=== PATIENT | female | born 1980 | race Two or more races ===

== ENCOUNTER 2020-12-12 15:19 | Outpatient (REF) | payer OTHER, SELFPAY | END 2020-12-12 15:20 | disposition home or self-care (01) | LOC: HO.LAB 15:19 | PROVIDERS: Visit Provider Internal Medicine | DX: Z20.822 Contact with and (suspected) exposure to COVID-19 (principal) | CPT/HCPCS: 36415; C9803; U0003 ==

== ENCOUNTER 2020-12-18 12:35 | Emergency (ER) | payer OTHER, SELFPAY ==
--- NOTE | 2020-12-18 12:55 | ECG_ITS ---
Test Reason : CP Blood Pressure : / mmHG Vent. Rate : 095 BPM Atrial Rate : 095 BPM P-R Int : 146 ms QRS Dur : 074 ms QT Int : 334 ms P-R-T Axes : 016 005 002 degrees QTc Int : 419 ms Normal sinus rhythm Minimal voltage criteria for LVH, may be normal variant Borderline ECG When compared with ECG of 15-APR-2019 12:44, Vent. rate has increased BY 39 BPM QT has lengthened Referred By: Didi Acuña Electronically Signed By:DAWSON WOODARD
--- NOTE | 2020-12-18 12:56 | XR_ITS ---
EXAMINATION: XR CHEST CLINICAL INFORMATION: Chest pain. Covid positive. COMPARISON: None TECHNIQUE: Frontal view of the chest was obtained. FINDINGS: There is minimal patchy opacity in the right lower lung. The lungs are otherwise clear. The pleural spaces are clear. The heart and mediastinal structures are normal. XR/XR chest 1V IMPRESSION: Minimal patchy opacity right lung base.
--- NOTE | 2020-12-18 12:58 | ED.CHESTPAIN ---
HPI - Chest Pain General Chief Complaint: Upper Respiratory Symptoms Stated Complaint: chest pain Time Seen by Provider: 12/18/20 12:55 Source: patient Mode of arrival: ambulatory Limitations: no limitations History of Present Illness HPI narrative: 40 y/o female with history of asthma, anxiety, IBS, palpitations, HLD, hx UTI & GERD who was just diagnosed with COVID-19 on 12/12 presents to the ED with complaints of chest pain, back pain, persistent cough and body aches worsening over the last week. She states the chest pain is constant but is worse with coughing and deep breathing. She states her cough is dry and worse at night. She has not had any fevers but admits to chills. Her entire back is sore and she has been taking Tylenol with no improvement. She reports GONZALEZ more than usual and she has been using her inhaler without improvement. MD complaint: chest pain Pertinent past history: asthma Onset (ago): week(s) (1) Timing of current episode: constant Prior episodes: No Onset: during rest and during exertion Pain location: left chest and right chest Pain radiation: none Severity: moderate Quality: aching and heaviness Relieving factors: nothing Exacerbating factors: inspiration, palpation, movement and other (coughing) Context: recent illness Associated symptoms: nausea, dyspnea and cough Treatment prior to arrival: none Risk Factors Coronary artery disease risk factors: none Thoracic aortic dissection risk factors: none Related Data On Oral Contraceptives: No Home Medications Medication Instructions Recorded Confirmed loratadine 10 mg tablet 10 mg PO DAILY 12/14/20 12/14/20 lorazepam 0.5 mg tablet 0.5 mg PO BEDTIME PRN 12/14/20 12/14/20 Previous Rx's Medication Instructions Recorded albuterol sulfate 90 mcg/actuation 2 puff INHALATION Q6H PRN 30 Days 12/14/20 aerosol inhaler #8.5 g azithromycin [Zithromax Z-Jeremy] See Rx Instructions .ROUTE 12/18/20 .COMPLEX #6 tab hydrocodone-homatropine [Hycodan 5 ml PO Q6H PRN #60 ml 12/18/20 (with homatropine)] ondansetron HCl [Zofran] 4 mg PO Q8H PRN #10 tab 12/18/20 prednisone 40 mg PO DAILY #10 tab 12/18/20 Allergies Allergy/AdvReac Type Severity Reaction Status Date / Time No Known Allergies Allergy Verified 12/14/20 16:42 Review of Systems Review of Systems: Constitutional: No Fever, + Chills ENT/Mouth: + sore throat, No Rhinorrhea, No Swallowing Difficulty Cardiovascular: + Chest Pain, + SOB, No Orthopnea, No Edema Respiratory: + Cough, No Sputum, No Wheezing, + dyspnea Gastrointestinal: + Nausea, No Vomiting, No Diarrhea, No abdominal Pain Genitourinary: No Dysuria, No Urinary Frequency, No Hematuria Musculoskeletal: No joint pain, + Myalgias Skin: No Skin Lesions, No rash Neuro: No Weakness, No Numbness, No Dizziness, + Headache Heme/Lymph: No Bruising, No Lymphadenopathy PMFSH Past Medical History Attestation statement: The following information was validated with the patient. Medical History Asthma Irritable bowel syndrome (IBS) Mitochondrial cytopathy Palpitations Surgical History History of D&C History of mammogram History of myringotomy History of tonsillectomy and adenoidectomy Social History Social History (Updated 12/14/20 @ 16:02 by KANDACE Bolton) Alcohol intake: never Smoking Status: Never smoker Use of substances other than those prescribed or required for medical reasons: No Advance Directives: No Advance Directives Information Provided: No Physical Exam Vital Signs: Vital Signs: Last Vital Signs Temp 100.0 F 12/18/20 14:22 Pulse 101 H 12/18/20 14:22 Resp 19 12/18/20 14:22 BP 118/73 12/18/20 14:22 Pulse Ox 98 12/18/20 14:22 Body Mass Index 27.4 Appearance: Alert. Oriented X3. No acute distress. Eyes: Pupils equal, round and reactive to light. ENT: Pharynx normal. Neck: Normal inspection. Neck supple. CVS: tachycardic, regular rhythm. Pulses normal. mild anterior chest wall tenderness Respiratory: No respiratory distress. Breath sounds normal. No wheezing or rhonchi. Abdomen: Soft and nontender. +BS x4 Skin: Skin warm and dry. Normal skin color. Normal skin turgor. No rashes. Extremities: No lower extremity edema. Neuro: Oriented X 3. No motor deficit. No sensory deficit. Course Course Course Narrative: 40 y/o COVID positive female presenting with SOB, GONZALEZ, chest pain, back pain, cough worsening over 1 week. Non-toxic appearing on arrival, mildly tachycardic. Will get EKG and lab workup to r/o ACS and PE. Reevaluation(s) Reevaluation #1: CXR showing possible RLL infiltrate - will treat with Prednisone and Azithromycin givne asthma hx. DDIMER negative, reassuring against PE. Troponin 6, very low suspicion for ACS. Patient does not want to wait for a 3 hour repeat. Comfortable with discharge home. She was told if she develops any worsening symptoms or develops difficultly breathing to come back to the ER right away. MDM - Chest Pain Lab Data Result diagrams: 12/18/20 15:15 12/18/20 15:15 Labs: Lab Results 12/18/20 12/18/20 12/18/20 Range/Units 15:15 15:15 15:15 WBC 5.5 (4.8-10.8) X10*3/uL RBC 3.99 L (4.20-5.50) X10*6/uL Hgb 12.5 (12.0-16.0) g/dl Hct 36.1 L (37-47) % MCV 90.5 (80-98) fL MCH 31.3 (27.0-33.0) pg MCHC 34.6 (31.0-35.0) g/dl RDW 12.6 (11.0-16.0) % Plt Count 209 (160-400) X10*3/uL MPV 9.6 (9.4-12.3) fL Immature Gran % (Auto) 0.2 (0.0-0.4) % Neut % (Auto) 64.4 (45-73) % Lymph % (Auto) 27.3 (20-40) % [place] % (Auto) 7.5 (2-11) % Eos % (Auto) 0.4 (0-4) % Baso % (Auto) 0.2 (0-2) % Lymph # (Auto) 1.5 (1.2-4.9) X10*3/uL [place] # (Auto) 0.4 (0.1-1.2) X10*3/uL Eos # (Auto) 0.0 (0.0-0.4) X10*3/uL Baso # (Auto) 0.0 (0.0-0.2) X10*3/uL Abs Immat Gran (auto) 0.01 (0.00-0.03) X10*3/uL Absolute Neuts (auto) 3.5 (2.0-8.3) X10*3/uL Absolute Nucleated RBC 0.000 (0.0-0.012) X10*3/uL Nucleated RBC % (auto) 0.0 (0.0-0.2) /100WBC D-Dimer < 200 NG/ML Hold Blue Top SEE NOTE Sodium 140 (135-145) mmol/L Potassium 3.6 (3.3-5.1) mmol/l Chloride 104 (96-108) mmol/L Carbon Dioxide 23 (22-29) mmol/L Anion Gap 17 (12-20) BUN 13 (9-16) mg/dL Creatinine 0.76 (0.5-1.4) mg/dL Estim Creat Clear Calc 95.0 Estimated GFR > 60 Random Glucose 87 (60-115) mg/dL Calcium 8.3 L (8.4-10.2) mg/dL Magnesium 1.8 (1.6-2.6) mg/dL Total Bilirubin 0.4 (0.0-1.0) mg/dL Direct Bilirubin 0.2 (0.0-0.5) mg/dL AST 29 (5-31) U/L ALT 30 (0-31) U/L Alkaline Phosphatase 65 (39-117) U/L Troponin I High Sens (<3.5-17.0) ng/L C-Reactive Protein 3.43 H (< or = 0.50) mg/dL B-Natriuretic Peptide (<100) pg/mL Total Protein 7.5 (6.5-8.0) g/dL Albumin 4.3 (3.5-5.0) g/dL 12/18/20 Range/Units 15:15 WBC (4.8-10.8) X10*3/uL RBC (4.20-5.50) X10*6/uL Hgb (12.0-16.0) g/dl Hct (37-47) % MCV (80-98) fL MCH (27.0-33.0) pg MCHC (31.0-35.0) g/dl RDW (11.0-16.0) % Plt Count (160-400) X10*3/uL MPV (9.4-12.3) fL Immature Gran % (Auto) (0.0-0.4) % Neut % (Auto) (45-73) % Lymph % (Auto) (20-40) % [place] % (Auto) (2-11) % Eos % (Auto) (0-4) % Baso % (Auto) (0-2) % Lymph # (Auto) (1.2-4.9) X10*3/uL [place] # (Auto) (0.1-1.2) X10*3/uL Eos # (Auto) (0.0-0.4) X10*3/uL Baso # (Auto) (0.0-0.2) X10*3/uL Abs Immat Gran (auto) (0.00-0.03) X10*3/uL Absolute Neuts (auto) (2.0-8.3) X10*3/uL Absolute Nucleated RBC (0.0-0.012) X10*3/uL Nucleated RBC % (auto) (0.0-0.2) /100WBC D-Dimer NG/ML Hold Blue Top Sodium (135-145) mmol/L Potassium (3.3-5.1) mmol/l Chloride (96-108) mmol/L Carbon Dioxide (22-29) mmol/L Anion Gap (12-20) BUN (9-16) mg/dL Creatinine (0.5-1.4) mg/dL Estim Creat Clear Calc Estimated GFR Random Glucose (60-115) mg/dL Calcium (8.4-10.2) mg/dL Magnesium (1.6-2.6) mg/dL Total Bilirubin (0.0-1.0) mg/dL Direct Bilirubin (0.0-0.5) mg/dL AST (5-31) U/L ALT (0-31) U/L Alkaline Phosphatase (39-117) U/L Troponin I High Sens 6.2 (<3.5-17.0) ng/L C-Reactive Protein (< or = 0.50) mg/dL B-Natriuretic Peptide < 10 (<100) pg/mL Total Protein (6.5-8.0) g/dL Albumin (3.5-5.0) g/dL Discharge Plan Discharge Clinical Impression: COVID-19 Pneumonia Qualifiers: Pneumonia type: due to unspecified organism Laterality: right Lung location: lower lobe of lung Qualified Code(s): J18.9 - Pneumonia, unspecified organism Patient Disposition: Home, Self-Care Instructions: Pneumonia (ED), COVID-19 (Coronavirus Disease 2019) (ED) Additional Instructions: Your x-ray today showed possible small pneumonia at the bottom of your right lung. You are being started on antibiotics and steroids for this. Your oxygen levels were normal. Take Tylenol and/or Motrin as needed for body aches and fevers. Take over the counter cold/flu medications as needed for your symptoms. Follow up with your doctor this week. If you develop worsening chest pain, shortness of breath or develop difficulty breathing or any other concerning symptom come back to the ER for further evaluation. Prescriptions: New azithromycin [Zithromax Z-Jeremy] 250 mg tablet See Rx Instructions .ROUTE .COMPLEX Qty: 6 RF: 0 prednisone 20 mg tablet 40 mg PO DAILY Qty: 10 RF: 0 hydrocodone-homatropine [Hycodan (with homatropine)] 5-1.5 mg/5 mL syrup 5 ml PO Q6H PRN (Reason: cough) Qty: 60 RF: 0 ondansetron HCl [Zofran] 4 mg tablet 4 mg PO Q8H PRN (Reason: nausea and vomiting) Qty: 10 RF: 0 No Action lorazepam 0.5 mg tablet 0.5 mg PO BEDTIME PRN (Reason: anxiety) RF: 0 loratadine 10 mg tablet 10 mg PO DAILY RF: 0 albuterol sulfate [Ventolin HFA] 90 mcg/actuation HFA aerosol inhaler 2 puff inhalation Q6H PRN (Reason: shortness of breath or wheezing) 30 Days Qty: 8.5 RF: 5
[2020-12-18 14:22] VITALS: BP 118/73; PULSE 101; RESP 19; TEMP 37.8; O2SAT 98; BMI 27.4
[2020-12-18 15:35] LABS: MANUAL DIFF FLAG NO
[2020-12-18 15:36] LABS: Basophils Percent Auto 0.2 % (0-2); Eosinophils Percent Auto 0.4 % (0-4); Hematocrit 36.1 % (37-47); Hemoglobin 12.5 g/dl (12.0-16.0); Imm Gran Abs Auto 0.01 X10*3/uL (0.00-0.03); Imm Gran Pct Auto 0.2 % (0.0-0.4); Lymphocytes Absolute Auto 1.5 X10*3/uL (1.2-4.9); Lymphocytes Percent Auto 27.3 % (20-40); Mean Corpuscular HGB Conc 34.6 g/dl (31.0-35.0); Mean Corpuscular Hemoglobin 31.3 pg (27.0-33.0); Mean Corpuscular Volume 90.5 fL (80-98); Mean Platelet Volume 9.6 fL (9.4-12.3); Monocytes Absolute Auto 0.4 X10*3/uL (0.1-1.2); Monocytes Percent Auto 7.5 % (2-11); Neutrophils Absolute Auto 3.5 X10*3/uL (2.0-8.3); Neutrophils Percent Auto 64.4 % (45-73); Platelet Count 209 X10*3/uL (160-400); Red Blood Count 3.99 X10*6/uL (4.20-5.50); Red Cell Distribution Width 12.6 % (11.0-16.0); White Blood Count 5.5 X10*3/uL (4.8-10.8)
[2020-12-18] MEDS: Benzonatate 100 MG CAPSULE 200 MG PO (15:41)
[2020-12-18] MEDS: Acetaminophen 325 MG TABLET 650 MG PO (15:41)
[2020-12-18] MEDS: predniSONE 20 MG TABLET 40 MG PO (15:41)
[2020-12-18 15:53] LABS: D Dimer < 200 NG/ML
[2020-12-18 16:05] LABS: Alanine Aminotransferase 30 U/L (0-31); Albumin Level 4.3 g/dL (3.5-5.0); Alkaline Phosphatase 65 U/L (39-117); Anion Gap 17 (12-20); Aspartate Amino Transferase 29 U/L (5-31); Bilirubin Direct 0.2 mg/dL (0.0-0.5); Bilirubin Total 0.4 mg/dL (0.0-1.0); Blood Urea Nitrogen 13 mg/dL (9-16); C Reactive Protein 3.43 mg/dL (< or = 0.50); Calcium 8.3 mg/dL (8.4-10.2); Carbon Dioxide 23 mmol/L (22-29); Chloride 104 mmol/L (96-108); Estimated Glomerular Filt Rate > 60; Glucose Random 87 mg/dL (60-115); Magnesium 1.8 mg/dL (1.6-2.6); Potassium 3.6 mmol/l (3.3-5.1); Sodium 140 mmol/L (135-145); Total Protein 7.5 g/dL (6.5-8.0)
[2020-12-18 16:09] LABS: B Type Natriuretic Peptide < 10 pg/mL (<100); Troponin-I High Sensitivity 6.2 ng/L (<3.5-17.0)
[2020-12-18 16:58] LABS: Procalcitonin 0.04 ng/mL
== END 2020-12-18 16:26 | disposition home or self-care (01) ==
PROVIDERS: Physician Assistant; Emergency Provider Emergency Medicine Emergency Medical Services; PCP Internal Medicine
DX: U07.1 COVID-19 (principal); J18.9 Pneumonia, unspecified organism; R07.9 Chest pain, unspecified; Z79.899 Other long term (current) drug therapy
CPT/HCPCS: 36415; 71045; 80048; 80076; 83735; 83880; 84145; 84484; 85025; 85379; 86140; 93005; 99283

== ENCOUNTER 2021-03-17 15:47 | Outpatient (REF) | payer OTHER, SELFPAY | END 2021-03-17 15:48 | disposition home or self-care (01) | LOC: HO.LAB 15:47 | PROVIDERS: Visit Provider Internal Medicine | DX: Z20.822 Contact with and (suspected) exposure to COVID-19 (principal) | CPT/HCPCS: C9803; U0003; U0005 ==

== ENCOUNTER 2021-05-03 | Outpatient (REF) | payer OTHER, SELFPAY | END 2021-05-03 00:01 | disposition home or self-care (01) | LOC: HO.LNP | PROVIDERS: Visit Provider Hospitalist | DX: R30.0 Dysuria (principal) | CPT/HCPCS: 87086 ==

== ENCOUNTER 2021-05-05 15:17 | Emergency (ER) | payer OTHER, SELFPAY ==
--- NOTE | ~2021-05-05 | CT_ITS ---
EXAMINATION: CT ABDOMEN AND PELVIS WITHOUT CONTRAST CLINICAL INFORMATION: Right-sided flank pain x1 week with lower abdominal pain COMPARISON: None TECHNIQUE: Multidetector volumetric imaging was performed from the superior aspect of the liver through the pubic symphysis. Sagittal and coronal reformatted images were obtained on the technologist's workstation. This CT examination was performed using dose optimization techniques as appropriate, variously including the following: *Automated exposure control *Adjustment of mA and/or kV according to patient size (this includes techniques or standardized protocols for targeted exams where dose is matched to indication/reason for exam; i.e. extremities or head) *Use of iterative reconstruction technique DLP: 461 mGy-cm FINDINGS: LUNG BASES: The visualized lung bases are unremarkable. LIVER, GALLBLADDER, AND BILIARY TREE: The liver is normal in size, shape, and attenuation. No focal hepatic lesion or biliary ductal dilatation is present. The gallbladder is unremarkable with no evidence of radiopaque gallstones, gallbladder wall thickening, or obvious pericholecystic inflammatory changes. PANCREAS: Unremarkable. SPLEEN: Unremarkable. ADRENAL GLANDS: Unremarkable. KIDNEYS AND URETERS: The kidneys are normal in size, shape, and attenuation. No hydronephrosis, hydroureter, or calculi seen. No perinephric stranding. BLADDER: There is a tiny punctate 1 to 2 mm sized calculus which is layering posteriorly in the midline in the bladder, which may have come from the upper tracts. Alternatively, this could represent a tiny area of calcification within the wall of the bladder. GASTROINTESTINAL TRACT: A small hiatal hernia is present The small and large bowel are unremarkable. The appendix is not seen but there is no evidence of appendicitis. ABDOMINAL WALL: No significant hernia is appreciated. LYMPH NODES: No retroperitoneal lymphadenopathy seen VASCULAR: Unremarkable. PELVIC VISCERA: An anteverted uterus is present. An abnormal adnexal mass or free intraperitoneal fluid is not seen. OSSEOUS STRUCTURES: Unremarkable. CT/CT abdomen pelvis wo con IMPRESSION: There appears to be a tiny calculus in the bladder. Perhaps this was causing the patient's right flank pain and the tiny stone is now in the bladder causing irritative symptoms. No other abnormalities are seen.
[2021-05-05 16:10] VITALS: BP 124/73; PULSE 68; RESP 16; TEMP 37.1; O2SAT 99; BMI 25.7
[2021-05-05 16:51] LABS: Glucose Urine UA NEG (NEG); Leukocyte Esterase Urine NEG (NEG); Nitrite Urine NEG (NEG); Specific Gravity - Urine <= 1.005 (1.005-1.025); Urine Blood NEG (NEG); Urine Ketones NEG (NEG); Urine Protein NEG (NEG-TRACE)
[2021-05-05 17:05] LABS: Appearance Urine CLEAR; Color Urine YELLOW
[2021-05-05 17:08] LABS: RBC Urine 0-2 /HPF (0); Squamous Epithelial Cell Urine TRACE /LPF; WBC Urine 0-2 /HPF (0-4)
--- NOTE | 2021-05-05 17:13 | ED.FEMALEGU ---
HPI - Female Genitourinary General Chief complaint: Urogenital-Female <YIAN Deal - Last Filed: 05/05/21 17:43> Stated complaint: UTI? <YINA Deal - Last Filed: 05/05/21 17:43> Time Seen by Provider: 05/05/21 16:57 <YINA Deal - Last Filed: 05/05/21 17:43> Source: patient and old records reviewed <YINA Deal Last Filed: 05/05/21 17:43> Mode of arrival: ambulatory <YINA Deal Last Filed: 05/05/21 17:43> Limitations: no limitations <YINA Deal Last Filed: 05/05/21 17:43> History of Present Illness HPI Narrative: 40 y/o female with history of asthma, genital herpes, who presents to the ER with right flank pain and lower abdominal pain x1 week. She denies trauma or injury. She was seen at the clinic on 05/03 with lower abdominal pain when she urinates. Her urine was negative but she was prescribed Ciprofloxacin pending urine culture. She denies dysuria. She has been taking Motrin and Tylenol with no improvement. She states the most bothersome pain is on her right flank. It is constant and throbbing but intensifies when she stands up for too long. Not worse with movement but worse with palpation. She also reports suprapubic pain when she urinates, no burning urination. No fever, chills, N/V/D. No RUQ pain. She is not sexually active. <YINA Deal - Last Filed: 05/05/21 17:43> MD elicited complaint: flank pain <YINA Deal Last Filed: 05/05/21 17:43> Pertinent past history: STI/STD <YINA Deal Last Filed: 05/05/21 17:43> Onset (ago): week(s) (1) <YINA Deal Last Filed: 05/05/21 17:43> Location of symptoms: flank <YINA Deal Last Filed: 05/05/21 17:43> Severity: moderate <YINA Deal - Last Filed: 05/05/21 17:43> Female Urogenital Radiation: Suprapubic <YINA Deal - Last Filed: 05/05/21 17:43> Severity scale (1-10): 7 <YINA Deal - Last Filed: 05/05/21 17:43> Quality of pain: sharp and stabbing <YINA Deal - Last Filed: 05/05/21 17:43> Consistency: constant <YINA Deal - Last Filed: 05/05/21 17:43> Vaginal discharge: none <YINA Deal - Last Filed: 05/05/21 17:43> Vaginal bleeding: none <YINA Deal - Last Filed: 05/05/21 17:43> Urinary symptoms: Urgency, Frequency and Flank Pain <YINA Deal - Last Filed: 05/05/21 17:43> Exacerbating factors: urination <YINA Deal - Last Filed: 05/05/21 17:43> Relieving factors: none <YINA Deal - Last Filed: 05/05/21 17:43> Associated symptoms: abdominal pain <YINA Deal - Last Filed: 05/05/21 17:43> Treatment prior to arrival: none <YINA Deal - Last Filed: 05/05/21 17:43> Sexual activity: No <YINA Deal - Last Filed: 05/05/21 17:43> Patient : No <YINA Deal - Last Filed: 05/05/21 17:43> Related Data Home medications: Previous Rx's Medication Instructions Recorded azithromycin [Zithromax Z-Jeremy] See Rx Instructions .ROUTE 12/18/20 .COMPLEX #6 tab ondansetron HCl [Zofran] 4 mg PO Q8H PRN #10 tab 12/18/20 prednisone 40 mg PO DAILY #10 tab 12/18/20 hydrocodone-homatropine [Hycodan 5 ml PO Q6H PRN #60 ml 12/19/20 (with homatropine)] albuterol sulfate 90 mcg/actuation 2 puff INHALATION Q6H PRN 30 Days 04/03/21 aerosol inhaler #8.5 g loratadine 10 mg tablet 10 mg PO DAILY PRN 30 Days #30 tab 04/04/21 lorazepam 0.5 mg tablet 0.5 mg PO BEDTIME PRN 30 Days #30 04/04/21 tab cyclobenzaprine 5 mg tablet 5 mg PO TID PRN 10 Days #30 tab 05/01/21 ciprofloxacin HCl 500 mg tablet 500 mg PO BID #14 tab 05/03/21 acetaminophen [Tylenol Extra 1,000 mg PO QID PRN #14 tab 05/05/21 Strength] ibuprofen 800 mg PO Q8H PRN #14 tab 05/05/21 ondansetron HCl [Zofran] 4 mg PO Q8H PRN #14 tab 05/05/21 oxycodone 5 mg PO BID PRN #10 tab 05/05/21 prednisone 40 mg PO DAILY 5 Days #10 tab 05/05/21 tamsulosin [Flomax] 0.4 mg PO DAILY 5 Days #5 cap 05/05/21 <YINA Deal - Last Filed: 05/05/21 17:43> Allergies/Adverse reactions: Allergies Allergy/AdvReac Type Severity Reaction Status Date / Time No Known Allergies Allergy Verified 05/03/21 16:09 <YINA Deal - Last Filed: 05/05/21 17:43> Review of Systems Review of Systems: Constitutional: No Fever, No Chills Cardiovascular: No Chest Pain, No SOB Respiratory: No Cough, No Sputum Gastrointestinal: No Nausea, No Vomiting, No Diarrhea, + abdominal Pain Genitourinary: No Dysuria, + Urinary Frequency, No Hematuria Musculoskeletal: No joint pain, No Myalgias Skin: No Skin Lesions, No rash Neuro: No Weakness, No Numbness, No Dizziness, No Headache Psych: No Anxiety/Panic, No Depression Heme/Lymph: No Bruising, No Lymphadenopathy Endocrine: No Polyuria, No Polydipsia <YINA Deal - Last Filed: 05/05/21 17:43> [facility] Past Medical History Medical History: Medical History Asthma Irritable bowel syndrome (IBS) Mitochondrial cytopathy Palpitations <YINA Deal - Last Filed: 05/05/21 17:43> Surgical History: Surgical History History of D&C History of mammogram History of myringotomy History of tonsillectomy and adenoidectomy <YINA Deal - Last Filed: 05/05/21 17:43> Social History Social History: Social History Alcohol intake: never Advance Directives: No Advance Directives Information Provided: No Patient : No <YINA Deal - Last Filed: 05/05/21 17:43> Physical Exam Vital Signs: Vital Signs: Last Vital Signs Temp 98.7 F 05/05/21 16:10 Pulse 68 05/05/21 16:10 Resp 16 05/05/21 16:10 BP 124/73 05/05/21 16:10 Pulse Ox 99 05/05/21 16:10 Body Mass Index 25.7 Appearance: Alert. Oriented X3. No acute distress. Eyes: Pupils equal, round and reactive to light. ENT: Pharynx normal. Neck: Normal inspection. Neck supple. CVS: Normal heart rate and rhythm. Pulses normal. Respiratory: No respiratory distress. Breath sounds normal. Abdomen: Soft with mild suprapubic tenderness, +BS x4 + CVA tenderness on the right. Skin: Skin warm and dry. Normal skin color. Normal skin turgor. No rashes. Extremities: No lower extremity edema. Neuro: Oriented X 3. No motor deficit. No sensory deficit. <YINA Deal - Last Filed: 05/05/21 17:43> Vital Signs: Last Vital Signs Temp 98.7 F 05/05/21 16:10 Pulse 68 05/05/21 16:10 Resp 16 05/05/21 16:10 BP 124/73 05/05/21 16:10 Pulse Ox 99 05/05/21 16:10 Body Mass Index 25.7 <YINA Mccray - Last Filed: 05/05/21 19:24> Course Course Course Narrative: 40 y/o female presenting with right flank pain x1 week along with suprapubic pain when she urinates. No dysuria. UA is negative at clinic, compliant with Cipro. UA is also negative here. Given her tenderness in the right CVA area as well as lower abdomen, will get labs and CT scan for further evaluation. She is not sexually active, low suspicion for PID or STI. <YINA Deal - Last Filed: 05/05/21 17:43> Reevaluation(s) Reevaluation #1: CT performed, awaiting read and labs. Signed out to Janet Castellano PA-C who will f/u results and dispo patient. Anticipate d/c home. <YINA Deal Last Filed: 05/05/21 17:43> - signed out from MERRY Tolbert pending labs and CT scan abdomen pelvis. Labs returned all within normal limits. UA within normal limits no evidence of UTI. CT scan of abdomen and pelvis revealed a tiny calculus in the bladder therefore most likely this was a kidney stone. - will DC home with symptomatic treatment along with instructions to return if any new or worsening symptoms and referral to Dr. Hernandez the urologist and to follow up with primary care provider. Patient was given a copy of her CT scan results to take home she understands agrees with this plan. <YINA Mccray - Last Filed: 05/05/21 19:24> Time: 19:18 <YINA Mccray - Last Filed: 05/05/21 19:24> MDM - Female Genitourinary Medical Records Attestation: I reviewed the patient's medical records. <YINA Mccray Last Filed: 05/05/21 19:24> Lab Data Attestation: I reviewed the patient's lab results. <YINA Mccray Last Filed: 05/05/21 19:24> Result diagrams: : 05/05/21 18:16 05/05/21 18:16 <YINA Deal Last Filed: 05/05/21 17:43> Labs: Lab Results 05/05/21 05/05/21 05/05/21 Range/Units 16:38 17:05 18:16 WBC 7.4 (4.8-10.8) X10*3/uL RBC 4.03 L (4.20-5.50) X10*6/uL Hgb 12.8 (12.0-16.0) g/dl Hct 36.8 L (37-47) % MCV 91.3 (80-98) fL MCH 31.8 (27.0-33.0) pg MCHC 34.8 (31.0-35.0) g/dl RDW 12.6 (11.0-16.0) % Plt Count 252 (160-400) X10*3/uL MPV 9.1 L (9.4-12.3) fL Immature Gran % (Auto) 0.3 (0.0-0.4) % Neut % (Auto) 48.6 (45-73) % Lymph % (Auto) 38.3 (20-40) % [place] % (Auto) 8.9 (2-11) % Eos % (Auto) 3.6 (0-4) % Baso % (Auto) 0.3 (0-2) % Lymph # (Auto) 2.8 (1.2-4.9) X10*3/uL [place] # (Auto) 0.7 (0.1-1.2) X10*3/uL Eos # (Auto) 0.3 (0.0-0.4) X10*3/uL Baso # (Auto) 0.0 (0.0-0.2) X10*3/uL Abs Immat Gran (auto) 0.02 (0.00-0.03) X10*3/uL Absolute Neuts (auto) 3.6 (2.0-8.3) X10*3/uL Absolute Nucleated RBC 0.000 (0.0-0.012) X10*3/uL Nucleated RBC % (auto) 0.0 (0.0-0.2) /100WBC Hold Blue Top Sodium (135-145) mmol/L Potassium (3.3-5.1) mmol/L Chloride (96-108) mmol/L Carbon Dioxide (22-29) mmol/L Anion Gap (12-20) BUN (9-16) mg/dL Creatinine (0.5-1.4) mg/dL Estim Creat Clear Calc Estimated GFR Random Glucose (60-115) mg/dL Calcium (8.4-10.2) mg/dL Total Bilirubin (0.0-1.0) mg/dL Direct Bilirubin (0.0-0.5) mg/dL AST (5-31) U/L ALT (0-31) U/L Alkaline Phosphatase (39-117) U/L Total Protein (6.5-8.0) g/dL Albumin (3.5-5.0) g/dL Lipase (8-78) U/L Urine Color YELLOW Urine Appearance CLEAR Urine pH 6.0 (5.0-8.0) Ur Specific [place] <= 1.005 (1.005-1.025) Urine Protein NEG (NEG-TRACE) MG/DL Urine Glucose (UA) NEG (NEG) MG/DL Urine Ketones NEG (NEG) MG/DL Urine Blood NEG (NEG) Urine Nitrite NEG (NEG) Ur Leukocyte Esterase NEG (NEG) Urine RBC 0-2 (0) /HPF Urine WBC 0-2 (0-4) /HPF Ur Squamous Epith Cells TRACE /LPF Urine Bacteria NONE /LPF Urine Test Cancelled 05/05/21 05/05/21 Range/Units 18:16 18:16 WBC (4.8-10.8) X10*3/uL RBC (4.20-5.50) X10*6/uL Hgb (12.0-16.0) g/dl Hct (37-47) % MCV (80-98) fL MCH (27.0-33.0) pg MCHC (31.0-35.0) g/dl RDW (11.0-16.0) % Plt Count (160-400) X10*3/uL MPV (9.4-12.3) fL Immature Gran % (Auto) (0.0-0.4) % Neut % (Auto) (45-73) % Lymph % (Auto) (20-40) % [place] % (Auto) (2-11) % Eos % (Auto) (0-4) % Baso % (Auto) (0-2) % Lymph # (Auto) (1.2-4.9) X10*3/uL [place] # (Auto) (0.1-1.2) X10*3/uL Eos # (Auto) (0.0-0.4) X10*3/uL Baso # (Auto) (0.0-0.2) X10*3/uL Abs Immat Gran (auto) (0.00-0.03) X10*3/uL Absolute Neuts (auto) (2.0-8.3) X10*3/uL Absolute Nucleated RBC (0.0-0.012) X10*3/uL Nucleated RBC % (auto) (0.0-0.2) /100WBC Hold Blue Top SEE NOTE Sodium 140 (135-145) mmol/L Potassium 4.4 (3.3-5.1) mmol/L Chloride 106 (96-108) mmol/L Carbon Dioxide 24 (22-29) mmol/L Anion Gap 14 (12-20) BUN 16 (9-16) mg/dL Creatinine 0.77 (0.5-1.4) mg/dL Estim Creat Clear Calc 94.5 Estimated GFR > 60 Random Glucose 84 (60-115) mg/dL Calcium 9.5 D (8.4-10.2) mg/dL Total Bilirubin 0.8 (0.0-1.0) mg/dL Direct Bilirubin 0.2 (0.0-0.5) mg/dL AST 12 D (5-31) U/L ALT 6 (0-31) U/L Alkaline Phosphatase 50 D (39-117) U/L Total Protein 7.1 (6.5-8.0) g/dL Albumin 4.1 (3.5-5.0) g/dL Lipase 38 (8-78) U/L Urine Color Urine Appearance Urine pH (5.0-8.0) Ur Specific [place] (1.005-1.025) Urine Protein (NEG-TRACE) MG/DL Urine Glucose (UA) (NEG) MG/DL Urine Ketones (NEG) MG/DL Urine Blood (NEG) Urine Nitrite (NEG) Ur Leukocyte Esterase (NEG) Urine RBC (0) /HPF Urine WBC (0-4) /HPF Ur Squamous Epith Cells /LPF Urine Bacteria /LPF Urine Test <YINA Deal - Last Filed: 05/05/21 17:43> Lab Results 05/05/21 05/05/21 05/05/21 Range/Units 16:38 17:05 18:16 WBC 7.4 (4.8-10.8) X10*3/uL RBC 4.03 L (4.20-5.50) X10*6/uL Hgb 12.8 (12.0-16.0) g/dl Hct 36.8 L (37-47) % MCV 91.3 (80-98) fL MCH 31.8 (27.0-33.0) pg MCHC 34.8 (31.0-35.0) g/dl RDW 12.6 (11.0-16.0) % Plt Count 252 (160-400) X10*3/uL MPV 9.1 L (9.4-12.3) fL Immature Gran % (Auto) 0.3 (0.0-0.4) % Neut % (Auto) 48.6 (45-73) % Lymph % (Auto) 38.3 (20-40) % [place] % (Auto) 8.9 (2-11) % Eos % (Auto) 3.6 (0-4) % Baso % (Auto) 0.3 (0-2) % Lymph # (Auto) 2.8 (1.2-4.9) X10*3/uL [place] # (Auto) 0.7 (0.1-1.2) X10*3/uL Eos # (Auto) 0.3 (0.0-0.4) X10*3/uL Baso # (Auto) 0.0 (0.0-0.2) X10*3/uL Abs Immat Gran (auto) 0.02 (0.00-0.03) X10*3/uL Absolute Neuts (auto) 3.6 (2.0-8.3) X10*3/uL Absolute Nucleated RBC 0.000 (0.0-0.012) X10*3/uL Nucleated RBC % (auto) 0.0 (0.0-0.2) /100WBC Hold Blue Top Sodium (135-145) mmol/L Potassium (3.3-5.1) mmol/L Chloride (96-108) mmol/L Carbon Dioxide (22-29) mmol/L Anion Gap (12-20) BUN (9-16) mg/dL Creatinine (0.5-1.4) mg/dL Estim Creat Clear Calc Estimated GFR Random Glucose (60-115) mg/dL Calcium (8.4-10.2) mg/dL Total Bilirubin (0.0-1.0) mg/dL Direct Bilirubin (0.0-0.5) mg/dL AST (5-31) U/L ALT (0-31) U/L Alkaline Phosphatase (39-117) U/L Total Protein (6.5-8.0) g/dL Albumin (3.5-5.0) g/dL Lipase (8-78) U/L Urine Color YELLOW Urine Appearance CLEAR Urine pH 6.0 (5.0-8.0) Ur Specific [place] <= 1.005 (1.005-1.025) Urine Protein NEG (NEG-TRACE) MG/DL Urine Glucose (UA) NEG (NEG) MG/DL Urine Ketones NEG (NEG) MG/DL Urine Blood NEG (NEG) Urine Nitrite NEG (NEG) Ur Leukocyte Esterase NEG (NEG) Urine RBC 0-2 (0) /HPF Urine WBC 0-2 (0-4) /HPF Ur Squamous Epith Cells TRACE /LPF Urine Bacteria NONE /LPF Urine Test Cancelled 05/05/21 05/05/21 Range/Units 18:16 18:16 WBC (4.8-10.8) X10*3/uL RBC (4.20-5.50) X10*6/uL Hgb (12.0-16.0) g/dl Hct (37-47) % MCV (80-98) fL MCH (27.0-33.0) pg MCHC (31.0-35.0) g/dl RDW (11.0-16.0) % Plt Count (160-400) X10*3/uL MPV (9.4-12.3) fL Immature Gran % (Auto) (0.0-0.4) % Neut % (Auto) (45-73) % Lymph % (Auto) (20-40) % [place] % (Auto) (2-11) % Eos % (Auto) (0-4) % Baso % (Auto) (0-2) % Lymph # (Auto) (1.2-4.9) X10*3/uL [place] # (Auto) (0.1-1.2) X10*3/uL Eos # (Auto) (0.0-0.4) X10*3/uL Baso # (Auto) (0.0-0.2) X10*3/uL Abs Immat Gran (auto) (0.00-0.03) X10*3/uL Absolute Neuts (auto) (2.0-8.3) X10*3/uL Absolute Nucleated RBC (0.0-0.012) X10*3/uL Nucleated RBC % (auto) (0.0-0.2) /100WBC Hold Blue Top SEE NOTE Sodium 140 (135-145) mmol/L Potassium 4.4 (3.3-5.1) mmol/L Chloride 106 (96-108) mmol/L Carbon Dioxide 24 (22-29) mmol/L Anion Gap 14 (12-20) BUN 16 (9-16) mg/dL Creatinine 0.77 (0.5-1.4) mg/dL Estim Creat Clear Calc 94.5 Estimated GFR > 60 Random Glucose 84 (60-115) mg/dL Calcium 9.5 D (8.4-10.2) mg/dL Total Bilirubin 0.8 (0.0-1.0) mg/dL Direct Bilirubin 0.2 (0.0-0.5) mg/dL AST 12 D (5-31) U/L ALT 6 (0-31) U/L Alkaline Phosphatase 50 D (39-117) U/L Total Protein 7.1 (6.5-8.0) g/dL Albumin 4.1 (3.5-5.0) g/dL Lipase 38 (8-78) U/L Urine Color Urine Appearance Urine pH (5.0-8.0) Ur Specific [place] (1.005-1.025) Urine Protein (NEG-TRACE) MG/DL Urine Glucose (UA) (NEG) MG/DL Urine Ketones (NEG) MG/DL Urine Blood (NEG) Urine Nitrite (NEG) Ur Leukocyte Esterase (NEG) Urine RBC (0) /HPF Urine WBC (0-4) /HPF Ur Squamous Epith Cells /LPF Urine Bacteria /LPF Urine Test <YINA Mccray - Last Filed: 05/05/21 19:24> Imaging Data CT scan of abdomen and pelvis : Attestation: I personally reviewed and interpreted this imaging study as follows: <YINA Mccray - Last Filed: 05/05/21 19:24> Radiologist's impression: FINDINGS: LUNG BASES: The visualized lung bases are unremarkable. LIVER, GALLBLADDER, AND BILIARY TREE: The liver is normal in size, shape, and attenuation. No focal hepatic lesion or biliary ductal dilatation is present. The gallbladder is unremarkable with no evidence of radiopaque gallstones, gallbladder wall thickening, or obvious pericholecystic inflammatory changes. PANCREAS: Unremarkable. SPLEEN: Unremarkable. ADRENAL GLANDS: Unremarkable. KIDNEYS AND URETERS: The kidneys are normal in size, shape, and attenuation. No hydronephrosis, hydroureter, or calculi seen. No perinephric stranding. BLADDER: There is a tiny punctate 1 to 2 mm sized calculus which is layering posteriorly in the midline in the bladder, which may have come from the upper tracts. Alternatively, this could represent a tiny area of calcification within the wall of the bladder. GASTROINTESTINAL TRACT: A small hiatal hernia is present The small and large bowel are unremarkable. The appendix is not seen but there is no evidence of appendicitis. ABDOMINAL WALL: No significant hernia is appreciated. LYMPH NODES: No retroperitoneal lymphadenopathy seen VASCULAR: Unremarkable. PELVIC VISCERA: An anteverted uterus is present. An abnormal adnexal mass or free intraperitoneal fluid is not seen. OSSEOUS STRUCTURES: Unremarkable. CT/CT abdomen pelvis wo con IMPRESSION: There appears to be a tiny calculus in the bladder. Perhaps this was causing the patient's right flank pain and the tiny stone is now in the bladder causing irritative symptoms. No other abnormalities are seen. <YINA Mccray - Last Filed: 05/05/21 19:24> Discharge Plan Discharge Clinical Impression: Bladder calculus <YINA Deal - Last Filed: 05/05/21 17:43> Patient Disposition: Home, Self-Care <YINA Deal - Last Filed: 05/05/21 17:43> Instructions: Kidney Stones (ED), Ureteral Stones (ED) <YINA Deal - Last Filed: 05/05/21 17:43> Prescriptions: New ibuprofen 800 mg tablet 800 mg PO Q8H PRN (Reason: pain) Qty: 14 RF: 0 ondansetron HCl [Zofran] 4 mg tablet 4 mg PO Q8H PRN (Reason: nausea and vomiting) Qty: 14 RF: 0 prednisone 20 mg tablet 40 mg PO DAILY 5 Days Qty: 10 RF: 0 acetaminophen [Tylenol Extra Strength] 500 mg tablet 1,000 mg PO QID PRN (Reason: fever or pain) Qty: 14 RF: 0 oxycodone 5 mg tablet 5 mg PO BID PRN (Reason: pain) Qty: 10 RF: 0 tamsulosin [Flomax] 0.4 mg capsule 0.4 mg PO DAILY 5 Days Qty: 5 RF: 0 No Action albuterol sulfate [Ventolin HFA] 90 mcg/actuation HFA aerosol inhaler 2 puff inhalation Q6H PRN (Reason: shortness of breath or wheezing) 30 Days Qty: 8.5 RF: 5 lorazepam 0.5 mg tablet 0.5 mg PO BEDTIME PRN (Reason: anxiety) 30 Days Qty: 30 RF: 0 loratadine 10 mg tablet 10 mg PO DAILY PRN (Reason: allergy symptoms) 30 Days Qty: 30 RF: 5 cyclobenzaprine 5 mg tablet 5 mg PO TID PRN (Reason: muscle spasm/back pain) 10 Days Qty: 30 RF: 0 azithromycin [Zithromax Z-Jeremy] 250 mg tablet See Rx Instructions .ROUTE .COMPLEX Qty: 6 RF: 0 prednisone 20 mg tablet 40 mg PO DAILY Qty: 10 RF: 0 ondansetron HCl [Zofran] 4 mg tablet 4 mg PO Q8H PRN (Reason: nausea and vomiting) Qty: 10 RF: 0 hydrocodone-homatropine [Hycodan (with homatropine)] 5-1.5 mg/5 mL syrup 5 ml PO Q6H PRN (Reason: cough) Qty: 60 RF: 0 ciprofloxacin HCl [Cipro] 500 mg tablet 500 mg PO BID Qty: 14 RF: 0 <YINA Deal - Last Filed: 05/05/21 17:43> Referrals: Ronen Holly MD [Primary Care Provider] - 2 days Luis Hernandez MD [Physician] - 2 days <YINA Deal - Last Filed: 05/05/21 17:43> Stand Alone Forms: Work/School Release <YINA Deal - Last Filed: 05/05/21 17:43> Print Language: Syriac <YINA Deal - Last Filed: 05/05/21 17:43>
[2021-05-05 18:24] LABS: MANUAL DIFF FLAG NO
[2021-05-05 18:25] LABS: Basophils Percent Auto 0.3 % (0-2); Eosinophils Absolute Auto 0.3 X10*3/uL (0.0-0.4); Eosinophils Percent Auto 3.6 % (0-4); Hematocrit 36.8 % (37-47); Hemoglobin 12.8 g/dl (12.0-16.0); Imm Gran Abs Auto 0.02 X10*3/uL (0.00-0.03); Imm Gran Pct Auto 0.3 % (0.0-0.4); Lymphocytes Absolute Auto 2.8 X10*3/uL (1.2-4.9); Lymphocytes Percent Auto 38.3 % (20-40); Mean Corpuscular HGB Conc 34.8 g/dl (31.0-35.0); Mean Corpuscular Hemoglobin 31.8 pg (27.0-33.0); Mean Corpuscular Volume 91.3 fL (80-98); Mean Platelet Volume 9.1 fL (9.4-12.3); Monocytes Absolute Auto 0.7 X10*3/uL (0.1-1.2); Monocytes Percent Auto 8.9 % (2-11); Neutrophils Absolute Auto 3.6 X10*3/uL (2.0-8.3); Neutrophils Percent Auto 48.6 % (45-73); Platelet Count 252 X10*3/uL (160-400); Red Blood Count 4.03 X10*6/uL (4.20-5.50); Red Cell Distribution Width 12.6 % (11.0-16.0); White Blood Count 7.4 X10*3/uL (4.8-10.8)
[2021-05-05] MEDS: Lidocaine 4 % Patch ADH..PATCH 1 PATCH TRANSDERMA (19:01)
[2021-05-05] MEDS: Ketorolac Tromethamine 30 MG/ML VIAL IM (19:02)
[2021-05-05 19:14] LABS: Alanine Aminotransferase 6 U/L (0-31); Albumin Level 4.1 g/dL (3.5-5.0); Alkaline Phosphatase 50 U/L (39-117); Anion Gap 14 (12-20); Aspartate Amino Transferase 12 U/L (5-31); Bilirubin Direct 0.2 mg/dL (0.0-0.5); Bilirubin Total 0.8 mg/dL (0.0-1.0); Blood Urea Nitrogen 16 mg/dL (9-16); Calcium 9.5 mg/dL (8.4-10.2); Carbon Dioxide 24 mmol/L (22-29); Chloride 106 mmol/L (96-108); Creatinine Clr Calc Pharmacy 94.5; Estimated Glomerular Filt Rate > 60; Glucose Random 84 mg/dL (60-115); Lipase 38 U/L (8-78); Potassium 4.4 mmol/L (3.3-5.1); Sodium 140 mmol/L (135-145); Total Protein 7.1 g/dL (6.5-8.0)
[2021-05-05 19:21] LABS: HCG Quantitative < 2 mIU/mL
[2021-05-05 19:40] VITALS: BP 124/64; PULSE 67; RESP 18; TEMP 36.3; O2SAT 98
== END 2021-05-05 19:32 | disposition home or self-care (01) ==
PROVIDERS: Physician Assistant; Emergency Provider Emergency Medicine; PCP Internal Medicine
DX: N21.0 Calculus in bladder (principal); R10.30 Lower abdominal pain, unspecified
CPT/HCPCS: 36415; 74176; 80048; 80076; 81001; 83690; 84702; 85025; 96372; 99283; 99284; J1885

== ENCOUNTER 2021-07-12 09:33 | Outpatient (REF) | payer OTHER, SELFPAY ==
[2021-07-12 10:03] LABS: MANUAL DIFF FLAG NO
[2021-07-12 10:07] LABS: Basophils Percent Auto 0.3 % (0-2); Eosinophils Absolute Auto 0.2 X10*3/uL (0.0-0.4); Eosinophils Percent Auto 3.1 % (0-4); Hematocrit 36.4 % (37-47); Hemoglobin 12.5 g/dl (12.0-16.0); Imm Gran Abs Auto 0.02 X10*3/uL (0.00-0.03); Imm Gran Pct Auto 0.3 % (0.0-0.4); Lymphocytes Percent Auto 31.6 % (20-40); Mean Corpuscular HGB Conc 34.3 g/dl (31.0-35.0); Mean Corpuscular Hemoglobin 31.7 pg (27.0-33.0); Mean Corpuscular Volume 92.4 fL (80-98); Mean Platelet Volume 9.3 fL (9.4-12.3); Monocytes Absolute Auto 0.7 X10*3/uL (0.1-1.2); Monocytes Percent Auto 10.3 % (2-11); Neutrophils Absolute Auto 3.5 X10*3/uL (2.0-8.3); Neutrophils Percent Auto 54.4 % (45-73); Platelet Count 292 X10*3/uL (160-400); Red Blood Count 3.94 X10*6/uL (4.20-5.50); Red Cell Distribution Width 12.9 % (11.0-16.0); White Blood Count 6.4 X10*3/uL (4.8-10.8)
[2021-07-12 11:22] LABS: Glucose Urine UA NEG (NEG); Leukocyte Esterase Urine NEG (NEG); Nitrite Urine NEG (NEG); UACC Culture Trigger NO; Urine Blood 1+ (NEG); Urine Ketones NEG (NEG); Urine Protein NEG (NEG-TRACE)
[2021-07-12 11:34] LABS: Alanine Aminotransferase 15 U/L (0-31); Albumin Level 4.2 g/dL (3.5-5.0); Alkaline Phosphatase 45 U/L (39-117); Anion Gap 13 (12-20); Aspartate Amino Transferase 16 U/L (5-31); Bilirubin Total 1.2 mg/dL (0.0-1.0); Blood Urea Nitrogen 16 mg/dL (9-16); Calcium 9.3 mg/dL (8.4-10.2); Carbon Dioxide 22 mmol/L (22-29); Chloride 107 mmol/L (96-108); Cholesterol 188 mg/dL; Estimated Glomerular Filt Rate > 60; Glucose Fasting 82 mg/dL (60-99); HDL Cholesterol 37 mg/dL; LDL Cholesterol Calculated 128 mg/dl; Sodium 138 mmol/L (135-145); Total Protein 7.1 g/dL (6.5-8.0); Triglycerides 116 mg/dL
[2021-07-12 11:35] LABS: Appearance Urine CLEAR; Color Urine YELLOW
[2021-07-12 11:53] LABS: Mucus Urine 1+ /LPF; Squamous Epithelial Cell Urine 1+ /LPF; WBC Urine 0 /HPF (0-4)
[2021-07-12 11:54] LABS: TSH reflex Free T4 0.78 uIU/mL (0.32-4.0); Vitamin D 25-OH Total 42.9 ng/mL (>30)
== END 2021-07-12 09:34 | disposition home or self-care (01) ==
LOC: HO.LAB 09:33
PROVIDERS: PCP Internal Medicine; Visit Provider Internal Medicine
DX: Z00.00 Encounter for general adult medical examination without abnormal findings (principal); N21.0 Calculus in bladder; E66.3 Overweight; E78.5 Hyperlipidemia, unspecified; E55.9 Vitamin D deficiency, unspecified; K59.00 Constipation, unspecified
CPT/HCPCS: 36415; 80053; 80061; 81001; 82306; 84443; 85025

== ENCOUNTER 2021-07-17 12:04 | Outpatient (REF) | payer OTHER, SELFPAY ==
--- NOTE | ~2021-07-17 | XR_ITS ---
EXAMINATION: XR LUMBOSACRAL SPINE CLINICAL INFORMATION: Lower back pain. COMPARISON: CT abdomen/pelvis dated 05/05/2021 TECHNIQUE: Three views of the lumbosacral spine. FINDINGS: The vertebral bodies and posterior elements are normal. The disc spaces are preserved and the vertebral alignment is normal. The paraspinal soft tissues are normal. XR/XR lumbar spine 2-3V IMPRESSION: Unremarkable examination.
--- NOTE | ~2021-07-17 | MM_ITS ---
EXAMINATION: MM SCREENING DIGITAL BREAST TOMOSYNTHESIS, BILATERAL CLINICAL INFORMATION: Screening. Asymptomatic. The lifetime risk of breast cancer based on the Tyrer-Cuzick Model is 9%. COMPARISON: Mammography: 06/23/2020 (baseline) TECHNIQUE: Digital breast tomosynthesis is performed in both the craniocaudal and mediolateral oblique views along with computer-aided detection (CAD). Synthesized 2D images are generated from the tomosynthesis. Additional left MLO view is provided. FINDINGS: There are scattered areas of fibroglandular density (ACR BI-RADS breast composition Category b). There are no significant masses, abnormal calcifications, or other abnormalities. Parenchymal pattern is similar to prior studies. The axilla and skin contours are unremarkable. MM/MM tomosynthesis screening BI IMPRESSION: No mammographic evidence of malignancy. ASSESSMENT: BI-RADS 1: Negative RECOMMENDATION: Routine annual mammography screening. This patient's information was entered into a reminder system with a target due date for their next mammogram.
== END 2021-07-17 12:05 | disposition home or self-care (01) ==
LOC: HO.MAMMO 12:04
PROVIDERS: PCP Internal Medicine; Visit Provider Internal Medicine
DX: Z12.31 Encounter for screening mammogram for malignant neoplasm of breast (principal); M54.5 Low back pain
CPT/HCPCS: 72100; 77063; 77067

== ENCOUNTER 2022-02-19 08:07 | Outpatient (REF) | payer OTHER, SELFPAY ==
[2022-02-20 08:55] LABS: H Pylori Breath Test Positive (Negative)
== END 2022-02-19 08:08 | disposition home or self-care (01) ==
LOC: HO.LNP 08:07
PROVIDERS: PCP Internal Medicine; Referring Provider Internal Medicine; Visit Provider Physician Assistant
DX: K21.9 Gastro-esophageal reflux disease without esophagitis (principal); K58.2 Mixed irritable bowel syndrome; R14.0 Abdominal distension (gaseous); F41.9 Anxiety disorder, unspecified; K59.00 Constipation, unspecified
CPT/HCPCS: 83013; 99202

== ENCOUNTER 2022-03-02 18:39 | Outpatient (REF) | payer OTHER, SELFPAY | END 2022-03-02 18:40 | disposition home or self-care (01) | LOC: HO.LNP 18:39 | PROVIDERS: Visit Provider Nurse Practitioner Family | DX: R30.0 Dysuria (principal) | CPT/HCPCS: 87086 ==

== ENCOUNTER 2022-03-05 16:01 | Outpatient (REF) | payer OTHER, SELFPAY ==
--- NOTE | ~2022-03-05 | XR_ITS ---
EXAMINATION: XR ABDOMEN KUB CLINICAL INDICATION: Unspecified abdominal pain COMPARISON: Previous KUB July [address] of the abdomen and pelvis May 2021 TECHNIQUE: AP view of the abdomen. FINDINGS: There is stool throughout the colon suggestive of constipation. There is no evidence of free air. No calcifications are seen. Bony structures are unremarkable. XR/XR KUB IMPRESSION: Constipation.
== END 2022-03-05 16:02 | disposition home or self-care (01) ==
LOC: HO.XRAY 16:01
PROVIDERS: PCP Internal Medicine; Visit Provider Nurse Practitioner Family
DX: R10.9 Unspecified abdominal pain (principal); K59.00 Constipation, unspecified
CPT/HCPCS: 74018

== ENCOUNTER 2022-03-16 09:05 | Outpatient (REF) | payer OTHER, SELFPAY ==
--- NOTE | ~2022-03-16 | US_ITS ---
EXAMINATION: US ABDOMEN COMPLETE CLINICAL INFORMATION: Abdominal pain. COMPARISON: CT scan of May 05, 2021 TECHNIQUE: Real-time imaging of the abdominal viscera. FINDINGS: PANCREAS: The head and body appear unremarkable. The tail is obscured by overlying bowel gas. ABDOMINAL AORTA: The proximal, mid, and distal segments are normal in caliber. INFERIOR VENA CAVA: Visualized portions are normal. LIVER: Within the right lobe there is a homogeneously hyperechoic structure measuring 1.0 x 0.9 x 0.2 cm in size consistent with small hemangioma. The liver is normal in size. The liver contour is normal. There is no intrahepatic biliary duct dilatation seen. GALLBLADDER: Normal. The gallbladder is physiologically distended without evidence of stones, sludge, polyps, wall thickening or pericholecystic fluid. COMMON BILE DUCT: Normal in caliber measuring 0.1 cm in diameter. RIGHT KIDNEY: There is fullness of the upper collecting system. Ureteral jet is identified. No definite renal calculi or focal parenchymal lesions are identified. The kidney measures 9.6 cm in maximum dimension. LEFT KIDNEY: Within the lower pole there is a 3 x 2 mm echogenic focus which may represent a nonobstructing calculus versus vascular interface. The kidney measures 10.3 cm in maximum dimension. SPLEEN: Normal. The spleen measures 7.9 cm in maximum dimension. FREE FLUID: None. US/US abdomen complete IMPRESSION: 1 cm right hepatic lobe hemangioma. Mild fullness of the right upper collecting system and proximal right ureter with ureteral jet identified within the bladder. Probable 3 mm nonobstructing left renal lower pole calculus.
== END 2022-03-16 09:06 | disposition home or self-care (01) ==
LOC: HO.HMGCX 09:05
PROVIDERS: PCP Internal Medicine; Visit Provider Nurse Practitioner Family
DX: R10.9 Unspecified abdominal pain (principal)
CPT/HCPCS: 76700

== ENCOUNTER → 2022-04-16 08:24 | Outpatient (BNVA) | payer OTHER, SELFPAY | PROVIDERS: PCP Internal Medicine; Referring Provider Internal Medicine; Visit Provider Physician Assistant | DX: K58.1 Irritable bowel syndrome with constipation (principal); A04.8 Other specified bacterial intestinal infections | CPT/HCPCS: 99212 ==

== ENCOUNTER 2022-04-23 15:15 | Outpatient (REF) | payer OTHER, SELFPAY ==
[2022-04-24 07:18] LABS: CT PCR NOT DETECTED (Not Detect.); NG PCR NOT DETECTED (Not Detect.)
[2022-04-24 10:56] LABS: BV Int Neg Control Negative (Negative); BV Int Pos Control Positive (Positive)
[2022-04-26 08:21] LABS: HPV mRNA E6/E7 rflx Not Detected (Not Detected)
== END 2022-04-23 15:16 | disposition home or self-care (01) ==
LOC: HO.LAB 15:15
PROVIDERS: PCP Internal Medicine; Visit Provider Advanced Practice Midwife
DX: Z01.411 Encounter for gynecological examination (general) (routine) with abnormal findings (principal); Z11.51 Encounter for screening for human papillomavirus (HPV); Z20.2 Contact with and (suspected) exposure to infections with a predominantly sexual mode of transmission; N89.8 Other specified noninflammatory disorders of vagina
CPT/HCPCS: 81003; 87480; 87491; 87510; 87591; 87624; 87660; 88142

== ENCOUNTER → 2022-05-10 15:24 | Outpatient (BNVA) | payer OTHER, SELFPAY | PROVIDERS: PCP Internal Medicine | DX: N20.0 Calculus of kidney (principal); N39.41 Urge incontinence; N28.89 Other specified disorders of kidney and ureter | CPT/HCPCS: 51798; 99202 ==

== ENCOUNTER 2022-10-01 09:21 | Outpatient (REF) | payer OTHER, SELFPAY ==
[2022-10-01 09:31] LABS: MANUAL DIFF FLAG NO
[2022-10-01 09:39] LABS: Basophils Absolute Auto 0.1 X10*3/uL (0.0-0.2); Basophils Percent Auto 0.8 % (0-2); Eosinophils Absolute Auto 0.4 X10*3/uL (0.0-0.4); Eosinophils Percent Auto 6.8 % (0-4); Hematocrit 38.1 % (37.0-47.0); Imm Gran Abs Auto 0.02 X10*3/uL (0.00-0.03); Imm Gran Pct Auto 0.3 % (0.0-0.4); Lymphocytes Absolute Auto 2.3 X10*3/uL (1.2-4.9); Lymphocytes Percent Auto 37.1 % (20-40); Mean Corpuscular HGB Conc 34.1 g/dl (31.0-35.0); Mean Corpuscular Hemoglobin 31.4 pg (27.0-33.0); Mean Platelet Volume 9.3 fL (9.4-12.3); Monocytes Absolute Auto 0.5 X10*3/uL (0.1-1.2); Monocytes Percent Auto 7.7 % (2-11); Neutrophils Absolute Auto 2.9 x10*3/uL (2.0-8.3); Neutrophils Percent Auto 47.3 % (45-73); Platelet Count 269 X10*3/uL (160-400); Red Blood Count 4.14 X10*6/uL (4.20-5.50); Red Cell Distribution Width 12.5 % (11.0-16.0); White Blood Count 6.1 X10*3/uL (4.8-10.8)
[2022-10-01 10:14] LABS: Alanine Aminotransferase 13 U/L (0-31); Alkaline Phosphatase 47 U/L (39-117); Anion Gap 11 (12-20); Aspartate Amino Transferase 14 U/L (5-31); Bilirubin Total 0.8 mg/dL (0.0-1.0); Blood Urea Nitrogen 19 mg/dL (9-16); Calcium 9.5 mg/dL (8.4-10.2); Carbon Dioxide 27 mmol/L (22-29); Chloride 105 mmol/L (96-108); Cholesterol 180 mg/dL; Estimated Glomerular Filt Rate > 60; Glucose Fasting 83 mg/dL (60-99); HDL Cholesterol 44 mg/dL; LDL Cholesterol Calculated 118 mg/dl; Potassium 4.7 mmol/L (3.3-5.1); Sodium 138 mmol/L (135-145); Total Protein 6.9 g/dL (6.5-8.0); Triglycerides 94 mg/dL
[2022-10-01 10:27] LABS: TSH reflex Free T4 0.58 uIU/mL (0.32-4.0); Vitamin D 25-OH Total 39.4 ng/mL (>30)
[2022-10-01 10:35] LABS: Appearance Urine Clear; Color Urine Yellow; Glucose Urine UA Negative (Negative); Leukocyte Esterase Urine Negative (Negative); Nitrite Urine Negative (Negative); Specific Gravity - Urine 1.015 (1.005-1.025); Urine Blood Negative (Negative); Urine Ketones Negative (Negative); Urine Protein Negative (Neg-Trace)
== END 2022-10-01 09:22 | disposition home or self-care (01) ==
LOC: HO.LAB 09:21
PROVIDERS: PCP Internal Medicine; Visit Provider Internal Medicine
DX: Z00.00 Encounter for general adult medical examination without abnormal findings (principal); E55.9 Vitamin D deficiency, unspecified; E78.00 Pure hypercholesterolemia, unspecified; R30.0 Dysuria
CPT/HCPCS: 36415; 80053; 80061; 81003; 82306; 84443; 85025

== ENCOUNTER 2022-11-01 15:30 | Outpatient (REF) | payer OTHER, SELFPAY ==
--- NOTE | ~2022-11-01 | US_ITS ---
EXAMINATION: US RETROPERITONEAL LIMITED (RENAL ONLY) CLINICAL INFORMATION: Renal stones. COMPARISON: Ultrasound abdomen 03/16/2022, x-ray KUB 03/05/2022, CT abdomen and pelvis 05/05/2021. TECHNIQUE: Real-time imaging of the kidneys. FINDINGS: RIGHT KIDNEY: 10.0 x 4.3 x 5.2 cm (SAG x AP x TRV). The kidney is normal in size, contour, and echogenicity. Renal cortical thickness is normal. No calculi or focal parenchymal lesions. No hydronephrosis. There are multiple echogenic foci non-shadowing with non-twinkle artifact. LEFT KIDNEY: 10.1 x 5.7 x 5.0 cm (SAG x AP x TRV). The kidney is normal in size, contour, and echogenicity. Renal cortical thickness is normal. No calculi or focal parenchymal lesions. No hydronephrosis. There are multiple echogenic foci non-shadowing and non-twinkle. An echogenic focus was seen in the lower pole left kidney and the previous ultrasound abdomen exam 03/16/2022. US/US renal BI IMPRESSION: Multiple bilateral echogenic foci without shadowing or twinkle artifact. No hydronephrosis.
== END 2022-11-01 15:31 | disposition home or self-care (01) ==
LOC: HO.HMGCX 15:30
PROVIDERS: PCP Internal Medicine
DX: N28.89 Other specified disorders of kidney and ureter (principal); N20.0 Calculus of kidney
CPT/HCPCS: 76775

== ENCOUNTER 2022-11-20 14:42 | Outpatient (REF) | payer OTHER, SELFPAY ==
[2022-11-20 15:35] LABS: Influenza A PCR NEGATIVE (Negative); Influenza B PCR NEGATIVE (Negative); Resp Syncy Virus RNA Qual PCR NEGATIVE (Negative); SARS COV2 PCR INHOUSE NEGATIVE (Negative)
== END 2022-11-20 14:43 | disposition home or self-care (01) ==
LOC: HO.LNP 14:42
PROVIDERS: Visit Provider Physician Assistant
DX: Z20.822 Contact with and (suspected) exposure to COVID-19 (principal); B34.9 Viral infection, unspecified
CPT/HCPCS: 0241U

== ENCOUNTER → 2022-11-28 15:03 | Outpatient (BNVA) | payer OTHER, SELFPAY | PROVIDERS: PCP Internal Medicine; Visit Provider Nurse Practitioner Family | DX: Z13.89 Encounter for screening for other disorder (principal) ==

== ENCOUNTER 2023-01-23 14:42 | Outpatient (REF) | payer OTHER, SELFPAY ==
--- NOTE | ~2023-01-23 | XR_ITS ---
EXAMINATION: XR KNEE, LEFT CLINICAL INFORMATION: Pain COMPARISON: None TECHNIQUE: Four views of the left knee. FINDINGS: Bones and soft tissues are normal. No fracture or joint effusion. Alignment is anatomic. Joint spaces are well maintained. No abnormal soft tissue calcification. XR/XR knee LT 4V IMPRESSION: Normal left knee.
== END 2023-01-23 14:43 | disposition home or self-care (01) ==
LOC: HO.XRAY 14:42
PROVIDERS: PCP Internal Medicine; Visit Provider Internal Medicine
DX: M25.562 Pain in left knee (principal); M25.462 Effusion, left knee; Z91.81 History of falling
CPT/HCPCS: 73564

== ENCOUNTER 2023-02-22 15:46 | Outpatient (REF) | payer OTHER, SELFPAY ==
--- NOTE | ~2023-02-22 | MM_ITS ---
EXAMINATION: MM SCREENING DIGITAL BREAST TOMOSYNTHESIS, BILATERAL CLINICAL INFORMATION: Screening. Asymptomatic. The lifetime risk of breast cancer based on the Tyrer-Cuzick Model is 10%. COMPARISON: Mammography: 07/17/2021, 06/23/2020 (baseline). TECHNIQUE: Digital breast tomosynthesis is performed in both the craniocaudal and mediolateral oblique views along with computer-aided detection (CAD). Synthesized 2D images are generated from the tomosynthesis. FINDINGS: There are scattered areas of fibroglandular density (ACR BI-RADS breast composition Category b). There are no significant masses, abnormal calcifications, or other abnormalities. Parenchymal pattern is similar to prior studies. There is no developing density or architectural abnormality. The axilla and skin contours are unremarkable. No significant changes. MM/MM tomosynthesis screening BI IMPRESSION: No mammographic evidence of malignancy. ASSESSMENT: BI-RADS 1: Negative RECOMMENDATION: Routine annual mammography screening. This patient's information was entered into a reminder system with a target due date for their next mammogram.
== END 2023-02-22 15:47 | disposition home or self-care (01) ==
LOC: HO.MAMMO 15:46
PROVIDERS: Visit Provider Internal Medicine
DX: Z12.31 Encounter for screening mammogram for malignant neoplasm of breast (principal)
CPT/HCPCS: 77063; 77067

== ENCOUNTER 2023-04-15 01:25 | Inpatient (IN) | payer OTHER, SELFPAY ==
[2023-04-15] VITALS (8 sets, daily range): BP systolic 91–150; BP diastolic 48–96; PULSE 66–131; RESP 12–22; TEMP 36.5–39.4; O2SAT 95–100; BMI 26.6
--- NOTE | ~2023-04-15 | CT_ITS ---
EXAMINATION: CT ABDOMEN AND PELVIS WITHOUT CONTRAST CLINICAL INFORMATION: Flank pain, question stone COMPARISON: 05/05/2021 TECHNIQUE: Multidetector volumetric imaging was performed from the superior aspect of the liver through the pubic symphysis. Sagittal and coronal reformatted images were obtained on the technologist's workstation. This CT examination was performed using dose optimization techniques as appropriate, variously including the following: *Automated exposure control *Adjustment of mA and/or kV according to patient size (this includes techniques or standardized protocols for targeted exams where dose is matched to indication/reason for exam; i.e. extremities or head) *Use of iterative reconstruction technique DLP: 393 mGy-cm FINDINGS: LUNG BASES: The visualized lung bases are unremarkable. LIVER, GALLBLADDER, AND BILIARY TREE: The liver is normal in size, shape, and attenuation. No focal hepatic lesion or biliary ductal dilatation is identified on this noncontrast exam. Gallbladder is contracted and not adequately evaluated. PANCREAS: Unremarkable. SPLEEN: Unremarkable. ADRENAL GLANDS: Unremarkable. KIDNEYS AND URETERS: Slight prominence of the bilateral renal pelvises, with no obstructing calculus seen. Trace bilateral perinephric stranding. BLADDER: Unremarkable. GASTROINTESTINAL TRACT: Distal esophagus contains fluid. No significant bowel wall thickening is seen. There is a twisting configuration of the colon in the right abdomen which appears to involve segments of the ascending as well as the tortuous sigmoid colon such as seen on coronal images 36-42; this appears new from prior. Moderate amount of stool is seen throughout much of the ascending, transverse, and descending colon. The distal sigmoid colon beyond this region in the right abdomen is relatively collapsed, and the possibility of some partial degree of obstruction is difficult to exclude. No free fluid or free air is seen. ABDOMINAL WALL: No significant hernia is appreciated. LYMPH NODES: No lymphadenopathy is seen, though assessment is limited in the absence of intravenous contrast. VASCULAR: Unremarkable. PELVIC VISCERA: Unremarkable. OSSEOUS STRUCTURES: Unremarkable. CT/CT abdomen pelvis wo IV con IMPRESSION: 1. Twisting configuration of the colon in the right abdomen which appears to involve segments of the ascending as well as the tortuous sigmoid colon; this could be indicative of an internal hernia or volvulus. This appears new from 05/05/2021, and the possibility of some partial degree of obstruction is difficult to exclude. Moderate amount of stool throughout the ascending, transverse, and descending colon. 2. Slight prominence of the bilateral renal pelvises, with no obstructing calculus seen. 3. Fluid in the distal esophagus, which could indicate reflux or dysmotility.
--- NOTE | ~2023-04-15 | CT_ITS ---
EXAMINATION: CT ABDOMEN AND PELVIS WITH CONTRAST CLINICAL INFORMATION: Abdominal pain. COMPARISON: May 05, 2021. TECHNIQUE: Multidetector volumetric images were obtained from the superior aspect of the liver through the pubic symphysis following administration 85 mL of Omnipaque 350 intravenous contrast. Sagittal and coronal reformatted images were obtained on the technologist's workstation. Oral contrast: No This CT examination was performed using dose optimization techniques as appropriate, variously including the following: *Automated exposure control *Adjustment of mA and/or kV according to patient size (this includes techniques or standardized protocols for targeted exams where dose is matched to indication/reason for exam; i.e. extremities or head) *Use of iterative reconstruction technique DLP: 411 mGy-cm FINDINGS: LUNG BASES: The lung bases appear clear, with no evidence of inflammation or nodules. LIVER, GALLBLADDER, AND BILIARY TREE: The liver appears unremarkable in size, shape, and attenuation. No focal hepatic lesion or biliary ductal dilatation is appreciated. Unremarkable appearance of the gallbladder. PANCREAS: Unremarkable SPLEEN: Unremarkable ADRENAL GLANDS: Unremarkable KIDNEYS AND URETERS: The kidneys appear unremarkable in size, shape, and attenuation. No hydronephrosis, hydroureter, or calculi seen. BLADDER: Unremarkable GASTROINTESTINAL TRACT: Small hiatus hernia, unchanged. Moderate stool scattered throughout the colon. Normal-appearing distal ileum. No evidence of appendicitis. The small and large bowel otherwise appear unremarkable. ABDOMINAL WALL: No significant hernia is appreciated. LYMPH NODES: No evidence of adenopathy by size criteria. VASCULAR: Unremarkable PELVIC VISCERA: Unremarkable OSSEOUS STRUCTURES: Unremarkable CT/CT abdomen pelvis w IV con IMPRESSION: No acute finding. Moderate stool scattered throughout the colon. Small hiatus hernia.
--- NOTE | ~2023-04-15 | XR_ITS ---
EXAMINATION: XR CHEST CLINICAL INFORMATION: Shortness of breath COMPARISON: 12/18/2020 TECHNIQUE: Frontal view of the chest was obtained. FINDINGS: The lungs are clear with no focal consolidation. No evidence of pneumothorax, pulmonary edema, or pleural effusions. The cardiomediastinal silhouette is unremarkable. No acute osseous findings. XR/XR chest 1V IMPRESSION: No acute cardiopulmonary findings.
--- NOTE | 2023-04-15 01:48 | ED.GENADULT ---
HPI - General Adult General Chief complaint: General Medical Stated complaint: Flu Like Symptoms History of Present Illness HPI narrative: Patient is a 42-year-old female presented with generalized malaise weakness nausea patient has bilateral flank pain abdominal pain. History of kidney stone. History of fever generalized malaise. No coughing or congestion or pessary symptoms. Vaccinated for COVID. No sore throat. No earache. She is from home. Feels very weak and tired. History of asthma Related Data Previous Rx's Medication Instructions Recorded albuterol sulfate 90 mcg/actuation 2 puff inhalation Q6H PRN 04/03/21 aerosol inhaler (Ventolin HFA) shortness of breath or wheezing 30 days #8.5 grams docusate sodium 100 mg capsule 200 mg PO BEDTIME #60 caps 09/25/22 (Colace) albuterol sulfate 90 mcg/actuation 2 puff inhalation Q6H PRN 11/20/22 aerosol inhaler shortness of breath or wheezing #6.7 grams loratadine 10 mg tablet 10 mg PO DAILY PRN allergy 03/29/23 symptoms 30 days #30 tabs lorazepam 0.5 mg tablet 0.5 mg PO BEDTIME PRN anxiety 30 03/29/23 days #30 tabs trazodone 50 mg tablet 50 mg PO BEDTIME PRN sleep 30 days 03/29/23 #30 tabs Allergies Allergy/AdvReac Type Severity Reaction Status Date / Time No Known Allergies Allergy Verified 03/29/23 16:35 Review of Systems Review of Systems: Positive generalized malaise nausea flank pain abdominal pain Yes all other systems are reviewed and are negative PMFSH Past Medical History Attestation statement: The following information was validated with the patient. 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 Oriented X3. No acute distress. Eyes: Pupils equal, round and reactive to light. ENT: Pharynx normal. Neck: Normal inspection. Neck supple. No lymph nodes noted. No crepitus CVS: Normal heart rate and rhythm. Pulses normal. Normal S1 and S2 Respiratory: No respiratory distress. Breath sounds normal. No Wheezing. No rales Abdomen: Soft and nontender. No rigidity. No distention. good BS x4 Skin: Skin warm and dry. Normal skin color. Normal skin turgor. Extremities: No lower extremity edema. Neurovascular intact to all extremities. No Lacerations. No Rash Neuro: Oriented X 3. No motor deficit. No sensory deficit. Moving all extermities. No slurred speech Medications Administered Discontinued Medications Generic Name Dose Route Start Last Admin Trade Name Freq PRN Reason Stop Dose Admin Acetaminophen 975 mg 04/15/23 01:46 04/15/23 01:52 Acetaminophen 325 Mg Tablet PO 04/15/23 01:47 975 mg ONCE ONE Administration Sodium Chloride 1,000 mls @ 999 mls/hr 04/15/23 01:45 04/15/23 02:14 Ns IV 04/15/23 02:45 Not Given .Q1H1M JOHN Sodium Chloride 1,000 mls @ 999 mls/hr 04/15/23 01:45 04/15/23 02:14 Ns IV 04/15/23 02:45 Not Given .Q1H1M JOHN Sodium Chloride 2,177.25 mls @ 2,177.25 mls/hr 04/15/23 01:43 04/15/23 04:28 Ns 30 ml/kg infuse over 1 hr (2177.25 ml) 04/15/23 02:42 Infused IV Infusion .Q1H STA Ceftriaxone Sodium 1 gm/ 50 mls @ 100 mls/hr 04/15/23 01:43 04/15/23 02:30 Sodium Chloride IV 04/15/23 02:12 Infused ONCE ONE Infusion Ketorolac Tromethamine 30 mg 04/15/23 01:43 04/15/23 02:08 Ketorolac Tromethamine 30 Mg/Ml Vial IVPUSH 04/15/23 01:44 30 mg ONCE ONE Administration Medical Decision Making Medical Decision Making [facility] Narrative: 42-year-old female presents today with having generalized malaise weakness. Patient had a fever of 103. Had some flank pain. Urine grossly infected. Symptoms consistent with having pyelonephritis. No coughing or congestion. Chest x-ray showed no evidence of pneumonia. Lactate was less than 2. Given IV fluids. Patient's old record reviewed. There is no old culture in the system. Patient was started on Rocephin. Symptomatic Aletha feels much better after IV fluids. CT scan of the abdomen showed a question volvulus The finding was discussed with Dr. Kelli Beckwith from surgery. Wanted patient to be observed on the medical service. Patient CT scan was reviewed by him. [place] patient does not have volvulus. A CT scan of the abdomen pelvis with oral and IV contrast was ordered. Patient meanwhile to be admitted. Differential Diagnosis Kidney infection, bowel obstruction, pneumonia Consult Healthcare Provider Management of the patient was discussed with: Hospitalist and Pediatric Radiologist Surgery Lab Data [facility] Lab Attestation statement: I reviewed the patient's lab results. 04/15/23 02:09 04/15/23 02:11 Labs: Lab Results 04/15/23 04/15/23 04/15/23 Range/Units 02:09 02:11 02:11 WBC 11.1 H (4.8-10.8) X10*3/uL RBC 3.90 L (4.20-5.50) X10*6/uL Hgb 12.2 (12.0-16.0) g/dl Hct 34.7 L (37.0-47.0) % MCV 89.0 (80.0-98.0) fL MCH 31.3 (27.0-33.0) pg MCHC 35.2 H (31.0-35.0) g/dl RDW 12.5 (11.0-16.0) % Plt Count 235 (160-400) X10*3/uL MPV 8.9 L (9.4-12.3) fL Immature Gran % (Auto) 0.4 (0.0-0.4) % Neut % (Auto) 86.8 H (45-73) % Lymph % (Auto) 6.0 L (20-40) % Slope % (Auto) 4.9 (2-11) % Eos % (Auto) 1.6 (0-4) % Baso % (Auto) 0.3 (0-2) % Lymph # (Auto) 0.7 L (1.2-4.9) X10*3/uL [place] # (Auto) 0.5 (0.1-1.2) X10*3/uL Eos # (Auto) 0.2 (0.0-0.4) X10*3/uL Baso # (Auto) 0.0 (0.0-0.2) X10*3/uL Abs Immat Gran (auto) 0.04 H (0.00-0.03) X10*3/uL Absolute Neuts (auto) 9.6 H (2.0-8.3) x10*3/uL Absolute Nucleated RBC 0.000 (0.0-0.012) X10*3/uL Nucleated RBC % (auto) 0.0 (0.0-0.2) /100WBC Sodium 138 (135-145) mmol/L Potassium 3.8 (3.3-5.1) mmol/L Chloride 105 (96-108) mmol/L Carbon Dioxide 25 (22-29) mmol/L Anion Gap 12 (12-20) BUN 21 H (9-16) mg/dL Creatinine 0.85 (0.5-1.4) mg/dL Estim Creat Clear Calc 85.2 Estimated GFR > 60 Random Glucose 129 H (60-115) mg/dL Lactic Acid 2.7 H* (0.5-2.0) mmol/L Calcium 9.6 (8.4-10.2) mg/dL Total Bilirubin 1.3 H (0.0-1.0) mg/dL Direct Bilirubin 0.3 (0.0-0.5) mg/dL AST 11 (5-31) U/L ALT 10 (0-31) U/L Alkaline Phosphatase 71 (39-117) U/L Total Protein 6.5 (6.5-8.0) g/dL Albumin 3.8 (3.5-5.0) g/dL Lipase 31 (8-78) U/L Urine Color Urine Appearance Urine pH (5.0-9.0) Ur Specific [place] (1.005-1.025) Urine Protein (Neg-Trace) mg/dL Urine Glucose (UA) (Negative) mg/dL Urine Ketones (Negative) mg/dL Urine Blood (Negative) Urine Nitrite (Negative) Ur Leukocyte Esterase (Negative) Urine RBC (0-2) /HPF Urine WBC (0-5) /HPF Ur Squamous Epith Cells (0-2) /HPF Other Crystals Urine Bacteria (None Seen) Hyaline Casts (0-2) /LPF Urine Test (NEGATIVE) Influenza Type A (PCR) (Negative) Influenza Type B (PCR) (Negative) RSV RNA Qual (PCR) (Negative) SARS-CoV-2 RNA (RT-PCR) (Negative) 04/15/23 04/15/23 04/15/23 Range/Units 02:11 02:11 02:11 WBC (4.8-10.8) X10*3/uL RBC (4.20-5.50) X10*6/uL Hgb (12.0-16.0) g/dl Hct (37.0-47.0) % MCV (80.0-98.0) fL MCH (27.0-33.0) pg MCHC (31.0-35.0) g/dl RDW (11.0-16.0) % Plt Count (160-400) X10*3/uL MPV (9.4-12.3) fL Immature Gran % (Auto) (0.0-0.4) % Neut % (Auto) (45-73) % Lymph % (Auto) (20-40) % Slope % (Auto) (2-11) % Eos % (Auto) (0-4) % Baso % (Auto) (0-2) % Lymph # (Auto) (1.2-4.9) X10*3/uL [place] # (Auto) (0.1-1.2) X10*3/uL Eos # (Auto) (0.0-0.4) X10*3/uL Baso # (Auto) (0.0-0.2) X10*3/uL Abs Immat Gran (auto) (0.00-0.03) X10*3/uL Absolute Neuts (auto) (2.0-8.3) x10*3/uL Absolute Nucleated RBC (0.0-0.012) X10*3/uL Nucleated RBC % (auto) (0.0-0.2) /100WBC Sodium (135-145) mmol/L Potassium (3.3-5.1) mmol/L Chloride (96-108) mmol/L Carbon Dioxide (22-29) mmol/L Anion Gap (12-20) BUN (9-16) mg/dL Creatinine (0.5-1.4) mg/dL Estim Creat Clear Calc Estimated GFR Random Glucose (60-115) mg/dL Lactic Acid (0.5-2.0) mmol/L Calcium (8.4-10.2) mg/dL Total Bilirubin (0.0-1.0) mg/dL Direct Bilirubin (0.0-0.5) mg/dL AST (5-31) U/L ALT (0-31) U/L Alkaline Phosphatase (39-117) U/L Total Protein (6.5-8.0) g/dL Albumin (3.5-5.0) g/dL Lipase (8-78) U/L Urine Color Yellow Urine Appearance Cloudy Urine pH 6.0 (5.0-9.0) Ur Specific [place] 1.015 (1.005-1.025) Urine Protein 30 (1+) H (Neg-Trace) mg/dL Urine Glucose (UA) Negative (Negative) mg/dL Urine Ketones Negative (Negative) mg/dL Urine Blood Small (1+) H (Negative) Urine Nitrite Positive H (Negative) Ur Leukocyte Esterase Large (3+) H (Negative) Urine RBC 0-2 (0-2) /HPF Urine WBC >50 H (0-5) /HPF Ur Squamous Epith Cells 0-2 (0-2) /HPF Other Crystals Present Urine Bacteria 4+ (None Seen) Hyaline Casts 0-2 (0-2) /LPF Urine Test NEGATIVE (NEGATIVE) Influenza Type A (PCR) NEGATIVE (Negative) Influenza Type B (PCR) NEGATIVE (Negative) RSV RNA Qual (PCR) NEGATIVE (Negative) SARS-CoV-2 RNA (RT-PCR) NEGATIVE (Negative) Independent Interpretation I performed an independent interpretation of an: CT Scan Interpretation: Grossly negative no kidney stone Radiology Impression Discussion of test interpretation with radiology: I have reviewed the radiologist's reading. Radiologist Impression: Possible volvulus Discharge Plan Discharge Clinical Impression: Pyelonephritis Patient Disposition: Admitted As Inpatient Instructions: Kidney Infection (ED) Prescriptions: No Action albuterol sulfate [Ventolin HFA] 90 mcg/actuation HFA aerosol inhaler 2 puff inhalation Q6H PRN (Reason: shortness of breath or wheezing) 30 Days Qty: 8.5 5RF loratadine 10 mg tablet 10 mg PO DAILY PRN (Reason: allergy symptoms) 30 Days Qty: 30 5RF trazodone 50 mg tablet 50 mg PO BEDTIME PRN (Reason: sleep) 30 Days Qty: 30 3RF lorazepam 0.5 mg tablet 0.5 mg PO BEDTIME PRN (Reason: anxiety) 30 Days Qty: 30 0RF docusate sodium [Colace] 100 mg capsule 200 mg PO BEDTIME Qty: 60 5RF albuterol sulfate 90 mcg/actuation HFA aerosol inhaler 2 puff inhalation Q6H PRN (Reason: shortness of breath or wheezing) Qty: 6.7 0RF
[2023-04-15] MEDS: Acetaminophen 325 MG TABLET 975 MG PO (01:52)
[2023-04-15] MEDS: cefTRIAXone sodium 1 GM in 0.9 % Sodium Chloride 50 ML IV (02:00)
[2023-04-15] MEDS: 0.9 % Sodium Chloride 2,177.25 ML 2177.25 ML IV (02:02)
[2023-04-15] MEDS: Ketorolac Tromethamine 30 MG/ML VIAL IVPUSH (02:08)
[2023-04-15 02:19] LABS: MANUAL DIFF FLAG NO
[2023-04-15 02:21] LABS: Basophils Percent Auto 0.3 % (0-2); Eosinophils Absolute Auto 0.2 X10*3/uL (0.0-0.4); Eosinophils Percent Auto 1.6 % (0-4); Hematocrit 34.7 % (37.0-47.0); Hemoglobin 12.2 g/dl (12.0-16.0); Imm Gran Abs Auto 0.04 X10*3/uL (0.00-0.03); Imm Gran Pct Auto 0.4 % (0.0-0.4); Lymphocytes Absolute Auto 0.7 X10*3/uL (1.2-4.9); Mean Corpuscular HGB Conc 35.2 g/dl (31.0-35.0); Mean Corpuscular Hemoglobin 31.3 pg (27.0-33.0); Mean Platelet Volume 8.9 fL (9.4-12.3); Monocytes Absolute Auto 0.5 X10*3/uL (0.1-1.2); Monocytes Percent Auto 4.9 % (2-11); Neutrophils Absolute Auto 9.6 x10*3/uL (2.0-8.3); Neutrophils Percent Auto 86.8 % (45-73); Platelet Count 235 X10*3/uL (160-400); Red Cell Distribution Width 12.5 % (11.0-16.0); White Blood Count 11.1 X10*3/uL (4.8-10.8)
[2023-04-15 02:22] LABS: Appearance Urine Cloudy; Color Urine Yellow; Glucose Urine UA Negative (Negative); Leukocyte Esterase Urine Large (3+) (Negative); Nitrite Urine Positive (Negative); Specific Gravity - Urine 1.015 (1.005-1.025); UMIC TRIGGER UACC YES; Urine Blood Small (1+) (Negative); Urine Ketones Negative (Negative); Urine Protein 30 (1+) mg/dL (Neg-Trace)
[2023-04-15 02:24] LABS: UPreg QC Valid YES; Urine Pregnancy NEGATIVE (NEGATIVE)
[2023-04-15 02:33] LABS: Bacteria Urine 4+ (None Seen); Hyaline Casts Urine 0-2 /LPF (0-2); Other Crystals Urine Present; RBC Urine 0-2 /HPF (0-2); Squamous Epithelial Cell Urine 0-2 /HPF (0-2); UACC Culture Trigger YES; WBC Urine >50 /HPF (0-5)
[2023-04-15 02:35] LABS: Lactic Acid 2.7 mmol/L (0.5-2.0)
[2023-04-15 02:38] LABS: Alanine Aminotransferase 10 U/L (0-31); Albumin Level 3.8 g/dL (3.5-5.0); Alkaline Phosphatase 71 U/L (39-117); Anion Gap 12 (12-20); Aspartate Amino Transferase 11 U/L (5-31); Bilirubin Direct 0.3 mg/dL (0.0-0.5); Bilirubin Total 1.3 mg/dL (0.0-1.0); Blood Urea Nitrogen 21 mg/dL (9-16); Calcium 9.6 mg/dL (8.4-10.2); Carbon Dioxide 25 mmol/L (22-29); Chloride 105 mmol/L (96-108); Creatinine Clr Calc Pharmacy 85.2; Estimated Glomerular Filt Rate > 60; Glucose Random 129 mg/dL (60-115); Lipase 31 U/L (8-78); Potassium 3.8 mmol/L (3.3-5.1); Sodium 138 mmol/L (135-145); Total Protein 6.5 g/dL (6.5-8.0)
[2023-04-15 03:02] LABS: Influenza A PCR NEGATIVE (Negative); Influenza B PCR NEGATIVE (Negative); Resp Syncy Virus RNA Qual PCR NEGATIVE (Negative); SARS COV2 PCR INHOUSE NEGATIVE (Negative)
--- NOTE | 2023-04-15 04:00 | PM.CNGS ---
History of Present Illness Consult details Consult date: 04/15/23 Reason for consult: other (Abnormal CT abdomen and pelvis) Narrative: The patient is a 42-year-old woman seen at the request of Dr. Murdock due to unexpected CT findings. The patient has a history of nephrolithiasis and and presented with flank pain and pyuria. During CT analysis to assess for kidney stone and or hydronephrosis, the radiologist interpreted a sigmoid and right colon volvulus: There is a twisting configuration of the colon in the right abdomen which appears to involve segments of the ascending as well as the tortuous sigmoid colon such as seen on coronal images 36-42; this appears new from prior.? The patient notes a history of chronic constipation. In reviewing GI notes, the patient forgets to take her MiraLax as instructed. Patient reports she has fairly typical pain in her flanks consistent with her last kidney stone but notes chronic constipation as well as some unknown infection that was treated and she never followed up with GI. In reviewing the notes, the patient had H pylori. Patient reports her last bowel movement was yesterday and she has been passing gas. She does endorse nausea but no vomiting. 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 Family/Other History of breast cancer Surgical History Surgical History History of D&C History of mammogram History of myringotomy History of tonsillectomy and adenoidectomy Social History Social History Housing: Apartment Alcohol intake: current Alcohol intake frequency: holidays/special occasions only Patient Tobacco Use Status: Former Tobacco user Smoked in Last 30 Days: Yes Second Hand Smoke Exposure: Yes Use of substances other than those prescribed or required for medical reasons: No Advance Directives: No Advance Directives Information Provided: Yes Nutrition Risks: No Nutritional Risk Patient : No service: No 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 occupational status: employed 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/Heterosexual Gender identity: Female Cognitive needs: No Hearing needs: No Vision needs: No Meds Allergies Allergy/AdvReac Type Severity Reaction Status Date / Time No Known Allergies Allergy Verified 03/29/23 16:35 Physical Exam Vital Signs: Vital Signs: Last Vital Signs Temp 103.0 F H 04/15/23 01:40 Pulse 129 H 04/15/23 01:40 Resp 22 H 04/15/23 01:40 BP 112/56 L 04/15/23 01:40 Pulse Ox 96 04/15/23 01:40 O2 Del Method Room Air 04/15/23 01:40 BMI result Body Mass Index 26.6 The patient is non-toxic & in good spirits NC/AT, PERRLA, EOMI Mood, affect & judgment all appear appropriate Sclera anicteric conjunctiva pink and moist Oropharynx is clear with no aphthous ulcers, Mallampati class 4, mucous membranes moist Neck is supple with no masses, adenopathy or bruits Heart is regular, normal S1-S2 no rubs or murmurs Lungs are clear and equal anteriorly with no audible wheezing, rubs or dullness to percussion No CVA tenderness present Abdomen is overweight with no demonstrable hernias. No significant tenderness is noted in the patient reports flank pain bilaterally when her abdomen is palpated. No HSM, rebound, rigidity, guarding, masses or bruits are present. Rectal exam is deferred Skin has good turgor and is free of rashes Extremities free of cyanosis clubbing edema Results Labs 04/15/23 02:09 04/15/23 02:11 Labs: Abnormal lab results 04/15/23 04/15/23 04/15/23 Range/Units 02:09 02:11 02:11 WBC 11.1 H (4.8-10.8) X10*3/uL RBC 3.90 L (4.20-5.50) X10*6/uL Hct 34.7 L (37.0-47.0) % MCHC 35.2 H (31.0-35.0) g/dl MPV 8.9 L (9.4-12.3) fL Neut % (Auto) 86.8 H (45-73) % Lymph % (Auto) 6.0 L (20-40) % Lymph # (Auto) 0.7 L (1.2-4.9) X10*3/uL Abs Immat Gran (auto) 0.04 H (0.00-0.03) X10*3/uL Absolute Neuts (auto) 9.6 H (2.0-8.3) x10*3/uL BUN 21 H (9-16) mg/dL Random Glucose 129 H (60-115) mg/dL Lactic Acid 2.7 H* (0.5-2.0) mmol/L Total Bilirubin 1.3 H (0.0-1.0) mg/dL Urine Protein (Neg-Trace) mg/dL Urine Blood (Negative) Urine Nitrite (Negative) Ur Leukocyte Esterase (Negative) Urine WBC (0-5) /HPF 04/15/23 Range/Units 02:11 WBC (4.8-10.8) X10*3/uL RBC (4.20-5.50) X10*6/uL Hct (37.0-47.0) % MCHC (31.0-35.0) g/dl MPV (9.4-12.3) fL Neut % (Auto) (45-73) % Lymph % (Auto) (20-40) % Lymph # (Auto) (1.2-4.9) X10*3/uL Abs Immat Gran (auto) (0.00-0.03) X10*3/uL Absolute Neuts (auto) (2.0-8.3) x10*3/uL BUN (9-16) mg/dL Random Glucose (60-115) mg/dL Lactic Acid (0.5-2.0) mmol/L Total Bilirubin (0.0-1.0) mg/dL Urine Protein 30 (1+) H (Neg-Trace) mg/dL Urine Blood Small (1+) H (Negative) Urine Nitrite Positive H (Negative) Ur Leukocyte Esterase Large (3+) H (Negative) Urine WBC >50 H (0-5) /HPF Short CBC 04/15/23 Range/Units 02:09 WBC 11.1 H (4.8-10.8) X10*3/uL Hgb 12.2 (12.0-16.0) g/dl Hct 34.7 L (37.0-47.0) % Plt Count 235 (160-400) X10*3/uL BMP 04/15/23 02:11 Sodium 138 Potassium 3.8 Chloride 105 Carbon Dioxide 25 BUN 21 H Creatinine 0.85 Calcium 9.6 Liver Function 04/15/23 Range/Units 02:11 Total Bilirubin 1.3 H (0.0-1.0) mg/dL Direct Bilirubin 0.3 (0.0-0.5) mg/dL AST 11 (5-31) U/L ALT 10 (0-31) U/L Alkaline Phosphatase 71 (39-117) U/L Albumin 3.8 (3.5-5.0) g/dL Urine 04/15/23 04/15/23 Range/Units 02:11 02:11 Urine Color Yellow Urine Appearance Cloudy Urine pH 6.0 (5.0-9.0) Ur Specific [place] 1.015 (1.005-1.025) Urine Protein 30 (1+) H (Neg-Trace) mg/dL Urine Glucose (UA) Negative (Negative) mg/dL Urine Test NEGATIVE (NEGATIVE) All other labs normal. Imaging Abdomen CT scan report/results: report reviewed and image reviewed CT scan - pelvis: report reviewed and image reviewed Additional studies: CT Images reviewed; the irregular bowel distention appears to be an ileus. Gastric dilation appreciated, however, I don't appreciate a whorl, free air or acute surgical pathology. There is a fair stool burden in the colon. Repeat CT with oral and IV contrast is pending Assessment and Plan (1) Abnormal CT of the abdomen: Status: Acute Plan Would admit & observe pt NG if vomiting Repeat CT with IV & PO contrast this morning Treat reported pyelonephritis/urinary infection Will follow-up after repeat CT ADDENDUM [id number] Official interpretation from Radiology is pending. As noted previously, there is a fair: Stool burden and gas in the right colon. However, I do not appreciate findings consistent with a cecal or sigmoid volvulus. Await official read from radiology. ADDENDUM 0904 Please see radiologist's dictation by Dr. Tay. No acute surgical pathology. Please note the patient needs follow-up with gastroenterology regarding her chronic constipation and previous Helicobacter pylori infection. She does not need follow-up with me since there are no surgical issues. Please call with questions. Time Spent With Patient Time: Total time managing care of this patient today ____ minutes. Procedures Date of Service Date of Service: 04/15/23
[2023-04-15 04:16] LABS: Reflex Lactate? Lactic Acid Added
--- NOTE | 2023-04-15 04:33 | PC.NURSE ---
Pt aox4 resting at the bedside. Reports feeling alot better and no pain at this time. MD at bedside explaining plan of care to pt. Pt to stay overnight and consult with surgeon.
--- NOTE | 2023-04-15 04:40 | PC.NURSE ---
Med req completed.
[2023-04-15] MEDS: ondansetron HCL 4 MG/2 ML VIAL IVPUSH ×2 (05:21→20:28)
[2023-04-15] MEDS: Lactated Ringers 1,000 ML 100 ML IVCONT ×2 (05:23→20:20)
--- NOTE | 2023-04-15 06:08 | PM.IMHP ---
History of Present Illness Date of Service: 04/15/23 Chief Complaint: chills, urinary sx 42-year-old past medical history of constipation, does BD Mell, IBS, overactive bladder, presents to the hospital with complaints of chilled as well as urinary frequency for the past 1 week. Patient reports drills became so severe that she had to come to hospital today, she has urinary frequency, dysuria, as well as suprapubic pain. She denies any chest pain, when asked about abdominal pain complaining of suprapubic pain but no acute abdominal pain, denies any diarrhea, reports chronic constipation last BM was day of presentation, reports that she takes bowel regimen daily. Denies any headache no change in vision, no chest pain, no shortness of breath for under lower extremity edema On arrival to the ED patient found to have a temperature of 103 degrees, heart rate of 129, respiratory rate of 22 Labs are significant for WBC count of 11.1, lactic acid of 2.7, UA positive for nitrites, leukocyte Estrace, WBC Abdominal pelvic CT shows evidence of possible volvulus versus internal hernia, general surgery was consulted, patient will be admitted for further management Review of Systems Review of Systems: Yes all other systems are reviewed and are negative [facility] Medical History Allergic rhinitis Anxiety Asthma Bladder calculus Constipation COVID-19 Dyslipidemia H/O urinary frequency Insomnia Irritable bowel syndrome (IBS) Irritable bowel syndrome with alternating bowel habits Mitochondrial cytopathy Overactive bladder Overweight (BMI 25.0-29.9) Palpitations Pneumonia Urge incontinence of urine Family History Mother Diabetes High blood pressure Father No problems noted. Family/Other History of breast cancer Surgical History History of D&C History of mammogram History of myringotomy History of tonsillectomy and adenoidectomy Social History Housing: Apartment Alcohol intake: current Alcohol intake frequency: holidays/special occasions only Patient Tobacco Use Status: Former Tobacco user Smoked in Last 30 Days: Yes Second Hand Smoke Exposure: Yes Use of substances other than those prescribed or required for medical reasons: No Advance Directives: No Advance Directives Information Provided: Yes Nutrition Risks: No Nutritional Risk Patient : No service: No Current occupational status: employed 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/Heterosexual Gender identity: Female Cognitive needs: No Hearing needs: No Vision needs: No Meds Allergies Allergy/AdvReac Type Severity Reaction Status Date / Time No Known Allergies Allergy Verified 03/29/23 16:35 Active Medications: Current Medications Acetaminophen (Acetaminophen 325 Mg Tablet) 650 mg PO Q6H PRN PRN Reason: Pain, Mild (Pain Scale 1-3) Ceftriaxone Sodium 1 gm/ (Sodium Chloride) 50 mls @ 100 mls/hr IV Q24H JOHN Lactated Ringer's (Lr) 1,000 mls @ 100 mls/hr IVCONT .Q10H JOHN Last Admin: 04/15/23 05:23 Dose: 100 mls/hr Ondansetron HCl (Ondansetron Hcl 4 Mg/2 Ml Vial) 4 mg IVPUSH Q8H PRN PRN Reason: Nausea and Vomiting Last Admin: 04/15/23 05:21 Dose: 4 mg Sodium Chloride (0.9 % Sodium Chloride Flush 3 Ml Syringe) 3 ml IVFLUSH QSHIFT JOHN Physical Exam Vital Signs and Narrative: Vital Signs: Last Vital Signs Temp 98.8 F 04/15/23 04:31 Pulse 96 04/15/23 04:56 Resp 12 04/15/23 04:56 BP 91/48 L 04/15/23 04:56 Pulse Ox 97 04/15/23 04:56 O2 Del Method Room Air 04/15/23 04:56 BMI result Body Mass Index 26.6 Const: General: cooperative and no acute distress Orientation/consciousness: patient oriented x3 Eyes: General: appearance normal, both eyes and all related structures Resp: Effort & Inspection: normal respiratory effort Auscultation: clear to auscultation bilaterally Cardio: Rate: regular rate Rhythm: regular rhythm GI: Other: Abdomen is soft, nontender, no rebound or guarding Palpation (GI): Soft to palpation Auscultation: normal bowel sounds : Other: Has suprapubic tenderness, bilateral CVA tenderness Skin: General skin exam: no rashes or lesions noted Neuro: General: patient oriented x3 Cognition (Neuro): normal cognition Extrem: General: Yes normal to inspection and Yes no pedal edema Results Labs 04/15/23 02:09 04/15/23 02:11 Labs: Laboratory Results - last 24 hr 04/15/23 04/15/23 04/15/23 02:09 02:11 02:11 MCV 89.0 MCH 31.3 MCHC 35.2 H RDW 12.5 Plt Count 235 MPV 8.9 L Immature Gran % (Auto) 0.4 Neut % (Auto) 86.8 H Lymph % (Auto) 6.0 L [place] % (Auto) 4.9 Eos % (Auto) 1.6 Baso % (Auto) 0.3 Lymph # (Auto) 0.7 L [place] # (Auto) 0.5 Eos # (Auto) 0.2 Baso # (Auto) 0.0 Abs Immat Gran (auto) 0.04 H Absolute Neuts (auto) 9.6 H Absolute Nucleated RBC 0.000 Nucleated RBC % (auto) 0.0 Anion Gap 12 Estim Creat Clear Calc 85.2 Estimated GFR > 60 Random Glucose 129 H Lactic Acid 2.7 H* Calcium 9.6 Total Bilirubin 1.3 H Direct Bilirubin 0.3 AST 11 ALT 10 Alkaline Phosphatase 71 Total Protein 6.5 Albumin 3.8 Lipase 31 Urine Color Urine Appearance Urine pH Ur Specific [place] Urine Protein Urine Glucose (UA) Urine Ketones Urine Blood Urine Nitrite Ur Leukocyte Esterase Urine RBC Urine WBC Ur Squamous Epith Cells Other Crystals Urine Bacteria Hyaline Casts Urine Test Influenza Type A (PCR) Influenza Type B (PCR) RSV RNA Qual (PCR) SARS-CoV-2 RNA (RT-PCR) 04/15/23 04/15/23 04/15/23 02:11 02:11 02:11 MCV MCH MCHC RDW Plt Count MPV Immature Gran % (Auto) Neut % (Auto) Lymph % (Auto) [place] % (Auto) Eos % (Auto) Baso % (Auto) Lymph # (Auto) [place] # (Auto) Eos # (Auto) Baso # (Auto) Abs Immat Gran (auto) Absolute Neuts (auto) Absolute Nucleated RBC Nucleated RBC % (auto) Anion Gap Estim Creat Clear Calc Estimated GFR Random Glucose Lactic Acid Calcium Total Bilirubin Direct Bilirubin AST ALT Alkaline Phosphatase Total Protein Albumin Lipase Urine Color Yellow Urine Appearance Cloudy Urine pH 6.0 Ur Specific [place] 1.015 Urine Protein 30 (1+) H Urine Glucose (UA) Negative Urine Ketones Negative Urine Blood Small (1+) H Urine Nitrite Positive H Ur Leukocyte Esterase Large (3+) H Urine RBC 0-2 Urine WBC >50 H Ur Squamous Epith Cells 0-2 Other Crystals Present Urine Bacteria 4+ Hyaline Casts 0-2 Urine Test NEGATIVE Influenza Type A (PCR) NEGATIVE Influenza Type B (PCR) NEGATIVE RSV RNA Qual (PCR) NEGATIVE SARS-CoV-2 RNA (RT-PCR) NEGATIVE Imaging Radiologist's Impressions: Impressions Chest X-Ray 04/15/23 02:07 IMPRESSION: No acute cardiopulmonary findings. Abdomen/Pelvis CT 04/15/23 02:50 IMPRESSION: 1. Twisting configuration of the colon in the right abdomen which appears to involve segments of the ascending as well as the tortuous sigmoid colon; this could be indicative of an internal hernia or volvulus. This appears new from 05/05/2021, and the possibility of some partial degree of obstruction is difficult to exclude. Moderate amount of stool throughout the ascending, transverse, and descending colon. 2. Slight prominence of the bilateral renal pelvises, with no obstructing calculus seen. 3. Fluid in the distal esophagus, which could indicate reflux or dysmotility. Assessment and Plan (1) Sepsis: Status: Acute (2) Acute UTI: Status: Acute (3) Pyelonephritis: Status: Acute (4) Abnormal CT of the abdomen: Status: Acute Plan 42-year-old female with past medical history as above presents to the hospital with complaints of chills as well as suprapubic pain past found to have acute UTI # sepsis - secondary to urinary tract infection/pyelo - tachycardia, tachypnea, leukocytosis, febrile - will treat with IV antibiotics - follow cultures # acute pyelonephritis,/UTI - has CVA tenderness, UA positive, urinary symptoms - will treat with IV antibiotics - follow cultures # lactic acidosis - secondary to above - treated with fluids - trend # abnormal CT abdomen - CT abdomen showing possible internal hernia is versus volvulus - general surgery consult, this time will keep NPO, bowel rest, general surgery will follow # anxiety - Continue trazodone and lorazepam DVT prophylaxis: Early ambulation Given patient's need for IV antibiotics in the setting of sepsis, as well as volvulus evaluation patient will be required a minimum 2 nights inpatient hospital stay for further management and monitoring Time Spent With Patient Time: Total time managing care of this patient today ____ minutes. Quality Stroke Does the patient have a stroke diagnosis?: No VTE Prior VTE?: No VTE Risk Level:: Medical - low VTE Device Contraindication: Treatment Not Indicated VTE Drug Contraindication: Treatment Not Indicated
[2023-04-15 06:17] LABS: MANUAL DIFF FLAG NO
[2023-04-15 06:23] LABS: Basophils Percent Auto 0.4 % (0-2); Eosinophils Percent Auto 0.3 % (0-4); Hematocrit 30.5 % (37.0-47.0); Hemoglobin 10.5 g/dl (12.0-16.0); Imm Gran Abs Auto 0.04 X10*3/uL (0.00-0.03); Imm Gran Pct Auto 0.4 % (0.0-0.4); Lymphocytes Absolute Auto 1.1 X10*3/uL (1.2-4.9); Lymphocytes Percent Auto 9.4 % (20-40); Mean Corpuscular HGB Conc 34.4 g/dl (31.0-35.0); Mean Corpuscular Hemoglobin 30.8 pg (27.0-33.0); Mean Corpuscular Volume 89.4 fL (80.0-98.0); Mean Platelet Volume 8.9 fL (9.4-12.3); Neutrophils Percent Auto 80.5 % (45-73); Platelet Count 208 X10*3/uL (160-400); Red Blood Count 3.41 X10*6/uL (4.20-5.50); Red Cell Distribution Width 12.5 % (11.0-16.0); White Blood Count 11.2 X10*3/uL (4.8-10.8)
[2023-04-15] MEDS: Lactated Ringers 1,000 ML 999 ML IV (06:23)
[2023-04-15 06:30] LABS: ~Lactic Acid-LAB USE ONLY 1.4 mmol/L (0.5-2.0)
[2023-04-15 06:37] LABS: Anion Gap 10 (12-20); Blood Urea Nitrogen 19 mg/dL (9-16); Calcium 8.6 mg/dL (8.4-10.2); Carbon Dioxide 21 mmol/L (22-29); Chloride 111 mmol/L (96-108); Creatinine Clr Calc Pharmacy 99.1; Estimated Glomerular Filt Rate > 60; Glucose Random 118 mg/dL (60-115); Sodium 138 mmol/L (135-145)
--- NOTE | 2023-04-15 07:34 | P.PNIM_ITS ---
Subjective Subjective Date of Service: 04/15/23 Interval History: improving Physical Exam Vital Signs: Vital Signs: Last Vital Signs Temp 98.8 F 04/15/23 04:31 Pulse 96 04/15/23 04:56 Resp 12 04/15/23 04:56 BP 91/48 L 04/15/23 04:56 Pulse Ox 97 04/15/23 04:56 O2 Del Method Room Air 04/15/23 04:56 BMI result Body Mass Index 26.6 General: AO X 3, no acute distress Resp: CTA bilateral, no accessory muscles used CVS: S1,S2,RRR GI: soft, non tender, non distended Neuro: motor grossly intact, alert Psych: appropriate affect, appropriate insight Objective Data Active Medications Acetaminophen (Acetaminophen 325 Mg Tablet) 650 mg PO Q6H PRN PRN Reason: Pain, Mild (Pain Scale 1-3) Albuterol Sulfate (Albuterol Sulfate 90 Mcg 8 Gm Inhaler) 2 puff INHALE Q6H PRN PRN Reason: shortness of breath or wheezing Ceftriaxone Sodium 1 gm/ (Sodium Chloride) 50 mls @ 100 mls/hr IV Q24H JOHN Lactated Ringer's (Lr) 1,000 mls @ 100 mls/hr IVCONT .Q10H [facility] Last Infusion: 04/15/23 07:23 Dose: 100 mls/hr Documented By: CHANTEL Loratadine (Loratadine 10 Mg Tablet) 10 mg PO DAILY PRN PRN Reason: allergy symptoms Lorazepam (Lorazepam 0.5 Mg Tablet) 0.5 mg PO BEDTIME PRN PRN Reason: anxiety Ondansetron HCl (Ondansetron Hcl 4 Mg/2 Ml Vial) 4 mg IVPUSH Q8H PRN PRN Reason: Nausea and Vomiting Last Admin: 04/15/23 05:21 Dose: 4 mg Documented By: VERA Sodium Chloride (0.9 % Sodium Chloride Flush 3 Ml Syringe) [facility] Last Admin: 04/15/23 07:03 Dose: Not Given Documented By: CHANTEL Non-Admin Reason: IV Running Trazodone HCl (Trazodone Hcl 50 Mg Tablet) 50 mg PO BEDTIME PRN PRN Reason: sleep Labs 04/15/23 06:05 04/15/23 06:05 Labs: Laboratory Results - last 24 hr 04/15/23 04/15/23 04/15/23 02:09 02:11 02:11 MCV 89.0 MCH 31.3 MCHC 35.2 H RDW 12.5 Plt Count 235 MPV 8.9 L Immature Gran % (Auto) 0.4 Neut % (Auto) 86.8 H Lymph % (Auto) 6.0 L [place] % (Auto) 4.9 Eos % (Auto) 1.6 Baso % (Auto) 0.3 Lymph # (Auto) 0.7 L [place] # (Auto) 0.5 Eos # (Auto) 0.2 Baso # (Auto) 0.0 Abs Immat Gran (auto) 0.04 H Absolute Neuts (auto) 9.6 H Absolute Nucleated RBC 0.000 Nucleated RBC % (auto) 0.0 Anion Gap 12 Estim Creat Clear Calc 85.2 Estimated GFR > 60 Random Glucose 129 H Lactic Acid 2.7 H* Lactic Acid F/U @ 2Hr Calcium 9.6 Total Bilirubin 1.3 H Direct Bilirubin 0.3 AST 11 ALT 10 Alkaline Phosphatase 71 Total Protein 6.5 Albumin 3.8 Lipase 31 Urine Color Urine Appearance Urine pH Ur Specific [place] Urine Protein Urine Glucose (UA) Urine Ketones Urine Blood Urine Nitrite Ur Leukocyte Esterase Urine RBC Urine WBC Ur Squamous Epith Cells Other Crystals Urine Bacteria Hyaline Casts Urine Test Influenza Type A (PCR) Influenza Type B (PCR) RSV RNA Qual (PCR) SARS-CoV-2 RNA (RT-PCR) 04/15/23 04/15/23 04/15/23 02:11 02:11 02:11 MCV MCH MCHC RDW Plt Count MPV Immature Gran % (Auto) Neut % (Auto) Lymph % (Auto) [place] % (Auto) Eos % (Auto) Baso % (Auto) Lymph # (Auto) [place] # (Auto) Eos # (Auto) Baso # (Auto) Abs Immat Gran (auto) Absolute Neuts (auto) Absolute Nucleated RBC Nucleated RBC % (auto) Anion Gap Estim Creat Clear Calc Estimated GFR Random Glucose Lactic Acid Lactic Acid F/U @ 2Hr Calcium Total Bilirubin Direct Bilirubin AST ALT Alkaline Phosphatase Total Protein Albumin Lipase Urine Color Yellow Urine Appearance Cloudy Urine pH 6.0 Ur Specific [place] 1.015 Urine Protein 30 (1+) H Urine Glucose (UA) Negative Urine Ketones Negative Urine Blood Small (1+) H Urine Nitrite Positive H Ur Leukocyte Esterase Large (3+) H Urine RBC 0-2 Urine WBC >50 H Ur Squamous Epith Cells 0-2 Other Crystals Present Urine Bacteria 4+ Hyaline Casts 0-2 Urine Test NEGATIVE Influenza Type A (PCR) NEGATIVE Influenza Type B (PCR) NEGATIVE RSV RNA Qual (PCR) NEGATIVE SARS-CoV-2 RNA (RT-PCR) NEGATIVE 04/15/23 04/15/23 04/15/23 06:05 06:05 06:05 MCV 89.4 MCH 30.8 MCHC 34.4 RDW 12.5 Plt Count 208 MPV 8.9 L Immature Gran % (Auto) 0.4 Neut % (Auto) 80.5 H Lymph % (Auto) 9.4 L [place] % (Auto) 9.0 Eos % (Auto) 0.3 Baso % (Auto) 0.4 Lymph # (Auto) 1.1 L [place] # (Auto) 1.0 Eos # (Auto) 0.0 Baso # (Auto) 0.0 Abs Immat Gran (auto) 0.04 H Absolute Neuts (auto) 9.0 H Absolute Nucleated RBC 0.000 Nucleated RBC % (auto) 0.0 Anion Gap 10 L Estim Creat Clear Calc 99.1 Estimated GFR > 60 Random Glucose 118 H Lactic Acid Lactic Acid F/U @ 2Hr 1.4 Calcium 8.6 D Total Bilirubin Direct Bilirubin AST ALT Alkaline Phosphatase Total Protein Albumin Lipase Urine Color Urine Appearance Urine pH Ur Specific [place] Urine Protein Urine Glucose (UA) Urine Ketones Urine Blood Urine Nitrite Ur Leukocyte Esterase Urine RBC Urine WBC Ur Squamous Epith Cells Other Crystals Urine Bacteria Hyaline Casts Urine Test Influenza Type A (PCR) Influenza Type B (PCR) RSV RNA Qual (PCR) SARS-CoV-2 RNA (RT-PCR) Assessment and Plan (1) Sepsis: Status: Acute Plan 42-year-old female with past medical history as above presents to the hospital with complaints of chills as well as suprapubic pain past found to have acute UTI severe sepsis present on arrival secondary to acute urinary tract infection/pyelo rocephin, cultures abnormal CT abdomen - CT abdomen showing possible internal hernia versus volvulus - general surgery appreciated, more likely ileus anxiety - Continue trazodone and lorazepam DVT prophylaxis:? lovenox full code reason for continued hospitalization:awaiting defervesence Time Spent With Patient Time: Total time managing care of this patient today ____ minutes. Quality Stroke Does the patient have a stroke diagnosis?: No VTE Prior VTE?: No VTE Risk Level:: Medical - low VTE Device Contraindication: Treatment Not Indicated VTE Drug Contraindication: Treatment Not Indicated
[2023-04-15] MEDS: Enoxaparin Sodium 40 MG/0.4 ML SYRINGE SUBCUT (07:54)
--- NOTE | 2023-04-15 08:11 | PHA.MEDREC ---
Pharmacy Consult ? Medication Reconciliation Pharmacy has completed the medication reconciliation. Pharmacy reviewed med rec done by nursing overnight
[2023-04-15] MEDS: iohexoL 350 MG/ML 100 ML INFUS..BTL 85 ML IV (08:21)
--- NOTE | 2023-04-15 09:32 | PC.NURSE ---
[facility]
--- NOTE | 2023-04-15 13:30 | MHC.CM.PN ---
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 HCP declined as this time. Pt will call family for transportation to home.
[2023-04-15] MEDS: Acetaminophen 325 MG TABLET 650 MG PO (14:56)
[2023-04-15] MEDS: Magnesium Hydrox/Alum Hydrox 30 ML ORAL.SUSP 15 ML PO (20:33)
[2023-04-16] MEDS: 0.9 % Sodium Chloride Flush 3 ML SYRINGE IVFLUSH ×4 (00:32→23:02)
[2023-04-16 04:00] VITALS: BP 96/57; PULSE 67; RESP 18; TEMP 36.2; O2SAT 98
[2023-04-16] MEDS: cefTRIAXone sodium 1 GM in 0.9 % Sodium Chloride 50 ML IV (04:29)
[2023-04-16 06:53] LABS: Hematocrit 29.9 % (37.0-47.0); Hemoglobin 10.2 g/dl (12.0-16.0); Mean Corpuscular HGB Conc 34.1 g/dl (31.0-35.0); Mean Corpuscular Hemoglobin 31.1 pg (27.0-33.0); Mean Corpuscular Volume 91.2 fL (80.0-98.0); Mean Platelet Volume 9.2 fL (9.4-12.3); Platelet Count 197 X10*3/uL (160-400); Red Blood Count 3.28 X10*6/uL (4.20-5.50); Red Cell Distribution Width 12.6 % (11.0-16.0); White Blood Count 8.5 X10*3/uL (4.8-10.8)
[2023-04-16 07:18] VITALS: BP 106/59; PULSE 67; RESP 18; TEMP 36.9; O2SAT 98
[2023-04-16 07:22] LABS: Anion Gap 8 (12-20); Blood Urea Nitrogen 9 mg/dL (9-16); Calcium 8.4 mg/dL (8.4-10.2); Carbon Dioxide 28 mmol/L (22-29); Chloride 109 mmol/L (96-108); Creatinine Clr Calc Pharmacy 109.7; Estimated Glomerular Filt Rate > 60; Glucose Fasting 89 mg/dL (60-99); Sodium 141 mmol/L (135-145)
[2023-04-16 08:00] VITALS: BP 106/59; PULSE 67; RESP 18; TEMP 36.9; O2SAT 98
[2023-04-16] MEDS: Enoxaparin Sodium 40 MG/0.4 ML SYRINGE SUBCUT (09:06)
--- NOTE | 2023-04-16 09:06 | HO.PM.IMPN ---
Subjective Subjective Date of Service: 04/16/23 Interval History: constipated Physical Exam Vital Signs: Vital Signs: Last Vital Signs Temp 98.4 F 04/16/23 08:00 Pulse 67 04/16/23 08:00 Resp 18 04/16/23 08:00 BP 106/59 L 04/16/23 08:00 Pulse Ox 98 04/16/23 08:00 O2 Del Method Room Air 04/16/23 08:00 BMI result Body Mass Index 26.6 General: AO X 3, no acute distress Resp: CTA bilateral, no accessory muscles used CVS: S1,S2,RRR GI: soft, tender, non distended Neuro: motor grossly intact, alert Psych: appropriate affect, appropriate insight Objective Data Active Medications Acetaminophen (Acetaminophen 325 Mg Tablet) 650 mg PO Q6H PRN PRN Reason: Pain, Mild (Pain Scale 1-3) Last Admin: 04/15/23 14:56 Dose: 650 mg Documented By: PARVEEN Al Hydroxide/Mg Hydroxide (Magnesium Hydrox/Alum Hydrox 30 Ml Oral.Susp) 15 ml PO Q6H PRN PRN Reason: heartbrun Last Admin: 04/15/23 20:33 Dose: 15 ml Documented By: ROBERTO Albuterol Sulfate (Albuterol Sulfate 90 Mcg 8 Gm Inhaler) 2 puff INHALE Q6H PRN PRN Reason: shortness of breath or wheezing Enoxaparin Sodium (Enoxaparin Sodium 40 Mg/0.4 Ml Syringe) 40 mg SUBCUT Q24H [facility] Last Admin: 04/15/23 07:54 Dose: 40 mg Documented By: CHANTEL Ceftriaxone Sodium 1 gm/ (Sodium Chloride) 50 mls @ 100 mls/hr IV Q24H [facility] Last Infusion: 04/16/23 05:17 Dose: 0 mls/hr Documented By: MARY Lactated Ringer's (Lr) 1,000 mls @ 100 mls/hr IVCONT .Q10H [facility] Last Infusion: 04/16/23 06:27 Dose: 0 mls/hr Documented By: MARY Loratadine (Loratadine 10 Mg Tablet) 10 mg PO DAILY PRN PRN Reason: allergy symptoms Lorazepam (Lorazepam 0.5 Mg Tablet) 0.5 mg PO BEDTIME PRN PRN Reason: anxiety Ondansetron HCl (Ondansetron Hcl 4 Mg/2 Ml Vial) 4 mg IVPUSH Q8H PRN PRN Reason: Nausea and Vomiting Last Admin: 04/15/23 20:28 Dose: 4 mg Documented By: ROBERTO Polyethylene Glycol (Polyethylene Glycol 3350 17 Gm Powd.Pack) 17 gm PO ONCE ONE Stop: 04/16/23 09:06 Sodium Chloride (0.9 % Sodium Chloride Flush 3 Ml Syringe) 3 ml IVFLUSH QSHIFT JOHN Last Admin: 04/16/23 00:32 Dose: 3 ml Documented By: OZORALB Trazodone HCl (Trazodone Hcl 50 Mg Tablet) 50 mg PO BEDTIME PRN PRN Reason: sleep Labs 04/16/23 06:24 04/16/23 06:24 Labs: Laboratory Results - last 24 hr 04/16/23 04/16/23 06:24 06:24 MCV 91.2 MCH 31.1 MCHC 34.1 RDW 12.6 Plt Count 197 MPV 9.2 L Absolute Nucleated RBC 0.000 Nucleated RBC % (auto) 0.0 Anion Gap 8 L Estim Creat Clear Calc 109.7 Estimated GFR > 60 Fasting Glucose 89 Calcium 8.4 Microbiology Microbiology Results: Microbiology 04/15/23 Unknown Urine Culture - Preliminary Urine clean catch - Urine white top Gram negative nelson 04/15/23 02:13 Blood Culture - Preliminary Blood - Venous No growth after 24 hours. 04/15/23 02:12 Blood Culture - Preliminary Blood - Venous Prelim: GNR Gram Stain only Assessment and Plan (1) Sepsis: Status: Acute Plan 42-year-old female with past medical history as above presents to the hospital with complaints of chills as well as suprapubic pain past found to have acute UTI severe sepsis present on arrival secondary to acute urinary tract infection/pyelo complicated by GNR bacteremia rocephin, follow upcultures abnormal CT abdomen initial CT abdomen showing possible internal hernia versus volvulus not seen on contrast study repeat, likely just ileus/constipation will give miralax anxiety - Continue trazodone and lorazepam DVT prophylaxis:? lovenox full code reason for continued hospitalization:awaiting cultures Time Spent With Patient Time: Total time managing care of this patient today ____ minutes. Quality Stroke Does the patient have a stroke diagnosis?: No VTE Prior VTE?: No VTE Risk Level:: Medical - low VTE Device Contraindication: Treatment Not Indicated VTE Drug Contraindication: Treatment Not Indicated
[2023-04-16] MEDS: polyethylene glycoL 3350 17 GM POWD.PACK PO (10:31)
[2023-04-16] MEDS: bisacodyL 10 MG SUPP.RECT PR (10:32)
[2023-04-16 15:42] VITALS: BP 103/62; PULSE 82; RESP 20; TEMP 37.3; O2SAT 98
[2023-04-16 19:23] VITALS: BP 129/72; PULSE 86; RESP 18; TEMP 36.8; O2SAT 98
[2023-04-16] MEDS: Acetaminophen 325 MG TABLET 650 MG PO (19:53)
[2023-04-17 03:07] VITALS: BP 100/52; PULSE 66; RESP 16; TEMP 36.1; O2SAT 97
[2023-04-17] MEDS: cefTRIAXone sodium 1 GM in 0.9 % Sodium Chloride 50 ML IV (03:57)
[2023-04-17 06:38] LABS: Hematocrit 31.9 % (37.0-47.0); Hemoglobin 10.7 g/dl (12.0-16.0); Mean Corpuscular HGB Conc 33.5 g/dl (31.0-35.0); Mean Corpuscular Hemoglobin 30.7 pg (27.0-33.0); Mean Corpuscular Volume 91.4 fL (80.0-98.0); Mean Platelet Volume 9.2 fL (9.4-12.3); Platelet Count 224 X10*3/uL (160-400); Red Blood Count 3.49 X10*6/uL (4.20-5.50); Red Cell Distribution Width 12.4 % (11.0-16.0); White Blood Count 6.4 X10*3/uL (4.8-10.8)
[2023-04-17 06:51] LABS: Anion Gap 13 (12-20); Blood Urea Nitrogen 10 mg/dL (9-16); Calcium 8.5 mg/dL (8.4-10.2); Carbon Dioxide 25 mmol/L (22-29); Chloride 107 mmol/L (96-108); Creatinine Clr Calc Pharmacy 106.4; Estimated Glomerular Filt Rate > 60; Glucose Fasting 87 mg/dL (60-99); Potassium 4.1 mmol/L (3.3-5.1); Sodium 141 mmol/L (135-145)
[2023-04-17 07:42] VITALS: BP 99/54; PULSE 60; RESP 18; TEMP 36.4; O2SAT 97
[2023-04-17] MEDS: 0.9 % Sodium Chloride Flush 3 ML SYRINGE IVFLUSH (08:37)
--- NOTE | 2023-04-17 11:25 | PM.DS ---
DS: Providers Provider Date of Service: 04/17/23 Date of admission: 04/15/23 04:41 Primary care physician: Ronen Holly MD Consults: 04/15/23 03:49 Consult to Physician Stat Consulting Provider: Alexis Mueller Reason for consultation: ? Valvulus, versus diverticulitis 04/15/23 04:42 Consult to General Surgery Routine Consulting Provider: [facility] [place] [facility] Reason for consultation: ileus vs volvulus Has provider been notified: Yes DS: Diagnosis Discharge Diagnosis (1) Sepsis: Status: Acute (2) Acute UTI: Status: Acute (3) Pyelonephritis: Status: Acute (4) Constipation: Status: Acute (5) Bacteremia due to Escherichia coli: Status: Acute DS: Summary Hospital Course Hospital Course: Admission note HPI 42-year-old past medical history of constipation, does BD Mell, IBS, overactive bladder, presents to the hospital with complaints of chilled as well as urinary frequency for the past 1 week.? Patient reports drills became so severe that she had to come to hospital today, she has urinary frequency, dysuria, as well as suprapubic pain.? She denies any chest pain, when asked about abdominal pain complaining of suprapubic pain but no acute abdominal pain, denies any diarrhea, reports chronic constipation last BM was day of presentation, reports that she takes bowel regimen daily.? Denies any headache no change in vision, no chest pain, no shortness of breath for under lower extremity edema On arrival to the ED patient found to have a temperature of 103 degrees, heart rate of 129, respiratory rate of 22 Labs are significant for WBC count of 11.1, lactic acid of 2.7, UA positive for nitrites, leukocyte Estrace, WBC Abdominal pelvic CT shows evidence of possible volvulus versus internal hernia, general surgery was consulted, patient will be admitted for further management Hospital course The patient was admitted for evaluation of severe sepsis secondary to UTI and evidence of Pyelonephritis on images complicated with E.Coli bacteremia. responded well to treatment with IV Ceftriaxone over the course of hospital stay as sepsis resolved. CT scan of abdomen was concerning for possible volvouls vs ilues evaluated by surgical team who recommended no intervention as repeated CT scan with contrast did not show any evidence of surgical problems and the patient was able to move her bowels with usage of Metamucil and colace. Continue Ceftin as prescribed for infection Fiber and stool softener to help with constipation Follow w PCP if continues to have abdominal symptoms for further work up as outpatient Time Spent with Patient Time attestation: Total time managing care of this patient today ____ minutes. Discharge coordination time: Greater than 30 minutes Quality: Safe Use of Opioids Does Pt have an Active Cancer Diagnosis on the Problem List?: No Quality: Stroke Does the patient have a stroke diagnosis?: No Physical Exam Vital Signs: Vital Signs: Last Vital Signs Temp 97.5 F 04/17/23 07:42 Pulse 60 04/17/23 07:42 Resp 18 04/17/23 07:42 BP 99/54 L 04/17/23 07:42 Pulse Ox 97 04/17/23 07:42 O2 Del Method Room Air 04/17/23 07:42 BMI result Body Mass Index 26.6 Const: Other: Constitutional : Awake, interactive, not in distress Neck : Normal inspection, Supple Cardiovascular : RRR, no JVP, no lower extremity edema Respiratory : good bilateral air entry, no crackles, wheezes or rhonchi Gastrointestinal: soft, lax, Normal bowel sounds, Non tender Skin : Warm, Dry Neurological : Alert & oriented x3, No focal deficit , CN 2-12 within normal DS: Data Data Completed and Pending Labs on day of discharge: Laboratory Results - last 24 hr 04/17/23 04/17/23 05:59 05:59 WBC 6.4 RBC 3.49 L Hgb 10.7 L Hct 31.9 L MCV 91.4 MCH 30.7 MCHC 33.5 RDW 12.4 Plt Count 224 MPV 9.2 L Absolute Nucleated RBC 0.000 Nucleated RBC % (auto) 0.0 Sodium 141 Potassium 4.1 Chloride 107 Carbon Dioxide 25 Anion Gap 13 BUN 10 Creatinine 0.68 Estim Creat Clear Calc 106.4 Estimated GFR > 60 Fasting Glucose 87 Calcium 8.5 Preliminary micro results at discharge 04/15/23 02:13 Blood Culture - Preliminary Blood - Venous No growth after 48 hours. 04/15/23 02:12 Blood Culture - Preliminary Blood - Venous Gram negative nelson Imaging CT scan - abdomen: Radiologist's impression: ITS Impressions Chest X-Ray 04/15/23 02:07 IMPRESSION: No acute cardiopulmonary findings. Abdomen/Pelvis CT 04/15/23 02:50 IMPRESSION: 1. Twisting configuration of the colon in the right abdomen which appears to involve segments of the ascending as well as the tortuous sigmoid colon; this could be indicative of an internal hernia or volvulus. This appears new from 05/05/2021, and the possibility of some partial degree of obstruction is difficult to exclude. Moderate amount of stool throughout the ascending, transverse, and descending colon. 2. Slight prominence of the bilateral renal pelvises, with no obstructing calculus seen. 3. Fluid in the distal esophagus, which could indicate reflux or dysmotility. Abdomen/Pelvis CT 04/15/23 08:23 IMPRESSION: No acute finding. Moderate stool scattered throughout the colon. Small hiatus hernia. Discharge Plan Discharge Anticipated Discharge Date/Time: 04/17/23 11:19 Patient Disposition: Home, Self-Care Discharge Diagnosis: Kidney infection Constipation Referrals: Ronen Holly MD [Primary Care Provider] - 1 Week Discharge Medications: New cefuroxime axetil 500 mg tablet 500 mg PO BID 11 Days Qty: 22 0RF Metamucil Fiber Singles 3.4 gram Powder In Packet 3.4 g PO DAILY 30 Days Qty: 30 2RF Continued albuterol sulfate [Ventolin HFA] 90 mcg/actuation HFA aerosol inhaler 2 puff inhalation Q6H PRN (Reason: shortness of breath or wheezing) 30 Days Qty: 8.5 5RF loratadine 10 mg tablet 10 mg PO DAILY PRN (Reason: allergy symptoms) 30 Days Qty: 30 5RF trazodone 50 mg tablet 50 mg PO BEDTIME PRN (Reason: sleep) 30 Days Qty: 30 3RF lorazepam 0.5 mg tablet 0.5 mg PO BEDTIME PRN (Reason: anxiety) 30 Days Qty: 30 0RF docusate sodium [Colace] 100 mg capsule 200 mg PO BEDTIME Qty: 60 5RF Discharge Orders: Discharge Order (Routine); Ordered 04/17/23 Ordered By: Perlita Torres Diet: Advance to usual diet Activity on Discharge: As tolerated Stand Alone Forms: Patient Portal Discharge page Care Plan Goals: Read below Health Concerns: Read below Plan of Treatment: Read below Assessment: You were admitted to the hospital for evidence of kidney infection and constipation. treated with IV antibiotics with good response as urine and blood cultures grew bacteria called E.Coli. seen by surgery who did not report any surgical abnormalities. moved bowels with fibers and stool softeners. Continue Ceftin as prescribed for infection Fiber and stool softener to help with constipation Follow w PCP if continues to have abdominal symptoms for further work up as outpatient Patient Instructions: Kidney Infection (ED)
--- NOTE | 2023-04-17 11:34 | MHC.CM.PN ---
Patient is discharged to home self care. She has arranged for family to provide transportation home.
--- NOTE | 2023-04-18 19:16 | PC.NURSE ---
ERROR: IV abx Rocephin administered 04/15/2023 at 0200, after blood culture was drawn at 0155.
== END 2023-04-17 11:59 | disposition home or self-care (01) | DRG 720 ==
LOC: HO.ED 04:58 → HO.EDOVER 05:27 → HO.S3 08:36
PROVIDERS: Internal Medicine; Admitting Provider Internal Medicine; Emergency Provider Emergency Medicine Emergency Medical Services; PCP Internal Medicine; Visit Provider Student in an Organized Health Care Education/Training Program
DX: A41.9 Sepsis, unspecified organism (principal); E87.0 Hyperosmolality and hypernatremia; B96.20 Unspecified Escherichia coli [E. coli] as the cause of diseases classified elsewhere; R65.20 Severe sepsis without septic shock; K59.09 Other constipation; N39.0 Urinary tract infection, site not specified; F41.9 Anxiety disorder, unspecified; Z87.442 Personal history of urinary calculi; Z20.822 Contact with and (suspected) exposure to COVID-19; Z87.891 Personal history of nicotine dependence; Z79.899 Other long term (current) drug therapy
CPT/HCPCS: 0241U; 36415; 71045; 74176; 74177; 80048; 80076; 81001; 81025; 83605; 83690; 85025; 85027; 87040; 87077; 87086; 87088; 87186; 87205; 99285; J0696; J1650; J1885; J2405; Q9967

== ENCOUNTER 2023-04-25 15:14 | Outpatient (REF) | payer OTHER, SELFPAY ==
[2023-04-26 14:42] LABS: CT PCR NOT DETECTED (Not Detect.); NG PCR NOT DETECTED (Not Detect.)
[2023-04-28 14:04] LABS: BV Int Neg Control Negative (Negative); BV Int Pos Control Positive (Positive)
== END 2023-04-25 15:15 | disposition home or self-care (01) ==
LOC: HO.LAB 15:14
PROVIDERS: PCP Internal Medicine; Visit Provider Advanced Practice Midwife
DX: N89.8 Other specified noninflammatory disorders of vagina (principal); N94.9 Unspecified condition associated with female genital organs and menstrual cycle; Z20.2 Contact with and (suspected) exposure to infections with a predominantly sexual mode of transmission
CPT/HCPCS: 0353U; 87480; 87510; 87660

== ENCOUNTER 2023-04-25 15:43 | Outpatient (REF) | payer OTHER, SELFPAY | END 2023-04-25 15:44 | disposition home or self-care (01) | LOC: HO.LNP 15:43 | PROVIDERS: Visit Provider Advanced Practice Midwife | DX: Z13.89 Encounter for screening for other disorder (principal) ==

== ENCOUNTER 2023-05-03 15:52 | Outpatient (REF) | payer OTHER, SELFPAY ==
--- NOTE | ~2023-05-03 | US_ITS ---
EXAMINATION: US PELVIS CLINICAL INFORMATION: Excessive and frequent menstruation. COMPARISON: CT abdomen and pelvis 04/15/2023. Pelvic ultrasound 07/21/2018. TECHNIQUE: Ultrasound of the pelvis is performed using both transabdominal and transvaginal transducers along with Doppler. Transvaginal imaging is performed due to inadequate visualization transabdominally. FINDINGS: Uterus: The uterus is anteverted and measures 6.1 x 4.0 x 5.1 cm. The double wall endometrial thickness is 0.5 mm. The uterus is smooth in contour and has normal myometrial echogenicity. No visible fibroid. Adnexa: Both ovaries are visualized. There is normal color flow to the adnexa. There is no ovarian torsion. There is no pelvic ascites or fluid collection. Right ovary measures 3.2 x 1.8 x 1.5 cm, volume 4.5 mL 2.2 x 2.0 x 1.0 cm follicle, normal finding. Left ovary measures 3.8 x 3.3 x 3.7 cm, volume 24 mL. 3.6 x 3.1 x 3.6 cm complex cyst consistent with a hemorrhagic cyst. No follow-up imaging recommended. US/US pelvic and transvaginal IMPRESSION: Normal-appearing uterus.
== END 2023-05-03 15:53 | disposition home or self-care (01) ==
LOC: HO.US 15:52
PROVIDERS: PCP Internal Medicine; Visit Provider Advanced Practice Midwife
DX: N92.0 Excessive and frequent menstruation with regular cycle (principal)
CPT/HCPCS: 76830; 76856

== ENCOUNTER → 2023-05-21 15:27 | Outpatient (BNVA) | payer OTHER, SELFPAY | PROVIDERS: PCP Internal Medicine; Visit Provider Advanced Practice Midwife | DX: Z71.2 Person consulting for explanation of examination or test findings (principal); N83.292 Other ovarian cyst, left side | CPT/HCPCS: 99212 ==

== ENCOUNTER → 2023-06-10 07:30 | Outpatient (BNVA) | payer OTHER, SELFPAY | PROVIDERS: Visit Provider Physician Assistant | DX: K58.1 Irritable bowel syndrome with constipation (principal); R68.81 Early satiety; A04.8 Other specified bacterial intestinal infections | CPT/HCPCS: 99212 ==

== ENCOUNTER 2023-06-13 19:00 | Outpatient (REF) | payer OTHER, SELFPAY | END 2023-06-13 19:01 | disposition home or self-care (01) | LOC: HO.LNP 19:00 | PROVIDERS: Visit Provider Physician Assistant | DX: A04.8 Other specified bacterial intestinal infections (principal) | CPT/HCPCS: 87338 ==

== ENCOUNTER 2023-08-06 14:27 | Outpatient (REF) | payer OTHER, SELFPAY ==
--- NOTE | ~2023-08-06 | US_ITS ---
EXAMINATION: US PELVIS CLINICAL INFORMATION: Follow-up ovarian cyst. COMPARISON: 05/03/2023 TECHNIQUE: Ultrasound of the pelvis is performed using both transabdominal and transvaginal transducers along with Doppler. Transvaginal imaging is performed due to inadequate visualization transabdominally. FINDINGS: The uterus is anteverted. The uterus measures 8.1 x 4.6 x 4.4 cm. Uterine echotexture is heterogeneous. The endometrial stripe is multilayered and measures 1.0 cm in thickness. Myometrial cyst measures 3 x 2 x 3 mm. Both ovaries are visualized. There is normal color flow to the adnexa. Trace free fluid in the cul-de-sac. Right ovary measures 2.3 x 2.3 x 1.7 cm. Left ovary measures 2.8 x 1.6 x 2.0 cm. US/US pelvic and transvaginal IMPRESSION: Unremarkable pelvic ultrasound.
== END 2023-08-06 14:28 | disposition home or self-care (01) ==
LOC: HO.US 14:27
PROVIDERS: PCP Internal Medicine; Visit Provider Advanced Practice Midwife
DX: N83.292 Other ovarian cyst, left side (principal)
CPT/HCPCS: 76830; 76856

== ENCOUNTER 2023-09-03 14:23 | Outpatient (AMB) | payer OTHER, SELFPAY ==
[2023-09-03 14:28] VITALS: BP 102/66; BMI 22.7
--- NOTE | 2023-09-03 14:28 | MHC.OFFVIS ---
Intake Vital Signs 09/03/23 14:28 Height 5 ft 4 in Weight 132 lb BMI 22.7 BP 102/66 Intake Visit Reasons: ultra sound follow up Allergies No Known Allergies Allergy (Verified 09/03/23 14:28) Is last menstrual period known: Yes Last menstrual period: 08/24/23 HPI HPI Comments History of Present Illness Details She is here to discuss US results. Reports last menses lasting 2 days with pelvic cramping; uses heating pad but does not take medication incl: OTC. Reports being treated for BV and yeast. Reports slight vulvar itching and odor. [facility] Medical History Complicated UTI (urinary tract infection) Bacteremia due to Escherichia coli Insomnia Overactive bladder Urge incontinence of urine H/O urinary frequency Irritable bowel syndrome with alternating bowel habits Allergic rhinitis Anxiety Dyslipidemia Overweight (BMI 25.0-29.9) Bladder calculus Constipation Pneumonia COVID-19 Irritable bowel syndrome (IBS) Mitochondrial cytopathy Palpitations Asthma Surgical History History of mammogram History of D&C History of myringotomy History of tonsillectomy and adenoidectomy Family History Mother Diabetes High blood pressure Father No problems noted. 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/Heterosexual Gender identity: Female Cognitive needs: No Hearing needs: No Vision needs: No Female Reproductive History Menstrual Date of last menstrual period: 08/24/23 Physical Exam Vital Signs: Last Vital Signs BP 102/66 09/03/23 14:28 BMI result Body Mass Index 22.7 Const General: cooperative, healthy appearing, comfortable, no acute distress, well developed, alert and awake Other: General: Yes bladder normal to palpation External Female Exam: normal external appearance and normal appearance of the urethra Speculum Exam - Vagina: normal appearance of the vagina, normal palpation and abnormal vaginal discharge white (small amount) Speculum Exam - Cervix: normal appearance of the cervix and normal palpation Bimanual exam- vagina & uterus: normal bimanual exam, normal palpation, bladder normal to palpation and normal palpation Bimanual Exam- Adnexa, other: normal adnexae and no masses Results Reviewed Results Reviewed: EXAMINATION: US PELVIS CLINICAL INFORMATION: Follow-up ovarian cyst. COMPARISON: 05/03/2023 TECHNIQUE: Ultrasound of the pelvis is performed using both transabdominal and transvaginal transducers along with Doppler. Transvaginal imaging is performed due to inadequate visualization transabdominally. FINDINGS: The uterus is anteverted. The uterus measures 8.1 x 4.6 x 4.4 cm. Uterine echotexture is heterogeneous. The endometrial stripe is multilayered and measures 1.0 cm in thickness. Myometrial cyst measures 3 x 2 x 3 mm. Both ovaries are visualized. There is normal color flow to the adnexa. Trace free fluid in the cul-de-sac. Right ovary measures 2.3 x 2.3 x 1.7 cm. Left ovary measures 2.8 x 1.6 x 2.0 cm. US/US pelvic and transvaginal IMPRESSION: Unremarkable pelvic ultrasound. Assessment & Plan Assessment & Plan (1) Encounter to discuss test results: Code(s): Z71.2 - Person consulting for explanation of examination or test findings Plan: Discussed: US results; normal. All of her questions and concerns were addressed to the best of my ability and shared decision making. She is agreeable to plan of care. (2) Pelvic cramping: Code(s): R10.2 - Pelvic and perineal pain Plan: Monitor menses and if irregular bleeding contact office. (3) Vulvar itching: Code(s): L29.2 - Pruritus vulvae Plan: Advised to clean with water only, no soaps to the area, dry well, and wear cotton underwear. BV testing and GC/CT panel done today. Await results and treat accordingly. Hydrate well with water. (4) Vaginal odor: Code(s): N89.8 - Other specified noninflammatory disorders of vagina Orders: Orders Bacterial Vaginosis Panel Today N89.8 - Other specified noninflammatory disorders of vagina, R10.2 - Pelvic and perineal pain Coding Level of Care Code Est Pt Level 3 (76217) Diagnoses Encounter to discuss test results Z71.2 Pelvic cramping R10.2 Vulvar itching L29.2 Vaginal odor N89.8
== END 2023-09-03 16:26 | disposition home or self-care (01) ==
PROVIDERS: PCP Internal Medicine; Visit Provider Advanced Practice Midwife
DX: Z71.2 Person consulting for explanation of examination or test findings (principal); R10.2 Pelvic and perineal pain; L29.2 Pruritus vulvae; N89.8 Other specified noninflammatory disorders of vagina
CPT/HCPCS: 99213

== ENCOUNTER 2023-09-03 14:23 | Outpatient (REF) | payer OTHER, SELFPAY ==
[2023-09-04 13:35] LABS: BV Int Neg Control Negative (Negative); BV Int Pos Control Positive (Positive)
== END 2023-09-03 14:24 | disposition home or self-care (01) ==
LOC: HO.LAB 14:23
PROVIDERS: PCP Internal Medicine; Visit Provider Advanced Practice Midwife
DX: Z71.2 Person consulting for explanation of examination or test findings (principal); R10.2 Pelvic and perineal pain; L29.2 Pruritus vulvae; N89.8 Other specified noninflammatory disorders of vagina
CPT/HCPCS: 87480; 87510; 87660; 99212

== ENCOUNTER 2023-11-12 14:56 | Outpatient (AMB) | payer OTHER, SELFPAY ==
--- NOTE | 2023-11-12 14:59 | A.OFFPC_ITS ---
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 Required: No Accompanied by: Self / Same As Patient Allergies No Known Allergies Allergy (Verified 11/12/23 15:43) Medication List - Last Reconciled 11/12/23 by Ronen Holly MD albuterol sulfate 90 mcg/actuation (Ventolin HFA) 2 puffs inhalation Q6H PRN 30 days docusate sodium (Colace) 200 mg (2 x 100 mg) PO BEDTIME loratadine 10 mg PO DAILY PRN 30 days lorazepam 0.5 mg PO BEDTIME PRN 30 days metronidazole 0.75%(37.5mg/5gram) 1 appful vaginal BEDTIME 5 days omeprazole 20 mg PO DAILY peg-electrolyte soln 420 gram 240 mL PO ONCE PRN 1 day polyethylene glycol 3350 (Miralax) 17 grams PO DAILY psyllium husk (aspartame) 3.4 gram (Metamucil Fiber Singles) 3.4 grams PO DAILY 30 days trazodone 50 mg PO BEDTIME PRN 30 days valacyclovir (Valtrex) 500 mg PO BID Tobacco use date assessed: 11/12/23 Dental Screening Dental Screen Date: 11/12/23 Did you have a dental visit in the last 12 months?: Yes Did you have a dental problem in the last 6 months where you did not have access to dental care?: No Was dental information given to patient?: Patient has dentist HPI physical HPI Details Patient comes in today for her annual physical examination States that she still feels bloated often in her stomach although she denies any abdominal pain Is scheduled for EGD and colonoscopy with GI next month on 12/16/23 for further evaluation of her symptoms She denies any headaches or dizziness Denies any chest pains, no SOB No nausea/vomiting; no change in bowel habits noted - still has chronic constipation and takes stool softeners to help with her bowel movements Denies any acute urinary symptoms Needs a few of her Rx refilled Is scheduled for her next mammogram in 01/2024 and for her annual pap smear and gynecology exam in 04/2024 Would also like to request for referral to have her hearing checked - states that she has noticed a significant decline in her hearing lately [facility] Medical History Complicated UTI (urinary tract infection) Bacteremia due to Escherichia coli Insomnia Overactive bladder Urge incontinence of urine H/O urinary frequency Irritable bowel syndrome with alternating bowel habits Allergic rhinitis Anxiety Dyslipidemia Overweight (BMI 25.0-29.9) Bladder calculus Constipation Pneumonia COVID-19 Irritable bowel syndrome (IBS) Mitochondrial cytopathy Palpitations Asthma Surgical History History of mammogram History of D&C History of myringotomy History of tonsillectomy and adenoidectomy Family History Mother Diabetes High blood pressure Father No problems noted. 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 1. Little interest or pleasure in doing things: not at all 2. Feeling down, depressed, or hopeless: not at all 3. Trouble falling or staying asleep, or sleeping too much: not at all 4. Feeling tired or having little energy: not at all 5. Poor appetite or overeating: not at all 6. Feeling bad about yourself - or that you are a failure or have let yourself or your family down: not at all 7. Trouble concentrating on things, such as reading the newspaper or watching television: not at all 8. Moving or speaking so slowly that other people could have noticed. Or the opposite - being so fidgety or restless that you have been moving around a lot more than usual: not at all 9. Thoughts that you would be better off or of hurting yourself in some way: not at all Total score: 0 Depression Screening Interpretation: Negative Depression Screening Done: Yes 95235 - PHQ-9 Billing: Yes Source: Developed by Drs. Jovon Montano, Laurie Parsons, Bill Gallagher and colleagues, with an educational carmina from [employer]. Thrive Questionnaire Date Thrive assessed: 11/12/23 I am a: Patient What is your living situation today?: I have a steady place to live Within the past 12 months, did the food you bought not last and you didn't have the money to get more?: Never true Within the past 12 months, did you worry whether your food would run out before you got money to buy more?: Never true Do you have trouble paying for medicines?: No Do you have trouble getting transportation to medical appointments?: No Do you have trouble paying your heating and electricity bill?: No Do you have trouble taking care of your child, family member or friend?: No Do you have trouble with day-to-day activities such as bathing, preparing meals, shopping, managing finances, etc.?: No Are you currently unemployed and looking for a job?: No Are you interested in more education?: No Please select the resources that you would like help with: None Currently or been in a relationship where the following occur: no concerns reported AUDIT C Alcohol Use Questionnaire (AUDIT-C) 1. How often do you have a drink containing alcohol?: Monthly or less 2. How many drinks containing alcohol do you have on a typical day when you are drinking?: 1 or 2 3. How often do you have six or more drinks on one occasion?: Never Total Score: 1 Score Reviewed/Action Taken: Yes GRUPO-7 AMB Questionnaire GRUPO-7 Date GRUPO - 7 assessed: 11/12/23 Feeling nervous, anxious, or on edge: 0 = Not at all Not being able to stop or control worryin = Not at all Worrying too much about different things: 0 = Not at all Trouble relaxin = Not at all Being so restless that it is hard to sit still: 0 = Not at all Becoming easily annoyed or irritable: 0 = Not at all Feeling afraid as if something awful might happen: 0 = Not at all Total GRUPO-7 score (0-4 normal; 5-9 mild; 10-14 moderate; 15-21 severe): 0 Source: Developed by Drs. Jovon Montano, Laurie Parsons, Bill Gallagher and colleagues, with an educational carmina from [employer]. Review of Systems Const Denies chills, Denies fatigue, Denies fever(s), Denies headache(s) and Denies malaise Eyes Denies blurry vision, Denies change in vision, Denies irritation and Denies itchy eyes ENT Denies dysphagia, Denies dizziness, Denies otalgia, Denies headache(s), Reports hearing loss, Denies nasal congestion, Denies neck pain, Denies odynophagia, Denies sinus pain and Denies sore throat Card Denies chest pain, Denies rapid heart rate, Denies irregular heart rhythm, Denies palpitations and Denies dyspnea Resp Denies chest congestion, Denies cough, Denies dyspnea and Denies wheezing GI Denies abdominal pain, Reports bloating (frequent), Reports constipation, Denies dysphagia, Denies heartburn, Denies diarrhea, Denies nausea, Denies odynophagia and Denies vomiting Denies hematuria, Denies urinary frequency, Denies dysuria, Denies urinary incontinence and Denies urinary urgency Musc Denies back pain, Denies arthralgias, Denies joint swelling, Denies muscle weakness and Denies neck pain Skin/Breast Denies breast pain, Denies breast mass, Denies change in pigmentation, Denies lesions, Denies rash and Denies unusual bruising Neuro Denies dizziness, Denies headache(s) and Denies paresthesias Psych Denies anxiety and Denies depression Endo Denies fatigue and Denies palpitations Rupesh/Lymph Denies easy bruising Aller/Immun Denies itchy eyes and Denies wheezing Physical exam (Primary Care) Vital Signs: Last Vital Signs Pulse 47 L 11/12/23 15:00 BP 116/78 11/12/23 15:00 Pulse Ox 99 11/12/23 15:00 Oxygen Delivery Method Room Air 11/12/23 15:00 BMI result Body Mass Index 23.4 Tobacco/Smoking Status: Tobacco use Status Tobacco use date assessed 11/12/23 11/12/23 15:01 Patient Tobacco Use Status Former Tobacco user 11/12/23 15:01 Tobacco use type Cigarette 11/12/23 15:01 e-Cigarette/Vaping Use Never Used 11/12/23 15:01 PHQ-9: PHQ-9 Score PHQ-9: Total score 0 11/12/23 15:45 Depression Screening Interpretation: Negative Thrive Assessment: Date of Thrive Assessment Date Thrive assessed 11/12/23 11/12/23 15:01 Currently or been in a relationship where the following occur: no concerns reported Const General: no acute distress, alert and awake Orientation/consciousness: patient oriented x3 HENMT Head: Yes normocephalic and Yes atraumatic Ears: external ears normal, TM's normal bilaterally and EAC's normal General nose exam: No nasal discharge present Face and sinus: Yes normal facial exam and Yes sinuses nontender Teeth and gingiva: dentition normal Throat: Yes posterior oropharynx normal and Yes tonsils normal (no TP congestion) Eyes Eyelids: Yes eyelids normal Conjunctivae: conjunctivae normal Pupils: Equal, round and reactive pupils present EOM: EOMs intact bilaterally Neck Neck: Yes no lymphadenopathy and Yes supple Thyroid: Thyroid normal Resp Auscultation: clear to auscultation bilaterally, no rales and no wheezes Cardio Rate: regular rate Rhythm: regular rhythm Heart sounds: no murmurs GI Palpation (GI): Soft to palpation, nontender and No hepatosplenomegaly present Auscultation: normal bowel sounds General: Yes no CVA tenderness Back/Spine/Pelvis Back: no CVA tenderness Thoracic/Lumbar Spine: thoracic and lumbar spine normal to inspection Skin Lesions: no lesions Rashes: no rashes Neuro General: patient oriented x3, moves all extremities, no focal motor deficits and CN's II-XI intact bilaterally Cranial nerves: Yes Equal, round and reactive pupils present Cognition (Neuro): normal cognition Gait exam (Neuro): Normal gait present Extrem General: Yes no clubbing, cyanosis or edema Assessment and Plan Assessment & Plan (1) Annual physical exam: Code(s): Z00.00 - Encounter for general adult medical examination without abnormal findings Plan: Check labs Patient is up-to-date with her cancer screening Is scheduled for EGD and colonoscopy in December 2023, for her next mammogram in January 2024 and for her gynecology exam and pap smear in April 2024 (2) Dyslipidemia: Code(s): E78.5 - Hyperlipidemia, unspecified Plan: Reinforced low cholesterol diet Will recheck her fasting lipids for follow up (3) Irritable bowel syndrome with alternating bowel habits: Comment: food diary- Code(s): K58.2 - Mixed irritable bowel syndrome Plan: Predominantly has constipation - takes OTC stool softeners (Docusate 100 mg 2 tablets QD, Senna 8.6 mg 2 tabs QD) as needed and Linzess 145 mcg QD Continue Dicyclomine 20 mg QID PRN and Ondansetron 4 mg Q 8 hours PRN for nausea/vomiting Reinforced increased oral fluids and dietary fiber Follow up with GI as scheduled (4) Asthma: Code(s): J45.909 - Unspecified asthma, uncomplicated Qualifiers: Asthma severity: mild Asthma persistence: intermittent Asthma complication type: uncomplicated Qualified Code(s): J45.20 - Mild intermittent asthma, uncomplicated Plan: Stable - continue Albuterol HFA 2 puffs 4 times a day as needed (5) Allergic rhinitis: Code(s): J30.9 - Allergic rhinitis, unspecified Qualifiers: Allergic rhinitis trigger: unspecified Allergic rhinitis seasonality: unspecified Qualified Code(s): J30.9 - Allergic rhinitis, unspecified Plan: Continue Loratadine 10 mg QD PRN - Rx refilled (6) Hearing impairment: Code(s): H91.90 - Unspecified hearing loss, unspecified ear Qualifiers: Hearing loss type: unspecified Laterality: unspecified laterality Qualified Code(s): H91.90 - Unspecified hearing loss, unspecified ear Plan: Per request, will refer patient for hearing evaluation (7) Overactive bladder: Code(s): N32.81 - Overactive bladder Plan: Continue Oxybutynin ER 10 mg QD Follow up with urology as scheduled (8) Renal calculi: Code(s): N20.0 - Calculus of kidney Plan: Reinforced increased oral fluids Follow up with urology as scheduled (9) Insomnia: Code(s): G47.00 - Insomnia, unspecified Qualifiers: Insomnia type: unspecified Qualified Code(s): G47.00 - Insomnia, unspecified Plan: Sleep hygiene reinforced Continue Trazodone 50 mg Q HS PRN (10) Anxiety: Comment: Anxiety due to personal and family history, certainly understandable-she is agreeable to plan Code(s): F41.9 - Anxiety disorder, unspecified Plan: Continue Lorazepam 0.5 g Q HS PRN - Rx refilled Plan Follow up in 6 months Orders: Referrals Speech and Hearing Referral H91.90 - Unspecified hearing loss, unspecified ear Medications: Refilled loratadine 10 mg PO DAILY 30 days PRN 30 tabs 5RF allergy symptoms docusate sodium (Colace) 200 mg (2 x 100 mg) PO BEDTIME 60 caps 5RF lorazepam 0.5 mg PO BEDTIME 30 days PRN 30 tabs 0RF anxiety Coding Level of Care Code Est Pt Prev Care 40-64y(33651) Diagnoses Annual physical exam Z00.00 Dyslipidemia E78.5 Irritable bowel syndrome with alternating bowel habits K58.2 Mild intermittent asthma without complication J45.20 Asthma severity: mild Asthma persistence: intermittent Asthma complication type: uncomplicated Allergic rhinitis, unspecified seasonality, unspecified trigger J30.9 Allergic rhinitis trigger: unspecified Allergic rhinitis seasonality: unspecified Hearing loss, unspecified hearing loss type, unspecified laterality H91.90 Hearing loss type: unspecified Laterality: unspecified laterality Overactive bladder N32.81 Renal calculi N20.0 Insomnia, unspecified type G47.00 Insomnia type: unspecified Anxiety F41.9
[2023-11-12 15:00] VITALS: BP 116/78; PULSE 47; O2SAT 99; BMI 23.4
== END 2023-11-12 15:55 | disposition home or self-care (01) ==
PROVIDERS: PCP Internal Medicine; Visit Provider Internal Medicine
DX: Z00.00 Encounter for general adult medical examination without abnormal findings (principal); E78.5 Hyperlipidemia, unspecified; K58.2 Mixed irritable bowel syndrome; J45.20 Mild intermittent asthma, uncomplicated; J30.9 Allergic rhinitis, unspecified; H91.90 Unspecified hearing loss, unspecified ear; N32.81 Overactive bladder; N20.0 Calculus of kidney; G47.00 Insomnia, unspecified; F41.9 Anxiety disorder, unspecified
CPT/HCPCS: 99396

== ENCOUNTER 2023-11-28 12:05 | Outpatient (REF) | payer OTHER, SELFPAY | END 2023-11-28 12:06 | disposition home or self-care (01) | LOC: HO.XRAY 12:05 | PROVIDERS: PCP Internal Medicine; Visit Provider Nurse Practitioner Family | DX: N20.0 Calculus of kidney (principal) | CPT/HCPCS: 74018 ==

== ENCOUNTER 2023-12-06 09:21 | Outpatient (REF) | payer OTHER, SELFPAY ==
[2023-12-06 11:09] LABS: Alanine Aminotransferase 11 U/L (0-31); Albumin Level 3.9 g/dL (3.5-5.0); Alkaline Phosphatase 47 U/L (39-117); Anion Gap 12 (12-20); Aspartate Amino Transferase 16 U/L (5-31); Bilirubin Total 1.1 mg/dL (0.0-1.0); Blood Urea Nitrogen 16 mg/dL (9-16); Calcium 9.1 mg/dL (8.4-10.2); Carbon Dioxide 25 mmol/L (22-29); Chloride 107 mmol/L (96-108); Cholesterol 168 mg/dL (<200); Estimated Glomerular Filt Rate > 60; Glucose Fasting 83 mg/dL (60-99); HDL Cholesterol 44 mg/dL (>40); LDL Cholesterol Calculated 107 mg/dL (<100); Potassium 3.8 mmol/L (3.3-5.1); Sodium 140 mmol/L (135-145); Triglycerides 86 mg/dL (<150)
[2023-12-06 11:16] LABS: TSH reflex Free T4 0.47 uIU/mL (0.32-4.0); Vitamin D 25-OH Total 39.3 ng/mL (>30)
== END 2023-12-06 09:22 | disposition home or self-care (01) ==
LOC: HO.LAB 09:21
PROVIDERS: PCP Internal Medicine; Visit Provider Internal Medicine
DX: Z00.00 Encounter for general adult medical examination without abnormal findings (principal); I10 Essential (primary) hypertension; E78.00 Pure hypercholesterolemia, unspecified; E55.9 Vitamin D deficiency, unspecified; N20.0 Calculus of kidney; N32.81 Overactive bladder
CPT/HCPCS: 36415; 80053; 80061; 81001; 82306; 84443; 85025

== ENCOUNTER 2023-12-06 11:56 | Outpatient (AMB) | payer OTHER, SELFPAY ==
--- NOTE | 2023-12-06 11:56 | MHC.OFFVIS ---
Intake Intake Visit Reasons: 1yr follow up/KUB Intake Note: Patient presents for tele visit follow up KUB X-ray Urology Medications: none Blood thinners: none Web Marketing Specialist Required: No Allergies No Known Allergies Allergy (Verified 12/06/23 12:22) Medication List - Last Reconciled 12/06/23 by MANJEET Denise albuterol sulfate 90 mcg/actuation (Ventolin HFA) 2 puffs inhalation Q6H PRN 30 days docusate sodium (Colace) 200 mg (2 x 100 mg) PO BEDTIME loratadine 10 mg PO DAILY PRN 30 days lorazepam 0.5 mg PO BEDTIME PRN 30 days omeprazole 20 mg PO DAILY peg-electrolyte soln 420 gram 240 mL PO ONCE PRN 1 day polyethylene glycol 3350 (Miralax) 17 grams PO DAILY psyllium husk (aspartame) 3.4 gram (Metamucil Fiber Singles) 3.4 grams PO DAILY 30 days trazodone 50 mg PO BEDTIME PRN 30 days valacyclovir (Valtrex) 500 mg PO BID HPI HPI Comments History of Present Illness Details Ama is a 43-year-old female patient of Dr. Conley. She is being followed up via telehealth today for her history of urinary frequency and her history of nephrolithiasis. When asked she reports to be doing and feeling well. Recent KUB results reviewed with the patient today. No stones noted. When asked she currently denies any bothersome urinary issues or concerns. She reports to be drinking plenty of water daily. Discussed continuation with surveillance monitoring. When asked she denies urinary urgency, urinary frequency, incontinence, nocturia, hematuria, dysuria, foul smelling urine, changes to urinary stream, flank pain, fever, and or chills. She is happy with her current voiding parameters. [facility] Medical History Complicated UTI (urinary tract infection) Bacteremia due to Escherichia coli Insomnia Overactive bladder Urge incontinence of urine H/O urinary frequency Irritable bowel syndrome with alternating bowel habits Allergic rhinitis Anxiety Dyslipidemia Overweight (BMI 25.0-29.9) Bladder calculus Constipation Pneumonia COVID-19 Irritable bowel syndrome (IBS) Mitochondrial cytopathy Palpitations Asthma Surgical History History of mammogram History of D&C History of myringotomy History of tonsillectomy and adenoidectomy Family History Mother Diabetes High blood pressure Father No problems noted. 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/Heterosexual Gender identity: Female Cognitive needs: No Hearing needs: No Vision needs: No Review of Systems Const All systems reviewed & are unremarkable except as noted in HPI and below Reports no additional complaints Eyes Reports no additional complaints ENT Reports no additional complaints Card Reports no additional complaints Resp Reports no additional complaints GI Reports constipation Reports as per HPI Musc Reports no additional complaints Neuro Reports no additional complaints Psych Reports no additional complaints Endo Reports no additional complaints Rupesh/Lymph Reports no additional complaints Aller/Immun Reports no additional complaints Physical Exam Const General: cooperative Orientation/consciousness: oriented to person Resp Effort & Inspection: able to speak in complete sentences Neuro General: oriented to person Psych Speech and movement: Clear speech present Insight: Fair insight present (Psych) Judgement: Fair judgement present (Psych) Assessment & Plan Assessment & Plan (1) Overactive bladder: Code(s): N32.81 - Overactive bladder (2) Renal calculi: Code(s): N20.0 - Calculus of kidney Plan Patient currently denies any bothersome urinary issues or concerns. Recent KUB results reviewed with the patient today; as noted above. Discussed, educated, stressed the importance of drinking plenty of water daily. Continue adding 1 oz of lemon juice to water daily. Will obtain renal ultrasound in 1 year. Follow-up in 1 year with imaging to be completed prior; or sooner with any issues, concerns, and or questions. Orders: Orders US renal BI 364 Days N20.0 - Calculus of kidney Patient Instructions: The patient had an opportunity to ask questions regarding the treatment plan. All questions were answered. Physical exam, labs, and imaging were discussed and reviewed in detail. As well as risks, benefits, and discussion of treatment choices. No major barriers to understanding were identified. The patient expressed understanding and agreement with the above treatment plan. The patient was made aware they should contact our office by phone for worsening of their current condition, the appearance of new symptoms, or with any questions or concerns. Compliance is encouraged with any medications and follow up testing that is ordered. It is a privilege to be allowed the opportunity to participate in? your urological care.? Again, if you have any questions or concerns If you have any questions or concerns please do not hesitate to contact me. The office is [phone]. This note is constructed using voice recognition software. While every effort has been made to ensure accuracy book solicitor errors may have been included. Yours sincerely, MANJEET Denise Telehealth Telehealth Location of provider rendering services: practice address Location of patient: address on file Patient Identification confirmed using: Name, : Yes Telehealth method: voice only Patient verbally consented to treatment: Yes Patient verbally consented to billing insurance company: Yes Patient informed of any privacy concerns related to visit: Yes Minutes spent on Phone/Video with Pt.: 15 Coding Level of Care Code Tele Est Pt Level 3 (77963) Diagnoses Overactive bladder N32.81 Renal calculi N20.0 Time Spent (min) 15
== END 2023-12-06 12:21 | disposition home or self-care (01) ==
LOC: HO.HUSH 11:56
PROVIDERS: PCP Internal Medicine; Visit Provider Nurse Practitioner Family
DX: N32.81 Overactive bladder (principal); N20.0 Calculus of kidney
CPT/HCPCS: 99213

== ENCOUNTER 2023-12-16 12:22 | Day surgery (SDC) | payer OTHER, SELFPAY ==
--- NOTE | 2023-12-13 10:03 | P.CONAN_ITS ---
Documented by User: Stephanie Parikh NP 12/13/23 10:04 HPI - Anesthesia Eval Consult details Narrative: 43yo F for Upper Endoscopy and Colonoscopy PMF Active Problems Active Problems: All Active Problems (Updated 11/18/23 @ 03:45 by Ronen Holly MD) Hearing impairment (Acute) Early satiety (Acute) Complicated UTI (urinary tract infection) (Acute) Bacteremia due to Escherichia coli (Acute) Irritable bowel syndrome (IBS) (Acute) Insomnia (Acute) Pain and swelling of left knee (Acute) Renal calculi (Acute) Overactive bladder (Acute) Annual physical exam (Acute) Urge incontinence of urine (Acute) Dilatation of kidney collecting system (Acute) Renal calculus, left (Acute) Right lateral abdominal pain (Acute) Flank pain (Acute) H. pylori infection (Acute) Bloating (Acute) Acid reflux (Acute) Viral upper respiratory tract infection (Acute) Irritable bowel syndrome with alternating bowel habits (Acute) Otitis media, right (Acute) Bilateral flank pain (Acute) Allergic rhinitis (Acute) Anxiety (Acute) Dyslipidemia (Acute) Overweight (BMI 25.0-29.9) (Acute) Annual physical exam (Acute) Bladder calculus (Acute) Constipation (Acute) Dysuria (Acute) Asthma (Acute) Past Medical History Medical History Complicated UTI (urinary tract infection) Bacteremia due to Escherichia coli Insomnia Overactive bladder Urge incontinence of urine H/O urinary frequency Irritable bowel syndrome with alternating bowel habits Allergic rhinitis Anxiety Dyslipidemia Overweight (BMI 25.0-29.9) Bladder calculus Constipation Pneumonia COVID-19 Irritable bowel syndrome (IBS) Mitochondrial cytopathy Palpitations Asthma Family History Family History Mother Diabetes High blood pressure Father No problems noted. Family/Other History of breast cancer Surgical History Surgical History History of mammogram History of D&C History of myringotomy History of tonsillectomy and adenoidectomy Social History Social History Household Members: Significant Other and Friend(s) Housing: Apartment Do you presently have visiting nurse or other home services: No Alcohol intake: current Alcohol intake frequency: holidays/special occasions only Patient Tobacco Use Status: Former Tobacco user Tobacco use type: Cigarette e-Cigarette/Vaping Use: Never Used Second Hand Smoke Exposure: Yes Use of substances other than those prescribed or required for medical reasons: No Are you DNR?: No Advance Directives: No Advance Directives Information Provided: Yes service: No Current occupational status: employed 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/Heterosexual Gender identity: Female Cognitive needs: No Hearing needs: No Vision needs: No Meds Allergies Allergy/AdvReac Type Severity Reaction Status Date / Time No Known Allergies Allergy Verified 12/16/23 13:03 Exam Pertinent Lab Results Pertinent Lab Results: Laboratory Tests 12/06/23 09:41 WBC 7.1 Hgb 12.7 Hct 37.0 Plt Count 319 D Sodium 140 Potassium 3.8 Chloride 107 Carbon Dioxide 25 BUN 16 Creatinine 0.74 Assessment and Plan Assessment Anesthesia Assessment: Chart Reviewed Documented by User: Monserrat Slater MD 12/16/23 13:07 [facility] Past Medical History Medical History Complicated UTI (urinary tract infection) Bacteremia due to Escherichia coli Insomnia Overactive bladder Urge incontinence of urine H/O urinary frequency Irritable bowel syndrome with alternating bowel habits Allergic rhinitis Anxiety Dyslipidemia Overweight (BMI 25.0-29.9) Bladder calculus Constipation Pneumonia COVID-19 Irritable bowel syndrome (IBS) Mitochondrial cytopathy Palpitations Asthma Family History Family History Mother Diabetes High blood pressure Father No problems noted. Family/Other History of breast cancer Family history of problems with anesthesia: No Surgical History Surgical History History of mammogram History of D&C History of myringotomy History of tonsillectomy and adenoidectomy History of Problems with Anesthesia: No Social History Social History Household Members: Significant Other and Friend(s) Housing: Apartment Do you presently have visiting nurse or other home services: No Alcohol intake: current Alcohol intake frequency: holidays/special occasions only Patient Tobacco Use Status: Former Tobacco user Tobacco use type: Cigarette e-Cigarette/Vaping Use: Never Used Second Hand Smoke Exposure: Yes Use of substances other than those prescribed or required for medical reasons: No Are you DNR?: No Advance Directives: No Advance Directives Information Provided: Yes service: No 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 occupational status: employed 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/Heterosexual Gender identity: Female Cognitive needs: No Hearing needs: No Vision needs: No Meds Allergies Allergy/AdvReac Type Severity Reaction Status Date / Time No Known Allergies Allergy Verified 12/16/23 13:03 Exam Airway Mallampati Class: II TM Dist: >3cm Neck ROM: Full Heart: rrr Lungs: cta Assessment and Plan Assessment Anesthesia Assessment: Anesthesia Plan Discussed Final Anesthetic Review Family History of Problems with Anesthesia: No History of Problems with Anesthesia: No NPO: Yes ASA Class: II Final Preanesthetic Review: No Changes in Pt Med Stat, Meds/Allgs Chart Reviewed and Consent Obtained/Reviewed Patient Risk: Intermediate Procedure Risk: Intermediate Anesthetic Plan Anesthetic Plan: MAC: Disposition: Standard PACU
[2023-12-16 12:36] VITALS: BMI 23.3
[2023-12-16 12:56] LABS: UPreg QC Valid YES
[2023-12-16] MEDS: Lactated Ringers 1,000 ML 100 ML IVCONT (12:56)
[2023-12-16 12:57] LABS: Urine Pregnancy NEGATIVE (NEGATIVE)
[2023-12-16 13:04] VITALS: BP 116/67; PULSE 66; RESP 18; TEMP 36.6; O2SAT 97
[2023-12-16] MEDS: ondansetron HCL 4 MG/2 ML VIAL IVPUSH (13:10)
--- NOTE | 2023-12-16 13:14 | P.HPSUR_ITS ---
Pre-Procedural Eval Section A Date of Service: 12/16/23 Section B Chief Complaint: Colon cancer screening, GERD, dyspepsia Relevant Family History (Specify if Yes): No Relevant Social History: Tobacco Use (Former smoker) Present Medications: see Short Stay Collaborative assessment Medical History: Significant History (Asthma Bacteremia due to Escherichia coli Bladder calculus Complicated UTI (urinary tract infection) Constipation COVID-19 Dyslipidemia H/O urinary frequency Insomnia Irritable bowel syndrome (IBS) Irritable bowel syndrome with alternating bowel habits Mitochondrial cytopathy Overactive bladder Over) History of Previous Operations: Relevant previous surgery/procedure and date(s) (History of D&C History of mammogram History of myringotomy History of tonsille ctomy and adenoidectomy) Allergies: Allergies Allergy/AdvReac Type Severity Reaction Status Date / Time No Known Allergies Allergy Verified 12/16/23 13:03 Review of Systems Sugical H&P ROS: Negative: Constitution, Cardiovascular and Respiratory and Yes, Specify: Gastrointestinal (GERD, dyspepsia) Exam Surgical H&P Exam: Normal: Heart, Normal: Lungs, Normal: Extremities and Normal: Abdomen Plan Diagnosis/Plan: Unchanged I have reviewed the history and physical and performed a pertinent physical examination on my patient. No changes have occurred unless specified. Time Spent With Patient Time: Total time managing care of this patient today ____ minutes.
--- NOTE | 2023-12-16 13:54 | W.PM.OPN ---
Operative Note Operative Note Date of Service: 12/16/23 Narrative: FLEXIBLE TRANSORAL UPPER GASTROINTESTINAL ENDOSCOPY WITH BIOPSIES AND FLEXIBLE SIGMOIDOSCOPY TILL 50 CMS (COLONOSCOPY WAS DISCONTINUED DUE TO POOR PREP) Pre-op diagnosis: Colon cancer screening, constipation, GERD, early satiety, decreased appetite, abdominal bloating History of Helicobacter pylori infection. Post-op diagnosis: GERD with esophagitis, hiatal hernia, gastritis, esophageal nodule, Internal hemorrhoids Endoscopist:? Kari Au MD Anesthesia:?MAC UPPER ENDOSCOPY Consent: Indications for the procedure and potential complications of bleeding, perforation, reaction to medications and missed diagnosis were discussed with the patient and informed consent was obtained. Instrument: Olympus GIF H 190 mid size upper endoscope Monitoring: Vital signs and clinical assessment, continuous EKG monitoring, Pulse oximetry, Carbon Dioxide monitoring and blood pressure monitoring were done throughout the procedure. Procedure: The patient was placed in the left lateral decubitis position and pre-procedure medications were administered and a bite block was placed. The endoscope was inserted into the mouth and advanced under direct vision to the third part of duodenum. A careful inspection was made as the upper endoscope was withdrawn including a retroflexed examination of the proximal stomach; Findings and interventions are described below. Findings: Larynx: Normal Esophagus: GE junction at 34 cms, hiatal hernia 34 to 38 cms. LA grade 2 esophagitis with linear erosions at the GE junction. A 15 mm benign appearing nodule at the GE junction - biopsied. Stomach: Mild gastric erythema. Biopsies were obtained. Grade 3 flap valve on retroflexed examination of the cardia. Duodenum: Normal bulb and descending duodenum. Biopsies were obtained from 3rd part of the duodenum to check for celiac sprue Intervention: Biopsies as noted above FLEXIBLE SIGMOIDOSCOPY PROCEDURE NOTE Consent: Indications for the procedure and potential complications of bleeding, perforation, reaction to medications and missed diagnosis were discussed with the patient and informed consent was obtained. Instrument: Olympus PCF H 190 L variable stiffness pediatric colonoscope Monitoring: Vital signs and clinical assessment, intermittent blood pressure monitoring, continuous EKG monitoring, Pulse oximetry and Carbon Dioxide monitoring were done throughout the procedure. Procedure: The patient was placed in the left lateral decubitis position and pre-procedure medications were administered. After a digital rectal examination of the ano-rectum, the video colonoscope was inserted into the rectum and advanced through the colon to the sigmoid colon at 50 cms. It was not possible to advance further due to solid stools blocking the lumen. The colonoscope was slowly withdrawn in a retrograde panoramic fashion and the colon mucosa was carefully examined including a retroflexed view of the rectum. Findings and interventions are described below. Findings: Sigmoid Colon: Partially evaluated due to solid stools Rectum: Normal Ano-rectum: Moderate internal hemorrhoids Colon preparation: poor - procedure was abandoned Impression and Post Procedure Diagnosis: Endoscopy Findings: ESOPHAGUS: Small hiatal hernia. LA grade B esophagitis with linear erosions at the GE junction. A 15 mm benign appearing nodule at the GE junction - biopsied. STOMACH: Gastritis - biopsied to check for H pylori DUODENUM: Normal - biopsied to check for celiac sprue Flexible Sigmoidoscopy Findings: Discontinued procedure due to poor prep. Moderate hemorrhoids on retroflexed exam. Plan: Await pathology results Patient has an appointment on 01/07/24 in the GI Clinic with YINA Schrader. She needs to be rescheduled for Colonoscopy after rediscussing colon prep (pt reported she took 50 % of the prep due to nausea and vomiting). Needs 2 day prep and Dulcolax 2 tablets daily starting 5 days prior to colonoscopy appointment. Above findings were reviewed with the patient and GERD and Hiatal hernia handouts were given in the discharge area
[2023-12-16 14:25] VITALS: BP 98/48; PULSE 74; RESP 16; TEMP 36.2; O2SAT 100
[2023-12-16 14:40] VITALS: BP 108/68; PULSE 53; RESP 16; O2SAT 100
[2023-12-16 14:51] VITALS: BP 118/59; PULSE 58; RESP 16; TEMP 36.2; O2SAT 100
== END 2023-12-16 15:14 | disposition home or self-care (01) ==
PROVIDERS: Nurse Practitioner; PCP Internal Medicine; Visit Provider Internal Medicine Gastroenterology
PROC: (CPT 45330; principal; 2023-12-16 14:20)
DX: Z12.11 Encounter for screening for malignant neoplasm of colon (principal); K64.8 Other hemorrhoids; K58.1 Irritable bowel syndrome with constipation; R68.81 Early satiety; R10.13 Epigastric pain; K21.00 Gastro-esophageal reflux disease with esophagitis, without bleeding; K29.50 Unspecified chronic gastritis without bleeding; B96.81 Helicobacter pylori [H. pylori] as the cause of diseases classified elsewhere; K22.89 Other specified disease of esophagus; K44.9 Diaphragmatic hernia without obstruction or gangrene; E78.5 Hyperlipidemia, unspecified; J45.909 Unspecified asthma, uncomplicated; N32.81 Overactive bladder; Z87.440 Personal history of urinary (tract) infections; G71.3 Mitochondrial myopathy, not elsewhere classified; Z87.891 Personal history of nicotine dependence
CPT/HCPCS: 45330; 43239; 81025; 88305; 88342; J2405; J2704

== ENCOUNTER → 2023-12-16 12:22 | Outpatient (BNV) | payer OTHER, SELFPAY | PROVIDERS: PCP Internal Medicine; Visit Provider Internal Medicine Gastroenterology | DX: Z12.11 Encounter for screening for malignant neoplasm of colon (principal); K59.00 Constipation, unspecified; Z91.199 Patient's noncompliance with other medical treatment and regimen due to unspecified reason; K21.00 Gastro-esophageal reflux disease with esophagitis, without bleeding; R68.81 Early satiety; K29.70 Gastritis, unspecified, without bleeding; K22.9 Disease of esophagus, unspecified | CPT/HCPCS: 43239; 45330 ==

== ENCOUNTER 2024-01-07 14:55 | Outpatient (AMB) | payer OTHER, SELFPAY ==
[2024-01-07 15:05] VITALS: BP 104/55; PULSE 69
--- NOTE | 2024-01-07 15:05 | MHC.OFFVIS ---
Intake Vital Signs 01/07/24 15:05 Weight 135 lb BP 104/55 L Blood Pressure Location Rt brachial Position Sitting Pulse 69 Intake Visit Reasons: S/P Double; Dr. Au Intake Note: This patient presents for a follow-up status post EGD. Patient c/o; reports no complaints s/p EGD, reports colonoscopy was not able to be performed due to inadequate bowel prep. Manager Of Change Required: No Accompanied by: Self / Same As Patient Allergies No Known Allergies Allergy (Verified 01/07/24 15:05) HPI HPI Comments History of Present Illness Details A 43 y/o female f/u after EGD/ colonoscopy- colonoscopy Colonoscopy was not completed due to inadequate prep She does have history of constipation as well She does complain of acid reflux taking PPI b.i.d. Reviewed procedure report pathology and recommendation COUNT INCLUDES THE [facility] Medical History (Updated 01/08/24 @ 10:42 by Laya Pierre PA-C) Complicated UTI (urinary tract infection) Bacteremia due to Escherichia coli Insomnia Overactive bladder Urge incontinence of urine H/O urinary frequency Irritable bowel syndrome with alternating bowel habits Allergic rhinitis Anxiety Dyslipidemia Overweight (BMI 25.0-29.9) Bladder calculus Constipation Pneumonia COVID-19 Irritable bowel syndrome (IBS) Mitochondrial cytopathy Palpitations Asthma Surgical History History of esophagogastroduodenoscopy (EGD) History of mammogram History of D&C History of myringotomy History of tonsillectomy and adenoidectomy Family History Mother Diabetes High blood pressure Father No problems noted. 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 LA grade B esophagitis with linear erosions at the GE junction. A 15 mm benign appearing nodule at the GE junction - biopsied. STOMACH: Gastritis - biopsied to check for H pylori DUODENUM: Normal - biopsied to check for celiac sprue Flexible Sigmoidoscopy Findings: Discontinued procedure due to poor prep. Moderate hemorrhoids on retroflexed exam. Plan: Await pathology results Patient has an appointment on 01/07/24 in the GI Clinic with YINA Schrader. She needs to be rescheduled for Colonoscopy after rediscussing colon prep (pt reported she took 50 % of the prep due to nausea and vomiting). Needs 2 day prep and Dulcolax 2 tablets daily starting 5 days prior to colonoscopy appointment. Above findings were reviewed with the patient and GERD and Hiatal hernia handouts were given in the discharge area R #: [id number] Status: [facility] Collected: 12/16/23 Location: [facility] Received: 12/16/23 Diagnosis A. Small bowel, biopsy: Small intestinal mucosa with mildly increased intraepithelial lymphocytes and preserved villous architecture. See comment. B. Stomach, antrum, biopsy: - Oxyntic mucosa with moderate chronic inactive inflammation. - Positive for H pylori. C. Esophagus, nodule, biopsy: - Small superficial fragments of cardiac-type mucosa with moderate chronic, focally active, inflammation; no intestinal metaplasia seen. - No squamous epithelium identified. COMMENT: The lymphocytes in the small bowel are likely secondary to the H pylori infection. Clinical History Pre-Op Dx: Screening, constipation, GERD Post-Op Dx: Upper: Esophagitis, gastritis, hiatal hernia, esophageal nodule; Lower: Hemorrhoids Microscopic Description A-C. Microscopic sections reviewed. Immunostain for H. pylori is reactive (B). Material Received A. Bx small bowel, rule out celiac disease B. Bx gastric antrum, rule out H. pylori C. Bx esophageal nodule Gross Description Received in 3 parts. Part A: Received in formalin labeled ?bx small bowel, rule out celiac? are 2 greco-pink irregular tissue fragments measuring 0.15 and 0.25 cm, submitted in toto in a cassette labeled A. Part B: Received in formalin labeled ?bx gastric antrum, rule out H. pylori? are 2 greco and greco-pink irregular tissue fragments measuring 0.15 and 0.3 cm, submitted in toto in a cassette labeled B. Part C: Received in formalin labeled ?bx esophageal nodule? are 3 greco-pink and greco-red irregular tissue fragments ranging from less than 0.1 to 0.25 cm, submitted in toto in a cassette labeled C. CEDS Patient: Ama Boateng Age/Sex: 43/F MR#: [id number] Page 1 of 2 Assessment & Plan Assessment & Plan (1) Abnormal colonoscopy: Comment: She needs to be rescheduled for Colonoscopy after rediscussing colon prep (pt reported she took 50 % of the prep due to nausea and vomiting). Needs 2 day prep and Dulcolax 2 tablets daily starting 5 days prior to colonoscopy appointment Code(s): R93.3 - Abnormal findings on diagnostic imaging of other parts of digestive tract Plan: , prep as recommended by Dr. Au (2) H. pylori infection: Comment: if positive will tx Start omeprazole 20 mg QD after submit Code(s): A04.8 - Other specified bacterial intestinal infections Plan rescheduled for Colonoscopy after rediscussing colon prep (pt reported she took 50 % of the prep due to nausea and vomiting). Needs 2 day prep and Dulcolax 2 tablets daily starting 5 days prior to colonoscopy appointment. Treatment for H pylori sent to pharmacy quadruple therapy GHANSHYAM 6wks-order placed Orders: Orders H pylori Ag Stool 6 Weeks A04.8 - Other specified bacterial intestinal infections Medications: New metronidazole 250 mg PO QID 14 days 56 tabs 0RF tetracycline 500 mg PO Q6H 14 days 56 caps 0RF bismuth subsalicylate (Bismuth) 2 tabs PO QID 14 days 112 tabs 0RF bisacodyl (Dulcolax (bisacodyl)) Dose Change-take 10 mg daily for 5 days prior to colonoscopy 10 mg (2 x 5 mg) PO DAILY 5 days 10 tabs 0RF polyethylene glycol 3350 (Miralax) Take as directed by mouth beginning at 17:00 the day before your procedure-once completed followed by 4 cups of water. - 238 grams PO ONCE 1 day PRN 238 grams 0RF laxative effect omeprazole 20 mg PO BID 14 days 28 caps 0RF Changed From docusate sodium (Colace) 200 mg (2 x 100 mg) PO BEDTIME 60 caps 5RF To docusate sodium (Colace) 200 mg (2 x 100 mg) PO BEDTIME 30 days 60 caps 5RF Patient Instructions: She will be scheduled for a Repeat colonoscopy with Dr. Au Dulcolax 2 tablets daily starting 5 days prior to colonoscopy appointment MiraLax Gatorade prep begin drinking at 17:00 continue until finished, followed by 4 cups of water H pylori positive will treat with quadruple therapy for 2 weeks H pylori stool antigen to be submitted in 6 weeks Be sure no antibiotics or PPI for 2 weeks prior to submission. Encouraged to call with any questions or concerns. Coding Level of Care Code Est Pt Level 3 (85447) Diagnoses Abnormal colonoscopy R93.3 H. pylori infection A04.8 Time Spent (min) 30
== END 2024-01-07 15:41 | disposition home or self-care (01) ==
PROVIDERS: PCP Internal Medicine; Visit Provider Physician Assistant
DX: R93.3 Abnormal findings on diagnostic imaging of other parts of digestive tract (principal); A04.8 Other specified bacterial intestinal infections
CPT/HCPCS: 99213

== ENCOUNTER → 2024-01-07 14:55 | Outpatient (BNVA) | payer OTHER, SELFPAY | PROVIDERS: PCP Internal Medicine; Visit Provider Physician Assistant | DX: R93.3 Abnormal findings on diagnostic imaging of other parts of digestive tract (principal); A04.8 Other specified bacterial intestinal infections | CPT/HCPCS: 99212 ==

== ENCOUNTER 2024-02-12 15:10 | Outpatient (REF) | payer OTHER, SELFPAY | END 2024-02-12 15:11 | disposition home or self-care (01) | LOC: HO.LNP 15:10 | PROVIDERS: Visit Provider Physician Assistant | DX: A04.8 Other specified bacterial intestinal infections (principal) | CPT/HCPCS: 87338 ==

== ENCOUNTER 2024-02-28 12:41 | Outpatient (REF) | payer OTHER, SELFPAY | END 2024-02-28 12:42 | disposition home or self-care (01) | LOC: HO.MAMMO 12:41 | PROVIDERS: PCP Internal Medicine; Visit Provider Internal Medicine | DX: Z12.31 Encounter for screening mammogram for malignant neoplasm of breast (principal) | CPT/HCPCS: 77063; 77067 ==

== ENCOUNTER → 2024-02-28 12:45 | Outpatient (BNV) | payer OTHER, SELFPAY | PROVIDERS: PCP Internal Medicine; Visit Provider Radiology Diagnostic Radiology | DX: Z12.31 Encounter for screening mammogram for malignant neoplasm of breast (principal) | CPT/HCPCS: 77063; 77067 ==

== ENCOUNTER 2024-03-02 15:05 | Outpatient (REF) | payer OTHER, SELFPAY | END 2024-03-02 15:06 | disposition home or self-care (01) | LOC: HO.SH 15:05 | PROVIDERS: PCP Internal Medicine; Visit Provider Internal Medicine | DX: Z01.118 Encounter for examination of ears and hearing with other abnormal findings (principal); H90.A21 Sensorineural hearing loss, unilateral, right ear, with restricted hearing on the contralateral side; H90.A32 Mixed conductive and sensorineural hearing loss, unilateral, left ear with restricted hearing on the contralateral side | CPT/HCPCS: 92557; 92567; 92588 ==

== ENCOUNTER 2024-04-29 14:19 | Outpatient (AMB) | payer OTHER, SELFPAY ==
[2024-04-29 14:45] VITALS: BP 110/62; BMI 24.7
--- NOTE | 2024-04-29 14:45 | A.OFFVIS_ITS ---
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 Doing well with no concerns: decreased libido, vaginal dryness. She tries to eat healthy, having GI issues, stays active with walking. Has colonoscopy scheduled in June. Regular monthly menses x3d. Currently is occasionally sexually active. She denies vaginal itching and irritation. STI screening offered; she accepts. Denies family history of ovarian or colon cancer. FH breast cancer. Last pap smear 2021, negative. Mammogram: 2022. [facility] Medical History Complicated UTI (urinary tract infection) Bacteremia due to Escherichia coli Insomnia Overactive bladder Urge incontinence of urine H/O urinary frequency Irritable bowel syndrome with alternating bowel habits Allergic rhinitis Anxiety Dyslipidemia Overweight (BMI 25.0-29.9) Bladder calculus Constipation Pneumonia COVID-19 Irritable bowel syndrome (IBS) Mitochondrial cytopathy Palpitations Asthma Surgical History History of esophagogastroduodenoscopy (EGD) History of mammogram History of D&C History of myringotomy History of tonsillectomy and adenoidectomy Family History Mother Diabetes High blood pressure Father No problems noted. 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/Heterosexual Gender identity: Female Cognitive needs: No Hearing needs: No Vision needs: No Female Reproductive History Menstrual Age of Menarche: 9 Duration of menses: 3-5 days Date of last menstrual period: 04/20/24 control method: none Total pregnancies: 2 Full term: 1 Number of Living Children: 1 Date of last pap smear: 04/24/22 (negative) History of abnormal pap smear: No Date of Mammogram: 02/28/24 Review of Systems Const All systems reviewed & are unremarkable except as noted in HPI and below Reports as per HPI Eyes Reports no additional complaints ENT Reports no additional complaints Card Reports no additional complaints Resp Reports no additional complaints GI Reports as per HPI and Reports no additional complaints Reports as per HPI Musc Reports no additional complaints Skin/Breast Reports as per HPI Neuro Reports no additional complaints Psych Reports no additional complaints Endo Reports no additional complaints Rupesh/Lymph Reports no additional complaints Aller/Immun Reports no additional complaints Physical Exam Vital Signs: Last Vital Signs BP 110/62 04/29/24 14:45 BMI result Body Mass Index 24.7 Const General: cooperative, healthy appearing, no acute distress, well developed and alert Orientation/consciousness: patient oriented x3 HEENT Head: Yes normal to inspection Eyes General: appearance normal, both eyes and all related structures Neck Neck: Yes normal visual inspection Thyroid: Thyroid normal Chest Chest palpation & inspection: normal inspection of the chest and other (no puckering, dimpling, peau de orange, retraction, discharge, masses) Breast/axilla inspection: normal inspection of the breasts Breast/axilla palpation: normal palpation of the breasts Resp Effort & Inspection: normal respiratory effort GI Inspection: Yes normal to inspection Palpation (GI): Soft to palpation Rectal Exam - Female: deferred General: Yes bladder normal to palpation External Female Exam: normal external appearance and normal appearance of the urethra Speculum Exam - Vagina: normal appearance of the vagina, normal palpation and normal vaginal discharge Speculum Exam - Cervix: normal appearance of the cervix and normal palpation Bimanual exam- vagina & uterus: normal bimanual exam, normal palpation, uterine size normal, bladder normal to palpation, normal palpation and non-tender Bimanual Exam- Adnexa, other: no masses Skin General skin exam: no rashes or lesions noted Rashes: no rashes Neuro General: patient oriented x3 Cognition (Neuro): normal cognition Extrem General: Yes normal to inspection Psych Attitude: cooperative Thought process: Normal thought process present Assessment & Plan Assessment & Plan (1) Encounter for well woman exam with routine gynecological exam: Code(s): Z01.419 - Encounter for gynecological examination (general) (routine) without abnormal findings Category: Medical Plan: Discussed: Current recommendations for pap smears per ASCCP guidelines. Breast awareness and periodic breast exams. Maintain a healthy lifestyle including a well balanced diet and routine exercise. Menopause verses perimenopause. Menopause is definitive of 1 year of no menses or 12 months in succession. Report any abnormal uterine bleeding in example prolonged episodes, or short intervals less than 21 days. Mammogram yearly. Patient verbalizes understanding and agrees to the plan of care. She was given opportunity to ask questions and all questions were answered to the best of my ability. RTO in one year for annual supervisor wet end examination. This note is constructed using voice recognition software. While every effort has been made to ensure accuracy, senior oracle developer errors may have been included. Coding Level of Care Code Est Pt Prev Care 40-64y(28802) Diagnoses Encounter for well woman exam with routine gynecological exam Z01.419
== END 2024-04-29 15:26 | disposition home or self-care (01) ==
PROVIDERS: PCP Internal Medicine; Visit Provider Advanced Practice Midwife
DX: Z01.419 Encounter for gynecological examination (general) (routine) without abnormal findings (principal)
CPT/HCPCS: 99396

== ENCOUNTER → 2024-04-29 14:19 | Outpatient (BNVA) | payer OTHER, SELFPAY | PROVIDERS: Visit Provider Advanced Practice Midwife | DX: Z01.419 Encounter for gynecological examination (general) (routine) without abnormal findings (principal) | CPT/HCPCS: 99396 ==

== ENCOUNTER 2024-06-01 06:58 | Day surgery (SDC) | payer OTHER, SELFPAY ==
--- NOTE | 2024-05-29 09:37 | HO.ANESPROP2 ---
Documented by User: Stephanie Parikh NP 05/29/24 09:38 HPI - Anesthesia Eval Consult details Narrative: 43yo F for Upper Endoscopy and Colonoscopy s/p same 12/2023 with [facility] Active Problems Active Problems: All Active Problems Encounter for well woman exam with routine gynecological exam (Acute) Abnormal colonoscopy (Acute) Hearing impairment (Acute) Early satiety (Acute) Complicated UTI (urinary tract infection) (Acute) Bacteremia due to Escherichia coli (Acute) Irritable bowel syndrome (IBS) (Acute) Insomnia (Acute) Pain and swelling of left knee (Acute) Renal calculi (Acute) Overactive bladder (Acute) Annual physical exam (Acute) Urge incontinence of urine (Acute) Dilatation of kidney collecting system (Acute) Renal calculus, left (Acute) Right lateral abdominal pain (Acute) Flank pain (Acute) H. pylori infection (Acute) Bloating (Acute) Acid reflux (Acute) Viral upper respiratory tract infection (Acute) Irritable bowel syndrome with alternating bowel habits (Acute) Otitis media, right (Acute) Bilateral flank pain (Acute) Allergic rhinitis (Acute) Anxiety (Acute) Dyslipidemia (Acute) Overweight (BMI 25.0-29.9) (Acute) Annual physical exam (Acute) Bladder calculus (Acute) Constipation (Acute) Dysuria (Acute) Asthma (Acute) Past Medical History Medical History Complicated UTI (urinary tract infection) Bacteremia due to Escherichia coli Insomnia Overactive bladder Urge incontinence of urine H/O urinary frequency Irritable bowel syndrome with alternating bowel habits Allergic rhinitis Anxiety Dyslipidemia Overweight (BMI 25.0-29.9) Bladder calculus Constipation Pneumonia COVID-19 Irritable bowel syndrome (IBS) Mitochondrial cytopathy Palpitations Asthma Family History Family History Mother Diabetes High blood pressure Father No problems noted. Family/Other History of breast cancer Family history of problems with anesthesia: No Surgical History Surgical History History of esophagogastroduodenoscopy (EGD) History of mammogram History of D&C History of myringotomy History of tonsillectomy and adenoidectomy History of Problems with Anesthesia: No Social History Social History Household Members: Significant Other and Friend(s) Housing: Apartment Do you presently have visiting nurse or other home services: No Alcohol intake: current Alcohol intake frequency: holidays/special occasions only Patient Tobacco Use Status: Former Tobacco user Tobacco use type: Cigarette e-Cigarette/Vaping Use: Never Used Second Hand Smoke Exposure: Yes Are you DNR?: No Advance Directives: No Advance Directives Information Provided: Yes Nutrition Risks: No Nutritional Risk FDLMP: just finished service: No Current occupational status: employed 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/Heterosexual Gender identity: Female Cognitive needs: No Hearing needs: No Vision needs: No Meds Allergies Allergy/AdvReac Type Severity Reaction Status Date / Time No Known Allergies Allergy Verified 06/01/24 08:03 Assessment and Plan Assessment Anesthesia Assessment: Chart Reviewed Final Anesthetic Review Family History of Problems with Anesthesia: No History of Problems with Anesthesia: No Documented by User: Daniela García MD 06/01/24 09:17 [facility] Past Medical History Medical History Complicated UTI (urinary tract infection) Bacteremia due to Escherichia coli Insomnia Overactive bladder Urge incontinence of urine H/O urinary frequency Irritable bowel syndrome with alternating bowel habits Allergic rhinitis Anxiety Dyslipidemia Overweight (BMI 25.0-29.9) Bladder calculus Constipation Pneumonia COVID-19 Irritable bowel syndrome (IBS) Mitochondrial cytopathy Palpitations Asthma Family History Family History Mother Diabetes High blood pressure Father No problems noted. Family/Other History of breast cancer Surgical History Surgical History History of esophagogastroduodenoscopy (EGD) History of mammogram History of D&C History of myringotomy History of tonsillectomy and adenoidectomy Social History Social History Household Members: Significant Other and Friend(s) Housing: Apartment Do you presently have visiting nurse or other home services: No Alcohol intake: current Alcohol intake frequency: holidays/special occasions only Patient Tobacco Use Status: Former Tobacco user Tobacco use type: Cigarette e-Cigarette/Vaping Use: Never Used Second Hand Smoke Exposure: Yes Are you DNR?: No Advance Directives: No Advance Directives Information Provided: Yes Nutrition Risks: No Nutritional Risk FDLMP: just finished service: No Current occupational status: employed 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/Heterosexual Gender identity: Female Cognitive needs: No Hearing needs: No Vision needs: No Meds Allergies Allergy/AdvReac Type Severity Reaction Status Date / Time No Known Allergies Allergy Verified 06/01/24 08:03 Exam Airway Mallampati Class: II TM Dist: >3cm Neck ROM: Full Loose/Missing/Broken Teeth: No Heart: RRR Lungs: CTA Assessment and Plan Assessment Anesthesia Assessment: Anesthesia Plan Discussed Final Anesthetic Review NPO: Yes ASA Class: II Final Preanesthetic Review: Meds/Allgs Chart Reviewed, Consent Obtained/Reviewed and Anes Risks/Benef Reviewed Patient Risk: Low Procedure Risk: Low Anesthetic Plan Anesthetic Plan: MAC: Disposition: Standard PACU
--- NOTE | 2024-06-01 07:57 | MHC.SHP ---
Pre-Procedural Eval Section A - 24 Hr Update-Section A only Date of Service: 06/01/24 The patient is an INPATIENT: No The patient has been examined within 24 hours of the surgical procedure. The History & Physical has been completed within 30 days and I have reviewed it.: No Section B - Complete if H&P > 30 days Chief Complaint: Screening, FU of erosive esophagitis Relevant Family History (Specify if Yes): No Relevant Social History: Tobacco Use (Former smoker) Present Medications: see Short Stay Collaborative assessment Medical History: Significant History (Asthma Bacteremia due to Escherichia coli Bladder calculus Complicated UTI (urinary tract infection) Constipation COVID-19 Dyslipidemia H/O urinary frequency Insomnia Irritable bowel syndrome (IBS) Irritable bowel syndrome with alternating bowel habits Mitochondrial cytopathy Overactive bladder Over) History of Previous Operations: Relevant previous surgery/procedure and date(s) (History of D&C History of mammogram History of myringotomy History of tonsillectomy and adenoidectomy) Allergies: Allergies Allergy/AdvReac Type Severity Reaction Status Date / Time No Known Allergies Allergy Verified 04/29/24 14:49 Review of Systems Sugical H&P ROS: Negative: Constitution, Cardiovascular and Respiratory and Yes, Specify: Gastrointestinal (GERD, dyspepsia) Exam Surgical H&P Exam: Normal: Heart, Normal: Lungs, Normal: Extremities and Normal: Abdomen Plan Diagnosis/Plan: Change (Proceed with EGD and colonoscopy) I have reviewed the history and physical and performed a pertinent physical examination on my patient. No changes have occurred unless specified. Time Spent With Patient Time: Total time managing care of this patient today ____ minutes.
[2024-06-01 09:08] VITALS: BP 109/50; PULSE 68; RESP 18; TEMP 36.7; O2SAT 100
[2024-06-01 09:37] VITALS: BMI 24.0
[2024-06-01 09:41] LABS: UPreg QC Valid YES; Urine Pregnancy NEGATIVE (NEGATIVE)
--- NOTE | 2024-06-01 10:03 | P.OPN-COLO_ITS ---
Colonoscopy Operative Note Operative Note Date of Service: 06/01/24 Narrative: FLEXIBLE TRANSORAL UPPER GASTROINTESTINAL ENDOSCOPY WITH BIOPSIES AND COLONOSCOPY TILL CECUM WITH BIOPSIES AND SNARE POLYPECTOMY Pre-op diagnosis: Colon cancer screening, GERD, follow-up of erosive esophagitis and Helicobacter pylori infection Post-op diagnosis: Gastritis, hiatal hernia, Colon Polyps, Diverticulosis, hemorrhoids Specimens and Sources: : NOTE: GASTRIC ANTRUM SPECIMEN ALSO SENT TO [place] FOR H.PYLORI CULTURE (QUEST TEST CODE 8395) ?A. gastric antrum bxs, R/O H. pylori ?B. transverse colon polyp Post-operative Diagnosis: : gastritis, hiatal hernia ?colon polyp, diverticulosis, hemorrhoids Endoscopist:? Kari Au MD Anesthesia:?MAC UPPER ENDOSCOPY Consent: Indications for the procedure and potential complications of bleeding, perforation, reaction to medications and missed diagnosis were discussed with the patient and informed consent was obtained. Instrument: Olympus GIF H 190 mid size upper endoscope Monitoring: Vital signs and clinical assessment, continuous EKG monitoring, Pulse oximetry, Carbon Dioxide monitoring and blood pressure monitoring were done throughout the procedure. Procedure: The patient was placed in the left lateral decubitis position and pre-procedure medications were administered and a bite block was placed. The endoscope was inserted into the mouth and advanced under direct vision to the third part of duodenum. A careful inspection was made as the upper endoscope was withdrawn including a retroflexed examination of the proximal stomach; Findings and interventions are described below. Findings: Larynx: Normal Esophagus: GE junction at 34 cms, hiatal hernia 34 to 38 cms. Resolving esophagitis with a single 1 cms healing erosion at the GE junction. Stomach: Mild gastric erythema. Biopsies were obtained for biopsies and H pylori culture and sensitivity. Grade 3 flap valve on retroflexed examination of the cardia. Duodenum: Normal bulb and descending duodenum. Intervention: Biopsies as noted above COLONOSCOPY PROCEDURE NOTE Instrument: Olympus PCF H 190 L variable stiffness pediatric colonoscope Monitoring: Vital signs and clinical assessment, intermittent blood pressure monitoring, continuous EKG monitoring, Pulse oximetry and Carbon Dioxide monitoring were done throughout the procedure. Please see anesthesia flowsheet. Colon withdrawl time was 12 minutes. Procedure: The patient was placed in the left lateral decubitis position and pre-procedure medications were administered. After a digital rectal examination of the ano-rectum, the video colonoscope was inserted into the rectum and advanced through the colon to the cecum. The colonoscope was slowly withdrawn in a retrograde panoramic fashion and the colon mucosa was carefully examined including a retroflexed view of the rectum. Findings and interventions are described below. Procedure Difficulty: Colon was long and there was some loop formation Findings: Terminal Ileum: Not evaluated Cecum: Normal Ascending Colon: Normal Transverse Colon: A 7-8 mm sessile polyp in the proximal TC - removed with a cold snare Descending Colon: Normal Sigmoid Colon: Moderate diverticulosis Rectum: Normal Ano-rectum: Moderate internal hemorrhoids Colon preparation: Good after some irrigation. [place] Bowel Preparation Scale Right colon; 2 Transverse colon: 2 Left colon; 2 (0 = Unprepared colon segment with mucosa not seen due to solid stool that cannot be cleared. 1 = Portion of mucosa of the colon segment seen, but other areas of the colon segment not well seen due to staining, residual stool and/or opaque liquid. 2 = Minor amount of residual staining, small fragments of stool and/or opaque liquid, but mucosa of colon segment seen well. 3 = Entire mucosa of colon segment seen well with no residual staining, small fragments of stool or opaque liquid) Impression and Post Procedure Diagnosis: Endoscopy Findings: ESOPHAGUS: GE junction at 34 cms, hiatal hernia 34 to 38 cms. Resolving esophagitis with a single 1 cms healing erosion at the GE junction. STOMACH: Mild gastric erythema. Biopsies were obtained for biopsies and H pylori culture and sensitivity. Grade 3 flap valve on retroflexed examination of the cardia. Colonoscopy Findings: One small polyps was removed Moderate diverticulosis seen in the sigmoid colon Moderate hemorrhoids on retroflexed exam. Plan: Pt has a FU appointment on 08/06/24 with YINA Loja Repeat Colonoscopy in 5 years if polyps are adenomatous and 10 year if polyps are hyperplastic (Adult colonoscope for future colonoscopy). Above findings were reviewed with the patient and relevant handouts were given and the discharge area.
[2024-06-01 10:36] VITALS: BP 99/50; PULSE 64; RESP 12; TEMP 36.6; O2SAT 100
[2024-06-01 10:51] VITALS: BP 113/64; PULSE 70; RESP 16; TEMP 36.6; O2SAT 98
== END 2024-06-01 12:03 | disposition home or self-care (01) ==
PROVIDERS: Nurse Practitioner; PCP Internal Medicine; Visit Provider Internal Medicine Gastroenterology
PROC: (CPT 43239; principal; 2024-06-01 09:20)
DX: K29.70 Gastritis, unspecified, without bleeding (principal); B96.81 Helicobacter pylori [H. pylori] as the cause of diseases classified elsewhere; K22.10 Ulcer of esophagus without bleeding; K44.9 Diaphragmatic hernia without obstruction or gangrene; Z12.11 Encounter for screening for malignant neoplasm of colon; K63.5 Polyp of colon; K56.2 Volvulus; K57.30 Diverticulosis of large intestine without perforation or abscess without bleeding; K64.8 Other hemorrhoids; A04.8 Other specified bacterial intestinal infections; R93.3 Abnormal findings on diagnostic imaging of other parts of digestive tract; E78.5 Hyperlipidemia, unspecified
CPT/HCPCS: 43239; 45380; 45385; 36415; 81025; 87081; 88305; 88313; 88342; J2250; J2704

== ENCOUNTER → 2024-06-01 06:58 | Outpatient (BNV) | payer OTHER, SELFPAY | PROVIDERS: PCP Internal Medicine; Visit Provider Internal Medicine Gastroenterology | DX: Z12.11 Encounter for screening for malignant neoplasm of colon (principal); K63.5 Polyp of colon; K57.30 Diverticulosis of large intestine without perforation or abscess without bleeding; K64.8 Other hemorrhoids; K21.9 Gastro-esophageal reflux disease without esophagitis; K29.70 Gastritis, unspecified, without bleeding | CPT/HCPCS: 43239; 45385 ==

== ENCOUNTER 2024-07-17 12:58 | Outpatient (AMB) | payer OTHER, SELFPAY ==
--- NOTE | 2024-07-17 12:58 | MHC.OFFWIV ---
Intake Vital Signs 07/17/24 13:07 Weight 144 lb BP 130/84 Blood Pressure Location Lt brachial Position Sitting Pulse 88 Pulse Source Pulse Oximeter Pulse Oximetry (%) 97 Oxygen Delivery Method Room Air Intake Visit Reasons: EP ?UTI Intake Note: Patient here for UTI symptoms that have been present for about 2 weeks. Patient Tobacco Use Status: Former Tobacco user Allergies No Known Allergies Allergy (Verified 07/17/24 13:06) Medication List - Last Reconciled 07/17/24 by Lisa Aldana MD albuterol sulfate 90 mcg/actuation (Ventolin HFA) 2 puffs inhalation Q6H PRN 30 days bismuth subsalicylate (Bismuth) 2 tabs PO QID 14 days docusate sodium (Colace) 200 mg (2 x 100 mg) PO BEDTIME 30 days loratadine 10 mg PO DAILY PRN 30 days lorazepam 0.5 mg PO BEDTIME PRN 30 days metronidazole 500 mg PO BID 7 days omeprazole 20 mg PO BID 14 days psyllium husk (aspartame) 3.4 gram (Metamucil Fiber Singles) 3.4 grams PO DAILY 30 days trazodone 50 mg PO BEDTIME PRN 30 days valacyclovir (Valtrex) 500 mg PO BID Do you need a note to return to daycare/school/sports/work: No HPI EP ?UTI HPI Details Patient is a 44-year-old female came in today to be evaluated for possible vaginal infection or UTI Patient says that she is having symptoms for the past 2 weeks off and on for the past 1 week it is more like dysuria She called her OBGYN and was given metronidazole which she did finished Having suprapubic discomfort And also fishy discharge from vaginal Urine test shows slightly positive leuk esterase I am treating her with Macrobid for 3 days We have taken vaginal culture to check for other bacterial infection Further management after the report Review system reveals no fever no chills no new back pains no nausea no vomiting PFSH Medical History Complicated UTI (urinary tract infection) Bacteremia due to Escherichia coli Insomnia Overactive bladder Urge incontinence of urine H/O urinary frequency Irritable bowel syndrome with alternating bowel habits Allergic rhinitis Anxiety Dyslipidemia Overweight (BMI 25.0-29.9) Bladder calculus Constipation Pneumonia COVID-19 Irritable bowel syndrome (IBS) Mitochondrial cytopathy Palpitations Asthma Surgical History History of esophagogastroduodenoscopy (EGD) History of mammogram History of D&C History of myringotomy History of tonsillectomy and adenoidectomy Family History Mother Diabetes High blood pressure Father No problems noted. 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/Heterosexual Gender identity: Female Cognitive needs: No Hearing needs: No Vision needs: No Female Reproductive History Menstrual Age of Menarche: 9 Review of Systems Const All systems reviewed & are unremarkable except as noted in HPI and below Physical Exam Vital Signs: Last Vital Signs Pulse 88 07/17/24 13:07 BP 130/84 07/17/24 13:07 Pulse Ox 97 07/17/24 13:07 Oxygen Delivery Method Room Air 07/17/24 13:07 Const General: no acute distress Orientation/consciousness: patient oriented x3 Eyes General: appearance normal, both eyes and all related structures Resp Effort & Inspection: normal respiratory effort and able to speak in complete sentences Auscultation: clear to auscultation bilaterally GI Other: Suprapubic discomfort with pressure Neuro General: patient oriented x3 Psych Mental Status: mental status grossly normal Results AMB Urinalysis, Automated UA Leukoctes 15 Sloane/uL Last Edit by Nathan Goncalves CMA on 07/17/24 13:10 UA Nitrite Positive Last Edit by Nathan Goncalves CMA on 07/17/24 13:10 UA Urobilinogen 0.2 mg/dL Last Edit by Nathan Goncalves CMA on 07/17/24 13:10 UA Protein 0 mg/dL Last Edit by Nathan Goncalves CMA on 07/17/24 13:10 UA pH 6.0 Last Edit by Nathan Goncalves CMA on 07/17/24 13:10 UA Blood 0 Nabil/uL Last Edit by Nathan Goncalves CMA on 07/17/24 13:10 UA Specific [place] 1.015 Last Edit by Nathan Goncalves CMA on 07/17/24 13:10 UA Ketone Negative Last Edit by Nathan Goncalves CMA on 07/17/24 13:10 UA Bilirubin 0 mg/dL Last Edit by Nathan Goncalves CMA on 07/17/24 13:10 UA Glucose 0 mg/dL Last Edit by Nathan Goncalves CMA on 07/17/24 13:10 Results Reviewed Results Reviewed: Laboratory Last Values Urine pH (Auto) 6.0 07/17/24 13:09 Specific [place] (Auto) 1.015 07/17/24 13:09 Urine Protein (Auto) 0 mg/dL 07/17/24 13:09 Glucose (UA)(Auto) 0 mg/dL 07/17/24 13:09 Urine Ketones (Auto) Negative 07/17/24 13:09 Urine Blood (Auto) 0 Nabil/uL 07/17/24 13:09 Urine Nitrite (Auto) Positive 07/17/24 13:09 Urine Bilirubin (Auto) 0 mg/dL 07/17/24 13:09 Urine Urobilinogen (Auto) 0.2 mg/dL 07/17/24 13:09 Leukocyte Esterase (Auto) 15 Sloane/uL 07/17/24 13:09 Assessment & Plan Assessment & Plan (1) Vaginal discharge: Code(s): N89.8 - Other specified noninflammatory disorders of vagina (2) Dysuria: Code(s): R30.0 - Dysuria Plan Patient is a 44-year-old female came in today to be evaluated for possible vaginal infection or UTI Patient says that she is having symptoms for the past 2 weeks off and on for the past 1 week it is more like dysuria She called her OBGYN and was given metronidazole which she did finished Having suprapubic discomfort And also fishy discharge from vaginal Urine test shows slightly positive leuk esterase I am treating her with Macrobid for 3 days We have taken vaginal culture to check for other bacterial infection Further management after the report Review system reveals no fever no chills no new back pains no nausea no vomiting Orders: Orders Bacterial Vaginosis Panel Today Lisa Aldana MD N89.8 - Other specified noninflammatory disorders of vagina, R30.0 - Dysuria AMB Urinalysis Automated Today Agatha Barroso NP Z13.9 - Encounter for screening, unspecified Medications: New nitrofurantoin monohyd/m-cryst 100 mg (Macrobid) must administer with a meal/food 100 mg PO Q12H 6 caps 0RF 3 days Lisa Aldana MD Coding Level of Care Code Est Pt Level 3 (73871) Diagnoses Vaginal discharge N89.8 Dysuria R30.0
[2024-07-17 13:07] VITALS: BP 130/84; PULSE 88; O2SAT 97
== END 2024-07-17 13:35 | disposition home or self-care (01) ==
PROVIDERS: PCP Internal Medicine; Visit Provider Internal Medicine
DX: N89.8 Other specified noninflammatory disorders of vagina (principal); R30.0 Dysuria; Z13.9 Encounter for screening, unspecified
CPT/HCPCS: 81003; 99213

== ENCOUNTER 2024-07-17 13:20 | Outpatient (REF) | payer OTHER, SELFPAY ==
[2024-07-18 11:32] LABS: Bacterial Vaginosis PCR NEGATIVE (Negative); Candida Group PCR NOT DETECTED (Not Detect); Candida glab krusei PCR NOT DETECTED (Not Detect); Trichomonas vaginalis PCR NOT DETECTED (Not Detect)
== END 2024-07-17 13:21 | disposition home or self-care (01) ==
LOC: HO.LAB 13:20
PROVIDERS: Visit Provider Internal Medicine
DX: N89.8 Other specified noninflammatory disorders of vagina (principal); R30.0 Dysuria
CPT/HCPCS: 0352U

== ENCOUNTER 2024-08-05 08:28 | Outpatient (REF) | payer OTHER, SELFPAY ==
[2024-08-05 10:11] LABS: Syphilis Screen Nonreactive (Nonreactive)
[2024-08-05 10:13] LABS: HBsAGNum1 0.29 S/CO (0.00-0.99); HIV AB/AG Nonreactive (Nonreactive); HIV Num 1 0.08 S/CO (0.00-0.99); Hepatitis B Surface Antigen Negative (Negative); ~Hepatitis C Antibody Nonreactive (Nonreactive)
[2024-08-05 17:28] LABS: Bacterial Vaginosis PCR NEGATIVE (Negative); Candida Group PCR NOT DETECTED (Not Detect); Candida glab krusei PCR NOT DETECTED (Not Detect); Trichomonas vaginalis PCR NOT DETECTED (Not Detect)
[2024-08-05 17:33] LABS: CT PCR NOT DETECTED (Not Detect.); NG PCR NOT DETECTED (Not Detect.)
== END 2024-08-05 08:29 | disposition home or self-care (01) ==
LOC: HO.LAB 08:28
PROVIDERS: PCP Internal Medicine; Visit Provider Obstetrics & Gynecology
DX: N76.0 Acute vaginitis (principal); B96.89 Other specified bacterial agents as the cause of diseases classified elsewhere; N39.0 Urinary tract infection, site not specified
CPT/HCPCS: 0352U; 81002; 86780; 86803; 87086; 87088; 87186; 87340; 87389; 87491; 87591; 99212

== ENCOUNTER 2024-08-05 08:28 | Outpatient (AMB) | payer OTHER, SELFPAY ==
[2024-08-05 08:30] VITALS: BMI 24.6
--- NOTE | 2024-08-05 08:30 | A.OFFVIS_ITS ---
Vital Signs 08/05/24 08:30 Height 5 ft 4 in Weight 143 lb 4.807 oz BMI 24.6 Intake Visit Reasons: ?BV Sleeping Room Cleaner Required: No Information Interpreted: non-clinical & clinical Accompanied by: Self / Same As Patient Allergies No Known Allergies Allergy (Verified 08/05/24 08:33) HPI Comments Details: Presenting complaining of urinary frequency and dysuria associated with vaginal discharge, foul odor with no vaginal itching PFSH Medical History Complicated UTI (urinary tract infection) Bacteremia due to Escherichia coli Insomnia Overactive bladder Urge incontinence of urine H/O urinary frequency Irritable bowel syndrome with alternating bowel habits Allergic rhinitis Anxiety Dyslipidemia Overweight (BMI 25.0-29.9) Bladder calculus Constipation Pneumonia COVID-19 Irritable bowel syndrome (IBS) Mitochondrial cytopathy Palpitations Asthma Surgical History History of esophagogastroduodenoscopy (EGD) History of mammogram History of D&C History of myringotomy History of tonsillectomy and adenoidectomy Family History Mother Diabetes High blood pressure Father No problems noted. 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/Heterosexual Gender identity: Female Cognitive needs: No Hearing needs: No Vision needs: No Female Reproductive History Menstrual Age of Menarche: 9 Review of Systems Const All systems reviewed & are unremarkable except as noted in HPI and below Physical Exam Vital Signs: BMI result Body Mass Index 24.6 General: Yes no CVA tenderness External Female Exam: normal external appearance and normal appearance of the urethra Speculum Exam - Vagina: normal appearance of the vagina, normal palpation, no lesions and no masses Speculum Exam - Cervix: normal appearance of the cervix, normal palpation, no lesions, no masses and nontender Bimanual exam- vagina & uterus: normal bimanual exam, normal palpation, uterine size normal, normal palpation, uterine shape normal, No Cervical tenderness present and non-tender Bimanual Exam- Adnexa, other: normal adnexae Back/Spine/Pelvis Back: no CVA tenderness Assessment & Plan Assessment & Plan (1) Bacterial vaginosis: Code(s): N76.0 - Acute vaginitis; B96.89 - Other specified bacterial agents as the cause of diseases classified elsewhere Category: Medical Plan: GC and chlamydia cultures with BV panel taken. Per CDC recommendation, will screen for STI, HepBs Ag, HIV, RPR, Hep C Ab ordered. Will treat with Flagyl 500 mg p.o. b.i.d. x 7 days, Instructions given to the patient to refrain from sexual activity or to use condoms consistently and correctly during the BV treatment regimen, not to douch, it might increase the risk for relapse, and to call if symptoms persist or recur. (2) UTI (urinary tract infection): Code(s): N39.0 - Urinary tract infection, site not specified Category: Medical Plan: Urine dip was positive for blood and nitrites , urine culture sent will treat with Macrobid 100 mg p.o. b.i.d. for 5 days. Will repeat urine culture in 10 days Instructions given to patient to schedule an appointment for repeat urine dip in 2 weeks and to call or go to the emergency room in case of symptoms not improve, fever of 100.4, flank pain, nausea or vomiting. All questions answered, the patient verbalized understanding Orders: Orders Hepatitis C Antibody Today B96.89 - Other specified bacterial agents as the cause of diseases classified elsewhere, N76.0 - Acute vaginitis Syphilis Screen Today B96.89 - Other specified bacterial agents as the cause of diseases classified elsewhere, N76.0 - Acute vaginitis CT NG by PCR Today B96.89 - Other specified bacterial agents as the cause of diseases classified elsewhere, N76.0 - Acute vaginitis Bacterial Vaginosis Panel Today B96.89 - Other specified bacterial agents as the cause of diseases classified elsewhere, N76.0 - Acute vaginitis Hepatitis B Surface Antigen Today B96.89 - Other specified bacterial agents as the cause of diseases classified elsewhere, N76.0 - Acute vaginitis HIV Ab/Ag Today B96.89 - Other specified bacterial agents as the cause of diseases classified elsewhere, N76.0 - Acute vaginitis Urine Culture 2 Weeks N39.0 - Urinary tract infection, site not specified Medications: New metronidazole 500 mg PO BID 7 days 14 tabs 0RF nitrofurantoin monohyd/m-cryst 100 mg (Macrobid) 100 mg PO BID 5 days 10 caps 0RF Coding Level of Care Code Est Pt Level 3 (82064) Diagnoses Bacterial vaginosis N76.0; B96.89 UTI (urinary tract infection) N39.0
== END 2024-08-05 08:59 | disposition home or self-care (01) ==
LOC: HO.HWS 08:28
PROVIDERS: PCP Internal Medicine; Visit Provider Obstetrics & Gynecology
DX: N76.0 Acute vaginitis (principal); B96.89 Other specified bacterial agents as the cause of diseases classified elsewhere; N39.0 Urinary tract infection, site not specified
CPT/HCPCS: 99213

== ENCOUNTER 2024-08-26 15:25 | Outpatient (REF) | payer OTHER, SELFPAY | END 2024-08-26 15:26 | disposition home or self-care (01) | LOC: HO.LNP 15:25 | PROVIDERS: PCP Internal Medicine; Visit Provider Obstetrics & Gynecology | DX: N39.0 Urinary tract infection, site not specified (principal) | CPT/HCPCS: 87086; 87088; 87186; 99212 ==

== ENCOUNTER 2024-08-26 15:25 | Outpatient (AMB) | payer OTHER, SELFPAY ==
--- NOTE | 2024-08-26 15:33 | MHC.OFFVIS ---
Intake Visit Reasons: urine dip Allergies No Known Allergies Allergy (Verified 08/05/24 08:33) HPI Comments Details: Presenting for repeat urine dip. The patient presented on 08/05 urine dip showed microscopic hematuria, urine culture grew E coli sensitive to nitrofurantoin. The patient completed a course of nitrofurantoin. Presenting with no complaint [facility] Medical History Complicated UTI (urinary tract infection) Bacteremia due to Escherichia coli Insomnia Overactive bladder Urge incontinence of urine H/O urinary frequency Irritable bowel syndrome with alternating bowel habits Allergic rhinitis Anxiety Dyslipidemia Overweight (BMI 25.0-29.9) Bladder calculus Constipation Pneumonia COVID-19 Irritable bowel syndrome (IBS) Mitochondrial cytopathy Palpitations Asthma Surgical History History of esophagogastroduodenoscopy (EGD) History of mammogram History of D&C History of myringotomy History of tonsillectomy and adenoidectomy Family History Mother Diabetes High blood pressure Father No problems noted. 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/Heterosexual Gender identity: Female Cognitive needs: No Hearing needs: No Vision needs: No Female Reproductive History Menstrual Age of Menarche: 9 Review of Systems Const All systems reviewed & are unremarkable except as noted in HPI and below Reports as per HPI and Reports no additional complaints GI Reports no additional complaints Reports no additional complaints Assessment & Plan Assessment & Plan (1) UTI (urinary tract infection): Code(s): N39.0 - Urinary tract infection, site not specified Category: Medical Plan: Repeat urine dip showed evidence of microscopic hematuria, leukocyte and nitrites. Will send urine for culture. If positive will treat accordingly and refer to Urology . Instructions given the patient to call in case of recurrence of urinary symptoms, flank pain, fever over 100.4. And to schedule a 2 week follow-up appointment. All questions answered, the patient verbalized understanding Coding Level of Care Code Est Pt Level 3 (40356) Diagnoses UTI (urinary tract infection) N39.0
== END 2024-08-26 16:00 | disposition home or self-care (01) ==
PROVIDERS: PCP Internal Medicine; Visit Provider Obstetrics & Gynecology
DX: N39.0 Urinary tract infection, site not specified (principal)
CPT/HCPCS: 99213

== ENCOUNTER 2024-09-04 15:18 | Outpatient (AMB) | payer OTHER, SELFPAY ==
--- NOTE | 2024-09-04 15:34 | MHC.PC.OV ---
Vital Signs 09/04/24 15:38 Height 5 ft 4 in Weight 143 lb 2 oz BMI 24.6 BP 118/76 Blood Pressure Location Lt brachial Position Sitting Pulse 71 Pulse Source Pulse Oximeter Pulse Oximetry (%) 98 Oxygen Delivery Method Room Air Intake Visit Reasons: Follow up Intake Note: Patient is here to follow up on IBS Dyslipidemia, Asthma. 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: Not Required per policy Accompanied by: Self / Same As Patient Allergies No Known Allergies Allergy (Verified 09/04/24 16:06) Medication List - Last Reconciled 09/04/24 by Ronen Holly MD albuterol sulfate 90 mcg/actuation (Ventolin HFA) 2 puffs inhalation Q6H PRN 30 days amoxicillin-pot clavulanate 875-125 mg 1 tab PO BID 7 days bismuth subsalicylate (Bismuth) 2 tabs PO QID 14 days docusate sodium (Colace) 200 mg (2 x 100 mg) PO BEDTIME 30 days loratadine 10 mg PO DAILY PRN 30 days lorazepam 0.5 mg PO BEDTIME PRN 30 days omeprazole 20 mg PO BID 14 days psyllium husk (aspartame) 3.4 gram (Metamucil Fiber Singles) 3.4 grams PO DAILY 30 days trazodone 50 mg PO BEDTIME PRN 30 days valacyclovir (Valtrex) 500 mg PO BID Tobacco use date assessed: 09/04/24 Dental Screening Dental Screen Date: 09/04/24 Did you have a dental visit in the last 12 months?: Yes Did you have a dental problem in the last 6 months where you did not have access to dental care?: No Was dental information given to patient?: Patient has dentist HPI Follow up HPI Details Patient comes in today for her follow up visit States that she was diagnosed with H. pylori by GI earlier this year when she had her EGD She was treated with quadruple therapy with Bismuth, Flagyl, Omeprazole and Tetracycline for 14 days back in January 2024 but she apparently did not respond to the Tx as repeat gastric Bx in June 2024 still came back positive for H. pylori States that she has tried reaching out to GI several times over the past few weeks as the PA who saw her (Laya Pierre) is currently reportedly out on leave but states that no one is responding to her requests for a call back at all Would like to know what she should take now to help clear up her H. pylori Adds that her hearing test came back abnormal a few weeks ago and she was advised by the carpet or rug layer helper to see ENT for further evaluation She was previously referred to Dr. Keith but was advised that Dr. Keith does not aceept her insurance and is requesting for referral to another ENT specialist She denies any headaches or dizziness Denies any chest pains, no increased SOB No nausea/vomiting, no abdominal pain No change in bowel habits noted She needs a few of her Rx refilled Would also like to get her flu shot today [facility] Medical History (Updated 09/05/24 @ 21:27 by Ronen Holly MD) H. pylori infection Complicated UTI (urinary tract infection) Bacteremia due to Escherichia coli Insomnia Overactive bladder Urge incontinence of urine H/O urinary frequency Irritable bowel syndrome with alternating bowel habits Allergic rhinitis Anxiety Dyslipidemia Overweight (BMI 25.0-29.9) Bladder calculus Constipation Pneumonia COVID-19 Irritable bowel syndrome (IBS) Mitochondrial cytopathy Palpitations Asthma Surgical History History of esophagogastroduodenoscopy (EGD) History of mammogram History of D&C History of myringotomy History of tonsillectomy and adenoidectomy Family History Mother Diabetes High blood pressure Father No problems noted. 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 1. Little interest or pleasure in doing things: not at all 2. Feeling down, depressed, or hopeless: not at all 3. Trouble falling or staying asleep, or sleeping too much: not at all 4. Feeling tired or having little energy: not at all 5. Poor appetite or overeating: not at all 6. Feeling bad about yourself - or that you are a failure or have let yourself or your family down: not at all 7. Trouble concentrating on things, such as reading the newspaper or watching television: not at all 8. Moving or speaking so slowly that other people could have noticed. Or the opposite - being so fidgety or restless that you have been moving around a lot more than usual: not at all 9. Thoughts that you would be better off or of hurting yourself in some way: not at all Total score: 0 Depression Screening Interpretation: Negative Depression Screening Done: Yes 50989 - PHQ-9 Billing: Yes Source: Developed by Drs. Jovon Montano, Laurie Parsons, Bill Gallagher and colleagues, with an educational carmina from [employer]. Thrive Questionnaire Date Thrive assessed: 09/04/24 I am a: Patient What is your living situation today?: I have a steady place to live Within the past 12 months, did the food you bought not last and you didn't have the money to get more?: Never true Within the past 12 months, did you worry whether your food would run out before you got money to buy more?: Never true Do you have trouble paying for medicines?: No Do you have trouble getting transportation to medical appointments?: No Do you have trouble paying your heating and electricity bill?: No Do you have trouble taking care of your child, family member or friend?: No Do you have trouble with day-to-day activities such as bathing, preparing meals, shopping, managing finances, etc.?: No Are you currently unemployed and looking for a job?: No Are you interested in more education?: No Currently or been in a relationship where the following occur: No concerns reported THRIVE Score: 0 AUDIT C Alcohol Use Questionnaire (AUDIT-C) 1. How often do you have a drink containing alcohol?: Monthly or less 2. How many drinks containing alcohol do you have on a typical day when you are drinking?: 1 or 2 3. How often do you have six or more drinks on one occasion?: Never Total Score: 1 Score Reviewed/Action Taken: Yes GRUPO-7 AMB Questionnaire GRUPO-7 Date GRUPO - 7 assessed: 09/04/24 Feeling nervous, anxious, or on edge: 0 = Not at all Not being able to stop or control worryin = Not at all Worrying too much about different things: 0 = Not at all Trouble relaxin = Not at all Being so restless that it is hard to sit still: 0 = Not at all Becoming easily annoyed or irritable: 0 = Not at all Feeling afraid as if something awful might happen: 0 = Not at all Total GRUPO-7 score (0-4 normal; 5-9 mild; 10-14 moderate; 15-21 severe): 0 Source: Developed by Drs. Jovon Montano, Laurie Parsons, Bill Gallagher and colleagues, with an educational carmina from [employer]. Review of Systems Const Denies chills, Denies fatigue, Denies fever(s) and Denies headache(s) ENT Denies dysphagia, Denies dizziness, Denies otalgia, Denies headache(s), Reports hearing loss, Denies neck pain, Denies odynophagia and Denies sore throat Card Denies chest pain, Denies irregular heart rhythm, Denies palpitations and Denies dyspnea Resp Denies chest congestion, Denies cough and Denies dyspnea GI Denies abdominal pain, Reports bloating (frequent), Reports constipation, Denies dysphagia, Denies heartburn, Denies diarrhea, Denies nausea, Denies odynophagia and Denies vomiting Denies hematuria, Denies urinary frequency, Denies dysuria, Denies urinary incontinence and Denies urinary urgency Musc Denies back pain, Denies arthralgias and Denies neck pain Skin/Breast Denies rash Neuro Denies dizziness, Denies headache(s) and Denies paresthesias Psych Denies anxiety and Denies depression Endo Denies fatigue and Denies palpitations Rupesh/Lymph Denies easy bruising Physical exam (Primary Care) Vital Signs: Last Vital Signs Pulse 71 09/04/24 15:38 BP 118/76 09/04/24 15:38 Pulse Ox 98 09/04/24 15:38 Oxygen Delivery Method Room Air 09/04/24 15:38 BMI result Body Mass Index 24.6 Tobacco/Smoking Status: Tobacco use Status Tobacco use date assessed 09/04/24 09/04/24 15:46 Patient Tobacco Use Status Former Tobacco user 09/04/24 15:46 Tobacco use type Cigarette 09/04/24 15:46 e-Cigarette/Vaping Use Never Used 09/04/24 15:46 PHQ-9: PHQ-9 Score PHQ-9: Total score 0 09/04/24 16:08 Depression Screening Interpretation: Negative Thrive Assessment: Date of Thrive Assessment Date Thrive assessed 09/04/24 09/04/24 15:46 Currently or been in a relationship where the following occur: No concerns reported Const General: no acute distress and alert HENMT Ears: TM's normal bilaterally and EAC's normal Throat: Yes posterior oropharynx normal and Yes tonsils normal (no TP congestion) Neck Neck: Yes no lymphadenopathy and Yes supple Thyroid: Thyroid normal Resp Auscultation: clear to auscultation bilaterally, no rales and no wheezes Cardio Rate: regular rate Rhythm: regular rhythm Heart sounds: no murmurs GI Palpation (GI): Soft to palpation and nontender Auscultation: normal bowel sounds General: Yes no CVA tenderness Back/Spine/Pelvis Back: no CVA tenderness Thoracic/Lumbar Spine: thoracic and lumbar spine normal to inspection Skin Rashes: no rashes Extrem General: Yes no clubbing, cyanosis or edema Office Procedures Flu Questionnaire Does the patient have a severe egg allergy?: No Does the patient have severe life threatening allergies?: No Does the patient have a fever or illness today?: No Has the patient ever had Guillain-Providence Syndrome?: No Has the patient ever had any past reaction to a flu shot?: No Immunizations Fluarix Triv 0968-1624 (PF) 45 mcg (15 mcg x 3)/0.5 mL IM syringe Performing Provider: Ronen Holly MD [facility] Administered by: Didi Montemayor LPN on 09/04/24 16:02 Dose Route Admin Location Dispensed Lot Number Expiration Date [facility] Husbandry Technician 0.5 mL IM Left Deltoid 0.5 mL [id number] 05/31/25 19604-800-47 [employer] VIS Given Date VIS Provided VIS Publication Date 09/04/24 Single Vaccine 21 Eligibility Eligibility Date Funding Source Not [facility] Eligible 09/04/24 Private Coding Level of Care Code Est Pt Level 4 (98225) Diagnoses H. pylori infection A04.8 Hearing loss, unspecified hearing loss type, unspecified laterality H91.90 Hearing loss type: unspecified Laterality: unspecified laterality Dyslipidemia E78.5 Irritable bowel syndrome with alternating bowel habits K58.2 Mild intermittent asthma without complication J45.20 Asthma severity: mild Asthma persistence: intermittent Asthma complication type: uncomplicated Allergic rhinitis, unspecified seasonality, unspecified trigger J30.9 Allergic rhinitis trigger: unspecified Allergic rhinitis seasonality: unspecified Overactive bladder N32.81 Renal calculi N20.0 Insomnia, unspecified type G47.00 Insomnia type: unspecified Anxiety F41.9 Assessment & Plan Assessment & Plan (1) H. pylori infection: Comment: if positive will tx Start omeprazole 20 mg QD after submit Code(s): A04.8 - Other specified bacterial intestinal infections Category: Medical Plan: Patient tested positive for H. pylori on gastric biopsy done initially in December 2023 She was treated with quadruple therapy with Bismuth, Flagyl, Omeprazole and Tetracycline for 14 days back in January 2024 Repeat gastric Bx done in June 2024 still tested positive for H. pylori despite her prior Tx Will now go ahead and treat her now with salvage regimen consisting og Lansoprazole 30 mg BID, Amoxicillin 1000 mg BID and Levofloxacin 500 mg QD x 14 days She is advised to start these when she is done with her current Abx Tx (Augmentin) for her UTI Follow up with GI as scheduled (2) Hearing impairment: Code(s): H91.90 - Unspecified hearing loss, unspecified ear Category: Medical Qualifiers: Hearing loss type: unspecified Laterality: unspecified laterality Qualified Code(s): H91.90 - Unspecified hearing loss, unspecified ear Plan: Will refer her to ENT for further evaluation and management (3) Dyslipidemia: Code(s): E78.5 - Hyperlipidemia, unspecified Category: Medical Plan: Reinforced low cholesterol diet Will have patient recheck her fasting lipids in a couple of months for follow up (4) Irritable bowel syndrome with alternating bowel habits: Comment: food diary- Code(s): K58.2 - Mixed irritable bowel syndrome Category: Medical Plan: She predominantly has constipation and takes OTC stool softeners (Docusate 100 mg 2 tablets QD, Senna 8.6 mg 2 tabs QD) as needed as well as Linzess 145 mcg QD Continue Dicyclomine 20 mg QID PRN and Ondansetron 4 mg Q 8 hours PRN for nausea/vomiting Reinforced increased oral fluids and dietary fiber Follow up with GI as scheduled (5) Asthma: Code(s): J45.909 - Unspecified asthma, uncomplicated Category: Medical Qualifiers: Asthma severity: mild Asthma persistence: intermittent Asthma complication type: uncomplicated Qualified Code(s): J45.20 - Mild intermittent asthma, uncomplicated Plan: Stable - continue Albuterol HFA 2 puffs 4 times a day as needed (6) Allergic rhinitis: Code(s): J30.9 - Allergic rhinitis, unspecified Category: Medical Qualifiers: Allergic rhinitis trigger: unspecified Allergic rhinitis seasonality: unspecified Qualified Code(s): J30.9 - Allergic rhinitis, unspecified Plan: Continue Loratadine 10 mg QD PRN (7) Overactive bladder: Code(s): N32.81 - Overactive bladder Category: Medical Plan: Continue Oxybutynin ER 10 mg QD Follow up with urology as scheduled (8) Renal calculi: Code(s): N20.0 - Calculus of kidney Category: Medical Plan: Reinforced increased oral fluids Follow up with urology as scheduled (9) Insomnia: Code(s): G47.00 - Insomnia, unspecified Category: Medical Qualifiers: Insomnia type: unspecified Qualified Code(s): G47.00 - Insomnia, unspecified Plan: Sleep hygiene reinforced Continue Trazodone 50 mg Q HS PRN (10) Anxiety: Comment: Anxiety due to personal and family history, certainly understandable-she is agreeable to plan Code(s): F41.9 - Anxiety disorder, unspecified Category: Medical Plan: Continue Lorazepam 0.5 g Q HS PRN Plan As requested, flu vaccine given to patient today To return as scheduled in November 2024 for her annual physical examination Will have her get her labs done BEFORE she comes in for her appointment in November 2024 Orders: Orders Influenza [id number] Immunization 09/04/24 Z23 - Encounter for immunization Comprehensive [place]. Panel Fast 11/01/24 E78.00 - Pure hypercholesterolemia, unspecified, Z00.00 - Encounter for general adult medical examination without abnormal findings UA CC w/rflx Micro + Cult 11/01/24 R30.0 - Dysuria, Z00.00 - Encounter for general adult medical examination without abnormal findings Complete Blood Count Auto Diff 11/01/24 D64.9 - Anemia, unspecified, Z00.00 - Encounter for general adult medical examination without abnormal findings Lipid Panel 11/01/24 E78.00 - Pure hypercholesterolemia, unspecified, Z00.00 - Encounter for general adult medical examination without abnormal findings TSH reflex Free T4 11/01/24 E78.00 - Pure hypercholesterolemia, unspecified, Z00.00 - Encounter for general adult medical examination without abnormal findings Vitamin D 25-OH Total 11/01/24 E55.9 - Vitamin D deficiency, unspecified, Z00.00 - Encounter for general adult medical examination without abnormal findings Referrals Ear/Nose/Throat Referral H91.90 - Unspecified hearing loss, unspecified ear Medications: New levofloxacin 500 mg PO DAILY 14 days 14 tabs 0RF H. pylori infection A04.8 - Other specified bacterial intestinal infections lansoprazole 30 mg PO BID 14 days 28 caps 0RF H. pylori infection A04.8 - Other specified bacterial intestinal infections amoxicillin 1,000 mg (2 x 500 mg) PO BID 14 days 56 tabs 0RF H. pylori infection A04.8 - Other specified bacterial intestinal infections Refilled omeprazole 20 mg PO BID 14 days 28 caps 0RF albuterol sulfate 90 mcg/actuation (Ventolin HFA) 2 puffs inhalation Q6H 30 days PRN 8.5 grams 5RF shortness of breath or wheezing J45.909 - Unspecified asthma, uncomplicated docusate sodium (Colace) 200 mg (2 x 100 mg) PO BEDTIME 30 days 60 caps 5RF lorazepam 0.5 mg PO BEDTIME 30 days PRN 30 tabs 0RF anxiety
[2024-09-04 15:38] VITALS: BP 118/76; PULSE 71; O2SAT 98; BMI 24.6
== END 2024-09-04 16:33 | disposition home or self-care (01) ==
PROVIDERS: PCP Internal Medicine; Visit Provider Internal Medicine
DX: A04.8 Other specified bacterial intestinal infections (principal); H91.90 Unspecified hearing loss, unspecified ear; E78.5 Hyperlipidemia, unspecified; K58.2 Mixed irritable bowel syndrome; J45.20 Mild intermittent asthma, uncomplicated; J30.9 Allergic rhinitis, unspecified; N32.81 Overactive bladder; N20.0 Calculus of kidney; G47.00 Insomnia, unspecified; F41.9 Anxiety disorder, unspecified

== ENCOUNTER → 2024-09-04 15:18 | Outpatient (BNVA) | payer OTHER, SELFPAY | PROVIDERS: PCP Internal Medicine; Visit Provider Internal Medicine | DX: Z23 Encounter for immunization (principal); A04.8 Other specified bacterial intestinal infections; H91.90 Unspecified hearing loss, unspecified ear; E78.5 Hyperlipidemia, unspecified; K58.2 Mixed irritable bowel syndrome; J45.20 Mild intermittent asthma, uncomplicated; J30.9 Allergic rhinitis, unspecified; N32.81 Overactive bladder; N20.0 Calculus of kidney; G47.00 Insomnia, unspecified; F41.9 Anxiety disorder, unspecified | CPT/HCPCS: 90471; 90656; 96127; 99212 ==

== ENCOUNTER 2024-09-15 11:50 | Outpatient (AMB) | payer OTHER, SELFPAY ==
--- NOTE | 2024-09-15 11:51 | MHC.OFFVIS ---
Intake Visit Reasons: follow up urine culture Allergies No Known Allergies Allergy (Verified 09/04/24 16:06) HPI Comments Details: The patient is scheduled tele health visit for follow-up UTI. Urine culture grew E coli sensitive to ampicillin, Augmentin 1 tablet p.o. b.i.d. was completed by the patient. The patient has no symptoms. Urology referral was placed, the patient is scheduled a follow-up follow-up appointment [facility] Medical History H. pylori infection Complicated UTI (urinary tract infection) Bacteremia due to Escherichia coli Insomnia Overactive bladder Urge incontinence of urine H/O urinary frequency Irritable bowel syndrome with alternating bowel habits Allergic rhinitis Anxiety Dyslipidemia Overweight (BMI 25.0-29.9) Bladder calculus Constipation Pneumonia COVID-19 Irritable bowel syndrome (IBS) Mitochondrial cytopathy Palpitations Asthma Surgical History History of esophagogastroduodenoscopy (EGD) History of mammogram History of D&C History of myringotomy History of tonsillectomy and adenoidectomy Family History Mother Diabetes High blood pressure Father No problems noted. 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/Heterosexual Gender identity: Female Cognitive needs: No Hearing needs: No Vision needs: No Female Reproductive History Menstrual Age of Menarche: 9 Review of Systems Const All systems reviewed & are unremarkable except as noted in HPI and below Reports as per HPI and Reports no additional complaints GI Reports no additional complaints Reports no additional complaints Telehealth Telehealth Telehealth Platform: Telephone Location of provider rendering services: practice address Location of patient: address on file Patient Identification confirmed using: Name, : Yes Telehealth method: voice only Patient verbally consented to treatment: Yes Patient verbally consented to billing insurance company: Yes Patient informed of any privacy concerns related to visit: Yes Assessment & Plan Assessment & Plan (1) UTI (urinary tract infection): Comment: Recurrent Code(s): N39.0 - Urinary tract infection, site not specified Category: Medical Plan: Urine culture ordered for test of cure. Instructions given the patient to have her culture done as soon as possible if positive will treat accordingly. Instructions given the patient to follow-up with urology as soon as possible for further management. I spent a total of 20 minutes reviewing the chart, talking to the patient via phone and documenting in the medical record. Orders: Orders Urine Culture Today N39.0 - Urinary tract infection, site not specified Coding Level of Care Code Tele Est Pt Level 1 (46086) Diagnoses UTI (urinary tract infection) N39.0
== END 2024-09-15 14:20 | disposition home or self-care (01) ==
LOC: HO.HWS 11:50
PROVIDERS: PCP Internal Medicine; Visit Provider Obstetrics & Gynecology
DX: N39.0 Urinary tract infection, site not specified (principal)
CPT/HCPCS: 99211

== ENCOUNTER → 2024-09-15 11:50 | Outpatient (BNVA) | payer OTHER, SELFPAY | PROVIDERS: PCP Internal Medicine; Visit Provider Obstetrics & Gynecology ==

== ENCOUNTER 2024-10-30 12:20 | Outpatient (AMB) | payer OTHER, SELFPAY ==
--- NOTE | 2024-10-30 12:39 | MHC.OFFWIV ---
Intake Vital Signs 10/30/24 12:40 Weight 143 lb BP 120/80 Blood Pressure Location Lt brachial Position Sitting Pulse 111 H Pulse Source Pulse Oximeter Temp 98.9 F Temp Source Oral Pulse Oximetry (%) 98 Oxygen Delivery Method Room Air Intake Visit Reasons: EP stomach pain, cough ~COVID + 10/22 Intake Note: Patient here for stomach pain, loss of appetite, cough, nausea, headaches which has been present since last . Patient Tobacco Use Status: Former Tobacco user Allergies No Known Allergies Allergy (Verified 10/30/24 12:58) Medication List - Last Reconciled 10/30/24 by Denver Aguayo MD albuterol sulfate 90 mcg/actuation (Ventolin HFA) 2 puffs inhalation Q6H PRN 30 days amoxicillin 1,000 mg (2 x 500 mg) PO BID 14 days bismuth subsalicylate (Bismuth) 2 tabs PO QID 14 days docusate sodium (Colace) 200 mg (2 x 100 mg) PO BEDTIME 30 days lansoprazole 30 mg PO BID 14 days levofloxacin 500 mg PO DAILY 14 days loratadine 10 mg PO DAILY PRN 30 days lorazepam 0.5 mg PO BEDTIME PRN 30 days omeprazole 20 mg PO BID 14 days psyllium husk (aspartame) 3.4 gram (Metamucil Fiber Singles) 3.4 grams PO DAILY 30 days trazodone 50 mg PO BEDTIME PRN 30 days valacyclovir (Valtrex) 500 mg PO BID Do you need a note to return to daycare/school/sports/work: No HPI EP stomach pain, cough ~COVID + 10/22 HPI Details 44-year-old female presents to the office for a sick visit. Patient tested positive for COVID on October 22. Subsequently, patient has been experiencing a nonproductive cough and stomach discomfort. She has history of IBS. Complains of nausea and a sensation of bloating. No fevers or chills. No vomiting. [facility] Medical History H. pylori infection Complicated UTI (urinary tract infection) Bacteremia due to Escherichia coli Insomnia Overactive bladder Urge incontinence of urine H/O urinary frequency Irritable bowel syndrome with alternating bowel habits Allergic rhinitis Anxiety Dyslipidemia Overweight (BMI 25.0-29.9) Bladder calculus Constipation Pneumonia COVID-19 Irritable bowel syndrome (IBS) Mitochondrial cytopathy Palpitations Asthma Surgical History History of esophagogastroduodenoscopy (EGD) History of mammogram History of D&C History of myringotomy History of tonsillectomy and adenoidectomy Family History Mother Diabetes High blood pressure Father No problems noted. 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/Heterosexual Gender identity: Female Cognitive needs: No Hearing needs: No Vision needs: No Female Reproductive History Menstrual Age of Menarche: 9 Physical Exam Vital Signs: Last Vital Signs Temp 98.9 F 10/30/24 12:40 Pulse 111 H 10/30/24 12:40 BP 120/80 10/30/24 12:40 Pulse Ox 98 10/30/24 12:40 Oxygen Delivery Method Room Air 10/30/24 12:40 Const General: cooperative and healthy appearing Nutritional Appearance: well nourished Orientation/consciousness: patient oriented x3 Limitations: no limitations HEENT Head: Yes normal to inspection Eyes General: appearance normal, both eyes and all related structures Neck Neck: Yes normal visual inspection Chest Chest palpation & inspection: normal palpation of entire chest wall Resp Effort & Inspection: normal respiratory effort Neuro General: patient oriented x3 Assessment & Plan Assessment & Plan (1) Upper respiratory tract infection: Code(s): J06.9 - Acute upper respiratory infection, unspecified Plan: ppi, nausea medication called in. Patient was advised to continue inhalers she has has at home. Coding Level of Care Code Est Pt Level 3 (32540) Diagnoses Upper respiratory tract infection J06.9
[2024-10-30 12:40] VITALS: BP 120/80; PULSE 111; TEMP 37.2; O2SAT 98
== END 2024-10-30 13:17 | disposition home or self-care (01) ==
PROVIDERS: PCP Internal Medicine; Visit Provider Internal Medicine
DX: J06.9 Acute upper respiratory infection, unspecified (principal)

== ENCOUNTER → 2024-10-30 12:20 | Outpatient (BNVA) | payer OTHER, SELFPAY | PROVIDERS: PCP Internal Medicine; Visit Provider Internal Medicine | DX: J06.9 Acute upper respiratory infection, unspecified (principal) | CPT/HCPCS: 99212 ==

== ENCOUNTER 2024-11-04 07:31 | Outpatient (REF) | payer OTHER, SELFPAY ==
[2024-11-04 08:58] LABS: Syphilis Screen Nonreactive (Nonreactive)
[2024-11-04 08:59] LABS: HBsAGNum1 0.45 S/CO (0.00-0.99); HIV AB/AG Nonreactive (Nonreactive); HIV Num 1 0.04 S/CO (0.00-0.99); Hepatitis B Surface Antigen Negative (Negative); ~HepC Num1 0.09 S/CO (0.00-0.79); ~Hepatitis C Antibody Nonreactive (Nonreactive)
[2024-11-05 06:50] LABS: CT PCR NOT DETECTED (Not Detect.); NG PCR NOT DETECTED (Not Detect.)
== END 2024-11-04 07:32 | disposition home or self-care (01) ==
LOC: HO.LNP 07:31
PROVIDERS: PCP Internal Medicine; Visit Provider Obstetrics & Gynecology
DX: Z20.2 Contact with and (suspected) exposure to infections with a predominantly sexual mode of transmission (principal); Z11.3 Encounter for screening for infections with a predominantly sexual mode of transmission; N39.0 Urinary tract infection, site not specified
CPT/HCPCS: 86780; 86803; 87086; 87340; 87389; 87491; 87591; 99212

== ENCOUNTER 2024-11-04 07:31 | Outpatient (AMB) | payer OTHER, SELFPAY ==
[2024-11-04 07:34] VITALS: BMI 24.2
--- NOTE | 2024-11-04 07:34 | A.OFFVIS_ITS ---
Vital Signs 11/04/24 07:34 Height 5 ft 4 in Weight 141 lb 1.533 oz BMI 24.2 Intake Visit Reasons: STD test Apparel Manager Required: No Information Interpreted: non-clinical & clinical Sales Development Specialist: Sales Development Specialist Present (Aida JERONIMO) Accompanied by: Self / Same As Patient Allergies No Known Allergies Allergy (Verified 11/04/24 07:34) Is last menstrual period known: Yes Last menstrual period: 10/15/24 HPI Comments Details: The patient is presenting for STD screen, no specific exposure and no complaints. [facility] Medical History H. pylori infection Complicated UTI (urinary tract infection) Bacteremia due to Escherichia coli Insomnia Overactive bladder Urge incontinence of urine H/O urinary frequency Irritable bowel syndrome with alternating bowel habits Allergic rhinitis Anxiety Dyslipidemia Overweight (BMI 25.0-29.9) Bladder calculus Constipation Pneumonia COVID-19 Irritable bowel syndrome (IBS) Mitochondrial cytopathy Palpitations Asthma Surgical History History of esophagogastroduodenoscopy (EGD) History of mammogram History of D&C History of myringotomy History of tonsillectomy and adenoidectomy Family History Mother Diabetes High blood pressure Father No problems noted. 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/Heterosexual Gender identity: Female Cognitive needs: No Hearing needs: No Vision needs: No Female Reproductive History Menstrual Age of Menarche: 9 Date of last menstrual period: 10/15/24 Review of Systems Const All systems reviewed & are unremarkable except as noted in HPI and below Physical Exam Vital Signs: BMI result Body Mass Index 24.2 General: Yes no CVA tenderness External Female Exam: normal external appearance and normal appearance of the urethra Speculum Exam - Vagina: normal appearance of the vagina, normal palpation, no lesions and no masses Speculum Exam - Cervix: normal appearance of the cervix, normal palpation, no lesions, no masses and nontender Bimanual exam- vagina & uterus: normal bimanual exam, normal palpation, uterine size normal, normal palpation, uterine shape normal, No Cervical tenderness present and non-tender Bimanual Exam- Adnexa, other: normal adnexae Back/Spine/Pelvis Back: no CVA tenderness Assessment & Plan Assessment & Plan (1) Screen for STD (sexually transmitted disease): Code(s): Z11.3 - Encounter for screening for infections with a predominantly sexual mode of transmission Category: Medical Plan: STD screening tests done includes: BV panel for trichomonas, GC/CT will send patient for serology std screening for HIV, RPR, Hep b s Ag, HepC Ab. Instructions given the patient to schedule a follow-up appointment for repeat serology screen in 6 months for possible false negatives. Orders: Orders Hepatitis B Surface Antigen Today Z20.2 - Contact with and (suspected) exposure to infections with a predominantly sexual mode of transmission Hepatitis C Antibody Today Z20.2 - Contact with and (suspected) exposure to infections with a predominantly sexual mode of transmission HIV Ab/Ag Today Z20.2 - Contact with and (suspected) exposure to infections with a predominantly sexual mode of transmission Syphilis Screen Today Z20.2 - Contact with and (suspected) exposure to infections with a predominantly sexual mode of transmission Coding Level of Care Code Est Pt Level 3 (00006) Diagnoses Screen for STD (sexually transmitted disease) Z11.3
== END 2024-11-04 09:30 | disposition home or self-care (01) ==
LOC: HO.HWS 07:31
PROVIDERS: PCP Internal Medicine; Visit Provider Obstetrics & Gynecology
DX: Z11.3 Encounter for screening for infections with a predominantly sexual mode of transmission (principal)
CPT/HCPCS: 99213

== ENCOUNTER 2024-11-04 07:48 | Outpatient (REF) | payer OTHER, SELFPAY ==
[2024-11-04 18:07] LABS: Bacterial Vaginosis PCR NEGATIVE (Negative); Candida Group PCR NOT DETECTED (Not Detect); Candida glab krusei PCR NOT DETECTED (Not Detect); Trichomonas vaginalis PCR NOT DETECTED (Not Detect)
== END 2024-11-04 07:49 | disposition home or self-care (01) ==
LOC: HO.LAB 07:48
PROVIDERS: Absent Provider Obstetrics & Gynecology; PCP Internal Medicine; Visit Provider Internal Medicine
DX: Z11.3 Encounter for screening for infections with a predominantly sexual mode of transmission (principal)
CPT/HCPCS: 0352U; 36415

== ENCOUNTER 2024-11-06 08:00 | Outpatient (REF) | payer OTHER, SELFPAY ==
[2024-11-06 08:23] LABS: MANUAL DIFF FLAG NO
[2024-11-06 08:53] LABS: Basophils Percent Auto 0.5 % (0-2); Eosinophils Absolute Auto 0.3 X10*3/uL (0.0-0.4); Eosinophils Percent Auto 3.4 % (0-4); Hematocrit 34.7 % (37.0-47.0); Hemoglobin 12.1 g/dl (12.0-16.0); Imm Gran Abs Auto 0.04 X10*3/uL (0.00-0.03); Imm Gran Pct Auto 0.5 % (0.0-0.4); Lymphocytes Absolute Auto 2.5 X10*3/uL (1.2-4.9); Lymphocytes Percent Auto 29.1 % (20-40); Mean Corpuscular HGB Conc 34.9 g/dl (31.0-35.0); Mean Corpuscular Hemoglobin 31.1 pg (27.0-33.0); Mean Corpuscular Volume 89.2 fL (80.0-98.0); Mean Platelet Volume 8.9 fL (9.4-12.3); Monocytes Absolute Auto 0.7 X10*3/uL (0.1-1.2); Monocytes Percent Auto 8.8 % (2-11); Neutrophils Absolute Auto 4.9 x10*3/uL (2.0-8.3); Neutrophils Percent Auto 57.7 % (45-73); Platelet Count 334 X10*3/uL (160-400); Red Blood Count 3.89 X10*6/uL (4.20-5.50); Red Cell Distribution Width 12.8 % (11.0-16.0); White Blood Count 8.5 X10*3/uL (4.8-10.8)
[2024-11-06 09:37] LABS: Appearance Urine Clear; Color Urine Yellow; Glucose Urine UA Negative (Negative); Leukocyte Esterase Urine Negative (Negative); Nitrite Urine Negative (Negative); Urine Blood Negative (Negative); Urine Ketones Negative (Negative); Urine Protein Negative (Neg-Trace)
[2024-11-06 09:52] LABS: Alanine Aminotransferase 32 U/L (0-31); Albumin Level 3.9 g/dL (3.5-5.0); Alkaline Phosphatase 51 U/L (39-117); Anion Gap 11 (12-20); Aspartate Amino Transferase 38 U/L (5-31); Bilirubin Total 0.6 mg/dL (0.0-1.0); Blood Urea Nitrogen 16 mg/dL (9-16); Calcium 8.9 mg/dL (8.4-10.2); Carbon Dioxide 24 mmol/L (22-29); Chloride 109 mmol/L (96-108); Cholesterol 183 mg/dL (<200); Estimated Glomerular Filt Rate > 60; Glucose Fasting 95 mg/dL (60-99); HDL Cholesterol 37 mg/dL (>40); LDL Cholesterol Calculated 125 mg/dL (<100); Potassium 3.8 mmol/L (3.3-5.1); Sodium 140 mmol/L (135-145); Triglycerides 107 mg/dL (<150)
[2024-11-06 10:08] LABS: TSH reflex Free T4 0.36 uIU/mL (0.32-4.0); Vitamin D 25-OH Total 39.1 ng/mL (>30)
== END 2024-11-06 08:01 | disposition home or self-care (01) ==
LOC: HO.LAB 08:00
PROVIDERS: PCP Internal Medicine; Visit Provider Internal Medicine
DX: Z00.00 Encounter for general adult medical examination without abnormal findings (principal); E78.00 Pure hypercholesterolemia, unspecified; E55.9 Vitamin D deficiency, unspecified; D64.9 Anemia, unspecified; R30.0 Dysuria
CPT/HCPCS: 36415; 80053; 80061; 81003; 82306; 84443; 85025

== ENCOUNTER 2024-11-10 10:59 | Outpatient (REF) | payer OTHER, SELFPAY | END 2024-11-10 11:00 | disposition home or self-care (01) | LOC: HO.US 10:59 | PROVIDERS: PCP Internal Medicine; Visit Provider Nurse Practitioner Family | DX: N20.0 Calculus of kidney (principal) | CPT/HCPCS: 76775 ==

== ENCOUNTER 2024-11-16 14:56 | Outpatient (AMB) | payer OTHER, SELFPAY ==
--- NOTE | 2024-11-16 14:58 | A.OFFPC_ITS ---
Vital Signs 11/16/24 14:59 Height 5 ft 4 in Weight 140 lb 4 oz BMI 24.1 BP 100/76 Blood Pressure Location Lt brachial Position Sitting Pulse 71 Pulse Source Pulse Oximeter Pulse Oximetry (%) 96 Oxygen Delivery Method Room Air Intake Visit Reasons: Annual Exam Booking Supervisor Required: No Accompanied by: Self / Same As Patient Allergies No Known Allergies Allergy (Verified 11/16/24 15:44) Medication List - Last Reconciled 11/16/24 by Ronen Holly MD albuterol sulfate 90 mcg/actuation (Ventolin HFA) 2 puffs inhalation Q6H PRN 30 days docusate sodium (Colace) 200 mg (2 x 100 mg) PO BEDTIME 30 days loratadine 10 mg PO DAILY PRN 30 days lorazepam 0.5 mg PO BEDTIME PRN 30 days omeprazole 20 mg PO .QD prochlorperazine maleate (Compazine) 5 mg PO BID PRN psyllium husk (aspartame) 3.4 gram (Metamucil Fiber Singles) 3.4 grams PO DAILY 30 days trazodone 50 mg PO BEDTIME PRN 30 days valacyclovir (Valtrex) 500 mg PO BID Tobacco use date assessed: 11/16/24 Dental Screening Dental Screen Date: 11/16/24 Did you have a dental visit in the last 12 months?: Yes Did you have a dental problem in the last 6 months where you did not have access to dental care?: No Was dental information given to patient?: Patient has dentist HPI Annual Exam HPI Details Patient comes in today for annual physical examination States that she feels okay She denies any headaches or dizziness Denies any chest pains, no shortness of breath No nausea/vomiting, no abdominal pain No change in bowel habits noted She denies any acute urinary symptoms She had her follow-up labs done about 10 days ago - to discuss her results Her last pap smear was done in 04/2022 but she has been seeing Dr. Cardona for her gynecology appointments and was just seen a couple of weeks ago She had her screening colonoscopy done a few months ago on 06/01/2024 - had (+) hyperplastic polyps and she has been recommended for repeat colonoscopy in 10 years Her annual mammography was done in 01/2024 [facility] Medical History H. pylori infection Complicated UTI (urinary tract infection) Bacteremia due to Escherichia coli Insomnia Overactive bladder Urge incontinence of urine H/O urinary frequency Irritable bowel syndrome with alternating bowel habits Allergic rhinitis Anxiety Dyslipidemia Overweight (BMI 25.0-29.9) Bladder calculus Constipation Pneumonia COVID-19 Irritable bowel syndrome (IBS) Mitochondrial cytopathy Palpitations Asthma Surgical History History of esophagogastroduodenoscopy (EGD) History of mammogram History of D&C History of myringotomy History of tonsillectomy and adenoidectomy Family History Mother Diabetes High blood pressure Father No problems noted. 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 1. Little interest or pleasure in doing things: not at all 2. Feeling down, depressed, or hopeless: not at all 3. Trouble falling or staying asleep, or sleeping too much: not at all 4. Feeling tired or having little energy: more than half the days 5. Poor appetite or overeating: more than half the days 6. Feeling bad about yourself - or that you are a failure or have let yourself or your family down: not at all 7. Trouble concentrating on things, such as reading the newspaper or watching television: not at all 8. Moving or speaking so slowly that other people could have noticed. Or the opposite - being so fidgety or restless that you have been moving around a lot more than usual: not at all 9. Thoughts that you would be better off or of hurting yourself in some way: not at all Total score: 4 Depression Screening Interpretation: Positive Depression Screening Follow-up: Existing condition and In treatment Depression Screening Done: Yes Source: Developed by Drs. Jovon Montano, Laurie Parsons, Bill Gallagher and colleagues, with an educational carmina from [employer]. Thrive Questionnaire Date Thrive assessed: 11/16/24 I am a: Patient What is your living situation today?: I have a steady place to live Within the past 12 months, did the food you bought not last and you didn't have the money to get more?: Sometimes True Within the past 12 months, did you worry whether your food would run out before you got money to buy more?: Never true Do you have trouble paying for medicines?: No Do you have trouble getting transportation to medical appointments?: No Do you have trouble paying your heating and electricity bill?: Yes Do you have trouble taking care of your child, family member or friend?: No Do you have trouble with day-to-day activities such as bathing, preparing meals, shopping, managing finances, etc.?: No Are you currently unemployed and looking for a job?: No Are you interested in more education?: I choose not to answer this question Please select the resources that you would like help with: Utilities Currently or been in a relationship where the following occur: No concerns reported THRIVE Score: 2 AUDIT C Alcohol Use Questionnaire (AUDIT-C) 1. How often do you have a drink containing alcohol?: Monthly or less 3. How often do you have six or more drinks on one occasion?: Less than monthly Total Score: 2 Score Reviewed/Action Taken: Yes GRUPO-7 AMB Questionnaire GRUPO-7 Date GRUPO - 7 assessed: 11/16/24 Feeling nervous, anxious, or on edge: 0 = Not at all Not being able to stop or control worryin = Not at all Worrying too much about different things: 0 = Not at all Trouble relaxin = Not at all Being so restless that it is hard to sit still: 0 = Not at all Becoming easily annoyed or irritable: 0 = Not at all Feeling afraid as if something awful might happen: 0 = Not at all Total GRUPO-7 score (0-4 normal; 5-9 mild; 10-14 moderate; 15-21 severe): 0 Source: Developed by Drs. Jovon Montano, Laurie Parsons, Bill Gallagher and colleagues, with an educational carmina from [employer]. Review of Systems Const Denies chills, Denies fatigue, Denies fever(s), Denies headache(s) and Denies malaise Eyes Denies blurry vision, Denies change in vision, Denies irritation and Denies itchy eyes ENT Denies dysphagia, Denies dizziness, Denies otalgia, Denies headache(s), Denies nasal congestion, Denies neck pain, Denies odynophagia, Denies sinus pain and Denies sore throat Card Denies chest pain, Denies rapid heart rate, Denies irregular heart rhythm, Denies palpitations and Denies dyspnea Resp Denies chest congestion, Denies cough, Denies dyspnea and Denies wheezing GI Denies abdominal pain, Denies bloating, Denies constipation, Denies dysphagia, Denies heartburn, Denies diarrhea, Denies nausea, Denies odynophagia and Denies vomiting Denies hematuria, Denies urinary frequency, Denies dysuria, Denies urinary incontinence and Denies urinary urgency Musc Denies back pain, Denies arthralgias, Denies joint swelling, Denies muscle weakness and Denies neck pain Skin/Breast Denies breast pain, Denies breast mass, Denies change in pigmentation, Denies lesions, Denies rash and Denies unusual bruising Neuro Denies dizziness, Denies headache(s) and Denies paresthesias Psych Denies anxiety and Denies depression Endo Denies fatigue and Denies palpitations Rupesh/Lymph Denies easy bruising Aller/Immun Denies itchy eyes and Denies wheezing Physical exam (Primary Care) Vital Signs: Last Vital Signs Pulse 71 11/16/24 14:59 BP 100/76 11/16/24 14:59 Pulse Ox 96 11/16/24 14:59 Oxygen Delivery Method Room Air 11/16/24 14:59 BMI result Body Mass Index 24.1 Tobacco/Smoking Status: Tobacco use Status Tobacco use date assessed 11/16/24 11/16/24 15:00 Patient Tobacco Use Status Former Tobacco user 12/16/24 15:00 Tobacco use type Cigarette 11/16/24 15:00 e-Cigarette/Vaping Use Never Used 11/16/24 15:00 PHQ-9: PHQ-9 Score PHQ-9: Total score 4 11/16/24 15:48 Depression Screening Interpretation: Positive Depression Screening Follow-up: Existing condition and In treatment Thrive Assessment: Date of Thrive Assessment Date Thrive assessed 11/16/24 11/16/24 15:00 Currently or been in a relationship where the following occur: No concerns reported Const General: no acute distress, alert and awake Orientation/consciousness: patient oriented x3 HENMT Head: Yes normocephalic and Yes atraumatic Ears: external ears normal, TM's normal bilaterally and EAC's normal General nose exam: No nasal discharge present Face and sinus: Yes normal facial exam and Yes sinuses nontender Teeth and gingiva: dentition normal Throat: Yes posterior oropharynx normal and Yes tonsils normal (no TP congestion) Eyes Eyelids: Yes eyelids normal Conjunctivae: conjunctivae normal Pupils: Equal, round and reactive pupils present EOM: EOMs intact bilaterally Neck Neck: Yes no lymphadenopathy and Yes supple Thyroid: Thyroid normal Resp Auscultation: clear to auscultation bilaterally, no rales and no wheezes Cardio Rate: regular rate Rhythm: regular rhythm Heart sounds: no murmurs GI Palpation (GI): Soft to palpation, nontender and No hepatosplenomegaly present Auscultation: normal bowel sounds General: Yes no CVA tenderness Back/Spine/Pelvis Back: no CVA tenderness Thoracic/Lumbar Spine: thoracic and lumbar spine normal to inspection Skin Lesions: no lesions Rashes: no rashes Neuro General: patient oriented x3, moves all extremities, no focal motor deficits and CN's II-XI intact bilaterally Cranial nerves: Yes Equal, round and reactive pupils present Cognition (Neuro): normal cognition Gait exam (Neuro): Normal gait present Extrem General: Yes no clubbing, cyanosis or edema Results Reviewed Results Reviewed: Laboratory Tests 11/06/24 11/06/24 08:20 08:22 WBC 8.5 Hgb 12.1 Hct 34.7 L Plt Count 334 Sodium 140 Potassium 3.8 Creatinine 0.71 Estimated GFR > 60 Fasting Glucose 95 Calcium 8.9 AST 38 H ALT 32 H Triglycerides 107 Cholesterol 183 LDL Cholesterol, Calc 125 H HDL Cholesterol 37 L 25-OH Vitamin D Total 39.1 TSH 0.36 Ur Specific [place] 1.020 Urine Protein Negative Urine Glucose (UA) Negative Urine Blood Negative Urine Nitrite Negative Ur Leukocyte Esterase Negative Coding Level of Care Code Est Pt Prev Care 40-64y(16696) Diagnoses Annual physical exam Z00.00 H. pylori infection A04.8 Hearing loss, unspecified hearing loss type, unspecified laterality H91.90 Hearing loss type: unspecified Laterality: unspecified laterality Dyslipidemia E78.5 Irritable bowel syndrome with alternating bowel habits K58.2 Mild intermittent asthma without complication J45.20 Asthma severity: mild Asthma persistence: intermittent Asthma complication type: uncomplicated Allergic rhinitis, unspecified seasonality, unspecified trigger J30.9 Allergic rhinitis trigger: unspecified Allergic rhinitis seasonality: unspecified Overactive bladder N32.81 Renal calculi N20.0 Insomnia, unspecified type G47.00 Insomnia type: unspecified Anxiety F41.9 Assessment & Plan Assessment & Plan (1) Annual physical exam: Code(s): Z00.00 - Encounter for general adult medical examination without abnormal findings Category: Medical Plan: Results of her labs done about 10 days ago reviewed and discussed with patient She is up-to-date with all of her cancer screenings - her last pap smear was done in 04/2022 but she has been seeing Dr. Cardona for her gynecology appointments regularly was just seen a couple of weeks ago She had her screening colonoscopy done a few months ago on 06/01/2024 - had (+) hyperplastic polyps and she has been recommended for repeat colonoscopy in 10 years Her annual mammography was done in 01/2024 (2) H. pylori infection: Comment: if positive will tx Start omeprazole 20 mg QD after submit Code(s): A04.8 - Other specified bacterial intestinal infections Category: Medical Plan: Patient tested positive for H. pylori on gastric biopsy done initially in December 2023 She was initially treated with quadruple therapy with Bismuth, Flagyl, Omeprazole and Tetracycline for 14 days back in January 2024 Repeat gastric Bx done in June 2024 still tested positive for H. pylori despite her prior Tx We went ahead and treated her with salvage regimen consisting of Lansoprazole 30 mg BID, Amoxicillin 1000 mg BID and Levofloxacin 500 mg QD x 14 days a couple of months ago and patient states that she finished all of her Rx back then as prescribed Follow up with GI as scheduled (3) Hearing impairment: Code(s): H91.90 - Unspecified hearing loss, unspecified ear Category: Medical Qualifiers: Hearing loss type: unspecified Laterality: unspecified laterality Qualified Code(s): H91.90 - Unspecified hearing loss, unspecified ear Plan: She has been referred to ENT for further evaluation and management (4) Dyslipidemia: Code(s): E78.5 - Hyperlipidemia, unspecified Category: Medical Plan: She is cautioned that her cholesterol levels on her recent labs have increased f rom previous Reinforced low cholesterol diet Will have patient recheck her fasting lipids in 6 months for follow up (5) Irritable bowel syndrome with alternating bowel habits: Comment: food diary- Code(s): K58.2 - Mixed irritable bowel syndrome Category: Medical Plan: She predominantly has constipation and takes OTC stool softeners (Docusate 100 mg 2 tablets QD, Senna 8.6 mg 2 tabs QD) as needed as well as Linzess 145 mcg QD Continue Dicyclomine 20 mg QID PRN and Ondansetron 4 mg Q 8 hours PRN for nausea/vomiting Reinforced increased oral fluids and dietary fiber Follow up with GI as scheduled (6) Asthma: Code(s): J45.909 - Unspecified asthma, uncomplicated Category: Medical Qualifiers: Asthma severity: mild Asthma persistence: intermittent Asthma complication type: uncomplicated Qualified Code(s): J45.20 - Mild intermittent asthma, uncomplicated Plan: Stable - continue Albuterol HFA 2 puffs 4 times a day as needed (7) Allergic rhinitis: Code(s): J30.9 - Allergic rhinitis, unspecified Category: Medical Qualifiers: Allergic rhinitis trigger: unspecified Allergic rhinitis seasonality: unspecified Qualified Code(s): J30.9 - Allergic rhinitis, unspecified Plan: Continue Loratadine 10 mg QD PRN (8) Overactive bladder: Code(s): N32.81 - Overactive bladder Category: Medical Plan: Continue Oxybutynin ER 10 mg QD Follow up with urology as scheduled (9) Renal calculi: Code(s): N20.0 - Calculus of kidney Category: Medical Plan: Reinforced increased oral fluids Follow up with urology as scheduled (10) Insomnia: Code(s): G47.00 - Insomnia, unspecified Category: Medical Qualifiers: Insomnia type: unspecified Qualified Code(s): G47.00 - Insomnia, unspecified Plan: Sleep hygiene reinforced Continue Trazodone 50 mg Q HS PRN (11) Anxiety: Comment: Anxiety due to personal and family history, certainly understandable-she is agreeable to plan Code(s): F41.9 - Anxiety disorder, unspecified Category: Medical Plan: Continue Lorazepam 0.5 g Q HS PRN Plan Follow up in 6 months Orders: Orders Comprehensive [place]. Panel Fast 6 Months E78.00 - Pure hypercholesterolemia, unspecified Lipid Panel 6 Months E78.00 - Pure hypercholesterolemia, unspecified
[2024-11-16 14:59] VITALS: BP 100/76; PULSE 71; O2SAT 96; BMI 24.1
== END 2024-11-16 15:59 | disposition home or self-care (01) ==
PROVIDERS: PCP Internal Medicine; Visit Provider Internal Medicine
DX: Z00.00 Encounter for general adult medical examination without abnormal findings (principal); A04.8 Other specified bacterial intestinal infections; H91.90 Unspecified hearing loss, unspecified ear; E78.5 Hyperlipidemia, unspecified; K58.2 Mixed irritable bowel syndrome; J45.20 Mild intermittent asthma, uncomplicated; J30.9 Allergic rhinitis, unspecified; N32.81 Overactive bladder; N20.0 Calculus of kidney; G47.00 Insomnia, unspecified; F41.9 Anxiety disorder, unspecified

== ENCOUNTER → 2024-11-16 14:56 | Outpatient (BNVA) | payer OTHER, SELFPAY | PROVIDERS: PCP Internal Medicine; Visit Provider Internal Medicine | DX: Z00.00 Encounter for general adult medical examination without abnormal findings (principal); A04.8 Other specified bacterial intestinal infections; H91.90 Unspecified hearing loss, unspecified ear; K58.2 Mixed irritable bowel syndrome; J45.20 Mild intermittent asthma, uncomplicated; J30.9 Allergic rhinitis, unspecified; N32.81 Overactive bladder; N20.0 Calculus of kidney; G47.00 Insomnia, unspecified; F41.9 Anxiety disorder, unspecified; E78.00 Pure hypercholesterolemia, unspecified; Z87.891 Personal history of nicotine dependence | CPT/HCPCS: 96127; 99396 ==

== ENCOUNTER 2024-11-23 13:39 | Outpatient (AMB) | payer OTHER, SELFPAY ==
--- NOTE | 2024-11-23 13:56 | A.OFFVIS_ITS ---
Intake Visit Reasons: 1y/US(set) Intake Note: Patient is present for 1Y/US Urology Medication:NONE Antibiotic Allergy:NONE Blood Thinner:NONE Health And Wellness Advisor Required: No Allergies No Known Allergies Allergy (Verified 11/23/24 21:57) Medication List - Last Reconciled 11/23/24 by MANJEET Denise albuterol sulfate 90 mcg/actuation (Ventolin HFA) 2 puffs inhalation Q6H PRN 30 days docusate sodium (Colace) 200 mg (2 x 100 mg) PO BEDTIME 30 days loratadine 10 mg PO DAILY PRN 30 days lorazepam 0.5 mg PO BEDTIME PRN 30 days omeprazole 20 mg PO .QD prochlorperazine maleate (Compazine) 5 mg PO BID PRN psyllium husk (aspartame) 3.4 gram (Metamucil Fiber Singles) 3.4 grams PO DAILY 30 days trazodone 50 mg PO BEDTIME PRN 30 days valacyclovir (Valtrex) 500 mg PO BID HPI Comments Details: Ama is a 44-year-old female patient of Dr. Conley. She has a past medical history of H pylori, bacteremia due to E coli, insomnia, overactive bladder, urge incontinence, irritable bowel syndrome, allergic rhinitis, anxiety, dyslipidemia, constipation, IBS, and asthma. She presents to the office today for follow-up of her lower urinary tract symptoms, recurrent urinary tract infections, and nephrolithiasis. Recent renal imaging results remain pending however unofficial report does not note any nephrolithiasis and or hydronephrosis. These results were reviewed with the patient today. In discussion with the patient today she continues to report ongoing issues with bladder pressure, urinary urgency, urinary frequency, and episodes of mixed urinary incontinence. She reports having followed up with court security officer approximately 3 months ago at which time she was noted to have a urinary tract infection and has since completed antibiotic therapy. When asked she does continue to regularly have her menses. She does report a longstanding history of bowel issues with IBS as well as constipation. She discusses her longstanding history of overactive bladder however does not wish to undergo further treatment options at this time. She also reports noting episodes of nocturia however describes these episodes as variable. She otherwise denies flank pain, fever, and or chills. In office urinalysis results reviewed with the patient today. We discussed potential causes of lower urinary tract symptoms patient is experiencing. Urine cultures are as follows: 04/23 E coli, 9. E coli We discussed further treatment options of recurrent urinary tract infections as well as lower urinary tract symptoms patient was experiencing. She otherwise offers no other issues or concerns at this time. [facility] Medical History H. pylori infection Complicated UTI (urinary tract infection) Bacteremia due to Escherichia coli Insomnia Overactive bladder Urge incontinence of urine H/O urinary frequency Irritable bowel syndrome with alternating bowel habits Allergic rhinitis Anxiety Dyslipidemia Overweight (BMI 25.0-29.9) Bladder calculus Constipation Pneumonia COVID-19 Irritable bowel syndrome (IBS) Mitochondrial cytopathy Palpitations Asthma Surgical History History of esophagogastroduodenoscopy (EGD) History of mammogram History of D&C History of myringotomy History of tonsillectomy and adenoidectomy Family History Mother Diabetes High blood pressure Father No problems noted. 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/Heterosexual Gender identity: Female Cognitive needs: No Hearing needs: No Vision needs: No Female Reproductive History Menstrual Age of Menarche: 9 Results AMB Urinalysis, Automated UA Leukoctes 0 Sloane/uL Last Edit by WOLF Macdonald on 11/23/24 14:05 UA Nitrite Negative Last Edit by WOLF Macdonald on 11/23/24 14:05 UA Urobilinogen 0.2 mg/dL Last Edit by WOLF Macdonald on 11/23/24 14:0 5 UA Protein 30 mg/dL Last Edit by WOLF Macdonald on 11/23/24 14:05 UA pH 6.0 Last Edit by WOLF Macdonald on 11/23/24 14:05 UA Blood 25 Nabil/uL Last Edit by WOLF Macdonald on 11/23/24 14:05 UA Specific [place] 1.030 Last Edit by WOLF Macdonald on 11/23/24 14: 05 UA Ketone Positive Last Edit by WOLF Macdonald on 11/23/24 14:05 UA Bilirubin 1 mg/dL Last Edit by WOLF Macdonald on 11/23/24 14:05 UA Glucose 0 mg/dL Last Edit by WOLF Macdonald on 11/23/24 14:05 Results Reviewed Results Reviewed: Laboratory Last Values Urine pH (Auto) 6.0 11/23/24 14:04 Specific [place] (Auto) 1.030 11/23/24 14:04 Urine Protein (Auto) 30 mg/dL 11/23/24 14:04 Glucose (UA)(Auto) 0 mg/dL 11/23/24 14:04 Urine Ketones (Auto) Positive 11/23/24 14:04 Urine Blood (Auto) 25 Nabil/uL 11/23/24 14:04 Urine Nitrite (Auto) Negative 11/23/24 14:04 Urine Bilirubin (Auto) 1 mg/dL 11/23/24 14:04 Urine Urobilinogen (Auto) 0.2 mg/dL 11/23/24 14:04 Leukocyte Esterase (Auto) 0 Sloane/uL 11/23/24 14:04 Assessment & Plan Assessment & Plan (1) UTI (urinary tract infection): Comment: Recurrent Code(s): N39.0 - Urinary tract infection, site not specified Category: Medical (2) Complicated UTI (urinary tract infection): Code(s): N39.0 - Urinary tract infection, site not specified Category: Medical (3) Overactive bladder: Code(s): N32.81 - Overactive bladder Category: Medical Plan In office urinalysis results reviewed with the patient today; will send for urine cytology. We discussed at length potential causes of lower urinary tract symptoms patient was experiencing. We discussed further treatment options and risks and benefits of these treatment options. Recent renal imaging results reviewed with the patient today; as noted above. Although patient is reporting lower urinary tract symptoms she does not wish to undergo trial of OAB medication. Information provided regarding pelvic floor exercises Discussed bladder triggers/irritants. We discussed further treatment options for recurrent urinary tract infections. Discussed, educated, and stressed the importance of adequate hydration in relation to lower urinary tract symptoms as well as overall health and well- being. We discussed correlation of bowel issues with lower urinary tract symptoms. Follow-up in office cystoscopy; or sooner with any issues, concerns, and or questions. Orders: Orders Urine Cytology Today N39.0 - Urinary tract infection, site not specified AMB Urinalysis Automated Today Z13.9 - Encounter for screening, unspecified Patient Instructions: The patient had an opportunity to ask questions regarding the treatment plan. All questions were answered. Physical exam, labs, and imaging were discussed and reviewed in detail. As well as risks, benefits, and discussion of treatment choices. No major barriers to understanding were identified. The patient expressed understanding and agreement with the above treatment plan. The patient was made aware they should contact our office by phone for worsening of their current condition, the appearance of new symptoms, or with any questions or concerns. Compliance is encouraged with any medications and follow up testing that is ordered. It is a privilege to be allowed the opportunity to participate in? your urological care.? Again, if you have any questions or concerns If you have any questions or concerns please do not hesitate to contact me. The office is [phone]. This note is constructed using voice recognition software. While every effort has been made to ensure accuracy unscrambler errors may have been included. Yours sincerely, MANJEET Denise Coding Level of Care Code Est Pt Level 4 (33903) Diagnoses UTI (urinary tract infection) N39.0 Complicated UTI (urinary tract infection) N39.0 Overactive bladder N32.81 Time Spent (min) 35
== END 2024-11-23 14:38 | disposition home or self-care (01) ==
PROVIDERS: PCP Internal Medicine; Visit Provider Nurse Practitioner Family
DX: N39.0 Urinary tract infection, site not specified (principal); N32.81 Overactive bladder; Z13.9 Encounter for screening, unspecified
CPT/HCPCS: 99214

== ENCOUNTER 2024-11-23 13:39 | Outpatient (REF) | payer OTHER, SELFPAY ==
[2024-11-23 16:46] LABS: Urine Cytology See Pathology rpt
== END 2024-11-23 13:40 | disposition home or self-care (01) ==
LOC: HO.LAB 13:39
PROVIDERS: PCP Internal Medicine; Visit Provider Nurse Practitioner Family
DX: N39.0 Urinary tract infection, site not specified (principal); N32.81 Overactive bladder
CPT/HCPCS: 81003; 88112; 99212

== ENCOUNTER 2025-01-14 14:39 | Outpatient (AMB) | payer OTHER, SELFPAY ==
--- NOTE | 2025-01-14 14:59 | A.OFFVIS_ITS ---
Intake Visit Reasons: cysto Intake Note: Patient presents today for : Cystoscopy Urology Medication:NONE Antibiotic Allergy:NONE Blood Thinner:NONE URO- G Disposable Cystoscope Lot:: [id number] Exp: 04/29/27 Waterproofer Required: No Accompanied by: Self / Same As Patient Allergies No Known Allergies Allergy (Verified 01/14/25 15:05) Medication List - Last Reconciled 01/14/25 by Daisy Pelaez MD albuterol sulfate 90 mcg/actuation (Ventolin HFA) 2 puffs inhalation Q6H PRN 30 days cephalexin 500 mg PO TID 10 days docusate sodium (Colace) 200 mg (2 x 100 mg) PO BEDTIME 30 days loratadine 10 mg PO DAILY PRN 30 days lorazepam 0.5 mg PO BEDTIME PRN 30 days omeprazole 20 mg PO .QD prochlorperazine maleate (Compazine) 5 mg PO BID PRN psyllium husk (aspartame) 3.4 gram (Metamucil Fiber Singles) 3.4 grams PO DAILY 30 days trazodone 50 mg PO BEDTIME PRN 30 days valacyclovir (Valtrex) 500 mg PO BID HPI Comments Details: 01/14/25--Here for cystoscopy, catheterized urine sent for bernadineen. Cystoscopy findigs- no suspicious bladder lesions visualized. Keflex 500 mg tid, consider abx suppressive therapy 11/23/24--Ama is a 44-year-old female patient of Dr. Conley. She has a past medical history of H pylori, bacteremia due to E coli, insomnia, overactive bladder, urge incontinence, irritable bowel syndrome, allergic rhinitis, anxiety, dyslipidemia, constipation, IBS, and asthma. She presents to the office today for follow-up of her lower urinary tract symptoms, recurrent urinary tract infections, and nephrolithiasis. Recent renal imaging results remain pending however unofficial report does not note any nephrolithiasis and or hydronephrosis. These results were reviewed with the patient today. In discussion with the patient today she continues to report ongoing issues with bladder pressure, urinary urgency, urinary frequency, and episodes of mixed urinary incontinence. She reports having followed up with dyed yarn operator approximately 3 months ago at which time she was noted to have a urinary tract infection and has since completed antibiotic therapy. When asked she does continue to regularly have her menses. She does report a longstanding history of bowel issues with IBS as well as constipation. She discusses her longstanding history of overactive bladder however does not wish to undergo further treatment options at this time. She also reports noting episodes of nocturia however describes these episodes as variable. She otherwise denies flank pain, fever, and or chills. In office urinalysis results reviewed with the patient today. We discussed potential causes of lower urinary tract symptoms patient is experiencing. Urine cultures are as follows: 04/23 E coli, 9.24 E coli [facility] Medical History H. pylori infection Complicated UTI (urinary tract infection) Bacteremia due to Escherichia coli Insomnia Overactive bladder Urge incontinence of urine H/O urinary frequency Irritable bowel syndrome with alternating bowel habits Allergic rhinitis Anxiety Dyslipidemia Overweight (BMI 25.0-29.9) Bladder calculus Constipation Pneumonia COVID-19 Irritable bowel syndrome (IBS) Mitochondrial cytopathy Palpitations Asthma Surgical History History of esophagogastroduodenoscopy (EGD) History of mammogram History of D&C History of myringotomy History of tonsillectomy and adenoidectomy Family History Mother Diabetes High blood pressure Father No problems noted. 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/Heterosexual Gender identity: Female Cognitive needs: No Hearing needs: No Vision needs: No Female Reproductive History Menstrual Age of Menarche: 9 Review of Systems Const All systems reviewed & are unremarkable except as noted in HPI and below Reports no additional complaints Eyes Reports no additional complaints ENT Reports no additional complaints Card Reports no additional complaints Resp Reports no additional complaints GI Reports no additional complaints Reports as per HPI Musc Reports no additional complaints Skin/Breast Reports system reviewed and no additional complaints, except as documented Neuro Reports no additional complaints Psych Reports no additional complaints Endo Reports no additional complaints Rupesh/Lymph Reports no additional complaints Aller/Immun Reports no additional complaints Office Procedures Cystoscopy Consent Discussed risk and benefit or proposed procedure with the patient. Information consent for procedure given to the patient. Discussed technical aspects, risks, benefits and alternatives in full. Addressed all of the patient's questions and concerns regarding the procedure. The patient demonstrated knowledge and understanding. They wish to proceed with this procedure. Preparation The patient was prepped in the usual manner. A commodities trader was present and in the room. Genitalia was prepped with betadine solution in a sterile manner. Lidocaine Jelly 2% was placed into the urethra and 16Fr flexible Olympus cys toscope was inserted into the meatus after adequate lubrication. Procedure Time out per protocol performed. Bladder Inspection Bladder Inspection: The bladder was inspected in its entirety with utilization retroflexion displaying: Tumor(s): no suspicious bladder lesions visualized Trabeculation: NA Mucosal Erthema: mild Orifices: normal shape and position Urethra: normal Cystoscopy findings: no suspicious bladder lesions visualized [id number] DISPOSABLE SCOPE URO-G FLEXIBLE SCOPE Procedure code (CPT) selection complete Office Meds lidocaine HCl 2 % mucosal jelly in applicator Performing Provider: Daisy Pelaez MD [facility] Administered by: Anayeli Go RN on 01/14/25 15:33 Dose Route Admin Location Dispensed Lot Number Expiration Date [facility] Slide Developer 10 mL intra-urethral 10 mL ciprofloxacin HCl 500 mg tablet Performing Provider: Daisy Pelaez MD Performing [facility] Administered by: Anayeli Go RN on 01/14/25 15:33 Dose Route Admin Location Dispensed Lot Number Expiration Date [place] Slide Developer 500 mg PO 1 tab Results AMB Urinalysis, Automated UA Leukoctes 70 Sloane/uL Last Edit by Poornima Colladobre on 01/14/25 15:08 UA Nitrite Positive Last Edit by Poornima Heavenbre on 01/14/25 15:08 UA Urobilinogen 0.2 mg/dL Last Edit by Abundiocharissa Heavenbre on 01/14/25 15:08 UA Protein 30 mg/dL Last Edit by Poornima Heavenbre on 01/14/25 15:08 UA pH 6.0 Last Edit by Abundioluisadeola Colladobre on 01/14/25 15:08 UA Blood 10 Nabil/uL Last Edit by Poornima Heavenbre on 01/14/25 15:08 UA Specific [place] 1.025 Last Edit by Poornima Heavenbre on 01/14/25 15:08 UA Ketone Last Edit by Poornima Bermeo on 01/14/25 15:08 UA Bilirubin 1 mg/dL Last Edit by Poornima Heavenbre on 01/14/25 15:08 UA Glucose 0 mg/dL Last Edit by Poornima Bermeo on 01/14/25 15:08 Results Reviewed Results Reviewed: Laboratory Last Values Urine pH (Auto) 6.0 01/14/25 15:06 Specific [place] (Auto) 1.025 01/14/25 15:06 Urine Protein (Auto) 30 mg/dL 01/14/25 15:06 Glucose (UA)(Auto) 0 mg/dL 01/14/25 15:06 Urine Blood (Auto) 10 Nabil/uL 01/14/25 15:06 Urine Nitrite (Auto) Positive 01/14/25 15:06 Urine Bilirubin (Auto) 1 mg/dL 01/14/25 15:06 Urine Urobilinogen (Auto) 0.2 mg/dL 01/14/25 15:06 Leukocyte Esterase (Auto) 70 [place]loane/uL 01/14/25 15:06 Assessment & Plan Assessment & Plan (1) Complicated UTI (urinary tract infection): Code(s): N39.0 - Urinary tract infection, site not specified Category: Medical Plan Keflex 500 mg tid, consider abx suppressive therapy Orders: Orders AMB Urinalysis Automated Today Z13.9 - Encounter for screening, unspecified AMB Cystoscopy Today N39.0 - Urinary tract infection, site not specified, R30.0 - Dysuria Medications: New cephalexin 500 mg PO TID 30 caps 0RF 10 days Patient Instructions: The patient had an opportunity to ask questions regarding treatment plan. The patient expressed understanding and agreement with the above treatment plan. The patient is aware they should contact our office by phone for worsening of their current condition or the appearance of new symptoms. Compliance is encouraged with any medications and followup testing that is ordered. It is a privilege to be allowed the opportunity to participate in the urologic care of your patient. If you have any questions or concerns regarding treatment for the above conditions please do not hesitate to contact me. The office telephone contact is [phone]. This note is constructed in part using voice recognition software. While every effort has been made to ensure accuracy caddie errors may have been included. Yours sincerely, Daisy Pelaez MD Coding Level of Care Code Est Pt Level 3 (79669) Diagnoses Complicated UTI (urinary tract infection) N39.0 CPT Codes Cystoscopy - CPT: 39381-[id number] ([id number])
== END 2025-01-14 16:01 | disposition home or self-care (01) ==
LOC: HO.HUSH 14:39
PROVIDERS: PCP Internal Medicine; Visit Provider Urology
DX: N39.0 Urinary tract infection, site not specified (principal); R30.0 Dysuria; Z13.9 Encounter for screening, unspecified
CPT/HCPCS: 52000; 99213

== ENCOUNTER → 2025-01-14 14:39 | Outpatient (BNVA) | payer OTHER, SELFPAY | PROVIDERS: PCP Internal Medicine; Visit Provider Urology | DX: N39.0 Urinary tract infection, site not specified (principal) | CPT/HCPCS: 52000; 81003; 99212 ==

== ENCOUNTER 2025-01-16 16:29 | Emergency (ER) | payer OTHER, SELFPAY ==
--- NOTE | ~2025-01-16 | CT_ITS ---
CLINICAL HISTORY: slip and fall, pain CT head without contrast Comparison: CT/SR - BRAIN WO IV CONTRAST [id number] - 08/22/2018 01:10 PM EDT Findings: No intra-axial mass, midline shift, hydrocephalus, or acute hemorrhage. No significant atrophy-like change or white matter disease. The visualized paranasal sinuses and mastoid air cells are normal. The orbits are unremarkable. No skull fracture. IMPRESSION: 1. No acute intracranial findings. This document has been electronically signed by: Melina Zelaya MD on 01/16/2025 18:11:12
--- NOTE | ~2025-01-16 | XR_ITS ---
CLINICAL HISTORY: slip and fall, pain Four view right hand and wrist Comparison: None Findings: Hand: Bones intact. No dislocations. No significant arthritic change. No erosions. No radiopaque foreign body. Wrist: Bones intact without dislocation. No significant degenerative change of the wrist. No evidence of scaphoid fracture. No erosions. No radiopaque foreign body. IMPRESSION: 1. No evidence of acute fracture in the hand or wrist. This document has been electronically signed by: Melina Zelaya MD on 01/16/2025 18:27:12
--- NOTE | ~2025-01-16 | CT_ITS ---
CLINICAL HISTORY: slip and fall, pain CT cervical spine without contrast Comparison: None Findings: Vertebral alignment is within normal limits. Facets are aligned. Mild multilevel degenerative change with disc height loss and facet hypertrophy. No acute fractures or dislocations. Visualized intracranial contents are unremarkable. No cervical fluid collections or masses. No consolidation or effusion at the lung apices. IMPRESSION: No evidence of acute fracture or malalignment. Multilevel degenerative change. This document has been electronically signed by: Melina Zelaya MD on 01/16/2025 18:08:27
--- NOTE | ~2025-01-16 | XR_ITS ---
CLINICAL HISTORY: slip and fall, pain 3 view, pelvis and right hip Comparison: None Findings: The bones are intact. No significant arthritic change. The soft tissues are unremarkable. IMPRESSION: No acute findings. This document has been electronically signed by: Melina Zelaya MD on 01/16/2025 18:24:38
[2025-01-16 16:35] VITALS: BP 118/78; PULSE 84; O2SAT 98
[2025-01-16 16:56] VITALS: BP 119/57; PULSE 70; RESP 18; TEMP 36.7; O2SAT 98; BMI 24.0
--- NOTE | 2025-01-16 16:59 | ED.GENADULT ---
HPI - General Adult General Chief complaint: Fall Stated complaint: fall on ice, rt leg pain Time Seen by Provider: 01/16/25 17:39 Source: patient, RN notes reviewed and old records reviewed Mode of arrival: EMS Limitations: no limitations History of Present Illness ED Provider: Symone HPI narrative: 44-year-old female presents for evaluation of pain to her right side after a fall. Patient reports that she slipped on ice a few hours prior to arrival. She is unsure if she hit her head. She has pain mostly to her right thigh, right wrist and right hand She was right-hand dominant Her pain is an 8/10 She is not anticoagulated Related Data Home Medications ?Medication ?Instructions ?Recorded ?Confirmed omeprazole 20 mg capsule,delayed 20 mg PO .QD 11/16/24 01/14/25 release Previous Rx's ?Medication ?Instructions ?Recorded trazodone 50 mg tablet 50 mg PO BEDTIME PRN sleep 30 days 03/29/23 #30 tabs psyllium husk (aspartame) 3.4 gram 3.4 g PO DAILY 30 days #30 ea 04/17/23 oral powder packet (Metamucil Fiber Singles) valacyclovir 500 mg tablet 500 mg PO BID #30 tabs 05/21/23 (Valtrex) loratadine 10 mg tablet 10 mg PO DAILY PRN allergy 05/11/24 symptoms 30 days #30 tabs albuterol sulfate 90 mcg/actuation 2 puff inhalation Q6H PRN 09/04/24 aerosol inhaler (Ventolin HFA) shortness of breath or wheezing 30 days #8.5 grams docusate sodium 100 mg capsule 200 mg (2 x 100 mg) PO BEDTIME 30 09/04/24 (Colace) days #60 caps lorazepam 0.5 mg tablet 0.5 mg PO BEDTIME PRN anxiety 30 09/04/24 days #30 tabs prochlorperazine maleate 5 mg 5 mg PO BID PRN nausea and 10/30/24 tablet (Compazine) vomiting #14 tabs cephalexin 500 mg capsule 500 mg PO TID 10 days #30 caps 01/14/25 Allergies Allergy/AdvReac Type Severity Reaction Status Date / Time No Known Allergies Allergy Verified 01/16/25 16:59 Review of Systems Constitutional: Constitutional: Denies body ache(s), Denies chills, Denies fever(s), Denies frequent falls and Denies headache(s) Eyes: Eyes: Denies blurry vision and Denies floaters ENT: Denies vertigo, Denies dizziness and Denies headache(s) Cardiovascular: Cardiovascular: Denies chest pain and Denies chest pain at rest Gastrointestinal: Gastrointestinal: Denies abdominal pain, Denies nausea and Denies vomiting Musculoskeletal: Musculoskeletal: Reports arthralgias, Reports joint swelling and Reports limited range of motion Integumentary/Breasts: Skin/Breast: Denies rash Neurologic: Denies vertigo, Denies dizziness, Denies frequent falls and Denies headache(s) Psychiatric: Psychiatric: Denies anxiety PMFSH Past Medical History Medical History H. pylori infection Complicated UTI (urinary tract infection) Bacteremia due to Escherichia coli Insomnia Overactive bladder Urge incontinence of urine H/O urinary frequency Irritable bowel syndrome with alternating bowel habits Allergic rhinitis Anxiety Dyslipidemia Overweight (BMI 25.0-29.9) Bladder calculus Constipation Pneumonia COVID-19 Irritable bowel syndrome (IBS) Mitochondrial cytopathy Palpitations Asthma Surgical History History of esophagogastroduodenoscopy (EGD) History of mammogram History of D&C History of myringotomy History of tonsillectomy and adenoidectomy Family History Family History Mother Diabetes High blood pressure Father No problems noted. 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/Heterosexual Gender identity: Female Cognitive needs: No Hearing needs: No Vision needs: No Physical Exam ED Vital Signs: Vital Signs - 24 hr 01/16/25 16:56 01/16/25 19:03 Temperature 98.1 F 98.1 F Pulse Rate 70 70 Respiratory Rate 18 18 Blood Pressure 119/57 L 119/57 L Pulse Oximetry 98 98 Oxygen Delivery Method Room Air Room Air BMI result Body Mass Index 24.0 Const General: healthy appearing, comfortable, no acute distress, alert and awake Nutritional Appearance: well nourished Orientation/consciousness: patient oriented x3 HENMT Head: Yes normocephalic and Yes atraumatic Eyes Eyelids: Yes eyelids normal Conjunctivae: conjunctivae normal Sclerae: sclerae normal Corneas: corneas normal Pupils: Equal, round and reactive pupils present EOM: EOMs intact bilaterally Neck Neck: Yes full ROM Resp Effort & Inspection: normal respiratory effort, able to speak in complete sentences and not labored GI Inspection: No distended Palpation (GI): Soft to palpation, not firm, nontender, no guarding and not rigid Skin General skin exam: elasticity normal Neuro General: patient oriented x3 Cranial nerves: Yes Equal, round and reactive pupils present and Yes Bilaterally intact EOM present Cognition (Neuro): normal cognition Extrem Other: Patient has some tenderness to the right lateral thigh, no deformity to the right lower extremity. She was able to flex and extend at the hip and knee without difficulty. The patient does have exquisite tenderness to the right 3rd PIP joint with decreased range of Motrin in his area. Course Course Course Narrative: RME performed by Mildred Adams PA-C. Patient is a 44 year old assigned female at presenting to the emergency department with right hand/wrist pain and hip pain after a slip and fall. Patient states that she slipped and fell on the ice, landing on her right side. Patient states that she is not sure if she lost consciousness. Detailed physical exam and review of systems are deferred to the director of development and marketing. Imaging ordered. Patient placed back in the waiting room pending room availability and results. Medications Administered Discontinued Medications Generic Name Dose Route Start Last Admin Trade Name Freq PRN Reason Stop Dose Admin Ketorolac Tromethamine 30 mg 01/16/25 18:46 01/16/25 18:58 Ketorolac Tromethamine 30 Mg/Ml Vial IM 01/16/25 18:47 30 mg ONCE ONE Administration Medical Decision Making Medical Decision Making MDM Narrative: 44-year-old female presents for evaluation after a slip and fall on ice. This was a nonsyncopal fall. Plan for x-rays of the right hand and wrist, CT scan of the brain and C-spine that she is unsure if she hit her head. Her Radiology, X-rays did not show any acute injuries. When I reviewed the x-ray myself it appears to show a nondisplaced proximal phalanx fracture of the right 3rd digit. The patient was put in a finger splint and will be discharged to follow up with Orthopedics Differential Diagnosis Differential Diagnoses: The differential diagnosis associated with the presentation includes Brisk fracture Finger fracture Finger dislocation Contusion Hematoma Intracranial hemorrhage Independent Interpretation I performed an independent interpretation of an: Plain X-Ray Interpretation: Nondisplaced right 3rd proximal phalanx fracture Radiology Impression Discussion of test interpretation with radiology: I have reviewed the radiologist's reading. Radiologist Impression: Findings: No intra-axial mass, midline shift, hydrocephalus, or acute hemorrhage. No significant atrophy-like change or white matter disease. The visualized paranasal sinuses and mastoid air cells are normal. The orbits are unremarkable. No skull fracture. IMPRESSION: 1. No acute intracranial findings. This document has been electronically signed by: Melina Zelaya MD on 01/16/2025 18:11:12 Findings: Vertebral alignment is within normal limits. Facets are aligned. Mild multilevel degenerative change with disc height loss and facet hypertrophy. No acute fractures or dislocations. Visualized intracranial contents are unremarkable. No cervical fluid collections or masses. No consolidation or effusion at the lung apices. IMPRESSION: No evidence of acute fracture or malalignment. Multilevel degenerative change. This document has been electronically signed by: Melina Zelaya MD on 01/16/2025 18:08:27 Discharge Plan Discharge Clinical Impression: Fracture of phalanx, proximal, right hand Patient Disposition: Home, Self-Care Instructions: Finger Fracture (ED) Additional Instructions: Your x-rays were read as negative, but it does appear that you have a finger fracture to the right 3rd proximal phalanx. Use ibuprofen/Tylenol for pain. Follow-up with hand surgery at the number provided Apply ice to the swollen area Return for new or worsening symptoms Prescriptions: No Action loratadine 10 mg tablet 10 mg PO DAILY PRN (Reason: allergy symptoms) 30 Days Qty: 30 1RF Metamucil Fiber Singles 3.4 gram Powder In Packet 3.4 g PO DAILY 30 Days Qty: 30 2RF trazodone 50 mg tablet 50 mg PO BEDTIME PRN (Reason: sleep) 30 Days Qty: 30 3RF albuterol sulfate [Ventolin HFA] 90 mcg/actuation HFA aerosol inhaler 2 puff inhalation Q6H PRN (Reason: shortness of breath or wheezing) 30 Days Qty: 8.5 5RF lorazepam 0.5 mg tablet 0.5 mg PO BEDTIME PRN (Reason: anxiety) 30 Days Qty: 30 0RF docusate sodium [Colace] 100 mg capsule 200 mg PO BEDTIME 30 Days Qty: 60 5RF valacyclovir [Valtrex] 500 mg tablet 500 mg PO BID Qty: 30 1RF Rx Instructions: take with onset on of symptoms, take for three days, may repeat dosing per episode prn omeprazole 20 mg capsule,delayed release(DR/EC) 20 mg PO .QD prochlorperazine maleate [Compazine] 5 mg tablet 5 mg PO BID PRN (Reason: nausea and vomiting) Qty: 14 0RF cephalexin 500 mg capsule 500 mg PO TID 10 Days Qty: 30 0RF Referrals: Ana Lay MD [Physician] - (3rd finger proximal phalynx fracture) Interventions: ED Discharge Assessment Last Done: 01/16/25 19:03 Discharge Date/Time: 01/16/25 19:05 Print Language: [place]
[2025-01-16] MEDS: Ketorolac Tromethamine 30 MG/ML VIAL IM (18:58)
[2025-01-16 19:03] VITALS: BP 119/57; PULSE 70; RESP 18; TEMP 36.7; O2SAT 98
== END 2025-01-16 19:05 | disposition home or self-care (01) ==
PROVIDERS: Emergency Provider Emergency Medicine Emergency Medical Services; PCP Internal Medicine
DX: S62.602A Fracture of unspecified phalanx of right middle finger, initial encounter for closed fracture (principal); S69.91XA Unspecified injury of right wrist, hand and finger(s), initial encounter; M25.551 Pain in right hip; M79.604 Pain in right leg; R51.9 Headache, unspecified; M54.2 Cervicalgia; M79.641 Pain in right hand; W00.0XXA Fall on same level due to ice and snow, initial encounter; Y93.9 Activity, unspecified; Y92.89 Other specified places as the place of occurrence of the external cause; Y99.8 Other external cause status; Z79.899 Other long term (current) drug therapy
CPT/HCPCS: 70450; 72125; 73110; 73130; 73502; 96372; 99283; 99284; J1885

== ENCOUNTER → 2025-01-16 16:59 | Outpatient (BNV) | payer OTHER, SELFPAY | PROVIDERS: PCP Internal Medicine; Visit Provider Radiology Diagnostic Radiology | DX: M79.641 Pain in right hand (principal); M25.531 Pain in right wrist; M54.2 Cervicalgia; R51.9 Headache, unspecified; M25.551 Pain in right hip | CPT/HCPCS: 70450; 72125; 73110; 73130; 73502 ==

== ENCOUNTER 2025-01-21 12:09 | Outpatient (AMB) | payer OTHER, SELFPAY ==
--- NOTE | 2025-01-21 11:33 | MHC.OFFVIS ---
Intake Visit Reasons: 1 wk Migrogen results Intake Note: Patient is present for Microgen Resuts Accompanied by: Self / Same As Patient Allergies No Known Allergies Allergy (Verified 01/16/25 16:59) Medication List - Last Reconciled 01/21/25 by Daisy Pelaez MD albuterol sulfate 90 mcg/actuation (Ventolin HFA) 2 puffs inhalation Q6H PRN 30 days cephalexin 500 mg PO TID 10 days cephalexin 250 mg orally Take medication daily times 10 days then use as directed by 1 tablet after sexual activity 7 days docusate sodium (Colace) 200 mg (2 x 100 mg) PO BEDTIME 30 days loratadine 10 mg PO DAILY PRN 30 days lorazepam 0.5 mg PO BEDTIME PRN 30 days omeprazole 20 mg PO .QD prochlorperazine maleate (Compazine) 5 mg PO BID PRN psyllium husk (aspartame) 3.4 gram (Metamucil Fiber Singles) 3.4 grams PO DAILY 30 days trazodone 50 mg PO BEDTIME PRN 30 days valacyclovir (Valtrex) 500 mg PO BID HPI Comments Details: 01/21/25--Telehealth FU to discuss microgen results. Bacteria - Ecoli - resistant to bactrim and quinolones. LV 01/14/25 cath'd microgen sample obtained, patient started on Kefles 500 mg tid. Discussed postcoital antibiotic prophylaxis. Also discussed [id number] Replens lubricant. 01/14/25--Here for cystoscopy, catheterized urine sent for microgen. Cystoscopy findigs- no suspicious bladder lesions visualized. Keflex 500 mg tid, consider abx suppressive therapy. Plan will cont daily keflex for 21 days, post coital abx therapy with nitrofurantoin 50 mg. 11/23/24--Ama is a 44-year-old female patient of Dr. Conley. She has a past medical history of H pylori, bacteremia due to E coli, insomnia, overactive bladder, urge incontinence, irritable bowel syndrome, allergic rhinitis, anxiety, dyslipidemia, constipation, IBS, and asthma. She presents to the office today for follow-up of her lower urinary tract symptoms, recurrent urinary tract infections, and nephrolithiasis. Recent renal imaging results remain pending however unofficial report does not note any nephrolithiasis and or hydronephrosis. These results were reviewed with the patient today. In discussion with the patient today she continues to report ongoing issues with bladder pressure, urinary urgency, urinary frequency, and episodes of mixed urinary incontinence. 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 When asked she does continue to regularly have her menses. She does report a longstanding history of bowel issues with IBS as well as constipation. She discusses her longstanding history of overactive bladder however does not wish to undergo further treatment options at this time. She also reports noting episodes of nocturia however describes these episodes as variable. She otherwise denies flank pain, fever, and or chills. In office urinalysis results reviewed with the patient today. We discussed potential causes of lower urinary tract symptoms patient is experiencing. Urine cultures are as follows: 04/23 E coli, 9.24 E coli [facility] Medical History H. pylori infection Complicated UTI (urinary tract infection) Bacteremia due to Escherichia coli Insomnia Overactive bladder Urge incontinence of urine H/O urinary frequency Irritable bowel syndrome with alternating bowel habits Allergic rhinitis Anxiety Dyslipidemia Overweight (BMI 25.0-29.9) Bladder calculus Constipation Pneumonia COVID-19 Irritable bowel syndrome (IBS) Mitochondrial cytopathy Palpitations Asthma Surgical History History of esophagogastroduodenoscopy (EGD) History of mammogram History of D&C History of myringotomy History of tonsillectomy and adenoidectomy Family History Mother Diabetes High blood pressure Father No problems noted. 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/Heterosexual Gender identity: Female Cognitive needs: No Hearing needs: No Vision needs: No Female Reproductive History Menstrual Age of Menarche: 9 Review of Systems Const All systems reviewed & are unremarkable except as noted in HPI and below Reports no additional complaints Eyes Reports no additional complaints ENT Reports no additional complaints Card Reports no additional complaints Resp Reports no additional complaints GI Reports no additional complaints Reports as per HPI Musc Reports no additional complaints Skin/Breast Reports system reviewed and no additional complaints, except as documented Neuro Reports no additional complaints Psych Reports no additional complaints Endo Reports no additional complaints Rupesh/Lymph Reports no additional complaints Aller/Immun Reports no additional complaints Telehealth Telehealth Telehealth Platform: [employer] Location of provider rendering services: practice address Location of patient: address on file Patient Identification confirmed using: Name, : Yes Telehealth method: video Patient verbally consented to treatment: Yes Patient verbally consented to billing insurance company: Yes Patient informed of any privacy concerns related to visit: Yes Assessment & Plan Assessment & Plan (1) Complicated UTI (urinary tract infection): Code(s): N39.0 - Urinary tract infection, site not specified Category: Medical (2) Vaginitis: Code(s): N76.0 - Acute vaginitis Category: Medical Plan cephalexin 250 mg orally Take medication daily times 10 days then use as directed by MD 1 tablet after sexual activity Medications: New cephalexin 250 mg orally Take medication daily times 10 days then use as directed by MD 1 tablet after sexual activity 7 days 30 caps 2RF Patient Instructions: The patient had an opportunity to ask questions regarding treatment plan. The patient expressed understanding and agreement with the above treatment plan. The patient is aware they should contact our office by phone for worsening of their current condition or the appearance of new symptoms. Compliance is encouraged with any medications and followup testing that is ordered. It is a privilege to be allowed the opportunity to participate in the urologic care of your patient. If you have any questions or concerns regarding treatment for the above conditions please do not hesitate to contact me. The office telephone contact is [phone]. This note is constructed in part using voice recognition software. While every effort has been made to ensure accuracy weld technician errors may have been included. Yours sincerely, Daisy Pelaez MD Coding Level of Care Code Tele Est Pt Level 4 (15744) Diagnoses Complicated UTI (urinary tract infection) N39.0 Vaginitis N76.0
== END 2025-01-21 16:24 | disposition home or self-care (01) ==
LOC: HO.HUSH 12:09
PROVIDERS: PCP Internal Medicine; Visit Provider Urology
DX: N39.0 Urinary tract infection, site not specified (principal); N76.0 Acute vaginitis
CPT/HCPCS: 99213

== ENCOUNTER → 2025-01-21 12:09 | Outpatient (BNVA) | payer OTHER, SELFPAY | PROVIDERS: PCP Internal Medicine; Visit Provider Urology ==

== ENCOUNTER 2025-01-26 09:23 | Outpatient (REF) | payer OTHER, SELFPAY ==
--- NOTE | ~2025-01-26 | XR_ITS ---
EXAMINATION: XR HAND 3 OR MORE VIEWS RIGHT HISTORY: M79.641 - Pain in right hand COMPARISON: Comparison is made with the prior examination dated 01/16/2025. FINDINGS: Three views of the right hand are submitted. Osseous mineralization is normal. There is no fracture or dislocation. The joint spaces are preserved. The soft tissues are unremarkable. XR/XR hand RT min 3V IMPRESSION: Unremarkable examination of the right hand. Electronically signed by: Jvoon Sterling MD 01/27/2025 11:37 AM EST
== END 2025-01-26 09:24 | disposition home or self-care (01) ==
LOC: HO.HOSX 09:23
PROVIDERS: Visit Provider Orthopaedic Surgery
DX: S62.612D Displaced fracture of proximal phalanx of right middle finger, subsequent encounter for fracture with routine healing (principal)
CPT/HCPCS: 73130; 99202

== ENCOUNTER 2025-01-26 14:40 | Outpatient (AMB) | payer OTHER, SELFPAY ==
--- NOTE | 2025-01-26 15:17 | MHC.OFFVIS ---
Intake Visit Reasons: FC-FC of phalanx, proximal, RT hand MF-DOI 01/16/25 Intake Note: Ama 44 year old right hand dominant female presents today as a new patient for a evaluation of right middle finger fracture. States on DOI 01/16/25 she slipped on ice and fell inuring her finger. Seen in ED same day, she was put in a splint but she took it off and has been mahesh taping. She reports that her finger is improving but she continues to struggle with ROM., Denies numbness and tingling. She has no pain at baseline but has pain when bumping it or bending it. She is struggling to write as she is right hand dominant Allergies No Known Allergies Allergy (Verified 01/16/25 16:59) HPI HPI FC-FC of phalanx, proximal, RT hand -DOI 01/16/25: Details: Ama is a 44 year old right hand dominant woman who presents for a right middle finger fracture, S/P fall, DOI: 01/16/25. She was seen in the ED and plaed in a finger splint. She removed this splint at home & has been mahesh-Taping her fingers instead. She says she is doing okay. She denies any pain at rest, but complains of pain with use of her finger, or when she bumps it against something. She says it is difficult & painful for her to try and write. She denies any numbness or tingling. [facility] Medical History H. pylori infection Complicated UTI (urinary tract infection) Bacteremia due to Escherichia coli Insomnia Overactive bladder Urge incontinence of urine H/O urinary frequency Irritable bowel syndrome with alternating bowel habits Allergic rhinitis Anxiety Dyslipidemia Overweight (BMI 25.0-29.9) Bladder calculus Constipation Pneumonia COVID-19 Irritable bowel syndrome (IBS) Mitochondrial cytopathy Palpitations Asthma Surgical History History of esophagogastroduodenoscopy (EGD) History of mammogram History of D&C History of myringotomy History of tonsillectomy and adenoidectomy Family History Mother Diabetes High blood pressure Father No problems noted. 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/Heterosexual Gender identity: Female Cognitive needs: No Hearing needs: No Vision needs: No Female Reproductive History Menstrual Age of Menarche: 9 Review of Systems Const All systems reviewed & are unremarkable except as noted in HPI and below Physical Exam Const General: cooperative, healthy appearing and no acute distress Orientation/consciousness: patient oriented x3 HEENT Head: Yes normocephalic and Yes atraumatic Eyes EOM: EOMs intact bilaterally Resp Effort & Inspection: normal respiratory effort and able to speak in complete sentences Cardio Jugular venous distension: no JVD Skin General skin exam: turgor normal Rashes: no rashes Neuro General: patient oriented x3 Extrem Other: Evaluation of Right Upper Extremity: The patient is alert, oriented, and in no acute distress Neuro: Median, Ulnar, Radial nerves motor and sensory intact Vascular: Cap refill brisk ROM: With encouragement she could make a fist with all of the digits but the middle finger. She can bring the middle fingertip to about 2-3 cm from the palm it was limited by pain. She can bring all of the digits into full extension. Skin: No lacerations or abrasions or evidence of open fracture General: No Erythema or evidence of infection. Resolving ecchymosis & swelling Most tender over the distal aspect of the middle finger proximal phalanx, just proximal to the PIP joint Completely nontender over the MCP joint and proximal aspect of the proximal phalanx. Also nontender over the middle and distal phalanxes. No angular or rotational malalignment. Radiographs: 3 views of the right hand were taken and viewed by me today in clinic. they show a middle finger proximal phalanx nondisplaced hairline fracture in the distal aspect of the proximal phalanx. This is also where she is most tender to palpation Psych Appearance: grossly normal Affect: normal affect Attitude: cooperative Office Procedures AMB Fracture Care Details: Fracture care [id number], proximal phalanx fracture Fracture Billing Code: Fracture Billing Code Assessment & Plan Assessment & Plan (1) Closed fracture of proximal phalanx of right middle finger: Code(s): S62.612A - Displaced fracture of proximal phalanx of right middle finger, initial encounter for closed fracture Category: Medical Plan Assessment & Plan: 1. Right middle finger proximal phalanx fracture, distal shaft and nondisplaced From a fall, DOI: 01/16/25 I educated her about this condition I discussed operative and non-operative treatment options We will continue to manage this non-operatively. Her middle & ring fingers were Mahesh-taped today in clinic, using the ring finger as a moving splint for the middle finger. This will be be worn for the next 3 weeks. 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 She was given a note for work to return on light duty. with a 2lb weight limit with her RUE for the next 3 weeks. She will follow up in 3 weeks for a ROM check, with X-rays, 3V attn R BRIELLE Scribed for Ana Lay MD by Tiago Felipe, medical record consultant, on 01/26/25 at 3:35 PM, EST. Orders: Orders XR hand RT min 3V Today M79.641 - Pain in right hand Coding Level of Care Code New Pt Level 4 (26551) Diagnoses Closed fracture of proximal phalanx of right middle finger S62.612A CPT Codes Fracture Care - Fracture Billing Code: Fracture Billing Code ([id number])
== END 2025-01-26 15:44 | disposition home or self-care (01) ==
PROVIDERS: PCP Internal Medicine; Visit Provider Orthopaedic Surgery
DX: S62.612A Displaced fracture of proximal phalanx of right middle finger, initial encounter for closed fracture (principal); W00.0XXA Fall on same level due to ice and snow, initial encounter
CPT/HCPCS: 99204

== ENCOUNTER → 2025-01-26 14:49 | Outpatient (BNV) | payer OTHER, SELFPAY | PROVIDERS: Visit Provider Radiology Diagnostic Radiology | DX: M79.641 Pain in right hand (principal) | CPT/HCPCS: 73130 ==

== ENCOUNTER 2025-02-16 08:36 | Outpatient (REF) | payer OTHER, SELFPAY ==
--- NOTE | ~2025-02-16 | XR_ITS ---
EXAMINATION: XR HAND, RIGHT CLINICAL INFORMATION: M79.641 - Pain in right hand COMPARISON: January 26, 2025. TECHNIQUE: PA, lateral, and oblique views of the right hand. FINDINGS: No acute cortical disruption or malalignment. No lytic or blastic lesions. No metallic or radiopaque foreign body. No subcutaneous emphysema. No osteolysis. XR/XR hand RT min 3V IMPRESSION: Negative x-ray, right hand. Electronically signed by: Jericho Conway MD 02/17/2025 08:06 AM EDT
== END 2025-02-16 08:37 | disposition home or self-care (01) ==
LOC: HO.HOSX 08:36
PROVIDERS: Visit Provider Orthopaedic Surgery
DX: M79.641 Pain in right hand (principal)
CPT/HCPCS: 73130; 99212

== ENCOUNTER 2025-02-16 12:59 | Outpatient (AMB) | payer OTHER, SELFPAY ==
[2025-02-16 13:12] VITALS: BMI 24.0
--- NOTE | 2025-02-16 13:12 | A.OFFVIS_ITS ---
Vital Signs 02/16/25 13:12 Height 5 ft 4 in Weight 140 lb BMI 24.0 Intake Visit Reasons: OV-phalanx, proximal, RT hand MF-DOI 01/16/25-xr Intake Note: Ama 44 yr old female presents today for a follow up visit for her Right middle finger proximal phalanx fracture, distal shaft and nondisplaced From a fall, DOI: 01/16/25. Last visit patient was advise to mahesh tape. Currently states she is doing well and is able to make a fclose fist. She has a little tenderness but states she is doing well over all. Allergies No Known Allergies Allergy (Verified 02/16/25 13:21) HPI HPI OV-phalanx, proximal, RT hand MF-DOI 01/16/25-xr: Details: Ama is a 44 year old right hand dominant woman who returns for a ROM check of her right middle finger fracture, S/P fall, DOI: 01/16/25. She says she is doing okay and has been working on her ROM at home. She says she has been hesitant to bend her finger at times or use it for some activities. She says she still has some pain when she bumps her finger against something She denies any numbness or tingling. [facility] Medical History H. pylori infection Complicated UTI (urinary tract infection) Bacteremia due to Escherichia coli Insomnia Overactive bladder Urge incontinence of urine H/O urinary frequency Irritable bowel syndrome with alternating bowel habits Allergic rhinitis Anxiety Dyslipidemia Overweight (BMI 25.0-29.9) Bladder calculus Constipation Pneumonia COVID-19 Irritable bowel syndrome (IBS) Mitochondrial cytopathy Palpitations Asthma Surgical History History of esophagogastroduodenoscopy (EGD) History of mammogram History of D&C History of myringotomy History of tonsillectomy and adenoidectomy Family History Mother Diabetes High blood pressure Father No problems noted. 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 She can make a tight fist with no pain and extend all her digits No rotational mal-alignment General: No Erythema or evidence of infection. Resolved ecchymosis & swelling Fracture site completely non-tender Radiographs: 3 views of the right hand were taken and viewed by me today in clinic. they show a middle finger proximal phalanx nondisplaced hairline fracture in the distal aspect of the proximal phalanx with satisfactory fracture alignment & good evidence of interval bony healing. Assessment & Plan Assessment & Plan (1) Closed fracture of proximal phalanx of right middle finger: Code(s): S62.612A - Displaced fracture of proximal phalanx of right middle finger, initial encounter for closed fracture Category: Medical Plan Assessment & Plan: 1. Right middle finger proximal phalanx fracture, distal shaft and nondisplaced From a fall, DOI: 01/16/25 I educated her about this condition She will discontinue Mahesh-taping at this time I discussed activity modifications, she is to use her hand for light & medium weight activities, slowly increasing as tolerated. She should still avoid any h eavy gripping activities for the next 4 weeks, such as opening jars. 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 She feel she can return to work without restrictions, and was given a note for work to return on full duty, without restrictions She will follow up prn Scribed for Ana aLy MD by Tiago Felipe medical records specialist, on 02/16/25 at 1:20 PM, EST. Orders: Orders XR hand RT min 3V Today M79.641 - Pain in right hand Coding Level of Care Code Global (65293) Diagnoses Closed fracture of proximal phalanx of right middle finger S62.612A
== END 2025-02-16 13:22 | disposition home or self-care (01) ==
LOC: HO.HOS 13:00
PROVIDERS: PCP Internal Medicine; Visit Provider Orthopaedic Surgery
DX: S62.612A Displaced fracture of proximal phalanx of right middle finger, initial encounter for closed fracture (principal)
CPT/HCPCS: 99213

== ENCOUNTER → 2025-02-16 13:02 | Outpatient (BNV) | payer OTHER, SELFPAY | PROVIDERS: Visit Provider Radiology Diagnostic Radiology | DX: M79.641 Pain in right hand (principal) | CPT/HCPCS: 73130 ==

== ENCOUNTER 2025-02-26 13:45 | Outpatient (REF) | payer OTHER, SELFPAY ==
[2025-02-26 16:49] LABS: Appearance Urine Turbid; Color Urine Yellow; Glucose Urine UA Negative (Negative); Leukocyte Esterase Urine Small (1+) (Negative); Nitrite Urine Negative (Negative); PH 5.5 (5.0-9.0); Specific Gravity - Urine >= 1.030 (1.005-1.025); UMIC TRIGGER UA YES; Urine Blood Negative (Negative); Urine Ketones Trace mg/dL (Negative); Urine Protein 30 (1+) mg/dL (Neg-Trace)
[2025-02-26 17:00] LABS: Bacteria Urine 4+ (None Seen); RBC Urine 0-2 /HPF (0-2); Squamous Epithelial Cell Urine >20 /HPF (0-2); WBC Urine 21-50 /HPF (0-5)
== END 2025-02-26 13:46 | disposition home or self-care (01) ==
LOC: HO.LAB 13:45
PROVIDERS: PCP Internal Medicine; Visit Provider Urology
DX: N39.0 Urinary tract infection, site not specified (principal)
CPT/HCPCS: 81001; 87086; 87088; 87186

== ENCOUNTER 2025-03-03 14:57 | Outpatient (REF) | payer OTHER, SELFPAY | END 2025-03-03 14:58 | disposition home or self-care (01) | LOC: HO.MAMMO 14:57 | PROVIDERS: PCP Internal Medicine; Visit Provider Internal Medicine | DX: Z12.31 Encounter for screening mammogram for malignant neoplasm of breast (principal) | CPT/HCPCS: 77063; 77067 ==

== ENCOUNTER → 2025-03-03 15:00 | Outpatient (BNV) | payer OTHER, SELFPAY | PROVIDERS: PCP Internal Medicine; Visit Provider Internal Medicine | DX: Z12.31 Encounter for screening mammogram for malignant neoplasm of breast (principal) | CPT/HCPCS: 77063; 77067 ==

== ENCOUNTER 2025-04-15 15:39 | Outpatient (AMB) | payer OTHER, SELFPAY ==
--- NOTE | 2025-04-15 15:45 | MHC.OFFVIS ---
Intake Visit Reasons: 3m follow up Intake Note: Patient presents today for 3 month follow up Urology Medication:NONE Antibiotic Allergy:NONE Blood Thinner:NONE pvr:0ML Induction Coordination Engineer Required: No Accompanied by: Self / Same As Patient Allergies No Known Allergies Allergy (Verified 04/15/25 15:48) Medication List - Last Reconciled 04/15/25 by Daisy Pelaez MD albuterol sulfate 90 mcg/actuation (Ventolin HFA) 2 puffs inhalation Q6H PRN 30 days docusate sodium (Colace) 200 mg (2 x 100 mg) PO BEDTIME 30 days estradiol (Vagifem) 10 mcg vaginal 2XW loratadine 10 mg PO DAILY PRN 30 days lorazepam 0.5 mg PO BEDTIME PRN 30 days mirabegron ER (Myrbetriq) 25 mg PO DAILY nitrofurantoin macrocrystal 50 mg PO BEDTIME PRN omeprazole 20 mg PO .QD prochlorperazine maleate (Compazine) 5 mg PO BID PRN psyllium husk (Metamucil Fiber Singles) 3.4 grams PO DAILY 30 days trazodone 50 mg PO BEDTIME PRN 30 days valacyclovir (Valtrex) 500 mg PO BID HPI Comments Details: 04/15/25--Ama presents in follow-up due to recurrent UTIs and lower urinary tract symptoms frequency urgency, mixed urinary incontinence. The patient was counselled on suppressive antibiotic therapy. The patient states she was not able to fill the daily Keflex due to the copay. I will refill the nitrofurantoin 50 mg to use after intercourse. The patient also states that she is having more urge symptoms and gets up 1-2 times at night to urinate. I will start her on Myrbetriq 25 mg daily. The patient complains of vaginal dryness and has a occasional hot flashes. She denies history of breast cancer. We will trial Vagifem vaginal suppository, to use Saturday and . The patient was originally evaluated by Maricruz, nurse practitioner, I will have her follow-up with Maricruz in 3 months to re-evaluate changes in symptoms and any issues regarding these medications. 01/21/25--Telehealth FU to discuss microgen results. Bacteria - Ecoli - resistant to bactrim and quinolones. LV 01/14/25 cath'd microgen sample obtained, patient started on Kefles 500 mg tid. Discussed postcoital antibiotic prophylaxis. Also discussed [id number] Replens lubricant. 01/14/25--Here for cystoscopy, catheterized urine sent for microgen. Cystoscopy findigs- no suspicious bladder lesions visualized. Keflex 500 mg tid, consider abx suppressive therapy. Plan will cont daily keflex for 21 days, post coital abx therapy with nitrofurantoin 50 mg. 11/23/24--Ama is a 44-year-old female patient of Dr. Conley. She has a past medical history of H pylori, bacteremia due to E coli, insomnia, overactive bladder, urge incontinence, irritable bowel syndrome, allergic rhinitis, anxiety, dyslipidemia, constipation, IBS, and asthma. She presents to the office today for follow-up of her lower urinary tract symptoms, recurrent urinary tract infections, and nephrolithiasis. Recent renal imaging results remain pending however unofficial report does not note any nephrolithiasis and or hydronephrosis. These results were reviewed with the patient today. In discussion with the patient today she continues to report ongoing issues with bladder pressure, urinary urgency, urinary frequency, and episodes of mixed urinary incontinence. She reports having followed up with city distribution clerk approximately 3 months ago at which time she was noted to have a urinary tract infection and has since completed antibiotic therapy. When asked she does continue to regularly have her menses. She does report a longstanding history of bowel issues with IBS as well as constipation. She discusses her longstanding history of overactive bladder however does not wish to undergo further treatment options at this time. She also reports noting episodes of nocturia however describes these episodes as variable. She otherwise denies flank pain, fever, and or chills. In office urinalysis results reviewed with the patient today. We discussed potential causes of lower urinary tract symptoms patient is experiencing. Urine cultures are as follows: 04/23 E coli, 9.24 E coli [facility] Medical History H. pylori infection Complicated UTI (urinary tract infection) Bacteremia due to Escherichia coli Insomnia Overactive bladder Urge incontinence of urine H/O urinary frequency Irritable bowel syndrome with alternating bowel habits Allergic rhinitis Anxiety Dyslipidemia Overweight (BMI 25.0-29.9) Bladder calculus Constipation Pneumonia COVID-19 Irritable bowel syndrome (IBS) Mitochondrial cytopathy Palpitations Asthma Surgical History History of esophagogastroduodenoscopy (EGD) History of mammogram History of D&C History of myringotomy History of tonsillectomy and adenoidectomy Family History Mother Diabetes High blood pressure Father No problems noted. 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/Heterosexual Gender identity: Female Cognitive needs: No Hearing needs: No Vision needs: No Female Reproductive History Menstrual Age of Menarche: 9 Review of Systems Const All systems reviewed & are unremarkable except as noted in HPI and below Reports no additional complaints Eyes Reports no additional complaints ENT Reports no additional complaints Card Reports no additional complaints Resp Reports no additional complaints GI Reports no additional complaints Reports as per HPI Musc Reports no additional complaints Skin/Breast Reports system reviewed and no additional complaints, except as documented Neuro Reports no additional complaints Psych Reports no additional complaints Endo Reports no additional complaints Rupesh/Lymph Reports no additional complaints Aller/Immun Reports no additional complaints Assessment & Plan Assessment & Plan (1) Recurrent UTI: Code(s): N39.0 - Urinary tract infection, site not specified Category: Medical (2) Atrophic vaginitis: Code(s): N95.2 - Postmenopausal atrophic vaginitis Category: Medical (3) Nocturia: Code(s): R35.1 - Nocturia Category: Medical (4) Overactive bladder: Code(s): N32.81 - Overactive bladder Category: Medical Plan I will refill the nitrofurantoin 50 mg to use after intercourse. The patient also states that she is having more urge symptoms and gets up 1-2 times at night to urinate. I will start her on Myrbetriq 25 mg daily. The patient complains of vaginal dryness and has a occasional hot flashes. She denies history of breast cancer. We will trial Vagifem vaginal suppository, to use Saturday and . The patient was originally evaluated by Maricruz, nurse practitioner, I will have her follow-up with Maricruz in 3 months to re-evaluate changes in symptoms and any issues regarding these medications. Medications: New nitrofurantoin macrocrystal must administer with a meal/food 50 mg PO BEDTIME PRN 30 caps 3RF use after sexual activity estradiol (Vagifem) use at bedtime sat/ 10 mcg vaginal 2XW 8 tabs 3RF mirabegron ER (Myrbetriq) 25 mg PO DAILY 30 tabs 4RF Coding Level of Care Code Est Pt Level 4 (36596) Diagnoses Recurrent UTI N39.0 Atrophic vaginitis N95.2 Nocturia R35.1 Overactive bladder N32.81
== END 2025-04-15 16:21 | disposition home or self-care (01) ==
LOC: HO.HUSH 15:39
PROVIDERS: PCP Internal Medicine; Visit Provider Urology
DX: N39.0 Urinary tract infection, site not specified (principal); N95.2 Postmenopausal atrophic vaginitis; R35.1 Nocturia; N32.81 Overactive bladder
CPT/HCPCS: 99214

== ENCOUNTER 2025-04-15 15:39 | Outpatient (REF) | payer OTHER, SELFPAY | END 2025-04-15 15:40 | disposition home or self-care (01) | LOC: HO.LNP 15:39 | PROVIDERS: PCP Internal Medicine; Visit Provider Urology | DX: N39.0 Urinary tract infection, site not specified (principal); N95.2 Postmenopausal atrophic vaginitis; R35.1 Nocturia; N32.81 Overactive bladder | CPT/HCPCS: 51798; 99212 ==

== ENCOUNTER 2025-04-15 16:35 | Outpatient (REF) | payer OTHER, SELFPAY | END 2025-04-15 16:36 | disposition home or self-care (01) | LOC: HO.LAB 16:35 | PROVIDERS: Visit Provider Urology | DX: N39.0 Urinary tract infection, site not specified (principal) | CPT/HCPCS: 87086 ==

== ENCOUNTER → 2025-04-16 14:48 | Outpatient (BNV) | payer OTHER, SELFPAY | PROVIDERS: PCP Internal Medicine; Visit Provider Urology | DX: Z13.9 Encounter for screening, unspecified (principal) | CPT/HCPCS: 81003 ==

== ENCOUNTER 2025-05-06 14:14 | Outpatient (AMB) | payer OTHER, SELFPAY ==
--- NOTE | 2025-05-06 14:20 | MHC.OFFVIS ---
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 Intake Note: wants std testing Filling Hauler Required: No Director Oracle: Director Oracle Present Accompanied by: mikhail Allergies No Known Allergies Allergy (Verified 05/06/25 14:22) Medication List - Last Reconciled 05/06/25 by Monserrat Powers LPN albuterol sulfate 90 mcg/actuation (Ventolin HFA) 2 puffs inhalation Q6H PRN 30 days docusate sodium (Colace) 200 mg (2 x 100 mg) PO BEDTIME 30 days estradiol (Vagifem) 10 mcg vaginal 2XW loratadine 10 mg PO DAILY PRN 30 days lorazepam 0.5 mg PO BEDTIME PRN 30 days nitrofurantoin macrocrystal 50 mg PO BEDTIME PRN omeprazole 20 mg PO .QD prochlorperazine maleate (Compazine) 5 mg PO BID PRN psyllium husk (Metamucil Fiber Singles) 3.4 grams PO DAILY 30 days trazodone 50 mg PO BEDTIME PRN 30 days valacyclovir (Valtrex) 500 mg PO BID Patient : No Do you need a note to return to daycare/school/sports/work: No HPI Comments Details: She is a premenopausal woman presenting for annual examination. 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 Currently is sexually active, admits to dryness more so on the middle labia majora. Started 2 days ago, seen at Urology. Having hot flashes at night. Has regular menses. STI screening offered; she accepts. Admits to not eating healthy, no exercise. Family history of breast cancer. Last pap smear 2021, negative. Mammogram: 2024. [facility] Medical History Dense breast H. pylori infection Complicated UTI (urinary tract infection) Bacteremia due to Escherichia coli Insomnia Overactive bladder Urge incontinence of urine H/O urinary frequency Irritable bowel syndrome with alternating bowel habits Allergic rhinitis Anxiety Dyslipidemia Overweight (BMI 25.0-29.9) Bladder calculus Constipation Pneumonia COVID-19 Irritable bowel syndrome (IBS) Mitochondrial cytopathy Palpitations Asthma Surgical History History of esophagogastroduodenoscopy (EGD) History of mammogram History of D&C History of myringotomy History of tonsillectomy and adenoidectomy Family History Mother Diabetes High blood pressure Father No problems noted. 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/Heterosexual Gender identity: Female Cognitive needs: No Hearing needs: No Vision needs: No Female Reproductive History Menstrual Age of Menarche: 9 Duration of menses: 3-5 days Date of last menstrual period: 04/28/25 Total pregnancies: 2 Full term: 1 Number of Living Children: 1 Date of last pap smear: 04/23/22 History of abnormal pap smear: No History of STI: No Date of Mammogram: 03/03/25 Review of Systems Const All systems reviewed & are unremarkable except as noted in HPI and below Reports as per HPI Eyes Reports no additional complaints ENT Reports no additional complaints Card Reports no additional complaints Resp Reports no additional complaints GI Reports as per HPI and Reports no additional complaints Reports as per HPI Musc Reports no additional complaints Skin/Breast Reports as per HPI Neuro Reports no additional complaints Psych Reports no additional complaints Endo Reports no additional complaints Rupesh/Lymph Reports no additional complaints Aller/Immun Reports no additional complaints Physical Exam Vital Signs: Last Vital Signs BP 112/72 05/06/25 14:21 BMI result Body Mass Index 24.9 Const General: cooperative, healthy appearing, no acute distress, well developed and alert Orientation/consciousness: patient oriented x3 HEENT Head: Yes normal to inspection Eyes General: appearance normal, both eyes and all related structures Neck Neck: Yes normal visual inspection Thyroid: Thyroid normal Chest Chest palpation & inspection: normal inspection of the chest and other (no puckering, dimpling, peau de orange, retraction, discharge, masses) Breast/axilla inspection: normal inspection of the breasts Breast/axilla palpation: normal palpation of the breasts Resp Effort & Inspection: normal respiratory effort GI Inspection: Yes normal to inspection Palpation (GI): Soft to palpation Rectal Exam - Female: deferred Other: No lesions, erythema, edema, cracks or thickening of labia. General: Yes bladder normal to palpation External Female Exam: normal external appearance and normal appearance of the urethra Speculum Exam - Vagina: normal appearance of the vagina, normal palpation and normal vaginal discharge Speculum Exam - Cervix: normal appearance of the cervix and normal palpation Bimanual exam- vagina & uterus: normal bimanual exam, normal palpation, uterine size normal, bladder normal to palpation, normal palpation and non-tender Bimanual Exam- Adnexa, other: no masses Skin General skin exam: no rashes or lesions noted Rashes: no rashes Neuro General: patient oriented x3 Cognition (Neuro): normal cognition Extrem General: Yes normal to inspection Psych Attitude: cooperative Thought process: Normal thought process present Assessment & Plan Assessment & Plan (1) Encounter for well woman exam with routine gynecological exam: Code(s): Z01.419 - Encounter for gynecological examination (general) (routine) without abnormal findings Category: Medical Plan Discussed: Current recommendations for pap smears per ASCCP guidelines. Breast awareness and periodic breast exams. Mammogram yearly. Maintain a healthy lifestyle including a well balanced diet and routine exercise. Perimenopausal changes discussed. Follow up with Urology to discuss estrogen dosing if symptoms are not resolve with initial therapy. Recommend she have a consult with a breast surgeon regarding breast screening due to breast density. Referral placed. Patient verbalizes understanding and agrees to the plan of care. She was given opportunity to ask questions and all questions were answered to the best of my ability. RTO in one year for annual educational fundraising director examination. This note is constructed using voice recognition software. While every effort has been made to ensure accuracy, ultra sound technician errors may have been included. Orders: Orders CT NG by PCR Today Z20.2 - Contact with and (suspected) exposure to infections with a predominantly sexual mode of transmission Bacterial Vaginosis Panel Today Z20.2 - Contact with and (suspected) exposure to infections with a predominantly sexual mode of transmission Referrals Breast Surgery Referral R92.30 - Dense breasts, unspecified Coding Level of Care Code Est Pt Prev Care 40-64y(30307) Diagnoses Encounter for well woman exam with routine gynecological exam Z01.419
[2025-05-06 14:21] VITALS: BP 112/72; BMI 24.9
--- OUTSIDE RECORDS SUMMARY | 2025-05-06 16:52 | XMS_ITS | Continuity of Care Document ---
Author Organization MD - [facility], [facility] Address [address] [place] [address] Care Team Providers Care Print Line Supervisor Name Role Phone RAZIA LOPEZ Primary Care Provider Assessment Encounter Date Assessment Date Assessment LastModified by Organization Details LastModified Time 05/03/2025 05/03/2025 44yo female presents for evaluation of gradual hearing loss. Otologic exam demonstrates TMs are intact with well-aerated middle ear spaces. Audiogram shows asymmetrical neurosensory hearing loss. Right with mild to moderately-sever e and left with moderate to profound SNHL. The asymmetry warrants retrocochlear work up. Will call patient with results. Patient is medically cleared for amplification bilaterally. Recommend annual follow up with repeat audiometric testing. [email or web address] Not available 05/03/2025 10:59:49 Plan of Treatment Reminders Order Date Submit Date Provider Last Modified By Organization Details Last Modified Time Details Appointments None recorded . Lab None recorded . Referral None recorded . Procedures None recorded . Surgeries None recorded . Imaging MRI, brain + internal auditory canal, w/wo contrast - MRI, BRAIN + INTERNAL AUDITORY CANAL, W/WO CONTRAST [facility]24 [facility] [address] [place], [address], 10:53:19 Medication Orders None recorded . Patient TargetsNo targets recorded. Patient InstructionsNo instructions recorded. Reason for Referral None Reported. Results Created Date Observation Date Name Description Value Unit Range Abnormal Flag Note LastModifiedBy Organization Detail LastModifiedTime 05/03/20 25 audio gram No observ ation record ed. BARCODE Not Available 2024 11:15:14 Result Notes None recorded. Problems Name Problem SNOMED Code Status Onset Date Resolution Date Notes Provider Name and Address Organization Details Recorded Time Sensorineur al hearing loss of bilateral ears 372482923 Active 2024 ARTEMIO WRIGHT [address] [facility],[place] [address], [place], [address], [facility] - [facility] 10:21:22 Bilateral tinnitus 4347744846704 Active 2024 JAYA KIM PA-C [address] [facility],[place] [address], [place], [address], [facility] [place] [facility] 10:59:56 Problem Notes None recorded. Procedures Surgical History Date Name Laterality Status Provider Name and Address Organization Details Recorded Time 05/03/20 25 Comp Audio with Tymps - 51099 & 94475 completed ARTEMIO WRIGHT [address] [facility],[address], [address], [facility] 05/03/2025 10:12:09 tonsillectomy and adenoidectomy completed JAYA KIM PA-C [address] [facility],[address], [address], [facility] 05/03/2025 10:42:17 Imaging Results None recorded. Procedure Notes None recorded. Medical Equipment None Reported. Allergies No known drug allergies Medications Name Sig Start Date Stop Date Status Note LastModified by Organization Details LastModified Time nitrofurant oin macrocrysta l 50 mg capsule TAKE 1 CAPSULE BY MOUTH AT BEDTIME NEEDED FOR USE AFTER SEXUAL ACTIVITY WITH MEAL/FOOD 05/03 completed Not Available Not Available Not Available prochlorper azine maleate 5 mg tablet TAKE 1 TAB ORALLY 2 TIMES A DAY NEEDED FOR NAUSEA AND VOMITING 05/03 completed Not Available Not Available Not Available metronidazo le 500 mg tablet TAKE 1 TABLET BY MOUTH TWICE A DAY FOR 7 DAYS 05/03 completed Not Available Not Available Not Available amoxicillin 500 mg tablet TAKE 2 TABS (1000MG) ORALLY 2 TIMES A DAY FOR H. PYLORI INFECTION FOR 14 DAYS 05/03 completed Not Available Not Available Not Available lorazepam 0.5 mg tablet TAKE ONE TABLET BY MOUTH AT BEDTIME NEEDED FOR ANXIETY active Not Available Not Available No t Available cephalexin 500 mg capsule TAKE 1 CAPSULE BY MOUTH 3 TIMES A DAY FOR 10 DAYS 05/03 completed Not Available Not Available Not Available docusate sodium 100 mg capsule TAKE 2 CAPSULES BY MOUTH EVERY DAY AT BEDTIME 05/03 completed Not Available Not Available Not Available cefuroxime axetil 500 mg tablet TAKE 1 TABLET BY MOUTH TWICE A DAY FOR 7 DAYS 05/03 completed Not Available Not Available Not Available levofloxaci n 500 mg tablet TAKE 1 TABLET BY MOUTH EVERY DAY FOR INFECTION FOR 14 DAYS 05/03 completed Not Available Not Available Not Available amoxicillin 875 mg-potassiu m clavulanate 125 mg tablet TAKE 1 TABLET BY MOUTH TWICE A DAY FOR 7 DAYS 05/03 completed Not Available Not Available Not Available amoxicillin 500 mg-potassiu m clavulanate 125 mg tablet TAKE 1 TABLET BY MOUTH TWICE A DAY FOR 10 DAYS 05/03 completed Not Available Not Available Not Available Ventolin HFA 90 mcg/actuati on aerosol inhaler INHALE 2 PUFF EVERY 6 HOURS NEEDED FOR SHORTNESS OF BREATH OR WHEEZING FOR 30 DAYS active Not Available Not Available No t Available nitrofurant oin monohydrate /macrocryst als 100 mg capsule TAKE 1 CAPSULE ORALLY 2 TIMES A DAY FOR 5 DAYS MUST ADMINISTE R WITH A MEAL/FOOD 05/03 completed Not Available Not Available Not Available mirabegron ER 25 mg tablet,exte nded release 24 hr TAKE 1 TABLET BY MOUTH DAILY active Not Available Not Available No t Available Yuvafem 10 mcg vaginal tablet INSERT 1 TABLET VAGINALLY 2 TIMES A WEEK AT BEDTIME ON MONDAYS & THURSDAYS active Not Available Not Available No t Available Vitals Date Recorded Body height Body mass index (BMI) Body weight Provider Name and Address Organization Details Last Updated DateTime 05/03/2025 162.56 cm 24 kg/m2 06467.93 g Mary Carr [place] - [facility] 05/03/2025 10:28:45 Social History None recorded. Functional Status None recorded. Mental Status None recorded. Family History Nothing Reported. Medical History Condition Response Allergies/Hayfever N Heart Problems N Anxiety Y Tonsil Infections N Emphysema N Migraines N Thyroid Problems N Glaucoma N Depression Y COPD N Developmental Delay N Nasal or Sinus Problems N Anemia N Immune System Disorder N Anesthesia Complications N Heart Attack ([place]) N Other Skin Condition N Diabetes N Rhinitis N Bleeding Disorder N Food Allergy N Arthritis N Hearing Loss N Hyperlipidemia N Cancer N Stroke N Dementia N Nasal polyps N Asthma Y Sleep Disorder N GERD/Reflux N High Cholesterol N Liver Disease N Headaches N Fibromyalgia N Hypertension N Speech Delay N Kidney Disease Y Gynecological HistoryNo gynecological history recorded. Obstetrics History GPAL:G 0 P 0 0 0 0 Past Encounters Encounter ID Performer Location Encounter Start Date Encounter Closed Date Diagnosis/Indication Diagnosis SNOMED-CT Code Diagnosis ICD10 Code Diagnosis Note [id number] JAYA KIM PA-C [facility] [address] [address] 05/03/2025 09:55:08 05/03/2025 10:53:19 Sensorineural hearing loss of bilateral ears [id number] H90.3 Audiologic al evaluation results: Right ear: Mild to moderately -severe sensorineu ral hearing loss with good word recognitio n. Left ear: Moderate to profound sensorineu ral hearing loss with excellent word recognitio n. Conductive component at 3kHz only. Tympanomet ry: Right Ear:Type Ad Left Ear:Type C Bilateral tinnitus 57532 45386 102 H93.13 Health Concerns Section Related Observation LastModified by Organization Detai ls LastModified Time None Recorded Concern Status LastModified by Organization Details LastModified Time None Recorded Payers Encounter Date Sequence Insurance Name Policy Number Policy Reaves Covered Member ID Reaves Member ID Guarantor Name 05/03/2025 1 [facility] PL[facility] (MEDICAID HMO) [id number] Ama Boateng [id number] Ama Boateng Notes Date Note Type Note Provider Name and Address Organization Details Recorded Time 05/03/2025 text/html 44yo female presents for evaluation of hearing loss. This has been gradual for 6-7 years, worse in the left ear. Reports bilateral tinnitus and aural fullness, left worse than right. She has occasional ear pain. Denies ear drainage or dizziness. Denies prior ear infections or ear surgeries other than childhood myringotomy tubes. No history of loud noise exposure. 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 She is followed by gastro, got EGD/ upper endoscopy, hx H.pylori on quadruple therapy. SHAUN WILEY MD [address] [place] [address], [place], [address], [place] - [facility] 05/03/2025 12:35:02 OBGyn Episode No OBEpisode recorded.
== END 2025-05-06 15:09 | disposition home or self-care (01) ==
LOC: HO.HWS 14:14
PROVIDERS: PCP Internal Medicine; Visit Provider Advanced Practice Midwife
DX: Z01.419 Encounter for gynecological examination (general) (routine) without abnormal findings (principal)
CPT/HCPCS: 99396; 99459

== ENCOUNTER 2025-05-06 14:14 | Outpatient (REF) | payer OTHER, SELFPAY ==
[2025-05-06 18:14] LABS: Bacterial Vaginosis PCR NEGATIVE (Negative); Candida Group PCR NOT DETECTED (Not Detect); Candida glab krusei PCR NOT DETECTED (Not Detect); Trichomonas vaginalis PCR NOT DETECTED (Not Detect)
[2025-05-06 18:45] LABS: CT PCR NOT DETECTED (Not Detect.); NG PCR NOT DETECTED (Not Detect.)
== END 2025-05-06 14:15 | disposition home or self-care (01) ==
LOC: HO.LNP 14:14
PROVIDERS: PCP Internal Medicine; Visit Provider Advanced Practice Midwife
DX: Z20.2 Contact with and (suspected) exposure to infections with a predominantly sexual mode of transmission (principal); Z01.419 Encounter for gynecological examination (general) (routine) without abnormal findings
CPT/HCPCS: 81515; 87491; 87591; 99396; 99459

== ENCOUNTER 2025-05-06 14:59 | Outpatient (REF) | payer OTHER, SELFPAY | END 2025-05-06 15:00 | disposition home or self-care (01) | LOC: HO.LAB 14:59 | PROVIDERS: Visit Provider Advanced Practice Midwife | DX: Z13.89 Encounter for screening for other disorder (principal) ==

== ENCOUNTER 2025-06-21 16:28 | Outpatient (AMB) | payer OTHER, SELFPAY ==
[2025-06-21 16:46] VITALS: BP 108/66; PULSE 71; O2SAT 99; BMI 24.7
--- NOTE | 2025-06-21 16:46 | MHC.PC.OV ---
Vital Signs 06/21/25 16:46 Height 5 ft 4 in Weight 144 lb 2 oz BMI 24.7 BP 108/66 Blood Pressure Location Lt brachial Position Sitting Pulse 71 Pulse Oximetry (%) 99 Oxygen Delivery Method Room Air Intake Visit Reasons: 6 month f/u Clinical Product Specialist Required: No Accompanied by: Self / Same As Patient Allergies No Known Allergies Allergy (Verified 06/24/25 15:36) Tobacco use date assessed: 06/21/25 Dental Screening Dental Screen Date: 06/21/25 Did you have a dental visit in the last 12 months?: Yes Did you have a dental problem in the last 6 months where you did not have access to dental care?: No Was dental information given to patient?: No HPI 6 month f/u HPI Details The patient is a 45-year-old female presenting for a follow-up visit to recheck laboratory results, specifically focusing on liver enzymes and cholesterol levels. The patient has a history of elevated liver enzymes, which were noted to be slightly elevated during her last visit six months ago. She reports dietary habits that include frequent consumption of fried foods, which may contribute to the elevation of liver enzymes. The patient acknowledges the need to monitor these levels and is advised to reduce the intake of fried foods. The patient also has a history of hyperlipidemia, with previous lab results indicating elevated cholesterol levels. She was advised to perform fasting labs prior to this visit to monitor her cholesterol levels, but there was a misunderstanding regarding the timing of these tests. The patient is aware of the importance of these tests to assess her cardiovascular risk. The patient reports a history of gastroesophageal reflux disease (GERD), for which she takes Prilosec as needed. She experiences heartburn if she skips doses and understands the importance of medication adherence to prevent esophageal damage. The patient has a history of asthma, which is described as moderate and occasionally exacerbated by physical activity. She carries an inhaler for symptomatic relief and acknowledges the need for regular exercise to improve her respiratory function. [facility] Medical History Dense breast H. pylori infection Complicated UTI (urinary tract infection) Bacteremia due to Escherichia coli Insomnia Overactive bladder Urge incontinence of urine H/O urinary frequency Irritable bowel syndrome with alternating bowel habits Allergic rhinitis Anxiety Dyslipidemia Overweight (BMI 25.0-29.9) Bladder calculus Constipation Pneumonia COVID-19 Irritable bowel syndrome (IBS) Mitochondrial cytopathy Palpitations Asthma Surgical History History of esophagogastroduodenoscopy (EGD) History of mammogram History of D&C History of myringotomy History of tonsillectomy and adenoidectomy Family History Mother Diabetes High blood pressure Father No problems noted. 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 1. Little interest or pleasure in doing things: not at all 2. Feeling down, depressed, or hopeless: not at all 3. Trouble falling or staying asleep, or sleeping too much: not at all 4. Feeling tired or having little energy: not at all 5. Poor appetite or overeating: not at all 6. Feeling bad about yourself - or that you are a failure or have let yourself or your family down: not at all 7. Trouble concentrating on things, such as reading the newspaper or watching television: not at all 8. Moving or speaking so slowly that other people could have noticed. Or the opposite - being so fidgety or restless that you have been moving around a lot more than usual: not at all 9. Thoughts that you would be better off or of hurting yourself in some way: not at all Total score: 0 Depression Screening Interpretation: Negative Depression Screening Done: Yes 19931 - PHQ-9 Billing: Yes Source: Developed by Laurie Garcia.W. Issa, Bill Gallagher and colleagues, with an educational carmina from [employer]. Thrive Questionnaire Date Thrive assessed: 06/21/25 I am a: Patient What is your living situation today?: I have a steady place to live Within the past 12 months, did the food you bought not last and you didn't have the money to get more?: Sometimes True Within the past 12 months, did you worry whether your food would run out before you got money to buy more?: Sometimes True Do you have trouble paying for medicines?: No Do you have trouble getting transportation to medical appointments?: No Do you have trouble paying your heating and electricity bill?: Yes Do you have trouble taking care of your child, family member or friend?: No Do you have trouble with day-to-day activities such as bathing, preparing meals, shopping, managing finances, etc.?: No Are you currently unemployed and looking for a job?: No Are you interested in more education?: No Please select the resources that you would like help with: [employer] and [employer] Currently or been in a relationship where the following occur: No concerns reported THRIVE Score: 3 AUDIT C Alcohol Use Questionnaire (AUDIT-C) 1. How often do you have a drink containing alcohol?: Monthly or less 2. How many drinks containing alcohol do you have on a typical day when you are drinking?: 1 or 2 3. How often do you have six or more drinks on one occasion?: Less than monthly Total Score: 2 GRUPO-7 AMB Questionnaire GRUPO-7 Date GRUPO - 7 assessed: 06/21/25 Feeling nervous, anxious, or on edge: 0 = Not at all Not being able to stop or control worryin = Not at all Worrying too much about different things: 0 = Not at all Trouble relaxin = Not at all Being so restless that it is hard to sit still: 0 = Not at all Becoming easily annoyed or irritable: 0 = Not at all Feeling afraid as if something awful might happen: 0 = Not at all Total GRUPO-7 score (0-4 normal; 5-9 mild; 10-14 moderate; 15-21 severe): 0 Source: Developed by Laurie Garcia Kurt Kroenke and colleagues, with an educational carmina from [employer]. GRUPO-7 Assessment Billing GRUPO-7 Assessment Tool: GRUPO-7 Assessment 50437 Review of Systems Const Denies body aches, Denies chills, Denies fever(s), Denies headache(s) and Denies poor appetite Eyes Reports no additional complaints ENT Denies dysphagia, Denies dizziness, Denies headache(s) and Denies odynophagia Card Denies chest pain, Denies syncope, Denies edema, Denies irregular heart rhythm, Denies lightheadedness and Reports dyspnea on exertion Resp Denies cough and Reports dyspnea on exertion GI Denies abdominal pain, Denies constipation, Denies dysphagia, Reports heartburn, Denies diarrhea, Denies nausea, Denies odynophagia and Denies vomiting Reports no additional complaints Musc Reports no additional complaints and Denies abnormal gait Skin/Breast Reports system reviewed and no additional complaints, except as documented Neuro Denies abnormal gait, Denies dizziness, Denies syncope and Denies headache(s) Psych Reports no additional complaints Physical exam (Primary Care) Vital Signs: Last Vital Signs Pulse 71 06/21/25 16:46 BP 108/66 06/21/25 16:46 Pulse Ox 99 06/21/25 16:46 Oxygen Delivery Method Room Air 06/21/25 16:46 BMI result Body Mass Index 24.7 Tobacco/Smoking Status: Tobacco use Status Tobacco use date assessed 06/21/25 06/21/25 16:51 Patient Tobacco Use Status Former Tobacco user 06/21/25 16:51 Tobacco use type Cigarette 06/21/25 16:51 e-Cigarette/Vaping Use Never Used 06/21/25 16:51 PHQ-9: PHQ-9 Score PHQ-9: Total score 0 06/21/25 16:51 Depression Screening Interpretation: Negative Thrive Assessment: Date of Thrive Assessment Date Thrive assessed 06/21/25 06/21/25 16:51 Currently or been in a relationship where the following occur: No concerns reported Const General: cooperative, healthy appearing, comfortable and no acute distress Orientation/consciousness: patient oriented x3 HENMT Head: Yes normocephalic Ears: hearing grossly normal bilaterally General nose exam: Normal external nose present Eyes General: appearance normal, both eyes and all related structures Conjunctivae: conjunctivae normal Neck Neck: Yes full ROM and Yes no lymphadenopathy Resp Effort & Inspection: normal respiratory effort Auscultation: clear to auscultation bilaterally, no crackles, no rales, no rhonchi and no wheezes Cardio Rate: regular rate Rhythm: regular rhythm GI Palpation (GI): Soft to palpation and nontender Auscultation: normal bowel sounds Skin General skin exam: no rashes or lesions noted Neuro General: patient oriented x3 Gait exam (Neuro): Normal gait present Extrem General: Yes normal to inspection, Yes full ROM and No edema Psych Affect: normal affect Attitude: cooperative Insight: Good insight present (Psych) Judgement: Good judgement present (Psych) Coding Level of Care Code Est Pt Level 3 (58511) Diagnoses Mild intermittent asthma without complication J45.20 Asthma severity: mild Asthma persistence: intermittent Asthma complication type: uncomplicated Gastroesophageal reflux disease, unspecified whether esophagitis present K21.9 Esophagitis presence: esophagitis presence not specified Allergic rhinitis, unspecified seasonality, unspecified trigger J30.9 Allergic rhinitis trigger: unspecified Allergic rhinitis seasonality: unspecified Dyslipidemia E78.5 Anxiety F41.9 Insomnia, unspecified type G47.00 Insomnia type: unspecified Additional Codes GRUPO-7 Assessment Billing - GRUPO-7 Assessment Tool: GRUPO-7 Assessment 57653 ([id number]) PHQ-9 - 52713 - PHQ-9 Billing: Yes ([id number]) Time Spent (min) 35 Assessment & Plan Assessment & Plan (1) Asthma: Code(s): J45.909 - Unspecified asthma, uncomplicated Category: Medical Qualifiers: Asthma severity: mild Asthma persistence: intermittent Asthma complication type: uncomplicated Qualified Code(s): J45.20 - Mild intermittent asthma, uncomplicated Plan: Lifestyle modifications like smoking cessation. Wear a mask when around irritants, fumes, or particulate matter (e.g., painting, lawn mowing). Increase humidification at home, especially in the winter. Annual flu shots and the pneumonia shot can mitigate exacerbation. Increase fluids if not contraindicated because of heart failure. Continue albuterol sulfate 90 mcg/actuation 2 puffs inhalation q.6 H p.r.n. (2) Acid reflux: Comment: omeprazole 20 Avoid culprits- Code(s): K21.9 - Gastro-esophageal reflux disease without esophagitis Category: Medical Qualifiers: Esophagitis presence: esophagitis presence not specified Qualified Code(s): K21.9 - Gastro-esophageal reflux disease without esophagitis Plan: Do not eat meals or drink carbonated beverages within 3 hr of bedtime Decrease the amount of fried, fatty, and spicy foods to decrease gastric acid production Raise the head of the bed using 4 to 6-inch blocks, especially if nocturnal symptoms are present Lose weight if indicated; avoid tight-fitting clothing, especially around the waist Avoid foods that relax the Lower esophageal sphincter (chocolate, peppermint, high-fat foods etc.,) Continue omeprazole 20 mg daily (3) Allergic rhinitis: Code(s): J30.9 - Allergic rhinitis, unspecified Category: Medical Qualifiers: Allergic rhinitis trigger: unspecified Allergic rhinitis seasonality: unspecified Qualified Code(s): J30.9 - Allergic rhinitis, unspecified Plan: Limit exposure to allergens Air purifiers and dust filters Air conditioner in house, especially where sleeping Continue loratadine 10 mg daily p.r.n. (4) Dyslipidemia: Code(s): E78.5 - Hyperlipidemia, unspecified Category: Medical Plan: Patient did not complete preordered labs as yet-encouraged to get this done as soon as possible Discussed lifestyle modifications including dietary changes and physical activity (5) Anxiety: Comment: Anxiety due to personal and family history, certainly understandable-she is agreeable to plan Code(s): F41.9 - Anxiety disorder, unspecified Category: Medical Plan: Encouraged CBT Continue lorazepam 0.5 mg at bedtime Denies SI/HI (6) Insomnia: Code(s): G47.00 - Insomnia, unspecified Category: Medical Qualifiers: Insomnia type: unspecified Qualified Code(s): G47.00 - Insomnia, unspecified Plan: Reinforced sleep hygiene Continue trazodone 50 mg at bedtime p.r.n. Plan The patient will undergo follow-up laboratory testing to reassess liver enzyme and cholesterol levels, ensuring fasting prior to the tests to obtain accurate results. Dietary modifications are recommended, specifically reducing the intake of fried foods to help manage liver enzyme levels. The patient is advised to continue taking Prilosec regularly to manage GERD symptoms and prevent potential esophageal damage. Regular physical activity is encouraged to improve respiratory function and overall health, with a focus on gradually increasing exercise tolerance. Patient was informed and verbally consented to the use of an ambient scribe for clinic note documentation during this visit.
== END 2025-06-21 17:09 | disposition home or self-care (01) ==
LOC: HO.HMCH 16:29
PROVIDERS: PCP Internal Medicine
DX: J45.20 Mild intermittent asthma, uncomplicated (principal); K21.9 Gastro-esophageal reflux disease without esophagitis; J30.9 Allergic rhinitis, unspecified; E78.5 Hyperlipidemia, unspecified; F41.9 Anxiety disorder, unspecified; G47.00 Insomnia, unspecified

== ENCOUNTER → 2025-06-21 16:28 | Outpatient (BNVA) | payer OTHER, SELFPAY | PROVIDERS: PCP Internal Medicine | DX: K21.9 Gastro-esophageal reflux disease without esophagitis (principal); E78.5 Hyperlipidemia, unspecified; J45.20 Mild intermittent asthma, uncomplicated; J30.9 Allergic rhinitis, unspecified; F41.9 Anxiety disorder, unspecified; G47.00 Insomnia, unspecified | CPT/HCPCS: 96127; 99212 ==

== ENCOUNTER 2025-06-24 14:55 | Outpatient (AMB) | payer OTHER, SELFPAY ==
--- OUTSIDE RECORDS SUMMARY | 2025-06-24 15:02 | XMS_ITS | Data Portability ---
Author Organization [place] - [facility], Allergy Address [address] [address] Care Team Providers Care Fur Mixer Name Role Phone RAZIA LOPEZ Primary Care Provider [phone] Assessment Encounter Date Assessment Date Assessment LastModified [...] Details Last Modified Time Details Appointments None recorded. Lab None recorded. Referral None recorded. Procedures None recorded. Surgeries None recorded. Imaging MRI, brain + internal auditory canal, w/wo contrast - MRI, BRAIN + INTERNAL AUDITORY CANAL, W/WO CONTRAST 2024 025 [email or web address] [facility] ([facility]), [address] [facility], [place], [address], 13:13:21 Medication Orders None recorded. Patient TargetsNo targets recorded. Patient InstructionsNo instructions recorded. Reason for Referral None Reported. Results Created Date Observation Date Name Description Value Unit Range Abnormal Flag Note LastModifiedBy Organization Detail LastModifiedTime 05/03/20 25 audio gram No observ ation record ed. BARCODE Not Available 2024 11:15:14 06/21/20 25 06/16/2025 MRI, brain + inter nal audit ory canal , w/wo contr ast No observ ation record ed. [address] [facility] [address], [place], [address], 06/23/2025 08:43:10 Result Notes None recorded. Problems Name Problem SNOMED Code Status Onset Date Resolution Date Notes Provider Name and Address Organization Details Recorded Time Sensorineur al hearing loss of bilateral ears 699655756 Active 2024 JACKELINE GONZALEZ, [employer] [address] [facility],[address], [address], [facility] 10:21:22 Bilateral tinnitus 8665306186701 Active 2024 JAYA KIM PA-C [address] [place] [address],[address], [address], [facility] 10:59:56 Problem Notes None recorded. Procedures Surgical History Date Name Laterality Status Provider Name and Address Organization Details Recorded Time 05/03/20 Comp Audio with Tymps - 05040 & 36306 completed ARTEMIO WRIGHT [address] [facility],[address], [address], [facility] 05/03/2025 10:12:09 tonsillectomy and adenoidectomy completed JAYA KIM PA-C [address] [place] [address], [id number], [facility] 05/03/2025 10:42:17 Imaging Results None recorded. Procedure [...] Updated DateTime 05/03/2025 162.56 cm 24 kg/m2 03206.93 g Mary Bruno [place] - [facility] 05/03/2025 10:28:45 Social History None recorded. Functional Status None recorded. Mental Status None recorded. Family History Nothing Reported. Medical History Condition Response Tonsil Infections N Emphysema N Glaucoma N Depression Y COPD N Nasal or Sinus Problems N Anesthesia Complications N Arthritis N Hearing Loss N Cancer N Stroke N High Cholesterol N Liver Disease N Headaches N Fibromyalgia N Speech Delay N Kidney Disease Y Allergies/Hayfever N Heart Problems N Anxiety Y Migraines N Thyroid Problems N Developmental Delay N Anemia N Immune System Disorder N Heart Attack (AR) N Other Skin Condition N Diabetes N Rhinitis N Bleeding Disorder N Food Allergy N Hyperlipidemia N Dementia N Nasal polyps N Asthma Y Sleep Disorder N GERD/Reflux N Hypertension N Gynecological HistoryNo gynecological history recorded. Obstetrics History GPAL:G 0 P 0 0 0 0 Past Encounters Encounter ID Performer Location Encounter Start Date Encounter Closed Date Diagnosis/Indication Diagnosis SNOMED-CT Code Diagnosis ICD10 Code Diagnosis Note [id number] JAYA KIM PA-C [facility] [address] [address] 05/03/2025 09:55:08 05/03/2025 10:53:19 Sensorineural hearing loss of bilateral ears [id number] H90.3 Audiologic al evaluation results: Right ear: Mild to moderately -severe sensorineu ral hearing loss with good word recognitio n. Left ear: Moderate to profound sensorineu ral hearing loss with excellent word recognitio n. Conductive component at 3kHz only. Tympanomet ry: Right Ear:Type Ad Left Ear:Type C Bilateral tinnitus 54945 63578 102 H93.13 Health Concerns Section Related Observation LastModified by Organization Detai ls LastModified Time None Recorded Concern Status LastModified by Organization Details LastModified Time None Recorded Advance Directives Directive None Recorded Payers Insurance Date Sequence Insurance Name Policy Number Policy Reaves Covered Member ID Reaves Member ID Guarantor Name 05/03/2025 1 [facility] PL[facility] (MEDICAID HMO) [id number] Ama Boateng [id number] Ama Boateng Notes Date Note Type Note [...] H.pylori on quadruple therapy. SHAUN WILEY MD [address] [place] [address],[place] [address], [place], [address], [facility] - [facility] 05/03/2025 12:35:02 OBGyn Episode No OBEpisode recorded.
--- NOTE | 2025-06-24 15:35 | A.OFFVIS_ITS ---
Vital Signs 06/24/25 15:39 Height 5 ft 4 in Weight 145 lb 6 oz BMI 25.0 BP 118/56 L Blood Pressure Location Lt brachial Position Sitting Pulse 69 Intake Visit Reasons: dense breasts Intake Note: Patient is seen in office for evaluation of dense breast. 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 She knows to densities mainly in the upper outer quadrant of both breasts with occasional discomfort associated with the lumps. She denies a prior history of breast problems or breast surgery. Her family history is ne gative for breast cancer. Her menarche was age 9, she is with 1 spontaneous ab. Her most recent mammogram of 03/03/2025 revealed no mammographic evidence of malignancy (BI-RADS 2). Follow-up mammogram in 1 year is recommended. Her breast density score was C. PFSH Medical History Dense breast H. pylori infection Complicated UTI (urinary tract infection) Bacteremia due to Escherichia coli Insomnia Overactive bladder Urge incontinence of urine H/O urinary frequency Irritable bowel syndrome with alternating bowel habits Allergic rhinitis Anxiety Dyslipidemia Overweight (BMI 25.0-29.9) Bladder calculus Constipation Pneumonia COVID-19 Irritable bowel syndrome (IBS) Mitochondrial cytopathy Palpitations Asthma Surgical History History of esophagogastroduodenoscopy (EGD) History of mammogram History of D&C History of myringotomy History of tonsillectomy and adenoidectomy Family History Mother Diabetes High blood pressure Father No problems noted. 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/Heterosexual Gender identity: Female Cognitive needs: No Hearing needs: No Vision needs: No Female Reproductive History Menstrual Age of Menarche: 9 Date of last menstrual period: 06/03/25 Total pregnancies: 3 Number of Living Children: 2 Ab spontaneous: 1 Review of Systems Const All systems reviewed & are unremarkable except as noted in HPI and below Physical Exam Vital Signs: Last Vital Signs Pulse 69 06/24/25 15:39 BP 118/56 L 06/24/25 15:39 BMI result Body Mass Index 25.0 Const General: cooperative and no acute distress Nutritional Appearance: well nourished Orientation/consciousness: patient oriented x3 Limitations: no limitations HEENT Head: Yes normocephalic and Yes atraumatic Ears: hearing grossly normal bilaterally Chest Other: Left breast: No skin change, no nipple retraction, no nipple discharge, no palpable mass, no enlarged lymph nodes. Area of breast thickening especially in the upper outer quadrant with no actual discrete mass appreciated Right breast: No skin change, no nipple retraction, no nipple discharge, no palpable mass, no enlarged lymph nodes. Area of breast thickening especially in the upper outer quadrant with no discrete mass appreciated. Resp Effort & Inspection: normal respiratory effort, no audible wheezes, no cough and no respiratory distress Cardio Jugular venous distension: no JVD GI Inspection: Yes normal to inspection Skin Other: Warm, dry, no rash Neuro General: patient oriented x3 Extrem General: Yes no clubbing, cyanosis or edema Assessment & Plan Assessment & Plan (1) Dense breast: Code(s): R92.30 - Dense breasts, unspecified Category: Medical Plan 45-year-old female patient with an average risk for breast cancer found to have dense breasts on mammogram and on clinical examination. No definite masses palpable on physical examination however given the density on mammogram additional studies such as MRI or ultrasound would be warranted. The patient is agreeable to bilateral screening ultrasounds. Further management will be based on the findings of this study. Orders: Orders US breast RT complete 06/24/25 R92.30 - Dense breasts, unspecified US breast LT complete 06/24/25 R92.30 - Dense breasts, unspecified Coding Level of Care Code New Pt Level 4 (60216) Diagnoses Dense breast R92.30
[2025-06-24 15:39] VITALS: BP 118/56; PULSE 69; BMI 25.0
== END 2025-06-24 15:57 | disposition home or self-care (01) ==
LOC: HO.HGS 14:56
PROVIDERS: PCP Internal Medicine; Visit Provider Surgery
DX: R92.30 Dense breasts, unspecified (principal)
CPT/HCPCS: 99204

== ENCOUNTER → 2025-06-24 14:55 | Outpatient (BNVA) | payer OTHER, SELFPAY | PROVIDERS: PCP Internal Medicine; Visit Provider Surgery | DX: R92.30 Dense breasts, unspecified (principal) | CPT/HCPCS: 99202 ==

== ENCOUNTER 2025-07-09 08:51 | Outpatient (REF) | payer OTHER, SELFPAY ==
[2025-07-09 09:53] LABS: Appearance Urine Clear; Glucose Urine UA Negative (Negative); PH 6.0 (5.0-9.0); Specific Gravity - Urine 1.010 (1.005-1.025)
[2025-07-09 10:22] LABS: Alanine Aminotransferase 12 U/L (0-31); Albumin Level 4.3 g/dL (3.5-5.0); Alkaline Phosphatase 52 U/L (39-117); Anion Gap 11 (12-20); Aspartate Amino Transferase 18 U/L (5-31); Blood Urea Nitrogen 16 mg/dL (9-16); Calcium 9.0 mg/dL (8.4-10.2); Carbon Dioxide 26 mmol/L (22-29); Chloride 105 mmol/L (96-108); Cholesterol 183 mg/dL (<200); Estimated Glomerular Filt Rate > 60; HDL Cholesterol 45 mg/dL (>40); Potassium 4.1 mmol/L (3.3-5.1); Sodium 138 mmol/L (135-145); Total Protein 7.2 g/dL (6.5-8.0); Triglycerides 73 mg/dL (<150)
== END 2025-07-09 08:52 | disposition home or self-care (01) ==
LOC: HO.LAB 08:51
PROVIDERS: Urology; PCP Internal Medicine; Visit Provider Internal Medicine
DX: Z00.00 Encounter for general adult medical examination without abnormal findings (principal); E78.00 Pure hypercholesterolemia, unspecified; N39.0 Urinary tract infection, site not specified; R30.0 Dysuria
CPT/HCPCS: 36415; 80053; 80061; 81003; 88112

== ENCOUNTER 2025-08-03 15:01 | Outpatient (AMB) | payer OTHER, SELFPAY ==
--- NOTE | 2025-08-03 15:06 | MHC.OFFVIS ---
Intake Visit Reasons: 3M follow up Intake Note: Patient is present for 3M F/U Urology Medication:ESTRADIOL Antibiotic Allergy:NONE Blood Thinner:NONE [employer] Safety Program Coordinator Required: No Allergies No Known Allergies Allergy (Verified 08/03/25 15:48) Medication List - Last Reconciled 08/03/25 by MANJEET Denise albuterol sulfate 90 mcg/actuation (Ventolin HFA) 2 puffs inhalation Q6H PRN 30 days docusate sodium (Colace) 200 mg (2 x 100 mg) PO BEDTIME 30 days estradiol 0.01%(0.1mg/gram) (Estrace) 1 g vaginal 3XW 90 days loratadine 10 mg PO DAILY PRN 30 days lorazepam 0.5 mg PO BEDTIME PRN 30 days nitrofurantoin macrocrystal 50 mg PO BEDTIME PRN omeprazole 20 mg PO .QD prochlorperazine maleate (Compazine) 5 mg PO BID PRN psyllium husk (Metamucil Fiber (aspartame)) 3.4 grams PO DAILY 30 days trazodone 50 mg PO BEDTIME PRN 30 days valacyclovir (Valtrex) 500 mg PO BID HPI Comments Details: Ama is a 45-year-old female patient of Dr. Conley. She has a past medical history of H pylori, bacteremia due to E coli, insomnia, overactive bladder, urge incontinence, irritable bowel syndrome, allergic rhinitis, anxiety, dyslipidemia, constipation, IBS, and asthma. She presents to the office today for follow-up of her lower urinary tract symptoms, recurrent urinary tract infections, and nephrolithiasis. Of note, patient was last seen approximately [address] Dougie Patel at which time recommendations were made for Vagifem 2 times per week, Myrbetriq daily, as well as Macrobid postcoital. In discussion with the patient today she reports noting over the last 2-3 weeks she has been having intermittent episodes of left-sided flank pain. In office urinalysis results reviewed with the patient today. 2+ protein 3+ microscopic blood negative nitrates. We did discussed potential causes of flank pain as well as further treatment options. She reports she has not been compliant with Myrbetriq and or Vagifem however she plans to be more compliant. We did discussed the importance of taking medications as prescribed. She reports compliance with nitrofurantoin postcoital and feels she has had no urinary tract infections since doing so. She does continue to report episodes of urinary frequency. Previous workup has included a renal ultrasound 11/24 bilateral kidneys with no hydronephrosis or renal calculi. Previous urine cultures are as follows 04/23 E coli, 08/25 E coli, 02/23 E coli Microgen 01/26: Enterobacter hormaechei, E coli, Enterobacter asuburiae She has since completed Keflex 500 mg t.i.d. status post micro gin results. She denies urgency, incontinence, nocturia, hematuria, dysuria, foul smelling urine, changes to urinary stream, fever, and or chills. Patient also underwent in office cystoscopy with Dr. Dougie Patel 01/26 Cystoscopy findigs- no suspicious bladder lesions visualized. We did discussed obtaining retroperitoneal ultrasound for further assessment evaluation given patient's flank pain. We also discussed 2+ proteinuria and referral to Nephrology for further assessment evaluation. All questions were answered. She otherwise offers no other issues or concerns at this time. [facility] Medical History Dense breast H. pylori infection Complicated UTI (urinary tract infection) Bacteremia due to Escherichia coli Insomnia Overactive bladder Urge incontinence of urine H/O urinary frequency Irritable bowel syndrome with alternating bowel habits Allergic rhinitis Anxiety Dyslipidemia Overweight (BMI 25.0-29.9) Bladder calculus Constipation Pneumonia COVID-19 Irritable bowel syndrome (IBS) Mitochondrial cytopathy Palpitations Asthma Surgical History History of esophagogastroduodenoscopy (EGD) History of mammogram History of D&C History of myringotomy History of tonsillectomy and adenoidectomy Family History Mother Diabetes High blood pressure Father No problems noted. 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/Heterosexual Gender identity: Female Cognitive needs: No Hearing needs: No Vision needs: No Female Reproductive History Menstrual Age of Menarche: 9 Review of Systems Const All systems reviewed & are unremarkable except as noted in HPI and below Reports no additional complaints Eyes Reports no additional complaints ENT Reports no additional complaints Card Reports no additional complaints Resp Reports no additional complaints GI Reports constipation Reports as per HPI Musc Reports no additional complaints Neuro Reports no additional complaints Psych Reports no additional complaints Endo Reports no additional complaints Rupesh/Lymph Reports no additional complaints Aller/Immun Reports no additional complaints Physical Exam Const General: cooperative, healthy appearing, comfortable, no acute distress, well developed, alert and awake Orientation/consciousness: patient oriented x3 Limitations: no limitations HEENT Head: Yes normal to inspection, Yes normocephalic and Yes atraumatic Ears: hearing grossly normal bilaterally Eyes General: appearance normal, both eyes and all related structures Neck Neck: Yes normal visual inspection and Yes trachea midline Chest Chest palpation & inspection: normal inspection of the chest Resp Effort & Inspection: normal respiratory effort and able to speak in complete sentences Cardio Rate: regular rate GI Inspection: Yes normal to inspection General: Yes no CVA tenderness Back/Spine/Pelvis Back: no CVA tenderness Skin General skin exam: no rashes or lesions noted Neuro General: patient oriented x3 Extrem General: Yes normal to inspection Psych Appearance: grossly normal and well kempt Mental Status: mental status grossly normal Speech and movement: Normal speech and movement present and Clear speech present Affect: normal affect Attitude: cooperative Thought process: Normal thought process present Thought content: Normal thought content present Insight: Fair insight present (Psych) Judgement: Fair judgement present (Psych) Results AMB Urinalysis, Automated UA Leukoctes 15 Sloane/uL Last Edit by WOLF Macdonald on 08/03/25 15:18 UA Nitrite Negative Last Edit by WOLF Macdonald on 08/03/25 15:18 UA Urobilinogen 0.2 mg/dL Last Edit by WOLF Macdonald on 08/03/25 15:18 UA Protein 100 mg/dL Last Edit by WOLF Macdonald on 08/03/25 15:18 UA pH 6.0 Last Edit by Kaitlin West [facility] on 08/03/25 15:18 UA Blood 200 Nabil/uL Last Edit by Kaitlin West [facility] on 08/03/25 15:18 UA Specific Cache 1.025 Last Edit by Kaitlin West [facility] on 08/03/25 15:18 UA Ketone Negative Last Edit by Kaitlin West [facility] on 08/03/25 15:18 UA Bilirubin 0 mg/dL Last Edit by Kaitlin West [facility] on 08/03/25 15:18 UA Glucose 0 mg/dL Last Edit by Kaitlin West [facility] on 08/03/25 15:18 Results Reviewed Results Reviewed: Laboratory Last Values Urine pH (Auto) 6.0 08/03/25 15:17 Specific Cache (Auto) 1.025 08/03/25 15:17 Urine Protein (Auto) 100 mg/dL 08/03/25 15:17 Glucose (UA)(Auto) 0 mg/dL 08/03/25 15:17 Urine Ketones (Auto) Negative 08/03/25 15:17 Urine Blood (Auto) 200 Nabil/uL 08/03/25 15:17 Urine Nitrite (Auto) Negative 08/03/25 15:17 Urine Bilirubin (Auto) 0 mg/dL 08/03/25 15:17 Urine Urobilinogen (Auto) 0.2 mg/dL 08/03/25 15:17 Leukocyte Esterase (Auto) 15 Sloane/uL 08/03/25 15:17 Assessment & Plan Assessment & Plan (1) Proteinuria: Code(s): R80.9 - Proteinuria, unspecified Category: Medical (2) Flank pain: Code(s): R10.9 - Unspecified abdominal pain Category: Medical (3) Renal calculi: Code(s): N20.0 - Calculus of kidney Category: Medical (4) Overactive bladder: Code(s): N32.81 - Overactive bladder Category: Medical (5) Recurrent UTI: Code(s): N39.0 - Urinary tract infection, site not specified Category: Medical Plan In office urinalysis results reviewed with the patient today; as noted above. We did discussed at length potential causes of flank pain, urinary frequency, and recurrent urinary tract infections; we did discussed further treatment options and risks and benefits of these treatment options. All questions were answered. We discussed importance of taking medications as prescribed. Start Estrace cream as discussed and prescribed. Will obtain retroperitoneal ultrasound for further assessment evaluation. We did discussed worsening symptoms. We discussed importance of adequate hydration relation to nephrolithiasis as well as recurrent urinary tract infections. Restart Myrbetriq as discussed and prescribed. Continue with postcoital antibiotic therapy. Will refer to Nephrology Follow-up in 1-2 months with imaging to be completed prior and PVR; or sooner with any issues, concerns, and or questions. Orders: Orders US retroperitoneal comp Today R10.9 - Unspecified abdominal pain AMB Urinalysis Automated Today Z13.9 - Encounter for screening, unspecified Referrals Nephrology Referral R80.9 - Proteinuria, unspecified Medications: New estradiol 0.01%(0.1mg/gram) (Estrace) Apply pea-sized amount to urethra daily x1 month and then 3 times per week thereafter. 1 g vaginal 3XW 42.5 grams 3RF 90 days Discontinued estradiol (Vagifem) use at bedtime mon/thurs Discontinued Reason: Patient Completed Course 10 mcg vaginal 2XW 8 tabs 3RF Patient Instructions: The patient had an opportunity to ask questions regarding the treatment plan. All questions were answered. Physical exam, labs, and imaging were discussed and reviewed in detail. As well as risks, benefits, and discussion of treatment choices. No major barriers to understanding were identified. The patient expressed understanding and agreement with the above treatment plan. The patient was made aware they should contact our office by phone for worsening of their current condition, the appearance of new symptoms, or with any questions or concerns. Compliance is encouraged with any medications and follow up testing that is ordered. It is a privilege to be allowed the opportunity to participate in? your urological care.? Again, if you have any questions or concerns If you have any questions or concerns please do not hesitate to contact me. The office is [phone]. This note is constructed using voice recognition software. While every effort has been made to ensure accuracy shift commander errors may have been included. Yours sincerely, MANJEET Denise Coding Level of Care Code Est Pt Level 4 (85085) Diagnoses Proteinuria R80.9 Flank pain R10.9 Renal calculi N20.0 Overactive bladder N32.81 Recurrent UTI N39.0
== END 2025-08-03 15:53 | disposition home or self-care (01) ==
LOC: HO.HUSH 15:02
PROVIDERS: PCP Internal Medicine; Visit Provider Nurse Practitioner Family
DX: R80.9 Proteinuria, unspecified (principal); R10.9 Unspecified abdominal pain; N20.0 Calculus of kidney; N32.81 Overactive bladder; N39.0 Urinary tract infection, site not specified; Z13.9 Encounter for screening, unspecified
CPT/HCPCS: 99214

== ENCOUNTER → 2025-08-03 15:01 | Outpatient (BNVA) | payer OTHER, SELFPAY | PROVIDERS: PCP Internal Medicine; Visit Provider Nurse Practitioner Family | DX: N20.0 Calculus of kidney (principal); R10.9 Unspecified abdominal pain; R80.9 Proteinuria, unspecified; N32.81 Overactive bladder; N39.0 Urinary tract infection, site not specified | CPT/HCPCS: 81003; 99212 ==

== ENCOUNTER 2025-08-09 08:00 | Outpatient (REF) | payer OTHER, SELFPAY ==
--- NOTE | ~2025-08-09 | US_ITS ---
EXAMINATION: US SCREENING ULTRASOUND BREAST, BILATERAL CLINICAL INFORMATION: Dense breasts on mammography. Screening ultrasound. COMPARISON: None available. TECHNIQUE: Ultrasound is performed using grayscale imaging and color Doppler. Imaging is performed to include the four quadrants and retroareolar region. Both breasts are imaged. FINDINGS: Right breast: There is no suspicious finding by ultrasound. There is no solid mass or focal architectural abnormality. Left breast: There is no suspicious finding by ultrasound. There is no solid mass or focal architectural abnormality. US/US breast BI complete IMPRESSION: No suspicious findings on screening breast ultrasound. ASSESSMENT: BI-RADS 1 - Negative RECOMMENDATION: 1 year F/U This patient's information was entered into a reminder system with a target due date for their next mammogram. Electronically signed by: Iris Pelletier DO 08/09/2025 09:10 AM EDT
== END 2025-08-09 08:01 | disposition home or self-care (01) ==
LOC: HO.MAMMO 08:00
PROVIDERS: PCP Internal Medicine; Visit Provider Surgery
DX: R92.30 Dense breasts, unspecified (principal); Z12.31 Encounter for screening mammogram for malignant neoplasm of breast
CPT/HCPCS: 76641

== ENCOUNTER → 2025-08-09 08:00 | Outpatient (BNV) | payer OTHER, SELFPAY | PROVIDERS: PCP Internal Medicine; Visit Provider Internal Medicine | DX: R92.8 Other abnormal and inconclusive findings on diagnostic imaging of breast (principal) | CPT/HCPCS: 76641 ==

== ENCOUNTER 2025-08-19 15:06 | Outpatient (AMB) | payer OTHER, SELFPAY ==
--- NOTE | 2025-08-19 15:20 | HO.NEPHOV_ITS ---
Vital Signs 08/19/25 15:22 Height 5 ft 4 in Weight 146 lb 6 oz BMI 25.1 BP 116/80 Blood Pressure Location Lt brachial Position Sitting Pulse 82 Pulse Source Pulse Oximeter Pulse Oximetry (%) 98 Oxygen Delivery Method Room Air Intake Visit Reasons: INP: Proteinuria-LVM Occupational Health Coordinator Required: No Accompanied by: Self / Same As Patient Allergies No Known Allergies Allergy (Verified 08/19/25 15:22) HPI Comments Details: Ama is a 45-year-old female with H/O bacteremia due to E coli, overactive bladder, recurrent UTI, renal calculi, urge incontinence who was thought to have proteinuria and microscopic hematuria. She continues to have left-sided flank pain. She had a renal ultrasound with no hydronephrosis or renal calculi. She denies urgency, incontinence, nocturia, hematuria, dysuria, foul smelling urine, changes to urinary stream, fever, and or chills. Patient also underwent in office cystoscopy with Dr. Dougie Patel 01/26 which showed no suspicious bladder lesions. She has a follow up retroperitoneal ultrasound by Urology pending. She denies epistaxis, photosensitvity, sensori neural deafness, recurrent sore throat, sinsusitis, hemoptysis or any auto immune conditions. Her renal functions have been normal and denied any family H/O renal disease. [facility] Medical History Dense breast H. pylori infection Complicated UTI (urinary tract infection) Bacteremia due to Escherichia coli Insomnia Overactive bladder Urge incontinence of urine H/O urinary frequency Irritable bowel syndrome with alternating bowel habits Allergic rhinitis Anxiety Dyslipidemia Overweight (BMI 25.0-29.9) Bladder calculus Constipation Pneumonia COVID-19 Irritable bowel syndrome (IBS) Mitochondrial cytopathy Palpitations Asthma Surgical History History of esophagogastroduodenoscopy (EGD) History of mammogram History of D&C History of myringotomy History of tonsillectomy and adenoidectomy Family History Mother Diabetes High blood pressure Father No problems noted. 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/Heterosexual Gender identity: Female Cognitive needs: No Hearing needs: No Vision needs: No Female Reproductive History Menstrual Age of Menarche: 9 Review of Systems Const All systems reviewed & are unremarkable except as noted in HPI and below Physical Exam Vital Signs: Last Vital Signs Pulse 82 08/19/25 15:22 BP 116/80 08/19/25 15:22 Pulse Ox 98 08/19/25 15:22 Oxygen Delivery Method Room Air 08/19/25 15:22 BMI result Body Mass Index 25.1 Const General: comfortable and no acute distress Orientation/consciousness: patient oriented x3 HEENT Head: Yes normocephalic Mouth: Normal oral and palatal mucosa present Eyes EOM: EOMs intact bilaterally Neck Neck: Yes supple Resp Auscultation: clear to auscultation bilaterally Cardio Jugular venous distension: no JVD Rate: regular rate GI Palpation (GI): Soft to palpation Auscultation: normal bowel sounds General: Yes no CVA tenderness Back/Spine/Pelvis Back: no CVA tenderness Skin General skin exam: no rashes or lesions noted Neuro General: patient oriented x3 and moves all extremities Extrem General: Yes no pedal edema Results Reviewed Nephrology Results: Sodium, (135-145) 138 mmol/L 07/09/25 Potassium, (3.3-5.1) 4.1 mmol/L 07/09/25 Chloride, (96-108) 105 mmol/L 07/09/25 Carbon Dioxide, (22-29) 26 mmol/L 07/09/25 BUN, (9-16) 16 mg/dL 07/09/25 Creatinine, (0.5-1.4) 0.73 mg/dL 07/09/25 Calcium, (8.4-10.2) 9.0 mg/dL 07/09/25 Urine Protein, (Neg-Trace) Negative mg/dL 07/09/25 Renal US 11/10/24 Assessment & Plan Assessment & Plan (1) Proteinuria: Code(s): R80.9 - Proteinuria, unspecified Category: Medical Qualifiers: Proteinuria type: other Qualified Code(s): R80.8 - Other proteinuria (2) Hematuria: Code(s): R31.9 - Hematuria, unspecified Category: Medical Qualifiers: Hematuria type: other microscopic Qualified Code(s): R31.29 - Other microscopic hematuria Plan Renal function normal; BP at goal No family H/O renal disease H/O renal calculi and UTI's Renal USS pending( ordered) W/U including 24 hour urine ordered If she has significant protein/M/s hematuria-- -- may need renal biopsy All possibilities have been discussed;F/U given Orders: Orders UA and rflx microscopic 3 Weeks R31.9 - Hematuria, unspecified, R80.9 - Proteinuria, unspecified Protein, 24 Hr Urine Group 3 Weeks R31.9 - Hematuria, unspecified, R80.9 - Proteinuria, unspecified Protein Creatinine Ratio, Ur 3 Weeks R31.9 - Hematuria, unspecified, R80.9 - Proteinuria, unspecified Immunofixation Pnl, Serum 08/19/25 R31.9 - Hematuria, unspecified, R80.9 - Proteinuria, unspecified Coding Level of Care Code New Pt Level 4 (09032) Diagnoses Other proteinuria R80.8 Proteinuria type: other Other microscopic hematuria R31.29 Hematuria type: other microscopic
[2025-08-19 15:22] VITALS: BP 116/80; PULSE 82; O2SAT 98; BMI 25.1
== END 2025-08-20 08:55 | disposition home or self-care (01) ==
LOC: HO.HKAS 15:07
PROVIDERS: PCP Internal Medicine; Referring Provider Nurse Practitioner Family; Visit Provider Internal Medicine Nephrology
DX: R80.8 Other proteinuria (principal); R31.29 Other microscopic hematuria
CPT/HCPCS: 99204

== ENCOUNTER → 2025-08-19 15:06 | Outpatient (BNVA) | payer OTHER, SELFPAY | PROVIDERS: PCP Internal Medicine; Referring Provider Nurse Practitioner Family; Visit Provider Internal Medicine Nephrology | DX: R80.8 Other proteinuria (principal); R31.29 Other microscopic hematuria | CPT/HCPCS: 99202 ==

== ENCOUNTER 2025-08-23 07:29 | Outpatient (REF) | payer OTHER, SELFPAY ==
[2025-08-23 08:28] LABS: Appearance Urine Clear; Glucose Urine UA Negative (Negative); PH 5.5 (5.0-9.0); Specific Gravity - Urine 1.020 (1.005-1.025); UMIC TRIGGER UA YES
[2025-08-23 09:36] LABS: Protein/Creatinine Ratio, Ur 0.09 (<0.2); Total Protein Urine Random 12 mg/dL (<12)
[2025-08-23 09:39] LABS: Total Volume 24 Hour Urine 1050 mL
[2025-08-23 09:40] LABS: Creatinine, mg/dL 94.67
== END 2025-08-23 07:30 | disposition home or self-care (01) ==
LOC: HO.LAB 07:29
PROVIDERS: PCP Internal Medicine; Visit Provider Internal Medicine Nephrology
DX: R80.9 Proteinuria, unspecified (principal); R31.9 Hematuria, unspecified
CPT/HCPCS: 36415; 81001; 82570; 82784; 84156; 86334

== ENCOUNTER 2025-09-28 15:56 | Outpatient (AMB) | payer OTHER, SELFPAY ==
--- NOTE | 2025-09-28 16:06 | HO.NEPHOV_ITS ---
Vital Signs 09/28/25 16:08 Height 5 ft 4 in Weight 151 lb 2 oz BMI 25.9 BP 106/70 Blood Pressure Location Lt brachial Position Sitting Pulse 76 Pulse Source Pulse Oximeter Pulse Oximetry (%) 98 Oxygen Delivery Method Room Air Intake Visit Reasons: 1mnth-LVM Feed Manager Required: No Accompanied by: Self / Same As Patient Allergies No Known Allergies Allergy (Verified 09/28/25 16:07) HPI Comments Details: Ama is a 45-year-old female with H/O bacteremia due to E coli, overactive bladder, recurrent UTI, renal calculi, urge incontinence who was thought to have proteinuria and microscopic hematuria. She continues to have intermittent left-sided flank pain. She had a renal ultrasound with no hydronephrosis or renal calculi. Repeat imaging is pending. She denies urgency, incontinence, nocturia, hematuria, dysuria, foul smelling urine, changes to urin bernardino stream, fever, and or chills. Patient also underwent in office cystoscopy with Dr. Dougie Patel 01/26 which showed no suspicious bladder lesions. She has a follow up retroperitoneal ultrasound by Urology pending. She denies epistaxis, photosensitvity, sensori neural deafness, recurrent sore throat, sinsusitis, hemoptysis or any auto immune conditions. Her renal functions have been normal and denied any family H/O renal disease. [facility] Medical History Dense breast H. pylori infection Complicated UTI (urinary tract infection) Bacteremia due to Escherichia coli Insomnia Overactive bladder Urge incontinence of urine H/O urinary frequency Irritable bowel syndrome with alternating bowel habits Allergic rhinitis Anxiety Dyslipidemia Overweight (BMI 25.0-29.9) Bladder calculus Constipation Pneumonia COVID-19 Irritable bowel syndrome (IBS) Mitochondrial cytopathy Palpitations Asthma Surgical History History of esophagogastroduodenoscopy (EGD) History of mammogram History of D&C History of myringotomy History of tonsillectomy and adenoidectomy Family History Mother Diabetes High blood pressure Father No problems noted. 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/Heterosexual Gender identity: Female Cognitive needs: No Hearing needs: No Vision needs: No Female Reproductive History Menstrual Age of Menarche: 9 Review of Systems Const All systems reviewed & are unremarkable except as noted in HPI and below Physical Exam Vital Signs: Last Vital Signs Pulse 76 09/28/25 16:08 BP 106/70 09/28/25 16:08 Pulse Ox 98 09/28/25 16:08 Oxygen Delivery Method Room Air 09/28/25 16:08 BMI result Body Mass Index 25.9 Const General: comfortable and no acute distress Orientation/consciousness: patient oriented x3 HEENT Head: Yes normocephalic Mouth: Normal oral and palatal mucosa present Eyes EOM: EOMs intact bilaterally Neck Neck: Yes supple Resp Auscultation: clear to auscultation bilaterally Cardio Jugular venous distension: no JVD Rate: regular rate GI Palpation (GI): Soft to palpation Auscultation: normal bowel sounds General: Yes no CVA tenderness Back/Spine/Pelvis Back: no CVA tenderness Skin General skin exam: no rashes or lesions noted Neuro General: patient oriented x3 and moves all extremities Extrem General: Yes no pedal edema Results Reviewed Nephrology Results: Sodium, (135-145) 138 mmol/L 07/09/25 Potassium, (3.3-5.1) 4.1 mmol/L 07/09/25 Chloride, (96-108) 105 mmol/L 07/09/25 Carbon Dioxide, (22-29) 26 mmol/L 07/09/25 BUN, (9-16) 16 mg/dL 07/09/25 Creatinine, (0.5-1.4) 0.73 mg/dL 07/09/25 Calcium, (8.4-10.2) 9.0 mg/dL 07/09/25 Urine Protein, (Neg-Trace) Negative mg/dL 08/23/25 Urine Creatinine 131.72 mg/dL 08/23/25 Protein/Creatinin Ratio, (<0.2) 0.09 08/23/25 Renal US 11/10/24 Assessment & Plan Assessment & Plan (1) Flank pain: Code(s): R10.9 - Unspecified abdominal pain Category: Medical Plan Renal function normal; BP at goal No family H/O renal disease H/O renal calculi and UTI's Renal USS pending( ordered) W/U including 24 hour urine reviewed F/U given Orders: Orders UA and rflx microscopic 6 Months R10.9 - Unspecified abdominal pain Protein Creatinine Ratio, Ur 6 Months R10.9 - Unspecified abdominal pain Coding Level of Care Code Est Pt Level 4 (87731) Diagnoses Flank pain R10.9
[2025-09-28 16:08] VITALS: BP 106/70; PULSE 76; O2SAT 98; BMI 25.9
--- OUTSIDE RECORDS SUMMARY | 2025-09-28 20:05 | XMS_ITS | Data Portability ---
Author Organization [place] - [facility], Allergy Address [address] [place] [id number] Care Team Providers Care Erp Business Analyst Name Role Phone RAZIA LOPEZ Primary Care [...] audiometric testing. [email or web address] Not available 05/03/2025 10:59:49 09/09/2025 09/09/2025 45 year old female, with a history of asymmetric sensorineural hearing loss, left greater than right, presents for follow up. MRI of the IACs with contrast performed 06/21/25 at [place] shows no retrocochlear abnormality. Reassurance was provided. Patient does have tenderness over the pre- and postauricular area on the left with palpation. Her otalgia is most likely consistent with intermittent inflammation of the jaw joint or spasm of the surrounding musculature and exacerbated by dental clenching. Recommend light massage, warm compresses, and anti-inflammator ies for symptomatic management. I also stressed chewing evenly on both sides of the mouth to keep from overworking the jaw join and eating a soft food diet as needed. Jaw Joint Program information sheet was shared. If this treatment plan is ineffective, the patient can follow up with their dentist.Referral to a physical therapist who specializes in TMJ disorders can also be considered. Follow up as needed otherwise. All questions were answered. [email or web address] Not available 09/10/2025 00:15:18 Plan of Treatment Reminders Order Date Submit Date Provider Last Modified By Organization Details Last Modified Time Details Appointments None recorded. Lab None recorded. Referral None recorded. Procedures None recorded. Surgeries None recorded. Imaging MRI, brain + internal auditory canal, w/wo contrast - MRI, BRAIN + INTERNAL AUDITORY CANAL, W/WO CONTRAST 2024 025 [email or web address] [facility] ([facility]), [address] [place], [address], 13:13:21 Medication Orders None recorded. Patient TargetsNo targets recorded. Patient InstructionsNo instructions recorded. Reason for Referral None Reported. Results Created Date Observation Date Name Description Value Unit Range Abnormal Flag Note LastModifiedBy Organization Detail LastModifiedTime 05/03/20 audio gram No observ ation record ed. BARCODE Not Available 2024 11:15:14 06/21/20 25 06/16/2025 MRI, brain + inter nal audit ory canal , w/wo contr ast No observ ation record ed. [email or web address] [facility] [address] [place], [address], 08/20/2025 08:37:42 09/21/20 25 06/16/2025 MRI, brain + inter nal audit ory canal , w/wo contr ast No observ ation record ed. [email or web address] [facility] ([facility]) [address] [place], [address], 09/21/2025 14:48:52 Result Notes None recorded. Problems Name Problem SNOMED Code Status Onset Date Resolution Date Notes Provider Name and Address Organization Details Recorded Time Sensorineur al hearing loss of bilateral ears 508871315 Active 2024 JACKELINE GONZALEZ, [facility] [address] [address], [place], [phone], [facility] - [facility] 10:21:22 Bilateral tinnitus 0530857171448 Active 2024 JAYA KIM PA-C [address] [facility], [place], [address], [facility] - [facility] 10:59:56 Referred otalgia of left ear 8696163574891 107 Active 2024 YINA MILLS [address] [facility], [place], [address], [facility] - [facility] 00:14:43 Problem Notes None recorded. Procedures Surgical History Date Name Laterality Status Provider Name and Address Organization Details Recorded Time 05/03/20 Comp Audio with Tymps - 95922 & 55399 completed ARTEMIO WRIGHT 100 [facility],[address], [address], [facility] 05/03/2025 10:12:09 tonsillectomy and adenoidectomy completed JAYA KIM PA-C [address] [facility],[address], [address], [facility] 05/03/2025 10:42:17 Imaging Results None recorded. [...] completed Not Available Not Available Not Available valacyclovi r 500 mg tablet PLEASE SEE ATTACHED FOR DETAILED DIRECTION S active Not Available Not Available No t Available amoxicillin 500 mg tablet TAKE 2 TABS (1000MG) ORALLY 2 TIMES A DAY FOR H. PYLORI INFECTION FOR 14 DAYS 05/03 completed Not Available Not Available Not Available lorazepam 0.5 mg tablet TAKE 1 TABLET BY MOUTH EVERY DAY AT BEDTIME NEEDED FOR ANXIETY active Not [...] completed Not Available Not Available Not Available estradiol 0.01% (0.1 mg/gram) vaginal cream APPLY PEA-SIZED AMOUNT TO URETHRA DAILY X1 MONTH AND THEN 3 TIMES PER WEEK THEREAFTE R. active Not Available Not Available No t Available amoxicillin 875 mg-potassiu m clavulanate 125 [...] Updated DateTime 05/03/2025 162.56 cm 24 kg/m2 83111.93 g Mary Carr [place] - [facility] 05/03/2025 10:28:45 Date Recorded Body height Body mass index (BMI) Body weight Provider Name and Address Organization Details Last Updated DateTime 09/09/2025 162.56 cm 24 kg/m2 58736.93 g Yudith Garcia [place] - [facility] 09/09/2025 15:47:20 Social History None recorded. Functional Status None [...] N Immune System Disorder N Heart Attack ([place]) N Other Skin Condition N Diabetes N [...] Diagnosis SNOMED-CT Code Diagnosis ICD10 Code Diagnosis IMO Codes Diagnosis Note [id number] YINA YIN[facility] of [address] [phone] 05/03/2025 09:55:08 05/03/2025 10:53:19 Sensorineural hearing loss of bilateral ears 967008388 H90.3 [id number] Audiologic al evaluation results: Right ear: Mild to moderately -severe sensorineu ral hearing loss with good word recognitio n. Left ear: Moderate to profound sensorineu ral hearing loss with excellent word recognitio n. Conductive component at 3kHz only. Tympanomet ry: Right Ear:Type Ad Left Ear:Type C Bilateral tinnitus 00052 27277 102 H93.13 [id number] YINA MILLS [facility] on [address] [place] [phone] 09/09/2025 15:35:08 09/09/2025 16:12:11 Referred otalgia of left ear [id number] 816240 H92.02 M26.622 M79.11 Bilateral tinnitus 12015 58458 102 H93.13 [id number] Sensorineu ral hearing loss of bilateral ears 727754202 H90.3 [id number] Health Concerns Section Related Observation LastModified by Organization Detai ls LastModified Time None Recorded Concern Status LastModified by Organization Details LastModified Time None Recorded Advance Directives Directive None Recorded Payers Insurance Date Sequence Insurance Name Policy Number Policy Reaves Covered Member ID Reaves Member ID Guarantor Name 09/06/2025 1 [facility] NET PLAN (MEDICAID HMO) [id number] Ama Boateng [id number] Ama Boateng Notes Date Note Type Note Provider Name and Address Organization Details Recorded Time 05/03/2025 text/html ROS as noted in the HPI 44yo female presents for evaluation of hearing [...] upper endoscopy, hx H.pylori on quadruple therapy. SHUAN WILEY MD [address] [facility],[address], [address], [place] - [facility] 05/03/2025 12:35:02 09/09/2025 text/html ROS as noted in the HPI 45 year old female, with a history of asymmetric sensorineural hearing loss, left greater than right, presents for MRI review. Patient reports no changes in hearing or tinnitus since the previous visit. She does endorse intermittent pain deep inside her left ear. Patient admits to clenching her jaw frequently due to stress. STEVE LORA MD 100 [facility], [place], [address], [place] - [facility] 09/10/2025 04:46:26 OBGyn Episode No OBEpisode recorded.
== END 2025-09-28 16:32 | disposition home or self-care (01) ==
LOC: HO.HKAS 15:58
PROVIDERS: PCP Internal Medicine; Visit Provider Internal Medicine Nephrology
DX: R10.9 Unspecified abdominal pain (principal)
CPT/HCPCS: 99214

== ENCOUNTER → 2025-09-28 15:56 | Outpatient (BNVA) | payer OTHER, SELFPAY | PROVIDERS: PCP Internal Medicine; Visit Provider Internal Medicine Nephrology | DX: I10 Essential (primary) hypertension (principal); R10.9 Unspecified abdominal pain | CPT/HCPCS: 99212 ==

== ENCOUNTER 2025-09-30 14:27 | Outpatient (REF) | payer OTHER, SELFPAY ==
--- NOTE | ~2025-09-30 | US_ITS ---
EXAMINATION: US RETROPERITONEUM HISTORY: R10.9 - Unspecified abdominal pain - FLANK PAIN TECHNIQUE: Real-time grayscale ultrasound imaging of the kidneys was performed and images were reviewed. COMPARISON: Correlation is made with a renal ultrasound dated 11/10/2024. FINDINGS: Right kidney: The right kidney measures 10.2 x 4.3 x 4.8 cm. Renal parenchymal echotexture and thickness are normal. There are no masses. There is slight fullness of the renal pelvis. There is no hydronephrosis or renal calculi. Left Kidney: The left kidney measures 9.8 x 5.8 x 5.0 cm. Renal parenchymal echotexture and thickness are normal. There are no masses. There is no hydronephrosis or renal calculi. The urinary bladder is unremarkable. Bilateral ureteral jets are identified. Before voiding, the urinary bladder measured 8.7 x 8.3 x 9.7 cm, for an estimated volume of 366 mL. After voiding, the urinary bladder measured 3.6 x 1.9 x 2.8 cm, for an estimated volume of 10 mL. US/US retroperitoneal comp IMPRESSION: Unremarkable retroperitoneal ultrasound. Post void bladder residual of 10 mL. Electronically signed by: Jovon Sterling MD 09/30/2025 03:06 PM EDT
== END 2025-09-30 14:28 | disposition home or self-care (01) ==
LOC: HO.HMGCX 14:27
PROVIDERS: PCP Internal Medicine; Visit Provider Nurse Practitioner Family
DX: R10.9 Unspecified abdominal pain (principal)
CPT/HCPCS: 76770

== ENCOUNTER → 2025-09-30 14:33 | Outpatient (BNV) | payer OTHER, SELFPAY | PROVIDERS: PCP Internal Medicine; Visit Provider Radiology Diagnostic Radiology | DX: R10.9 Unspecified abdominal pain (principal); R33.9 Retention of urine, unspecified | CPT/HCPCS: 76770 ==

== ENCOUNTER 2025-11-16 16:04 | Outpatient (AMB) | payer OTHER, SELFPAY ==
--- NOTE | 2025-11-16 16:11 | MHC.OFFVIS ---
Intake Visit Reasons: 3m/PVR/US/UA Intake Note: Patient is present for 3M/PVR/US Urology Medication:ESTRADIOL Antibiotic Allergy:NONE Blood Thinner:NONE Arts Administrator Or Manager Required: No Allergies No Known Allergies Allergy (Verified 11/16/25 16:21) Medication List - Last Reconciled 11/16/25 by MANJEET Denise albuterol sulfate 90 mcg/actuation (Ventolin HFA) 2 puffs inhalation Q6H PRN 30 days docusate sodium (Colace) 200 mg (2 x 100 mg) PO BEDTIME 30 days estradiol 0.01%(0.1mg/gram) (Estrace) 1 g vaginal 3XW 90 days loratadine 10 mg PO DAILY PRN 30 days lorazepam 0.5 mg PO BEDTIME PRN 30 days omeprazole 20 mg PO .QD prochlorperazine maleate (Compazine) 5 mg PO BID PRN psyllium husk (Metamucil Fiber (aspartame)) 3.4 grams PO DAILY 30 days trazodone 50 mg PO BEDTIME PRN 30 days valacyclovir (Valtrex) 500 mg PO BID HPI Comments Details: Ama is a 45-year-old female patient of Dr. Conley. She has a past medical history of H pylori, bacteremia due to E coli, insomnia, overactive bladder, urge incontinence, irritable bowel syndrome, allergic rhinitis, anxiety, dyslipidemia, constipation, IBS, and asthma. She presents to the office today for follow-up of her lower urinary tract symptoms, recurrent urinary tract infections, and nephrolithiasis. In discussion with the patient today she reports she has not had any UTI like symptoms since her last office visit here. Most recent retroperitoneal ultrasound results reviewed with the patient today. 09/25 bilateral kidneys with normal parenchymal echotexture and thickness. There is no hydronephrosis or renal calculi noted bilaterally. The urinary bladder is unremarkable. Postvoid bladder volume 10 mL. She reports flank pain she had been experiencing has somewhat subsided. She does continue to experience episodes of urinary frequency however relates this to her increase in hydration and does feel symptoms have been manageable. In office urinalysis results reviewed with the patient today. She does report having followed up with nephrology since her last office visit here. She does report compliance with Estrace cream as prescribed. Previous urine cultures are as follows 04/23 E coli, 08/25 E coli, 02/23 E coli Microgen 01/26: Enterobacter hormaechei, E coli, Enterobacter asuburiae Cytology 01/25 & 07/26 Negative for high-grade urothelial carcinoma Previous workup has also included microgen 01/26 that noted Enterobacter hormaechei, E coli, and Enterobacter asburiae. She denies urinary urgency, incontinence, nocturia, hematuria, dysuria, foul smelling urine, changes to urinary stream, fever, and or chills. Patient also underwent in office cystoscopy with Dr. Dougie Patel 01/26 Cystoscopy findigs- no suspicious bladder lesions visualized. All questions were answered. She otherwise offers no other issues or concerns at this time. [facility], [facility] Medical History Dense breast H. pylori infection Complicated UTI (urinary tract infection) Bacteremia due to Escherichia coli Insomnia Overactive bladder Urge incontinence of urine H/O urinary frequency Irritable bowel syndrome with alternating bowel habits Allergic rhinitis Anxiety Dyslipidemia Overweight (BMI 25.0-29.9) Bladder calculus Constipation Pneumonia COVID-19 Irritable bowel syndrome (IBS) Mitochondrial cytopathy Palpitations Asthma Surgical History History of esophagogastroduodenoscopy (EGD) History of mammogram History of D&C History of myringotomy History of tonsillectomy and adenoidectomy Family History Mother Diabetes High blood pressure Father No problems noted. 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/Heterosexual Gender identity: Female Cognitive needs: No Hearing needs: No Vision needs: No Female Reproductive History Menstrual Age of Menarche: 9 Review of Systems Const All systems reviewed & are unremarkable except as noted in HPI and below Physical Exam Const General: cooperative, healthy appearing, comfortable, no acute distress, well developed, alert and awake Orientation/consciousness: patient oriented x3 Limitations: no limitations HEENT Head: Yes normal to inspection, Yes normocephalic and Yes atraumatic Ears: hearing grossly normal bilaterally Eyes General: appearance normal, both eyes and all related structures Neck Neck: Yes normal visual inspection and Yes trachea midline Chest Chest palpation & inspection: normal inspection of the chest Resp Effort & Inspection: normal respiratory effort and able to speak in complete sentences Cardio Rate: regular rate GI Inspection: Yes normal to inspection General: Yes no CVA tenderness Back/Spine/Pelvis Back: no CVA tenderness Skin General skin exam: no rashes or lesions noted Neuro General: patient oriented x3 Extrem General: Yes normal to inspection Psych Appearance: grossly normal and well kempt Mental Status: mental status grossly normal Speech and movement: Normal speech and movement present and Clear speech present Affect: normal affect Attitude: cooperative Thought process: Normal thought process present Thought content: Normal thought content present Insight: Fair insight present (Psych) Judgement: Fair judgement present (Psych) Results AMB Urinalysis, Automated UA Leukoctes 0 Sloane/uL Last Edit by WOLF Macdonald on 11/16/25 16:54 UA Nitrite Negative Last Edit by WOLF Macdonald on 11/16/25 16:54 UA Urobilinogen 0.2 mg/dL Last Edit by WOLF Macdonald on 11/16/25 16:54 UA Protein 15 mg/dL Last Edit by WOLF Macdonald on 11/16/25 16:54 UA pH 6.0 Last Edit by WOLF Macdonald on 11/16/25 16:54 UA Blood 200 Nabil/uL Last Edit by WOLF Macdonald on 11/16/25 16:54 UA Specific Ruby 1.025 Last Edit by WOLF Macdonald on 11/16/25 16:54 UA Ketone Negative Last Edit by WOLF Macdonald on 11/16/25 16:54 UA Bilirubin 0 mg/dL Last Edit by WOLF Macdonald on 11/16/25 16:54 UA Glucose 0 mg/dL Last Edit by WOLF Macdonald on 11/16/25 16:54 Results Reviewed Results Reviewed: Laboratory Last Values Urine pH (Auto) 6.0 11/16/25 16:52 Specific Ruby (Auto) 1.025 11/16/25 16:52 Urine Protein (Auto) 15 mg/dL 11/16/25 16:52 Glucose (UA)(Auto) 0 mg/dL 11/16/25 16:52 Urine Ketones (Auto) Negative 11/16/25 16:52 Urine Blood (Auto) 200 Nabil/uL 11/16/25 16:52 Urine Nitrite (Auto) Negative 11/16/25 16:52 Urine Bilirubin (Auto) 0 mg/dL 11/16/25 16:52 Urine Urobilinogen (Auto) 0.2 mg/dL 11/16/25 16:52 Leukocyte Esterase (Auto) 0 Sloane/uL 11/16/25 16:52 Date of Service: 09/30/25 Procedure(s): US retroperitoneal comp FINDINGS: Right kidney: The right kidney measures 10.2 x 4.3 x 4.8 cm. Renal parenchymal echotexture and thickness are normal. There are no masses. There is slight fullness of the renal pelvis. There is no hydronephrosis or renal calculi. Left Kidney: The left kidney measures 9.8 x 5.8 x 5.0 cm. Renal parenchymal echotexture and thickness are normal. There are no masses. There is no hydronephrosis or renal calculi. The urinary bladder is unremarkable. Bilateral ureteral jets are identified. Before voiding, the urinary bladder measured 8.7 x 8.3 x 9.7 cm, for an estimated volume of 366 mL. After voiding, the urinary bladder measured 3.6 x 1.9 x 2.8 cm, for an estimated volume of 10 mL. IMPRESSION: Unremarkable retroperitoneal ultrasound. Post void bladder residual of 10 mL. Assessment & Plan Assessment & Plan (1) Flank pain: Code(s): R10.9 - Unspecified abdominal pain Category: Medical (2) Renal calculus, left: Code(s): N20.0 - Calculus of kidney Category: Medical (3) Hematuria: Code(s): R31.9 - Hematuria, unspecified Category: Medical Qualifiers: Hematuria type: other microscopic Qualified Code(s): R31.29 - Other microscopic hematuria (4) Recurrent UTI: Code(s): N39.0 - Urinary tract infection, site not specified Category: Medical Plan In office urinalysis results with the patient today; as noted above Recent retroperitoneal ultrasound results above. She currently denies any bothersome urinary issues or concerns. She reports be happy with current voiding parameters. Will continue with continue Estrace cream. All questions were answered. Will continue with surveillance monitoring. We discussed importance of adequate hydration relation to lower urinary tract symptoms as well as overall health and well-being. Follow-up in 6 months with urinalysis; or sooner with any issues, concerns, and or questions. Orders: Orders AMB Urinalysis Automated Today Z13.9 - Encounter for screening, unspecified Patient Instructions: The patient had an opportunity to ask questions regarding the treatment plan. All questions were answered. Physical exam, labs, and imaging were discussed and reviewed in detail. As well as risks, benefits, and discussion of treatment choices. No major barriers to understanding were identified. The patient expressed understanding and agreement with the above treatment plan. The patient was made aware they should contact our office by phone for worsening of their current condition, the appearance of new symptoms, or with any questions or concerns. Compliance is encouraged with any medications and follow up testing that is ordered. It is a privilege to be allowed the opportunity to participate in? your urological care.? Again, if you have any questions or concerns If you have any questions or concerns please do not hesitate to contact me. The office is [phone]. This note is constructed using voice recognition software. While every effort has been made to ensure accuracy electric freight car operator errors may have been included. Yours sincerely, MANJEET Denise Coding Level of Care Code Est Pt Level 3 (85295) Diagnoses Flank pain R10.9 Renal calculus, left N20.0 Other microscopic hematuria R31.29 Hematuria type: other microscopic Recurrent UTI N39.0
--- OUTSIDE RECORDS SUMMARY | 2025-11-16 20:05 | XMS_ITS | Continuity of Care Document ---
Author Organization [place] - [facility], [facility] Address [address] [address] Care Team Providers Care Chief Executive Or Managing Director Name Role Phone RAZIA LOPEZ Primary Care Provider Assessment Encounter Date Assessment Date Assessment LastModified by Organization Details LastModified Time 09/09/2025 09/09/2025 45 year old female, with a history of asymmetric sensorineural hearing loss, left greater than right, presents for follow up. MRI of the IACs with contrast performed 06/21/25 at [place] shows no retrocochlear abnormality. Reassurance was provided. [...] Details Last Modified Time Details Appointments None record ed. Lab None record ed. Referral None record ed. Procedures None record ed. Surgeries None record ed. Imaging None record ed. Medication Orders None record ed. Patient TargetsNo targets recorded. Patient InstructionsNo instructions recorded. Reason for Referral None Reported. Results Created Date Observation Date Name Description Value Unit Range Abnormal Flag Note LastModifiedBy Organization Detail LastModifiedTime 09/21/2006/16/2025 MRI, brain + inter nal audit ory canal , w/wo contr ast No observ ation record ed. [email or web address] [facility] ([facility]) [address] [facility], [place], [address], 09/21/2025 14:48:52 Result Notes None recorded. Problems Name Problem SNOMED Code Status Onset Date Resolution Date Notes Provider Name and Address Organization Details Recorded Time Sensorineur al hearing loss of bilateral ears 603601894 Active 2024 ARTEMIO WRIGHT 100 [facility],[address], [address], [facility] - [facility] [place] 10:21:22 Bilateral tinnitus 9661460305358 Active 2024 JAYA KIM PA-C [address] [place] [address], [phone], [facility] - [facility] [place] 10:59:56 Referred otalgia of left ear 3956962040338 107 Active 2024 YINA MILLS [address] [place] [address], [phone], [facility] - [facility] 00:14:43 Problem Notes None recorded. Procedures Surgical History Date Name Laterality Status Provider Name and Address Organization Details Recorded Time 05/03/20 Comp Audio with Tymps - 48001 & 25352 completed JACKELINE GONZALEZ, ARTEMIO 100 [facility],[address], [address], [facility] - [facility] [place] 05/03/2025 10:12:09 tonsillectomy and adenoidectomy completed JAYA KIM PA-C 100 [facility],[address], [address], [facility] - [facility] 05/03/2025 10:42:17 Imaging Results None recorded. Procedure [...] Updated DateTime 09/09/2025 162.56 cm 24 kg/m2 34918.93 g Yudith Garcia [place] - [facility] 09/09/2025 15:47:20 Social History None recorded. Functional Status None recorded. Mental Status None recorded. Family History Nothing Reported. Medical History Condition Response Allergies/Hayfever N Heart Problems N Anxiety Y Tonsil Infections N Emphysema N Migraines N Thyroid Problems N COPD N Depression Y Developmental Delay N Glaucoma N Nasal or Sinus Problems N Anemia N Immune System Disorder N Anesthesia Complications N Heart Attack ([place]) N Other Skin Condition N Diabetes N Rhinitis N Bleeding Disorder N Food Allergy N Hearing Loss N Arthritis N Hyperlipidemia N Cancer N Stroke N Dementia N Nasal polyps N Asthma Y Sleep Disorder N High Cholesterol N GERD/Reflux N Liver Disease N Headaches N Fibromyalgia N Hypertension N Speech Delay N Kidney Disease Y Gynecological HistoryNo gynecological history recorded. Obstetrics History GPAL:G 0 P 0 0 0 0 Past Encounters Encounter ID Performer Location Encounter Start Date Encounter Closed Date Diagnosis/Indication Diagnosis SNOMED-CT Code Diagnosis ICD10 Code Diagnosis IMO Codes Diagnosis Note [id number] YINA MILLS [facility] on [address] [place] [phone] 09/09/2025 15:35:08 09/09/2025 16:12:11 Referred otalgia of left ear [id number] 145819 H92.02 M26.622 M79.11 Bilateral tinnitus 39843 95728 102 H93.13 253630 Sensorineu ral hearing loss of bilateral ears 739685481 H90.3 [id number] Health Concerns Section Related Observation LastModified by Organization Detai ls LastModified Time None Recorded Concern Status LastModified by Organization Details LastModified Time None Recorded Payers Encounter Date Sequence Insurance Name Policy Number Policy Reaves Covered Member ID Reaves Member ID Guarantor Name 09/09/2025 1 [facility] NET PLAN (MEDICAID HMO) [id number] Ama Boateng [id number] Amajada Smithnandez Notes Date Note Type Note Provider Name and Address Organization Details Recorded Time 09/09/2025 text/html ROS as noted in the HPI 45 year old female, with a history of asymmetric sensorineural hearing loss, left greater than right, presents for MRI review. Patient reports no changes in hearing or tinnitus since the previous visit. She does endorse intermittent pain deep inside her left ear. Patient admits to clenching her jaw frequently due to stress. STEVE LORA MD [address] [place] [address], [phone], [facility] - [facility] 09/10/2025 04:46:26 OBGyn Episode No OBEpisode recorded.
--- OUTSIDE RECORDS SUMMARY | 2025-11-16 20:05 | XMS_ITS | Data Portability ---
Author Organization [place] - [facility], Allergy Address [address] [place] [address] Care Team Providers Care Multicultural Manager Name Role Phone RAZIA LOPEZ Primary Care [...] the IACs with contrast performed 06/21/25 at [place] shows no retrocochlear abnormality. Reassurance was provided. [...] AUDITORY CANAL, W/WO CONTRAST 2024 025 [email or web address] [facility] ([facility]), [address] [place], [address], 13:13:21 Medication Orders None recorded. Patient TargetsNo [...] ation record ed. [email or web address] [facility] [address] [place], [address], 08/20/2025 08:37:42 09/21/20 25 06/16/2025 MRI, brain + inter nal audit ory canal , w/wo contr ast No observ ation record ed. [email or web address] [facility] ([facility]) [address] [place], [address], 09/21/2025 14:48:52 Result Notes None recorded. Problems Name Problem SNOMED Code Status Onset Date Resolution Date Notes Provider Name and Address Organization Details Recorded Time Sensorineur al hearing loss of bilateral ears 985672789 Active 2024 JACKELINE GONZALEZ, [facility] [address] [address], [place], [address], [facility] - [facility] 10:21:22 Bilateral tinnitus 1194522005467 Active [address] KIM PA-C 100 [facility] 100, [place], [address], [facility] - [facility] [place] 10:59:56 Referred otalgia of left ear 3110799034310 107 Active [address] [facility] 100, [place], [address], [facility] - [facility] [place] 00:14:43 Problem Notes None recorded. Procedures Surgical History Date Name Laterality Status Provider Name and Address Organization Details Recorded Time 05/03/20 Comp Audio with Tymps - 17944 & 42155 completed ARTEMIO WRIGHT [address] [facility],[address], [address], [facility] [place] 05/03/2025 10:12:09 tonsillectomy and adenoidectomy completed JAYA KIM PA-C 100 [facility],[address], [address], [facility] 05/03/2025 10:42:17 Imaging Results None recorded. [...] Updated DateTime 05/03/2025 162.56 cm 24 kg/m2 63086.93 g Mary Carr [place] - [facility] 05/03/2025 10:28:45 Date Recorded Body height Body mass index (BMI) Body weight Provider Name and Address Organization Details Last Updated DateTime 09/09/2025 162.56 cm 24 kg/m2 55893.93 g Yudith Garcia [place] - [facility] 09/09/2025 15:47:20 Social History None recorded. Functional [...] Disorder N Anesthesia Complications N Heart Attack ([place]) N Other Skin Condition N Diabetes N [...] ICD10 Code Diagnosis IMO Codes Diagnosis Note [id number] YINA YIN-[place] [facility] of [address] [address] 05/03/2025 09:55:08 05/03/2025 10:53:19 Sensorineural hearing loss of bilateral ears 550593269 H90.3 [id number] Audiologic al evaluation results: Right ear: Mild to moderately -severe sensorineu ral hearing loss with good word recognitio n. Left ear: Moderate to profound sensorineu ral hearing loss with excellent word recognitio n. Conductive component at 3kHz only. Tympanomet ry: Right Ear:Type Ad Left Ear:Type C Bilateral tinnitus 88448 68636 102 H93.13 173695 [id number] YINA MILLS [facility] on [address] [place] [phone] 09/09/2025 15:35:08 09/09/2025 16:12:11 Referred otalgia of left ear 6465926274 509265 H92.02 M26.622 M79.11 Bilateral tinnitus 76343 90814 102 H93.13 376045 Sensorineu ral hearing loss of bilateral ears 079056873 H90.3 [id number] Health Concerns Section Related Observation LastModified by Organization Detai ls LastModified Time None Recorded Concern Status LastModified by Organization Details LastModified Time None Recorded Advance Directives Directive None Recorded Payers Insurance Date Sequence Insurance Name Policy Number Policy Reaves Covered Member ID Reaves Member ID Guarantor Name 09/06/2025 1 [facility] NET PLAN (MEDICAID HMO) [id number] Ama Boateng [id number] Ama Boateng Notes Date Note Type Note [...] H.pylori on quadruple therapy. SHAUN WILEY MD [address] [facility],[address], [address], [place] - [facility] 05/03/2025 12:35:02 09/09/2025 text/html ROS as [...] due to stress. STEVE LORA MD 100 [facility] 100, [place], [address], [place] - [facility] 09/10/2025 04:46:26 OBGyn Episode No OBEpisode recorded.
== END 2025-11-16 16:31 | disposition home or self-care (01) ==
LOC: HO.HUSH 16:05
PROVIDERS: PCP Internal Medicine; Visit Provider Nurse Practitioner Family
DX: R10.9 Unspecified abdominal pain (principal); N20.0 Calculus of kidney; R31.29 Other microscopic hematuria; N39.0 Urinary tract infection, site not specified; Z13.9 Encounter for screening, unspecified
CPT/HCPCS: 99213

== ENCOUNTER → 2025-11-16 16:04 | Outpatient (BNVA) | payer OTHER, SELFPAY | PROVIDERS: PCP Internal Medicine; Visit Provider Nurse Practitioner Family | DX: N20.0 Calculus of kidney (principal); R31.29 Other microscopic hematuria; N39.0 Urinary tract infection, site not specified; R10.9 Unspecified abdominal pain | CPT/HCPCS: 81003; 99212 ==

== ENCOUNTER 2025-11-19 15:19 | Outpatient (AMB) | payer OTHER, SELFPAY ==
[2025-11-19 15:37] VITALS: BP 122/78; PULSE 73; O2SAT 98; BMI 25.1
--- NOTE | 2025-11-19 15:37 | MHC.PC.OV ---
Vital Signs 11/19/25 15:37 Height 5 ft 4 in Weight 146 lb 8 oz BMI 25.1 BP 122/78 Blood Pressure Location Lt brachial Position Sitting Pulse 73 Pulse Source Pulse Oximeter Pulse Oximetry (%) 98 Oxygen Delivery Method Room Air Intake Visit Reasons: Annual exam Bead Flipper Required: No Accompanied by: Self / Same As Patient Allergies No Known Allergies Allergy (Verified 11/19/25 16:19) Medication List - Last Reconciled 11/19/25 by Ronen Holly MD albuterol sulfate 90 mcg/actuation (Ventolin HFA) 2 puffs inhalation Q6H PRN 30 days docusate sodium (Colace) 200 mg (2 x 100 mg) PO BEDTIME 30 days estradiol 0.01%(0.1mg/gram) (Estrace) 1 g vaginal 3XW 90 days loratadine 10 mg PO DAILY PRN 30 days lorazepam 0.5 mg PO BEDTIME PRN 30 days omeprazole 20 mg PO .QD prochlorperazine maleate (Compazine) 5 mg PO BID PRN psyllium husk (Metamucil Fiber (aspartame)) 3.4 grams PO DAILY 30 days trazodone 50 mg PO BEDTIME PRN 30 days valacyclovir (Valtrex) 500 mg PO BID Tobacco use date assessed: 11/19/25 Dental Screening Dental Screen Date: 11/19/25 Did you have a dental visit in the last 12 months?: No Did you have a dental problem in the last 6 months where you did not have access to dental care?: No Was dental information given to patient?: No HPI Annual exam HPI Details Patient comes in today for her annual physical examination States that she feels okay except for a persistent pain over her left thigh Recalls that she suddenly experienced a severe cramping pain in her left thigh on the morning of this past (10/28/2025) States that the cramping pain eventually subsided but she has had a persistent/constant pain over the medial aspect of her left thigh since She describes the sensation as similar to what a pinched nerve feels like and notes that the pain is often exacerbated when she is walking and moving about and is relieved temporarily and partially when she applies a heating pad onto her left thigh States that she has not noticed any bruising on her left thigh and she denies any recent increased low back pain or hip pain; she also denies any recent injury or trauma to her left thigh preceding her current symptoms Patient also reports experiencing symptoms consistent with perimenopause, including increased tiredness and irregular periods She denies any headaches or dizziness Denies any chest pains, no shortness of breath No nausea/vomiting, no abdominal pain - states that her GI symptoms have been well-controlled on her current Rx (Omeprazole) No change in bowel habits noted She denies any acute urinary symptoms although she does have a history of overactive bladder She had her follow up labs done a few months ago in July 2025 - to discuss her results She had her screening colonoscopy done last year in June 2024 - procedure came out normal and she as advised to get her repeat colonoscopy in 10 years Her yearly gynecology exam was done on 05/06/2025 and she last had a normal pap smear in 04/2022 Her annual mammogram was done back on 03/03/2025 [facility] Medical History Dense breast H. pylori infection Complicated UTI (urinary tract infection) Bacteremia due to Escherichia coli Insomnia Overactive bladder Urge incontinence of urine H/O urinary frequency Irritable bowel syndrome with alternating bowel habits Allergic rhinitis Anxiety Dyslipidemia Overweight (BMI 25.0-29.9) Bladder calculus Constipation Pneumonia COVID-19 Irritable bowel syndrome (IBS) Mitochondrial cytopathy Palpitations Asthma Surgical History History of esophagogastroduodenoscopy (EGD) History of mammogram History of D&C History of myringotomy History of tonsillectomy and adenoidectomy Family History Mother Diabetes High blood pressure Father No problems noted. 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 1. Little interest or pleasure in doing things: not at all 2. Feeling down, depressed, or hopeless: not at all 3. Trouble falling or staying asleep, or sleeping too much: not at all 4. Feeling tired or having little energy: not at all 5. Poor appetite or overeating: not at all 6. Feeling bad about yourself - or that you are a failure or have let yourself or your family down: not at all 7. Trouble concentrating on things, such as reading the newspaper or watching television: not at all 8. Moving or speaking so slowly that other people could have noticed. Or the opposite - being so fidgety or restless that you have been moving around a lot more than usual: not at all 9. Thoughts that you would be better off or of hurting yourself in some way: not at all Total score: 0 Depression Screening Interpretation: Negative Depression Screening Done: Yes 98946 - PHQ-9 Billing: Yes Source: Developed by Drs. Jovon Montano, Laurie Parsons, Bill Gallagher and colleagues, with an educational carmina from [employer]. Thrive Questionnaire Date Thrive assessed: 11/19/25 I am a: Patient What is your living situation today?: I have a steady place to live Within the past 12 months, did the food you bought not last and you didn't have the money to get more?: Sometimes True Within the past 12 months, did you worry whether your food would run out before you got money to buy more?: Sometimes True Do you have trouble paying for medicines?: No Do you have trouble getting transportation to medical appointments?: No Do you have trouble paying your heating and electricity bill?: Yes Do you have trouble taking care of your child, family member or friend?: No Do you have trouble with day-to-day activities such as bathing, preparing meals, shopping, managing finances, etc.?: No Are you currently unemployed and looking for a job?: No Are you interested in more education?: No Currently or been in a relationship where the following occur: No concerns reported THRIVE Score: 3 AUDIT C Alcohol Use Questionnaire (AUDIT-C) 1. How often do you have a drink containing alcohol?: Monthly or less 2. How many drinks containing alcohol do you have on a typical day when you are drinking?: 1 or 2 3. How often do you have six or more drinks on one occasion?: Less than monthly Total Score: 2 Score Reviewed/Action Taken: Yes GRUPO-7 AMB Questionnaire GRUPO-7 Date GRUPO - 7 assessed: 11/19/25 Feeling nervous, anxious, or on edge: 0 = Not at all Not being able to stop or control worryin = Not at all Worrying too much about different things: 0 = Not at all Trouble relaxin = Not at all Being so restless that it is hard to sit still: 0 = Not at all Becoming easily annoyed or irritable: 0 = Not at all Feeling afraid as if something awful might happen: 0 = Not at all Total GRUPO-7 score (0-4 normal; 5-9 mild; 10-14 moderate; 15-21 severe): 0 Source: Developed by Drs. Jovon Montano, Laurie Parsons, Bill Gallagher and colleagues, with an educational carmina from [employer]. GRUPO-7 Assessment Billing GRUPO-7 Assessment Tool: GRUPO-7 Assessment 40355 Review of Systems Const Denies chills, Reports fatigue, Denies fever(s), Denies headache(s) and Denies malaise Eyes Denies blurry vision, Denies change in vision, Denies irritation and Denies itchy eyes ENT Denies dysphagia, Denies dizziness, Denies otalgia, Denies headache(s), Denies nasal congestion, Denies neck pain, Denies odynophagia, Denies sinus pain and Denies sore throat Card Denies chest pain, Denies rapid heart rate, Denies irregular heart rhythm, Denies palpitations and Denies dyspnea Resp Denies chest congestion, Denies cough, Denies dyspnea and Denies wheezing GI Denies abdominal pain, Denies bloating, Denies constipation, Denies dysphagia, Denies heartburn, Denies diarrhea, Denies nausea, Denies odynophagia and Denies vomiting Reports abnormal menses (irregular), Denies hematuria, Denies difficulty voiding, Denies dysuria, Denies urinary incontinence and Denies urinary urgency Musc Reports as per HPI ((+) muscle pain over the medial aspect of the left thigh), Denies back pain, Denies arthralgias, Denies joint swelling, Denies muscle weakness and Denies neck pain Skin/Breast Denies breast pain, Denies breast mass, Denies change in pigmentation, Denies lesions, Denies rash and Denies unusual bruising Neuro Denies dizziness, Denies headache(s) and Denies paresthesias Psych Denies anxiety and Denies depression Endo Reports fatigue and Denies palpitations Rupesh/Lymph Denies easy bruising Aller/Immun Denies itchy eyes and Denies wheezing Physical exam (Primary Care) Vital Signs: Last Vital Signs Pulse 73 11/19/25 15:37 BP 122/78 11/19/25 15:37 Pulse Ox 98 11/19/25 15:37 Oxygen Delivery Method Room Air 11/19/25 15:37 BMI result Body Mass Index 25.1 Tobacco/Smoking Status: Tobacco use Status Tobacco use date assessed 11/19/25 11/19/25 15:42 Patient Tobacco Use Status Former Tobacco user 11/19/25 15:42 Tobacco use type Cigarette 11/19/25 15:42 e-Cigarette/Vaping Use Never Used 11/19/25 15:42 PHQ-9: PHQ-9 Score PHQ-9: Total score 0 11/20/25 06:26 Depression Screening Interpretation: Negative Thrive Assessment: Date of Thrive Assessment Date Thrive assessed 11/19/25 11/19/25 15:42 Currently or been in a relationship where the following occur: No concerns reported Const General: no acute distress, alert and awake Orientation/consciousness: patient oriented x3 HENMT Head: Yes normocephalic and Yes atraumatic Ears: external ears normal, TM's normal bilaterally and EAC's normal General nose exam: No nasal discharge present Face and sinus: Yes normal facial exam and Yes sinuses nontender Teeth and gingiva: dentition normal Throat: Yes posterior oropharynx normal and Yes tonsils normal (no TP congestion) Eyes Eyelids: Yes eyelids normal Conjunctivae: conjunctivae normal Pupils: Equal, round and reactive pupils present EOM: EOMs intact bilaterally Neck Neck: Yes no lymphadenopathy and Yes supple Thyroid: Thyroid normal Resp Auscultation: clear to auscultation bilaterally, no rales and no wheezes Cardio Rate: regular rate Rhythm: regular rhythm Heart sounds: no murmurs GI Palpation (GI): Soft to palpation, nontender and No hepatosplenomegaly present Auscultation: normal bowel sounds General: Yes no CVA tenderness Back/Spine/Pelvis Back: no CVA tenderness Thoracic/Lumbar Spine: thoracic and lumbar spine normal to inspection Skin Lesions: no lesions Rashes: no rashes Neuro General: patient oriented x3, moves all extremities, no focal motor deficits and CN's II-XI intact bilaterally Cranial nerves: Yes Equal, round and reactive pupils present Cognition (Neuro): normal cognition Gait exam (Neuro): Normal gait present Extrem Other: (+) tenderness over the muscles along the medial aspect of the left thigh General: Yes no clubbing, cyanosis or edema Results Reviewed Results Reviewed: Laboratory Tests 07/09/25 09:00 Sodium 138 Potassium 4.1 Creatinine 0.73 Estimated GFR > 60 Fasting Glucose 87 Calcium 9.0 ALT 12 Alkaline Phosphatase 52 Triglycerides 73 Cholesterol 183 LDL Cholesterol, Calc 124 H HDL Cholesterol 45 Ur Specific [place] 1.010 Urine Protein Negative Urine Glucose (UA) Negative Urine Blood Negative Urine Nitrite Negative Ur Leukocyte Esterase Negative Coding Level of Care Code Est Pt Prev Care 40-64y(69310) Diagnoses Annual physical exam Z00.00 Strain of adductor muscle of left thigh S76.212A H. pylori infection A04.8 Dyslipidemia E78.5 Irritable bowel syndrome with alternating bowel habits K58.2 Mild intermittent asthma without complication J45.20 Asthma severity: mild Asthma persistence: intermittent Asthma complication type: uncomplicated Allergic rhinitis, unspecified seasonality, unspecified trigger J30.9 Allergic rhinitis trigger: unspecified Allergic rhinitis seasonality: unspecified Overactive bladder N32.81 Renal calculi N20.0 Insomnia, unspecified type G47.00 Insomnia type: unspecified Anxiety F41.9 Additional Codes GRUPO-7 Assessment Billing - GRUPO-7 Assessment Tool: GRUPO-7 Assessment 92079 ([id number]) PHQ-9 - 72882 - PHQ-9 Billing: Yes ([id number]) Assessment & Plan Assessment & Plan (1) Annual physical exam: Code(s): Z00.00 - Encounter for general adult medical examination without abnormal findings Category: Medical Plan: Results of her labs done a few months ago reviewed and discussed with patient Will send her for some additional labs to complete her exam today She is currently up-to-date with all of her cancer screenings - she had her screening colonoscopy done last year in June 2024 - procedure came out normal and she as advised to get her repeat colonoscopy in 10 years Her yearly gynecology exam was done on 05/06/2025 and she last had a normal pap smear in 04/2022 Her annual mammogram was done back on 03/03/2025 (2) Strain of adductor muscle of left thigh: Code(s): S76.212A - Strain of adductor muscle, fascia and tendon of left thigh, initial encounter Category: Medical Plan: Will send her to physical therapy for further evaluation and management (3) H. pylori infection: Comment: if positive will tx Start omeprazole 20 mg QD after submit Code(s): A04.8 - Other specified bacterial intestinal infections Category: Medical Plan: Patient tested positive for H. pylori on gastric biopsy done initially in December 2023 She was initially treated with quadruple therapy with Bismuth, Flagyl, Omeprazole and Tetracycline for 14 days back in January 2024 Repeat gastric Bx done in June 2024 still tested positive for H. pylori despite her prior Tx We went ahead and treated her with salvage regimen consisting of Lansoprazole 30 mg BID, Amoxicillin 1000 mg BID and Levofloxacin 500 mg QD x 14 days a couple of months ago and patient states that she finished all of her Rx back then as prescribed Follow up with GI as scheduled (4) Dyslipidemia: Code(s): E78.5 - Hyperlipidemia, unspecified Category: Medical Plan: Reinforced low cholesterol diet Her recent labs done in July 2025 did not include her fasting lipids so will send her to get her fasting lipids rechecked ROBIN (5) Irritable bowel syndrome with alternating bowel habits: Comment: food diary- Code(s): K58.2 - Mixed irritable bowel syndrome Category: Medical Plan: She predominantly has constipation and takes OTC stool softeners (Docusate 100 mg 2 tablets QD, Senna 8.6 mg 2 tabs QD) as needed as well as Linzess 145 mcg QD Continue Dicyclomine 20 mg QID PRN and Ondansetron 4 mg Q 8 hours PRN for nausea/vomiting Reinforced increased oral fluids and dietary fiber Follow up with GI as scheduled (6) Asthma: Code(s): J45.909 - Unspecified asthma, uncomplicated Category: Medical Qualifiers: Asthma severity: mild Asthma persistence: intermittent Asthma complication type: uncomplicated Qualified Code(s): J45.20 - Mild intermittent asthma, uncomplicated Plan: Controlled - continue Albuterol HFA 2 puffs 4 times a day as needed (7) Allergic rhinitis: Code(s): J30.9 - Allergic rhinitis, unspecified Category: Medical Qualifiers: Allergic rhinitis trigger: unspecified Allergic rhinitis seasonality: unspecified Qualified Code(s): J30.9 - Allergic rhinitis, unspecified Plan: Continue Loratadine 10 mg QD PRN (8) Overactive bladder: Code(s): N32.81 - Overactive bladder Category: Medical Plan: Continue Oxybutynin ER 10 mg QD Follow up with urology as scheduled (9) Renal calculi: Code(s): N20.0 - Calculus of kidney Category: Medical Plan: Reinforced increased oral fluids Follow up with urology as scheduled for continue surveillance (10) Insomnia: Code(s): G47.00 - Insomnia, unspecified Category: Medical Qualifiers: Insomnia type: unspecified Qualified Code(s): G47.00 - Insomnia, unspecified Plan: Sleep hygiene reinforced Continue Trazodone 50 mg Q HS PRN (11) Anxiety: Comment: Anxiety due to personal and family history, certainly understandable-she is agreeable to plan Code(s): F41.9 - Anxiety disorder, unspecified Category: Medical Plan: Continue Lorazepam 0.5 g Q HS PRN Plan Follow up in 6 months Orders: Orders Complete Blood Count Auto Diff 11/20/25 D64.9 - Anemia, unspecified, Z00.00 - Encounter for general adult medical examination without abnormal findings Comprehensive [place]. Panel Fast 6 Months E78.00 - Pure hypercholesterolemia, unspecified Lipid Panel 6 Months E78.00 - Pure hypercholesterolemia, unspecified PT Evaluation and Treatment 11/19/25 S76.212A - Strain of adductor muscle, fascia and tendon of left thigh, initial encounter TSH reflex Free T4 11/20/25 E78.00 - Pure hypercholesterolemia, unspecified, Z00.00 - Encounter for general adult medical examination without abnormal findings Vitamin D 25-OH Total 11/20/25 E55.9 - Vitamin D deficiency, unspecified, Z00.00 - Encounter for general adult medical examination without abnormal findings
--- OUTSIDE RECORDS SUMMARY | 2025-11-19 16:29 | XMS_ITS | Continuity of Care Document ---
Author Organization [place] - [facility], [facility] Address [address] [place] [address] Care Team Providers Care Chute Greaser Name Role Phone RAZIA LOPEZ Primary Care Provider [phone] Assessment Encounter Date Assessment Date Assessment LastModified by Organization Details LastModified Time 09/09/2025 09/09/2025 45 year old female, with a history of asymmetric sensorineural hearing loss, left greater than right, presents for follow up. MRI of the IACs with contrast performed 06/21/25 at [facility] shows no retrocochlear abnormality. Reassurance was provided. [...] No observ ation record ed. [email or web address] [facility] ([facility]) [address] [facility], [place], [address], 09/21/2025 14:48:52 Result Notes None recorded. Problems Name Problem SNOMED Code Status Onset Date Resolution Date Notes Provider Name and Address Organization Details Recorded Time Sensorineur al hearing loss of bilateral ears 476458728 Active 2024 ARTEMIO WRIGHT [address] [facility],[address], [phone], [facility] - [facility] [place] 10:21:22 Bilateral tinnitus 4718707067217 Active 2024 JAYA KIM PA-C [address] [place] [address], [phone], [facility] - [facility] 10:59:56 Referred otalgia of left ear 5954070159228 107 Active 2024 YINA MILLS [address] [place] [address], [phone], [facility] - [facility] 00:14:43 Problem Notes None recorded. Procedures Surgical History Date Name Laterality Status Provider Name and Address Organization Details Recorded Time 05/03/20 Comp Audio with Tymps - 49171 & 50002 completed JACKELINE GONZALEZ, ARTEMIO 100 [facility],[address], [phone], [facility] - [facility] 05/03/2025 10:12:09 tonsillectomy and adenoidectomy completed JAYA KIM PA-C 100 [facility],[address], [address], [facility] - [facility] 05/03/2025 10:42:17 Imaging Results None recorded. Procedure [...] Updated DateTime 09/09/2025 162.56 cm 24 kg/m2 77691.93 g Yudith Garcia [place] - [facility] 09/09/2025 15:47:20 Social History None recorded. Functional [...] Disorder N Anesthesia Complications N Heart Attack ([place]) N Other Skin Condition N Diabetes N [...] ICD10 Code Diagnosis IMO Codes Diagnosis Note [id number] YINA MILLS [facility] on [address] [place] [phone] 09/09/2025 15:35:08 09/09/2025 16:12:11 Referred otalgia of left ear [id number] 069081 H92.02 M26.622 M79.11 Bilateral tinnitus 68624 35462 102 H93.13 870509 Sensorineu ral hearing loss of bilateral ears [id number] H90.3 [id number] Health Concerns Section Related Observation LastModified by Organization Detai ls LastModified Time None Recorded Concern Status LastModified by Organization Details LastModified Time None Recorded Payers Encounter Date Sequence Insurance Name Policy Number Policy Reaves Covered Member ID Reaves Member ID Guarantor Name 09/09/[address] [facility] - HEALTH NET PLAN (MEDICAID HMO) [id number] Ama Boateng [id number] Amajada Smithnandez Notes Date Note Type Note [...] frequently due to stress. STEVE LORA MD [address] [place] [address], [phone], [facility] - [facility] 09/10/2025 04:46:26 OBGyn Episode No OBEpisode recorded.
--- OUTSIDE RECORDS SUMMARY | 2025-11-19 16:29 | XMS_ITS | Data Portability ---
Author Organization [place] - [facility], Allergy Address [address] [place] [id number] Care Team Providers Care Housekeeper Nanny Name Role Phone RAZIA LOPEZ Primary Care Provider [phone] Assessment Encounter Date Assessment Date Assessment LastModified [...] the IACs with contrast performed 06/21/25 at [facility] shows no retrocochlear abnormality. Reassurance was provided. [...] AUDITORY CANAL, W/WO CONTRAST 2024 025 [email or web address] [facility] ([facility] [address] [place], [address], 13:13:21 Medication Orders None recorded. Patient TargetsNo [...] ation record ed. [email or web address] [facility] [address] [place], [address], 08/20/2025 08:37:42 09/21/20 25 06/16/2025 MRI, brain + inter nal audit ory canal , w/wo contr ast No observ ation record ed. [email or web address] [facility] ([facility]) [address] [place], [address], 09/21/2025 14:48:52 Result Notes None recorded. Problems Name Problem SNOMED Code Status Onset Date Resolution Date Notes Provider Name and Address Organization Details Recorded Time Sensorineur al hearing loss of bilateral ears 661411013 Active 2024 JACKELINE GONZALEZ, [facility] [address] [address], [place], [address], [facility] - [facility] 10:21:22 Bilateral tinnitus [id number] Active 2024 JAYA KIM PA-C [address] [facility], [place], [address], [facility] - [facility] 10:59:56 Referred otalgia of left ear [id number] 107 Active 2024 YINA MILLS [address] [facility] [address], [place], [address], [facility] - [facility] 00:14:43 Problem Notes None recorded. Procedures Surgical History Date Name Laterality Status Provider Name and Address Organization Details Recorded Time 05/03/20 Comp Audio with Tymps - 33075 & 21942 completed ARTEMIO WRIGHT [address] [facility],[address], [address], [facility] 05/03/2025 10:12:09 tonsillectomy and adenoidectomy completed JAYA KIM PA-C [address] [facility],[address], [address], [facility] 05/03/2025 10:42:17 Imaging Results None recorded. Procedure [...] Updated DateTime 05/03/2025 162.56 cm 24 kg/m2 51516.93 g Mary Carr [place] - [facility] 05/03/2025 10:28:45 Date Recorded Body height Body mass index (BMI) Body weight Provider Name and Address Organization Details Last Updated DateTime 09/09/2025 162.56 cm 24 kg/m2 64157.93 g Yudith Garcia [place] - [facility] 09/09/2025 15:47:20 Social History None recorded. Functional [...] Disorder N Anesthesia Complications N Heart Attack (OR) N Other Skin Condition N Diabetes N [...] ICD10 Code Diagnosis IMO Codes Diagnosis Note [id number] YINA YIN[facility] [address] [address] 05/03/2025 09:55:08 05/03/2025 10:53:19 Sensorineural hearing loss of bilateral ears 076062295 H90.3 [id number] Audiologic al evaluation results: Right ear: Mild to moderately -severe sensorineu ral hearing loss with good word recognitio n. Left ear: Moderate to profound sensorineu ral hearing loss with excellent word recognitio n. Conductive component at 3kHz only. Tympanomet ry: Right Ear:Type Ad Left Ear:Type C Bilateral tinnitus 83808 94473 102 H93.13 547116 [id number] YINA MILLS [facility] [place] include [address] beds at the [facility] on [address] [place] [address] 09/09/2025 15:35:08 09/09/2025 16:12:11 Referred otalgia of left ear [id number] 138251 H92.02 M26.622 M79.11 Bilateral tinnitus 82335 62402 102 H93.13 595334 Sensorineu ral hearing loss of bilateral ears 201567203 H90.3 [id number] Health Concerns Section Related Observation LastModified by Organization Detai ls LastModified Time None Recorded Concern Status LastModified by Organization Details LastModified Time None Recorded Advance Directives Directive None Recorded Payers Insurance Date Sequence Insurance Name Policy Number Policy Reaves Covered Member ID Reaves Member ID Guarantor Name 09/06/2025 1 [facility] NET PLAN (MEDICAID HMO) [id number] Ama Boateng [id number] Ama Boateng Notes Date Note Type Note [...] on quadruple therapy. SHAUN WILEY MD [address] [facility],[address], [address], [place] - [facility] 05/03/2025 12:35:02 09/09/2025 text/html ROS as noted [...] due to stress. STEVE LORA MD [address] [facility], [place], [address], [place] - [facility] 09/10/2025 04:46:26 OBGyn Episode No OBEpisode recorded.
== END 2025-11-19 16:41 | disposition home or self-care (01) ==
LOC: HO.HMCH 15:20
PROVIDERS: PCP Internal Medicine; Visit Provider Internal Medicine
DX: Z00.00 Encounter for general adult medical examination without abnormal findings (principal); S76.212A Strain of adductor muscle, fascia and tendon of left thigh, initial encounter; A04.8 Other specified bacterial intestinal infections; E78.5 Hyperlipidemia, unspecified; K58.2 Mixed irritable bowel syndrome; J45.20 Mild intermittent asthma, uncomplicated; J30.9 Allergic rhinitis, unspecified; N32.81 Overactive bladder; N20.0 Calculus of kidney; G47.00 Insomnia, unspecified; F41.9 Anxiety disorder, unspecified

== ENCOUNTER → 2025-11-19 15:19 | Outpatient (BNVA) | payer OTHER, SELFPAY | PROVIDERS: PCP Internal Medicine; Visit Provider Internal Medicine | DX: Z00.00 Encounter for general adult medical examination without abnormal findings (principal); A04.8 Other specified bacterial intestinal infections; E78.5 Hyperlipidemia, unspecified; K58.2 Mixed irritable bowel syndrome; J45.20 Mild intermittent asthma, uncomplicated; J30.9 Allergic rhinitis, unspecified; N32.81 Overactive bladder; N20.0 Calculus of kidney; G47.00 Insomnia, unspecified; F41.9 Anxiety disorder, unspecified; S76.212A Strain of adductor muscle, fascia and tendon of left thigh, initial encounter; X58.XXXA Exposure to other specified factors, initial encounter; Y93.9 Activity, unspecified; Y92.9 Unspecified place or not applicable; Y99.9 Unspecified external cause status | CPT/HCPCS: 96127; 99396 ==

== ENCOUNTER 2025-11-20 13:12 | Outpatient (REF) | payer OTHER, SELFPAY ==
[2025-11-20 15:19] LABS: MANUAL DIFF FLAG NO
[2025-11-20 15:21] LABS: Hematocrit 36.3 % (37.0-47.0); Hemoglobin 12.3 g/dl (12.0-16.0); Imm Gran Abs Auto 0.03 X10*3/uL (0.00-0.03); Imm Gran Pct Auto 0.4 % (0.0-0.4); Lymphocytes Absolute Auto 2.4 X10*3/uL (1.2-4.9); Mean Corpuscular HGB Conc 33.9 g/dl (31.0-35.0); Mean Corpuscular Hemoglobin 30.2 pg (27.0-33.0); Mean Corpuscular Volume 89.2 fL (80.0-98.0); NRBC Abs Auto 0.000 X10*3/uL (0.0-0.012); NRBC Pct Auto 0.0 /100WBC (0.0-0.2); Platelet Count 300 X10*3/uL (160-400); Red Blood Count 4.07 X10*6/uL (4.20-5.50); White Blood Count 7.1 X10*3/uL (4.8-10.8)
== END 2025-11-20 13:13 | disposition home or self-care (01) ==
LOC: HO.HMGCLDS 13:12
PROVIDERS: PCP Internal Medicine; Visit Provider Internal Medicine
DX: Z00.00 Encounter for general adult medical examination without abnormal findings (principal); E78.00 Pure hypercholesterolemia, unspecified; D64.9 Anemia, unspecified; E55.9 Vitamin D deficiency, unspecified
CPT/HCPCS: 36415; 82306; 84443; 85025